=== PATIENT | male | born 1950 | race Asian ===

== ENCOUNTER → 2020-07-28 07:01 | Outpatient (CLI) | payer MEDICARE, OTHER, SELFPAY ==
[2020-07-28 09:00] LABS: Hemoglobin A1C% w Est Avg Glu 6.8 % (4.0-6.0)
[2020-07-28 09:18] LABS: Alanine Aminotransferase 22 IU/L (<50); Albumin 3.9 g/dL (3.5-5.0); Albumin Globulin Ratio 1.6 (1.0-2.8); Alkaline Phosphatase 55 U/L (38-126); Aspartate Aminotransferase 25 IU/L (17-59); BUN Creatinine Ratio 24.7 (6-22); Bilirubin Total 0.7 mg/dL (0.2-1.3); Blood Urea Nitrogen 20 mg/dL (9-20); Calcium 9.6 mg/dL (8.4-10.2); Carbon Dioxide 31 mmol/L (22-32); Chloride 105 mmol/L (98-107); Cholesterol 93 mg/dL (140-199); Estimated Glomerular Filt Rate > 60.0 mL/min (>60); Globulin 2.4 g/dL (1.7-4.1); Glucose 150 mg/dL (80-110); HDL Cholesterol 42 mg/dL (40-60); HEMOLYSIS < 15 (0-50); LDL Cholesterol Calculated 38 mg/dL (<100); Potassium 3.8 mmol/L (3.4-5.1); Sodium 137 mmol/L (137-145); Total Protein 6.3 g/dL (6.3-8.2); Triglycerides 64 mg/dL (35-150)
[2020-07-28 09:45] LABS: Creatinine Urine Random 87.7 mg/dL
[2020-07-28 09:55] LABS: Microalbumin Urine Random < 0.6 mg/dL (0-1.6)
[2020-07-29 07:18] LABS: PSA Free % 31.1 % (.); PSA, Total 0.9 ng/mL (0.0-4.0)
== END ==
PROVIDERS: PCP Family Medicine; Referring Provider Family Medicine; Visit Provider Family Medicine
DX: E11.9 Type 2 diabetes mellitus without complications (principal); N40.0 Benign prostatic hyperplasia without lower urinary tract symptoms
CPT/HCPCS: 36415; 80053; 80061; 82043; 82570; 83036; 84153; 84154

== ENCOUNTER → 2021-01-09 07:23 | Outpatient (CLI) | payer MEDICARE, OTHER, SELFPAY ==
[2021-01-09 07:49] LABS: Hemoglobin A1C% w Est Avg Glu 7.1 % (4.0-6.0)
[2021-01-09 07:56] LABS: Cholesterol 123 mg/dL (140-199); HDL Cholesterol 42 mg/dL (40-60); LDL Cholesterol Calculated 55 mg/dL (<100); Triglycerides 129 mg/dL (35-150)
== END ==
PROVIDERS: PCP Family Medicine; Referring Provider Family Medicine; Visit Provider Family Medicine
DX: E11.9 Type 2 diabetes mellitus without complications (principal); E78.2 Mixed hyperlipidemia
CPT/HCPCS: 36415; 80061; 83036

== ENCOUNTER → 2021-04-10 07:00 | Outpatient (CLI) | payer MEDICARE, OTHER, SELFPAY ==
[2021-04-10 08:59] LABS: Add Manual Diff / Slide Review NO; Basophils Absolute Auto 0 /uL (0-100); Basophils Percent Auto 0.7 % (0-2); Eosinophils Absolute Auto 100 /uL (0-450); Eosinophils Percent Auto 1.9 % (2-4); Hematocrit 40.3 % (41-53); Hemoglobin 13.7 g/dL (13.5-17.5); Lymphocytes Absolute Auto 1800 /uL (1100-4500); Lymphocytes Percent Auto 33.8 % (25-40); Mean Corpuscular HGB Conc 34.1 % (30-36); Mean Corpuscular Hemoglobin 32.3 PG (26-34); Mean Corpuscular Volume 94.9 fL (80-100); Monocytes Absolute Auto 400 /uL (0-900); Monocytes Percent Auto 6.9 % (3-14); Neutrophils Absolute Auto 3000 /uL (1500-7000); Neutrophils Percent Auto 56.7 % (50-75); Platelet Count 153 X10^3/uL (150-400); Red Blood Cell Count 4.25 X10^6/uL (4.5-5.9); Red Cell Distribution Width 12.7 % (11.6-14.8); White Blood Cell Count 5.3 X10^3/uL (4.5-11.0)
[2021-04-10 09:01] LABS: Hemoglobin A1C% w Est Avg Glu 7.1 % (4.0-6.0)
[2021-04-10 09:08] LABS: Alanine Aminotransferase 51 IU/L (<50); Albumin 4.1 g/dL (3.5-5.0); Albumin Globulin Ratio 1.6 (1.0-2.8); Alkaline Phosphatase 62 U/L (38-126); Aspartate Aminotransferase 46 IU/L (17-59); BUN Creatinine Ratio 27.1 (6-22); Bilirubin Total 0.5 mg/dL (0.2-1.3); Blood Urea Nitrogen 16 mg/dL (9-20); C-Reactive Protein Quant < 0.5 mg/dL (<1.0); Calcium 10.1 mg/dL (8.4-10.2); Carbon Dioxide 30 mmol/L (22-32); Chloride 103 mmol/L (98-107); Creatine Kinase 71 U/L (55-170); Estimated Glomerular Filt Rate > 60.0 mL/min (>60); Globulin 2.5 g/dL (1.7-4.1); Glucose 146 mg/dL (80-110); HEMOLYSIS < 15 (0-50); Potassium 4.4 mmol/L (3.4-5.1); Sodium 140 mmol/L (137-145); Total Protein 6.6 g/dL (6.3-8.2)
[2021-04-10 09:28] LABS: Erythrocyte Sedimentation Rate 5 MM/HR (0-15)
== END ==
PROVIDERS: PCP Family Medicine; Referring Provider Family Medicine; Visit Provider Family Medicine
DX: R53.83 Other fatigue (principal); E11.9 Type 2 diabetes mellitus without complications; R29.898 Other symptoms and signs involving the musculoskeletal system
CPT/HCPCS: 36415; 80053; 82550; 83036; 85025; 85651; 86140

== ENCOUNTER → 2021-04-28 15:09 | Outpatient (CLI) | payer MEDICARE, OTHER, SELFPAY ==
--- NOTE | 2021-04-28 15:18 | DIET.PN ---
Initial Diabetes Assessment Name: Koby Coe Date: 04/28/21 Time: 8895-9719 Preferred Name: Koby Dx: Type II Diabetes Provider: Gilson Preferred Learning Style: Listening/Doing/Reading PMH: HLD Presents for initial medical nutrition therapy diabetes assessment. Endorses DM dx in 1999. Denies symptoms of hyperglycemia or complications. States he wishes he had symptoms with high blood sugars, because then he would be motivated to make changes. Does endorse polyuria. Taking Tamsulosin. Does not attribute this to hyperglycemia, though may play a role. Frequent urination impacts how much water he will drink per his report. 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 Checks feet regularly. States he has had one DM education meeting when diagnosed. Never took classes. 2-3 years ago suggested diet without meat, fish, low dairy after reading a diet book. States this results in mostly vegetables at meals. Supplements protein through shakes and plant based proteins. Some sweets in the evenings per diet recall. States he has a sweet tooth which results in candy bars and ice cream sometimes. Has questions about the high protein pastas he and his eat. Wondering about carb content. Reports h/o Trulicity over 2-3 years ago. Endorses an HgA1c of 5.6% at that time. Was subsequently taken off Trulicity and started Metformin. Currently maxed on Metformin XR and experiencing some hyperglycemia in the morning (see SMBG below). States Trulicity was expensive and though he may be open to taking additional meds if needed, without symptoms of hyperglycemia he is less apt to take more meds. Discussed potential for making lifestyle changes since his HgA1c is 7.1%, very close to well managed DM. Diet Recall: 8am: muscle milk and fruit (15-30g CHO) 12p: salad with hemp seeds and 1.5c watermelon (20-30g CHO) 330p: smoothie (estimated: 30g CHO) 6-8p: salad and impossible beef OR imp beef meatloaf with small potatoes OR 2c protein pasta on salad (6-60g CHO) Dessert: 4x per week 1.5c ice cream (40-50g CHO) 9-10p: muscle milk or apple and PB with hemp hearts (0-30g CHO) Beverages: water 64oz Anthropometrics: Ht: 5'11 Wt: 210.25# Physical Activity: Walking 10, 000+ steps five days per week. Barrier: LE fatigue (discussed with provider. will see specialist) Self-Monitoring Blood Glucose: All fastings above ADA targets. 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 HS readings vary, which seems unclear if this is due to sometimes having dessert prior. Most within goal, with exception of 04/26 reading of 185 mg/dL. Date Pre Post Pre Post Pre HS 04/21 153 8/ 146 8/ 155 140 8/14 153 15 148 185 16 137 142 / 145 Pertinent Labs: HgA1c 7.1% Diabetes Medications: Metformin XR 2000 mg HS Nutrition Rx: Carbohydrates: Meal:30-45g Snack: 15-30g Nutrition Diagnosis: - Excessive CHO intake r/t nutrition knowledge deficit of label reading and carb recs aeb diet recall and pt report Intervention: This participant was very receptive. Provided appropriate educational handouts. Discussed the following topics: - Completed intake assessment. Discussed barriers to care. - Pathophysiology of bjorn phenomenon - HgA1c and goal - Importance of self-monitoring, how often, and when to check. -Plate Method, impact of macronutrients on blood sugar, carb counting, pairing macronutrients and spreading out CHO for better BG mgmnt - Rec servings for carbohydrates at meals and snacks - Label reading - Brainstormed appropriate meal plan based on food preferences - Role of physical activity - Created SMART goals for pt self-care and success. Goals: - Aim for 1-1.5c protein pasta or less at meals - Aim for 1c ice cream or less - Write down blood sugars, evening snack, dessert, and time (bring to next appt) Follow-up: YUVAL MEYER follow-up in3 weeks Vivian Cobb RDN, BETSY Certified Diabetes Care and Tailings Worker P: [phone] Thank you for this referral
== END ==
PROVIDERS: PCP Family Medicine; Referring Provider Family Medicine; Visit Provider Family Medicine
DX: E11.9 Type 2 diabetes mellitus without complications (principal); Z79.84 Long term (current) use of oral hypoglycemic drugs; Z71.3 Dietary counseling and surveillance
CPT/HCPCS: 97802

== ENCOUNTER → 2021-05-09 12:02 | Outpatient (CLI) | payer MEDICARE, OTHER, SELFPAY ==
[2021-05-09 13:28] LABS: COVID19 -Nasal RAPID Negative (Negative)
== END ==
PROVIDERS: PCP Family Medicine; Visit Provider Nurse Practitioner
DX: Z01.812 Encounter for preprocedural laboratory examination (principal); Z20.822 Contact with and (suspected) exposure to COVID-19
CPT/HCPCS: 87635; C9803

== ENCOUNTER 2021-05-12 06:30 | Day surgery (SDC) | payer MEDICARE, OTHER, SELFPAY ==
[2021-05-12 06:50] VITALS: BP 110/69; PULSE 86; RESP 14; TEMP 36.4; O2SAT 97; BMI 27.1
[2021-05-12] MEDS: PROPARACAINE 0.5% OPHTH SOL 2 DROPS EYE-OP (07:09)
[2021-05-12] MEDS: CATARACT EYE COMPOUND (10 DROPS/SYRINGE) 3 DROPS EYE-OP (07:09)
--- NOTE | 2021-05-12 07:30 | PM.PREOP ---
Pre-operative Note Interval Note History & Physical reviewed/Exam performed by Physician: Yes Changes to H&P: No
--- NOTE | 2021-05-12 07:30 | PM.OP.1 ---
Operative Date/Time/Diagnoses Pre-op diagnosis: Nuclear Cataract Left eye Post-op diagnosis: same Procedure & Clinicians Same procedure as scheduled: Yes Surgeon: Familia Ocampo Anesthesia Type: MAC +/- and Sedation Operative Notes Procedure in detail: Patient brought to the operating suite. Tetracaine drops placed in the left eye. Patient was prepped and draped in sterile manner. Wire lid speculum was placed in the eye. Betadine drops were placed on the eye. This was irrigated. Lidocaine jelly was placed on the eye. A paracentesis port was created with a side-port blade. 0.1 mL 1% preservative free lidocaine was injected into the anterior chamber. The anterior chamber was deepened with viscoelastic. 2.6 mm keratome was used to create a temporal clear corneal incision. Cystotome and Utrata forceps were used to create continuous tear capsulorrhexis. Balanced salt solution was used to hydro dissect the nucleus. The phacoemulsification handpiece was inserted and the nucleus was removed using the stop and chop technique. The irrigation aspiration handpiece was inserted and the remaining cortex was removed. Anterior chamber was deepened with viscoelastic. An Flores ZXR00 intraocular lens with a power of 21.5 was injected into the capsular bag. Irrigation aspiration handpiece was inserted and the remaining viscoelastic was removed. Incision was hydrated with balanced salt solution and found to be leak free with pressure with Weck-Maricel sponges. 0.1 mL Vigamox injected anterior chamber. 0.3 mL Kenalog 10 mg was injected subconjunctivally. Lid speculum was removed. The patient left the operating room in excellent condition. Complications: none Post-operative Condition: stable Disposition: same day surgery
[2021-05-12] MEDS: HYALURONATE SODIUM 30 MG-10 MG/ML SYRINGES 1 BOX INTRAOCULA (07:46)
[2021-05-12] MEDS: LIDOCAINE 2% (GLYDO) 6 ML GEL TOP (07:46)
[2021-05-12] MEDS: MOXIFLOXACIN INJ 4 MG/0.8 ML VIAL 0.5 MG EYE-OP (07:47)
[2021-05-12] MEDS: PHENYLEPHRINE/LIDOCAINE VIAL (OR) 0.2 ML EYE-OP (07:47)
[2021-05-12] MEDS: BALANCED SALT IRRIG SOLN NO.2 500 ML, EPINEPHrine 1 MG IRR (07:48)
[2021-05-12] MEDS: TETRACAINE 0.5% OPHTH DROPS 4 ML 2 DROPS EYE-OP (07:48)
[2021-05-12] MEDS: TRIAMCINOLONE 50 MG/5 ML VIAL INJ (07:48)
[2021-05-12 08:13] VITALS: BP 106/66; PULSE 75; RESP 13; TEMP 36.7; O2SAT 97
== END 2021-05-12 08:19 | disposition home or self-care (01) ==
PROVIDERS: PCP Family Medicine; Referring Provider Ophthalmology; Visit Provider Ophthalmology
PROC: (CPT 66984; principal; 2021-05-12 07:45)
DX: H25.12 Age-related nuclear cataract, left eye (principal); I10 Essential (primary) hypertension; E11.9 Type 2 diabetes mellitus without complications; Z79.84 Long term (current) use of oral hypoglycemic drugs
CPT/HCPCS: 66984; J0171; J2250; J3301; V2788

== ENCOUNTER → 2021-05-21 15:32 | Outpatient (CLI) | payer MEDICARE, OTHER, SELFPAY ==
--- NOTE | 2021-05-21 16:49 | DIAB.FU ---
Addendum entered by Vivian Cobb 05/21/21 17:23: Date: 05/21/2021 Time: 340-435p Original Note: Follow-up Diabetes Education Assessment Name: Koby Coe Date: 04/28/21 Time: [id number] Preferred Name: Koby Dx: Type II Diabetes Provider: Gilson Grace Learning Style: Listening/Doing/Reading PMH: HLD Koby reports reducing carb portions at dinner. Still having larger ice cream portions (1.5c). Reviewing HgA1c and weight hx, seems his weight is about 8# higher along with the slight increase in HgA1c. Attributes this weight gain to reduced physical activity r/t leg issues. States legs feel like they aren't there. They don't do what I want them to sometimes. Plans to see neurologist for this in [place] as referred by provider. Koby has a reported DM medication hx with Januvia and Trulicity. No reported SE. Currently only taking Metformin and experiencing continued fasting hyperglycemia. Anthropometrics: Ht: 5'11 Wt: 210.25# Physical Activity: Today he reports only walking his 10,000 steps per day a few times per week. No other phys activity on other days. Has h/o weight training and other exercises with access to equipment at home. States he was walking 60,000 steps per week last year. This has drastically reduced to 10,000-40,000 per week this year. Self-Monitoring Blood Glucose: Most fastings continue above target. pc dinner readings mostly in range. See bolded elevations below. Elevations in the morning seem r/t hormones, bjorn phenomenon? Readings elevated the next morning even when he walks the day before. Overall, he does not seem concerned about the elevations given HgA1c was 7.1%, though he is open to increasing other forms of phys activity. Date Pre Post Pre Post Pre Post 04/30 141 180 05/01 181 05/02 151 154 05/03 139 05/04 151 170 05/05 130 118 05/06 115 133 05/07 128 155 05/08 149 05/10 153 9/3 124 9/4 181 9/5 161 9/6 138 9/8 183 9/9 130 Pertinent Labs: HgA1c 7.1% Diabetes Medications: Metformin XR 2000 mg HS Nutrition Rx: Carbohydrates: Meal:30-45g Snack: 15-30g Intervention: This participant was very receptive. Provided appropriate educational handouts. Discussed the following topics: - Recent BG trends and impact of hormones vs lifestyle - Barrier to phys activity - Safe phys activity he enjoys - Weight impact on BG - Weight and physical activity changes -- impact on HgA1c - Medication options if he and provider decide to go that route - SMART goals If provider would like to provide medication to manage fastings, Koby would probably benefit from returning to low dose GLP1RA or perhaps trying SGLT2i (pending contraindications). Another consideration could be, given his age and lack of symptoms, continuing with Metformin and lifestyle. I have discussed both options with Koby. He seems more on-board with current regimen, which also seems appropriate at this time. Goals: - Aim for 1-1.5c protein pasta or less at meals- met - Aim for 1c ice cream or less - in progress - Write down blood sugars, evening snack, dessert, and time (bring to next appt) - met - Try resistance training safely 2 x per week - new Follow-up: YUVAL MEYER follow-up prn. Provided my contact info and encouraged him to call with any questions/concerns. He agreed to this plan. Vivian Cobb RDN, BETSY Certified Diabetes Care and Content Creation Manager P: [phone] Thank you for this referral
== END ==
PROVIDERS: PCP Family Medicine; Referring Provider Family Medicine; Visit Provider Family Medicine
DX: E11.9 Type 2 diabetes mellitus without complications (principal); E78.5 Hyperlipidemia, unspecified; Z79.84 Long term (current) use of oral hypoglycemic drugs; Z71.3 Dietary counseling and surveillance
CPT/HCPCS: G0108

== ENCOUNTER → 2021-05-25 08:04 | Outpatient (CLI) | payer MEDICARE, OTHER, SELFPAY ==
[2021-05-25 13:30] LABS: COVID19 -Nasal RAPID Negative (Negative)
== END ==
PROVIDERS: PCP Family Medicine; Visit Provider Nurse Practitioner Family
DX: Z01.812 Encounter for preprocedural laboratory examination (principal); Z20.822 Contact with and (suspected) exposure to COVID-19
CPT/HCPCS: 87635; C9803

== ENCOUNTER 2021-05-26 06:25 | Day surgery (SDC) | payer MEDICARE, OTHER, SELFPAY ==
[2021-05-26] MEDS: PROPARACAINE 0.5% OPHTH SOL 2 DROPS EYE-OP (06:53)
[2021-05-26] MEDS: CATARACT EYE COMPOUND (10 DROPS/SYRINGE) 3 DROPS EYE-OP (07:00)
[2021-05-26 07:04] VITALS: BP 123/74; PULSE 78; RESP 20; TEMP 36.5; O2SAT 99; BMI 27.8
--- NOTE | 2021-05-26 07:29 | PM.PREOP ---
Pre-operative Note Interval Note History & Physical reviewed/Exam performed by Physician: Yes Changes to H&P: No
--- NOTE | 2021-05-26 07:29 | PM.OP.1 ---
Operative Date/Time/Diagnoses Pre-op diagnosis: Nuclear cataract right eye Procedure & Clinicians Procedure: Cataract Surgery Same procedure as scheduled: Yes Surgeon: Familia Ocampo Anesthesia Type: MAC +/- and Sedation Operative Notes Procedure in detail: Patient brought to the operating suite. Tetracaine drops placed in the right eye. Patient was prepped and draped in sterile manner. Wire lid speculum was placed in the eye. Betadine drops were placed on the eye. This was irrigated. Lidocaine jelly was placed on the eye. A paracentesis port was created with a side-port blade. 0.1 mL 1% preservative free lidocaine was injected into the anterior chamber. The anterior chamber was deepened with viscoelastic. 2.6 mm keratome was used to create a temporal clear corneal incision. Cystotome and Utrata forceps were used to create continuous tear capsulorrhexis. Balanced salt solution was used to hydro dissect the nucleus. The phacoemulsification handpiece was inserted and the nucleus was removed using the stop and chop technique. The irrigation aspiration handpiece was inserted and the remaining cortex was removed. Anterior chamber was deepened with viscoelastic. An Flores ZXR00 intraocular lens with a power of 21.0 was injected into the capsular bag. Irrigation aspiration handpiece was inserted and the remaining viscoelastic was removed. Incision was hydrated with balanced salt solution and found to be leak free with pressure with Weck-Maricel sponges. 0.1 mL Vigamox injected anterior chamber. 0.3 mL Kenalog 10 mg was injected subconjunctivally. Lid speculum was removed. The patient left the operating room in excellent condition. Complications: none Post-operative Condition: stable Disposition: same day surgery
[2021-05-26] MEDS: HYALURONATE SODIUM 30 MG-10 MG/ML SYRINGES 1 BOX INTRAOCULA (07:50)
[2021-05-26] MEDS: LIDOCAINE 2% (GLYDO) 6 ML GEL TOP (07:50)
[2021-05-26] MEDS: MOXIFLOXACIN INJ 4 MG/0.8 ML VIAL 0.5 MG EYE-OP (07:51)
[2021-05-26] MEDS: PHENYLEPHRINE/LIDOCAINE VIAL (OR) 0.2 ML EYE-OP (07:51)
[2021-05-26] MEDS: TETRACAINE 0.5% OPHTH DROPS 4 ML 2 DROPS EYE-OP (07:51)
[2021-05-26] MEDS: TRIAMCINOLONE 50 MG/5 ML VIAL INJ (07:54)
[2021-05-26] MEDS: BALANCED SALT IRRIG SOLN NO.2 500 ML, EPINEPHrine 1 MG IRR (07:55)
[2021-05-26 08:04] VITALS: BP 92/60; PULSE 71; RESP 16; TEMP 36.6; O2SAT 97
[2021-05-26 08:16] VITALS: BP 97/63
== END 2021-05-26 08:25 | disposition home or self-care (01) ==
PROVIDERS: PCP Family Medicine; Referring Provider Ophthalmology; Visit Provider Ophthalmology
PROC: (CPT 66984; principal; 2021-05-26 07:45)
DX: H25.11 Age-related nuclear cataract, right eye (principal); I10 Essential (primary) hypertension; E11.9 Type 2 diabetes mellitus without complications; E78.00 Pure hypercholesterolemia, unspecified; Z79.84 Long term (current) use of oral hypoglycemic drugs; E78.5 Hyperlipidemia, unspecified; N40.0 Benign prostatic hyperplasia without lower urinary tract symptoms
CPT/HCPCS: 66984; J0171; J2250; J3301; V2788

== ENCOUNTER → 2021-05-30 10:03 | Outpatient (CLI) | payer MEDICARE, OTHER, SELFPAY ==
[2021-05-30 12:18] LABS: BUN Creatinine Ratio 26.2 (6-22); Blood Urea Nitrogen 16 mg/dL (9-20); Calcium 9.5 mg/dL (8.4-10.2); Carbon Dioxide 33 mmol/L (22-32); Chloride 104 mmol/L (98-107); Estimated Glomerular Filt Rate > 60.0 mL/min (>60); Glucose 165 mg/dL (80-110); HEMOLYSIS 16 (0-50); Potassium 3.8 mmol/L (3.4-5.1); Sodium 142 mmol/L (137-145)
== END ==
PROVIDERS: PCP Family Medicine; Referring Provider Family Medicine; Visit Provider Family Medicine
DX: E78.2 Mixed hyperlipidemia (principal); E11.9 Type 2 diabetes mellitus without complications
CPT/HCPCS: 36415; 80048

== ENCOUNTER → 2021-07-29 09:30 | Outpatient (CLI) | payer MEDICARE, OTHER, SELFPAY ==
[2021-07-29 10:59] LABS: COVID19 -Nasal RAPID Negative (Negative)
== END ==
PROVIDERS: PCP Family Medicine; Referring Provider Surgery; Visit Provider Surgery
DX: Z01.812 Encounter for preprocedural laboratory examination (principal); Z20.822 Contact with and (suspected) exposure to COVID-19
CPT/HCPCS: 87635; C9803

== ENCOUNTER 2021-07-30 08:02 | Day surgery (SDC) | payer MEDICARE, OTHER, SELFPAY ==
[2021-07-30 08:34] VITALS: BP 145/82; PULSE 77; RESP 16; TEMP 36.5; O2SAT 96; BMI 27.4
[2021-07-30] MEDS: LACTATED RINGERS 1,000 ML 42 ML IV (08:50)
--- NOTE | 2021-07-30 09:45 | PM.HP.1 ---
History of Present Illness History of Present Illness Date Patient Seen: 07/30/21 Time Patient Seen: 09:46 Chief complaint: SDC Narrative: Koby is a 71-year-old man who is here for a screening colonoscopy. His last colonoscopy was 5 years ago and polyps were found. He was given a recommendation for 5 year interval. No other problems to report. 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 Family & Social History Social History: household members spouse Tobacco & Substance use: Smoking Status Former smoker alcohol intake current alcohol intake frequency holiday/special occasion Substance Use Type marijuana Meds Home Medications and Allergies Home Medications Medication Instructions Recorded Confirmed Type naproxen sodium 220 mg tablet 220 mg PO BIDCC PRN #0 08/19/16 07/30/21 History (Aleve) calcium citrate 250 mg 2 tab PO BID 06/06/20 07/30/21 History calcium-vitamin D3 5 mcg (200 unit) tablet (Citracal Regular) prasterone (dhea) 50 mg capsule 50 mg PO DAILY 06/06/20 07/30/21 History (DHEA) proargi-9 1 tab PO DAILY 06/06/20 07/30/21 History tamsulosin 0.4 mg capsule (Flomax) 0.4 mg PO BID #180 cap 11/21/20 07/30/21 Rx blood sugar diagnostic (Blood #100 ea 03/03/21 04/08/21 Rx Glucose Test) ipratropium bromide 21 mcg (0.03 See Rx Instructions .ROUTE 03/19/21 07/30/21 Rx %) nasal spray .COMPLEX #30 ml lisinopril 5 mg tablet 5 mg PO DAILY #90 tab 05/06/21 07/30/21 Rx cholecalciferol (vitamin D3) 125 125 mcg PO DAILY 05/12/21 07/30/21 History mcg (5,000 unit) tablet (Vitamin D3) glucosamine 750 mg-MSM 60 1 tab PO DAILY 05/12/21 07/30/21 History mg-chondroit 150 mg-hyaluron ac 1 mg tablet magnesium chloride 64 mg PO DAILY 05/12/21 07/30/21 History multivitamin with iron 1 tab PO DAILY 05/12/21 07/30/21 History potassium chloride 10 mEq 40 meq PO BID 05/12/21 07/30/21 History capsule,extended release vitamin B complex 1 tab PO DAILY 05/12/21 07/30/21 History metformin 500 mg tablet,extended See Rx Instructions .ROUTE 05/14/21 07/30/21 Rx release 24 hr .COMPLEX #120 tab tolterodine 4 mg capsule,extended See Rx Instructions .ROUTE 05/29/21 07/30/21 Rx release 24 hr .COMPLEX #90 cap atorvastatin 40 mg tablet 40 mg PO HS #90 tab 07/16/21 07/30/21 Rx Allergies Allergy/AdvReac Type Severity Reaction Status Date / Time No Known Drug Allergies Allergy Verified 07/30/21 08:24 Exam Vital Signs (past 8 hours): - 07/30/21 08:34 Temperature 97.7 F Pulse Rate 77 Respiratory Rate 16 Blood Pressure 145/82 H Pulse Oximetry 96 Oxygen Delivery Method Room Air Const General: healthy appearing and comfortable HENMT Head: atraumatic Eyes General: appearance normal, both eyes and all related structures Resp Effort & Inspection: normal respiratory effort Assessment & Plan Assessment and plan (1) Colon cancer screening: Status: Acute Plan Reviewed the risks and benefits colonoscopy and he would like to proceed. Time Spent With Patient Critical Care time: I spent a total of [] minutes of critical care time on this patient's care today; this time is exclusive of procedural time.
[2021-07-30] MEDS: fentaNYL 250 MCG/5 ML INJ IV (10:04)
[2021-07-30] MEDS: MIDAZOLAM 5 MG/5 ML VIAL IV (10:04)
--- NOTE | 2021-07-30 10:44 | PM.OP.COLON ---
Operative Date/Time/Diagnoses Date of procedure: 07/30/21 Time of procedure: 10:45 Pre-op diagnosis: History of colon polyps Post-op diagnosis: same Procedure & Clinicians Study performed: Colonoscopy Same procedure as scheduled: Yes Indications: History of colon polyps 5 years ago Surgeon: Zain Georges Procedure Notes SCOAP/Timeout: Yes Procedure in detail: Procedure: The patient was brought to the endoscopy suite, placed in left lateral decubitus position. The patient was connected to monitoring devices. A time-out was performed. Sedation was administered. Once the patient was adequately sedated, a digital rectal exam was performed and was normal. The scope was then inserted and advanced to the cecum where the appendiceal orifice was identified and photographed. The scope was then slowly withdrawn over greater than 6 minutes. Mucosa was thoroughly inspected. There were diverticula throughout the colon including the cecum and most significantly in the sigmoid colon. The scope was retroflexed in the rectum. No abnormalities were noted. The scope was straightened and removed. The patient was awakened and brought to recovery. EBL: 0 Findings: Pandiverticulosis, greatest in the sigmoid colon Scope withdrawal time: 26 Sedation minutes: 49 Findings: divertiulosis Post-procedure Recommendations: Colonoscopy in 10 years
[2021-07-30 10:45] VITALS: BP 108/62; PULSE 62; RESP 14; TEMP 36.3; O2SAT 96
[2021-07-30 10:50] VITALS: BP 112/66; PULSE 60; RESP 12
[2021-07-30 11:06] VITALS: BP 115/66; PULSE 68; RESP 18; TEMP 36.3; O2SAT 98
[2021-07-30 11:30] VITALS: BP 125/67; PULSE 65; RESP 15; TEMP 36.7; O2SAT 100
== END 2021-07-30 11:45 | disposition home or self-care (01) ==
PROVIDERS: PCP Family Medicine; Referring Provider Surgery; Visit Provider Surgery
PROC: 0DJD8ZZ Inspection of Lower Intestinal Tract, Via Natural or Artificial Opening Endoscopic (ICD-10-PCS; CPT 45378; principal; 2021-07-30 09:45)
DX: Z12.11 Encounter for screening for malignant neoplasm of colon (principal); Z86.010 Personal history of colon polyps; E11.9 Type 2 diabetes mellitus without complications; Z79.84 Long term (current) use of oral hypoglycemic drugs; K57.30 Diverticulosis of large intestine without perforation or abscess without bleeding
CPT/HCPCS: G0105; 99152; 99153; J2250; J3010

== ENCOUNTER → 2021-08-21 08:02 | Outpatient (CLI) | payer MEDICARE, OTHER, SELFPAY ==
[2021-08-21 08:51] LABS: Hemoglobin A1C% w Est Avg Glu 7.1 % (4.0-6.0)
[2021-08-21 09:09] LABS: Alanine Aminotransferase 32 IU/L (<50); Albumin 4.4 g/dL (3.5-5.0); Albumin Globulin Ratio 1.9 (1.0-2.8); Alkaline Phosphatase 70 U/L (38-126); Aspartate Aminotransferase 28 IU/L (17-59); BUN Creatinine Ratio 24.7 (6-22); Bilirubin Total 0.5 mg/dL (0.2-1.3); Blood Urea Nitrogen 18 mg/dL (9-20); Carbon Dioxide 29 mmol/L (22-32); Chloride 101 mmol/L (98-107); Estimated Glomerular Filt Rate > 60.0 mL/min (>60); Globulin 2.3 g/dL (1.7-4.1); Glucose 162 mg/dL (80-110); HEMOLYSIS < 15 (0-50); Potassium 4.3 mmol/L (3.4-5.1); Sodium 140 mmol/L (137-145); Total Protein 6.7 g/dL (6.3-8.2)
== END ==
PROVIDERS: PCP Family Medicine; Referring Provider Family Medicine; Visit Provider Family Medicine
DX: E11.9 Type 2 diabetes mellitus without complications (principal); E78.2 Mixed hyperlipidemia
CPT/HCPCS: 36415; 80053; 83036

== ENCOUNTER → 2021-09-28 08:35 | Outpatient (CLI) | payer MEDICARE, OTHER, SELFPAY ==
[2021-09-28 11:10] LABS: Cholesterol 214 mg/dL (140-199); HDL Cholesterol 35 mg/dL (40-60); LDL Cholesterol Calculated 151 mg/dL (<100); Triglycerides 140 mg/dL (35-150)
== END ==
PROVIDERS: PCP Family Medicine; Referring Provider Psychiatry & Neurology Neurology; Visit Provider Psychiatry & Neurology Neurology
DX: E78.2 Mixed hyperlipidemia (principal)
CPT/HCPCS: 36415; 80061

== ENCOUNTER → 2021-12-31 08:17 | Outpatient (CLI) | payer MEDICARE, OTHER, SELFPAY ==
[2021-12-31 09:38] LABS: Cholesterol 199 mg/dL (140-199); HDL Cholesterol 33 mg/dL (40-60); LDL Cholesterol Calculated 131 mg/dL (<100); Triglycerides 173 mg/dL (35-150)
[2021-12-31 10:02] LABS: Hemoglobin A1C% w Est Avg Glu 7.1 % (4.0-6.0)
== END ==
PROVIDERS: PCP Family Medicine; Referring Provider Family Medicine; Visit Provider Family Medicine
DX: E11.9 Type 2 diabetes mellitus without complications (principal); E78.2 Mixed hyperlipidemia
CPT/HCPCS: 36415; 80061; 83036

== ENCOUNTER 2022-03-01 15:59 | Emergency (ER) | payer MEDICARE, OTHER, SELFPAY ==
[2022-03-01 16:13] VITALS: BP 110/61; PULSE 83; RESP 18; TEMP 35.9; O2SAT 96; BMI 27.8
[2022-03-01] MEDS: LIDOCAINE 1% 20 ML 10 ML INJ (18:38)
[2022-03-01] MEDS: TET,DIPH,PERTUSS(ACELL),VAC/PF 0.5 ML SYRINGE IM (18:38)
--- NOTE | 2022-03-01 19:05 | ED.FALL ---
HPI - Fall <Bob Hays PA-C - Last Filed: 03/01/22 19:53> General Chief Complaint: Fall Stated Complaint: Fall, Head Laceration Time Seen by Provider: 03/01/22 18:24 Source: patient Mode of arrival: Ambulatory History of Present Illness HPI Narrative: Patient is a 72-year-old male who presents to the emergency department today for evaluation of a right eyebrow laceration. Patient states that earlier today he was doing yd work he bent forward to uses drill. He states that while bent forward he lost his balance causing him to fall forward and strike the right side of his head on the curb. Of note, patient denies any loss of consciousness and states he is not anticoagulated daily. He states that he has not received a tetanus shot or at least the past 9 years. He denies any fever, chills, chest pain, cough, shortness of breath nausea, vomiting, diarrhea, constipation, abdominal pain, dysuria, hematuria, or any other concerning symptoms. No further concerns were voiced at this time. Related Data Home Medications Medication Instructions Recorded Confirmed naproxen sodium 220 mg tablet 220 mg PO BIDCC PRN Pain (Scale 08/19/16 10/06/21 (Aleve) Score 1-3) ##0 prasterone (dhea) 50 mg capsule 50 mg PO DAILY 06/06/20 10/06/21 (DHEA) cholecalciferol (vitamin D3) 125 125 mcg PO DAILY 05/12/21 10/06/21 mcg (5,000 unit) tablet (Vitamin D3) glucosamine 750 mg-MSM 60 1 tab PO DAILY 05/12/21 10/06/21 mg-chondroit 150 mg-hyaluron ac 1 mg tablet magnesium chloride 64 mg 64 mg PO DAILY 05/12/21 10/06/21 (magnesium chloride) tablet multivitamin with iron 1 tab PO DAILY 05/12/21 10/06/21 vitamin B complex 1 tab PO DAILY 05/12/21 10/06/21 aspirin 81 mg tablet,delayed 81 mg PO .qod 10/06/21 10/06/21 release (Adult Low Dose Aspirin) Previous Rx's Medication Instructions Recorded blood sugar diagnostic (Blood #100 ea 03/03/21 Glucose Test strips) flash glucose scanning reader #1 ea 08/19/21 (FreeStyle Gloria 14 Day Killen) flash glucose sensor (FreeStyle #1 ea 08/19/21 Gloria 14 Day Sensor kit) lisinopril 5 mg tablet 5 mg PO DAILY #90 tabs 10/01/21 metformin 500 mg tablet,extended 2,000 mg PO DAILY #360 tabs 10/01/21 release 24 hr tamsulosin 0.4 mg capsule (Flomax) 0.4 mg PO BID #180 caps 10/12/21 ipratropium bromide 21 mcg (0.03 See Rx Instructions .Route 01/26/22 %) nasal spray .COMPLEX #30 mL tolterodine 4 mg capsule,extended See Rx Instructions .Route 02/22/22 release 24 hr .COMPLEX #90 caps Allergies Allergy/AdvReac Type Severity Reaction Status Date / Time No Known Drug Allergies Allergy Verified 03/01/22 16:17 Review of Systems <Bob Hays PA-C - Last Filed: 03/01/22 19:53> Constitutional Constitutional: Denies chills, Denies fatigue, Denies fever(s), Denies frequent falls, Denies lethargy and Denies weakness ENT Ears, Nose, Mouth, and Throat: Denies neck pain Cardiovascular Cardiovascular: Denies chest pain, Denies irregular heart rhythm, Denies lightheadedness, Denies palpitations, Denies dyspnea, Denies dyspnea on exertion and Denies orthopnea Respiratory Respiratory: Denies dyspnea and Denies dyspnea on exertion Gastrointestinal Gastrointestinal: Denies abdominal pain, Denies change in bowel habits, Denies diarrhea, Denies nausea and Denies vomiting Genitourinary Genitourinary: Denies hematuria, Denies flank pain, Denies urinary incontinence and Denies urinary urgency Musculoskeletal Musculoskeletal: Denies back pain, Denies muscle weakness, Denies neck pain, Denies numbness and Denies tingling Integumentary/Breasts Skin/Breast: Denies pruritus, Denies erythema, Denies rash and Reports wounds (Right eyebrow laceration) Neurologic Neurologic: Denies frequent falls, Denies numbness, Denies tingling and Denies weakness Endocrine Endocrine: Denies fatigue and Denies palpitations Patient History <Bob Hays PA-C - Last Filed: 03/01/22 19:53> Medical History BPH (benign prostatic hyperplasia) Diabetes mellitus Hyperlipidemia 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 Social History household members: spouse Smoking Status: Former smoker alcohol intake: current substance use type: marijuana (vape ) Smoking Status: Former smoker alcohol intake frequency: holidays/special occasions only Substance Use Type: marijuana Exam <Bob Hays PA-C - Last Filed: 03/01/22 19:53> Narrative Exam Narrative: GENERAL: 72 year old patient appears stated age. Well-developed patient, in no acute distress. HEAD: Normocephalic. Approximately 1 cm linear laceration noted to the superior aspect of the right eyebrow laterally. No active discharge or bleeding appreciated. No foreign bodies appear retained within the laceration. No deep tissue structures appear involved in laceration. EYES: Pupils equal round and reactive. Extraocular motions intact. No scleral icterus. No injection or drainage. ENT: Nose without bleeding, purulent drainage. Throat without erythema, tonsillar hypertrophy or exudate. Airway patent. NECK: Trachea midline. Non tender CARDIOVASCULAR: Regular rate and rhythm without murmurs, gallops, or rubs. RESPIRATORY: Clear to auscultation. Breath sounds equal bilaterally. No wheezes, rales, or rhonchi. GASTROINTESTINAL: Abdomen soft, non-tender, nondistended. EXTREMITIES: No edema or joint tenderness. BACK: Nontender without deformity or crepitance. No flank tenderness. NEURO: AOx3. Gross motor function intact throughout the bilateral upper and lower extremities. Good sensation light touch appreciated throughout the bilateral upper and lower extremities. Patient answering questions appropriately. SKIN: No rash or erythema of visible areas Initial Vital Signs Initial Vital Signs: Vital Signs Temperature 96.7 F L 03/01/22 16:13 Pulse Rate 83 03/01/22 16:13 Respiratory Rate 18 03/01/22 16:13 Blood Pressure 110/61 03/01/22 16:13 Pulse Oximetry 96 03/01/22 16:13 Oxygen Delivery Method 03/01/22 16:13 <Cynthia Guo DO - Last Filed: 03/01/22 22:30> Initial Vital Signs Initial Vital Signs: Vital Signs Temperature 96.7 F L 03/01/22 16:13 Pulse Rate 83 03/01/22 16:13 Respiratory Rate 18 03/01/22 16:13 Blood Pressure 110/61 03/01/22 16:13 Pulse Oximetry 96 03/01/22 16:13 Oxygen Delivery Method 03/01/22 16:13 Procedures <DUNG Bowman Last Filed: 03/01/22 19:53> Laceration Repair Laceration 1: Time of procedure: 19:06 Site: other (Eyebrow) Side (If applicable): right Size (cm): 1 Description: linear Depth: simple, single layer Local Anesthetic: lidocaine 1% Amount of anesthesia used (mL): 3 Pre-repair: wound explored, irrigated extensively, deep structures intact and cleansed with chlorhexadine Skin layer closed with: nylon Skin layer suture size: 5-0 Number of sutures: 5 Technique: simple, interrupted Course <DUNG Bowman Last Filed: 03/01/22 19:53> Course Course Narrative: Wound cleaned with chlorhexidine prior to closure. Wound irrigated with normal saline. Wound edges approximated with nylon sutures. Patient tolerated procedure well. Orders Ordered: Discontinued Medications Diphtheria/Tetanus/Acell Pertussis (Tet,Diph,Pertuss(Acell),Vac/Pf 0.5 Ml Syringe) 0.5 ml IM .ONCE ONE Stop: 03/01/22 18:33 Last Admin: 03/01/22 18:38 Dose: 0.5 ml Documented By: RL Lidocaine HCl (Lidocaine 1% 20 Ml) 10 ml INJ INTRA-OP ONE Stop: 03/01/22 18:33 Last Admin: 03/01/22 18:38 Dose: 10 ml Documented By: RL Vital Signs Vital signs: Vital Signs - 8 hr 03/01/22 16:13 Temperature 96.7 F L Pulse Rate 83 Respiratory Rate 18 Blood Pressure 110/61 Pulse Oximetry 96 Oxygen Delivery Method Room Air <Cynthia Guo DO - Last Filed: 03/01/22 22:30> Orders Ordered: Discontinued Medications Diphtheria/Tetanus/Acell Pertussis (Tet,Diph,Pertuss(Acell),Vac/Pf 0.5 Ml Syringe) 0.5 ml IM .ONCE ONE Stop: 03/01/22 18:33 Last Admin: 03/01/22 18:38 Dose: 0.5 ml Documented By: RL Lidocaine HCl (Lidocaine 1% 20 Ml) 10 ml INJ INTRA-OP ONE Stop: 06/20/22 18:33 Last Admin: 03/01/22 18:38 Dose: 10 ml Documented By: TG Vital Signs Vital signs: Vital Signs - 8 hr 03/01/22 16:13 Temperature 96.7 F L Pulse Rate 83 Respiratory Rate 18 Blood Pressure 110/61 Pulse Oximetry 96 Oxygen Delivery Method Room Air MDM - Fall <Bob HaysDUNG - Last Filed: 03/01/22 19:53> [facility] Narrative Medical decision making narrative: Differential diagnosis to consider but not limited to abrasion versus superficial laceration versus deep tissue laceration. Physical examination overall reassuring. Wound edges were approximated well with five 5-0 nylon sutures and patient tolerated procedure well. I informed the patient that the sutures should remain in place for 5 days and be removed here in the ER, at urgent care, at the walk-in clinic, or with his primary care provider. I provided wound care instructions the patient. Patient expresses understanding and agrees to plan. Strict return precautions were discussed with the patient prior to discharge. Discharge Plan Departure Patient Disposition: Home Clinical Impression: Laceration of eyebrow, right Instructions: DI for Laceration Repair Activity Restrictions/Additional Instructions: *You have been diagnosed with right eyebrow laceration *What to do: *Please continue to take your regular medications as directed. [ ] New medication prescriptions sent to your pharmacy: [ ] [ ] New medication written as a paper prescription [X] No new medications given You were evaluated in the emergency department today for a right eyebrow laceration. The wound was closed well in the emergency department with nylon sutures. The sutures should remain in place for 5-7 days. Please return to the emergency department, visit Urgent Care, was walking clinic, or follow-up with your primary care provider to have the sutures removed. Keep the area clean with warm water and soap and pat the area dry. Follow-up with the primary care for further evaluation and management. Do not hesitate to return to the emergency department if you experience fever, worsening pain, discharge from the wound, increased swelling, or any other concerning symptoms. *Please follow up with your primary care provider in 2-3 days, call for an appointment. Let them know you were seen in the Emergency Department and that we ask that you be seen in follow up. We will electronically transmit a record of today's note if your PCP is in our system *If you do not have a primary care provider please contact the [facility] Resource line at [phone]. They will ask some questions about your medical history and help get you set up with a doctor in the community. *Return to Emergency Department if you should have any new, worsening or concerning symptoms, such as fever greater than 101 F, shaking chills, worsening pain, persistent vomiting or other bothersome symptoms. Prescriptions: No Action naproxen sodium [Aleve] 220 MG tablet 220 mg PO BIDCC PRN (Reason: Pain (Scale Score 1-3)) Qty: 0 (DME) Blood Glucose Test Strip See Rx Instructions .ROUTE .MEDSUPPLY Qty: 100 5RF Rx Instructions: Use to test blood glucose once daily. (DME) FreeStyle Gloria 14 Day [place] Misc See Rx Instructions .ROUTE .MEDSUPPLY Qty: 1 12RF Rx Instructions: As directed (DME) FreeStyle Gloria 14 Day Sensor Kit See Rx Instructions .ROUTE .MEDSUPPLY Qty: 1 12RF Rx Instructions: As directed metformin 500 mg tablet extended release 24 hr 2,000 mg PO DAILY Qty: 360 0RF lisinopril 5 mg tablet 5 mg PO DAILY Qty: 90 0RF tamsulosin [Flomax] 0.4 mg capsule 0.4 mg PO BID Qty: 180 3RF ipratropium bromide 21 mcg (0.03 %) spray,non-aerosol See Rx Instructions .ROUTE .COMPLEX Qty: 30 3RF Dose Instruction: instill 2 sprays into each nostril twice a day Rx Instructions: instill 2 sprays into each nostril twice a day tolterodine 4 mg capsule,extended release 24hr See Rx Instructions .ROUTE .COMPLEX Qty: 90 0RF Dose Instruction: take 1 capsule by mouth once daily Rx Instructions: take 1 capsule by mouth once daily DHEA 50 mg capsule 50 mg PO DAILY aspirin [Adult Low Dose Aspirin] 81 mg tablet,delayed release (DR/EC) 81 mg PO .qod cholecalciferol (vitamin D3) [Vitamin D3] 125 mcg (5,000 unit) Tablet 125 mcg PO DAILY luviwcaz-FBQ-asums-hyaluron ac [id number] mg Tablet 1 tab PO DAILY magnesium chloride 64 mg magnesium Tablet 64 mg PO DAILY multivitamin with iron Tablet 1 tab PO DAILY vitamin B complex Tablet 1 tab PO DAILY Referrals: Pantera Riggins MD [Primary Care Provider] - Visit Report Forms: Patient Portal/API <Cynthia Guo DO - Last Filed: 03/01/22 22:30> Cosign ED Attending Cosignature Attestation: I was immediately available in the department for consultation. Documentation has been reviewed. I agree with assessment and plan.
== END 2022-03-01 19:18 | disposition home or self-care (01) ==
PROVIDERS: Emergency Provider Physician Assistant; PCP Family Medicine
DX: S01.111A Laceration without foreign body of right eyelid and periocular area, initial encounter (principal); W18.00XA Striking against unspecified object with subsequent fall, initial encounter; Z23 Encounter for immunization
CPT/HCPCS: 12011; 90471; 99283; 90715

== ENCOUNTER 2022-03-08 18:44 | Emergency (ER) | payer MEDICARE, OTHER, SELFPAY ==
[2022-03-08 19:08] VITALS: BP 129/62; PULSE 86; RESP 16; TEMP 36.3; O2SAT 99; BMI 27.1
--- NOTE | 2022-03-09 07:11 | ED_ITS ---
HPI - Recheck/Abnormal Lab/Rx General Chief Complaint: Recheck/Abnormal Lab/Rx Stated Complaint: Stitches Removal Time Seen by Provider: 03/08/22 18:51 History of Present Illness HPI narrative: 72-year-old male former smoker with noncontributory medical history presents with a chief complaint of request for suture removal. He was seen and evaluated here a week ago after suffering an injury which resulted in a laceration above his right eyebrow. Sutures were placed. He has been otherwise well and free of complaint. There has been no ongoing bleeding or drainage. He has had no headaches, blurred vision, vomiting or other significant findings. Related Data Home Medications Medication Instructions Recorded Confirmed naproxen sodium 220 mg tablet 220 mg PO BIDCC PRN Pain (Scale 08/19/16 10/06/21 (Aleve) Score 1-3) ##0 prasterone (dhea) 50 mg capsule 50 mg PO DAILY 06/06/20 10/06/21 (DHEA) cholecalciferol (vitamin D3) 125 125 mcg PO DAILY 05/12/21 10/06/21 mcg (5,000 unit) tablet (Vitamin D3) glucosamine 750 mg-MSM 60 1 tab PO DAILY 05/12/21 10/06/21 mg-chondroit 150 mg-hyaluron ac 1 mg tablet magnesium chloride 64 mg 64 mg PO DAILY 05/12/21 10/06/21 (magnesium chloride) tablet multivitamin with iron 1 tab PO DAILY 05/12/21 10/06/21 vitamin B complex 1 tab PO DAILY 05/12/21 10/06/21 aspirin 81 mg tablet,delayed 81 mg PO .qod 10/06/21 10/06/21 release (Adult Low Dose Aspirin) Previous Rx's Medication Instructions Recorded blood sugar diagnostic (Blood #100 ea 03/03/21 Glucose Test strips) flash glucose scanning reader #1 ea 08/19/21 (FreeStyle Gloria 14 Day [place]) flash glucose sensor (FreeStyle #1 ea 08/19/21 Gloria 14 Day Sensor kit) lisinopril 5 mg tablet 5 mg PO DAILY #90 tabs 10/01/21 metformin 500 mg tablet,extended 2,000 mg PO DAILY #360 tabs 10/01/21 release 24 hr tamsulosin 0.4 mg capsule (Flomax) 0.4 mg PO BID #180 caps 10/12/21 ipratropium bromide 21 mcg (0.03 See Rx Instructions .Route 01/26/22 %) nasal spray .COMPLEX #30 mL tolterodine 4 mg capsule,extended See Rx Instructions .Route 02/22/22 release 24 hr .COMPLEX #90 caps Allergies Allergy/AdvReac Type Severity Reaction Status Date / Time No Known Drug Allergies Allergy Verified 03/01/22 16:17 Review of Systems Review of Systems Narrative: GENERAL: See HPI HEENT: See HPI RESPIRATORY: Denies dyspnea, cough, wheezing, hemoptysis, sputum. CARDIOVASCULAR: Denies chest pain, palpitations, orthopnea, edema, GASTROINTESTINAL: Denies nausea, vomiting, abdominal pain, diarrhea, constipation, melena. : Denies dysuria, frequency, incontinence, hematuria, urinary retention. MUSCULOSKELETAL: denies weakness, joint pain, or bony pain SKIN: See HPI NEUROLOGIC: Denies weakness, headache, numbness, change in speech, confusion, seizures, incoordination. PSYCHIATRIC: No concerning psychosocial issues. 12 point review of systems is negative except for those stated above 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 Social History household members: spouse Smoking Status: Former smoker alcohol intake: current substance use type: marijuana (vape ) Smoking Status: Former smoker alcohol intake frequency: holidays/special occasions only Substance Use Type: marijuana Exam Narrative Exam Narrative: GEN: AOx3 and in mild distress HEAD: sutures above R brow, no signs of infection, appropriate for removal, no dehiscence, drainage or surrounding erythema EYES: Pupils are equal, round, and reactive to light and accommodation. Extraoccular muscles are intact bilaterally. There is no subconjunctival hemorrhage or exudate. CHEST: Lungs are clear to auscultation bilaterally and free of wheezes, rales, or rhonchi. Heart rate is regular rhythm, there are no murmurs, clicks, rubs, or gallops. There is no chest wall tenderness. ABD: Abdomen is soft and nontender. There is no guarding or rebound. Bowel sounds are normal in all 4 quadrants. There is no mass or organomegaly. EXT: Full painless ROM of all extremities with no loss of sensation or strength. SKIN: Warm, pink, and dry. No erythema or rash Initial Vital Signs Initial Vital Signs: Vital Signs Temperature 97.3 F L 03/08/22 19:08 Pulse Rate 86 03/08/22 19:08 Respiratory Rate 16 03/08/22 19:08 Blood Pressure 129/62 03/08/22 19:08 Pulse Oximetry 99 03/08/22 19:08 Oxygen Delivery Method 03/08/22 19:08 Course Course Course Narrative: Sutures removed by nursing Discharge Plan Departure Patient Disposition: Home Clinical Impression: Encounter for removal of sutures, Face lacerations Activity Restrictions/Additional Instructions: *You have been diagnosed with [suture removal, appropriate healing ] *What to do: *Please continue to take your regular medications as directed. *Return to Emergency Department if you should have any new, worsening or concerning symptoms Prescriptions: No Action naproxen sodium [Aleve] 220 MG tablet 220 mg PO BIDCC PRN (Reason: Pain (Scale Score 1-3)) Qty: 0 (DME) Blood Glucose Test Strip See Rx Instructions .ROUTE .MEDSUPPLY Qty: 100 5RF Rx Instructions: Use to test blood glucose once daily. (DME) FreeStyle Gloria 14 Day [place] Misc See Rx Instructions .ROUTE .MEDSUPPLY Qty: 1 12RF Rx Instructions: As directed (DME) FreeStyle Gloria 14 Day Sensor Kit See Rx Instructions .ROUTE .MEDSUPPLY Qty: 1 12RF Rx Instructions: As directed metformin 500 mg tablet extended release 24 hr 2,000 mg PO DAILY Qty: 360 0RF lisinopril 5 mg tablet 5 mg PO DAILY Qty: 90 0RF tamsulosin [Flomax] 0.4 mg capsule 0.4 mg PO BID Qty: 180 3RF ipratropium bromide 21 mcg (0.03 %) spray,non-aerosol See Rx Instructions .ROUTE .COMPLEX Qty: 30 3RF Dose Instruction: instill 2 sprays into each nostril twice a day Rx Instructions: instill 2 sprays into each nostril twice a day tolterodine 4 mg capsule,extended release 24hr See Rx Instructions .ROUTE .COMPLEX Qty: 90 0RF Dose Instruction: take 1 capsule by mouth once daily Rx Instructions: take 1 capsule by mouth once daily DHEA 50 mg capsule 50 mg PO DAILY aspirin [Adult Low Dose Aspirin] 81 mg tablet,delayed release (DR/EC) 81 mg PO .qod cholecalciferol (vitamin D3) [Vitamin D3] 125 mcg (5,000 unit) Tablet 125 mcg PO DAILY kfaoxliz-NYE-htpmp-hyaluron ac [id number] mg Tablet 1 tab PO DAILY magnesium chloride 64 mg magnesium Tablet 64 mg PO DAILY multivitamin with iron Tablet 1 tab PO DAILY vitamin B complex Tablet 1 tab PO DAILY Referrals: Pantera Riggins MD [Primary Care Provider] - Visit Report Forms: Patient Portal/API
== END 2022-03-08 19:16 | disposition home or self-care (01) ==
LOC: ED 18:59
PROVIDERS: Emergency Provider Emergency Medicine; PCP Family Medicine
DX: Z48.02 Encounter for removal of sutures (principal)
CPT/HCPCS: 99281

== ENCOUNTER → 2022-04-20 14:53 | Outpatient (CLI) | payer MEDICARE, OTHER, SELFPAY ==
[2022-04-20 15:40] LABS: Hematocrit 41.4 % (41-53); Hemoglobin 14.4 g/dL (13.5-17.5); Mean Corpuscular HGB Conc 34.7 % (30-36); Mean Corpuscular Hemoglobin 32.7 PG (26-34); Mean Corpuscular Volume 94.2 fL (80-100); Platelet Count 183 X10^3/uL (150-400); Red Blood Cell Count 4.39 X10^6/uL (4.5-5.9); Red Cell Distribution Width 12.7 % (11.6-14.8); White Blood Cell Count 5.7 X10^3/uL (4.5-11.0)
[2022-04-20 16:59] LABS: Alanine Aminotransferase 16 IU/L (<50); Albumin 4.4 g/dL (3.5-5.0); Albumin Globulin Ratio 1.7 (1.0-2.8); Alkaline Phosphatase 66 U/L (38-126); Aspartate Aminotransferase 23 IU/L (17-59); BUN Creatinine Ratio 21.2 (6-22); Bilirubin Total 0.5 mg/dL (0.2-1.3); Blood Urea Nitrogen 14 mg/dL (9-20); Calcium 9.1 mg/dL (8.4-10.2); Carbon Dioxide 26 mmol/L (22-32); Chloride 107 mmol/L (98-107); Estimated Glomerular Filt Rate > 60 mL/min (>60); Globulin 2.6 g/dL (1.7-4.1); Glucose 197 mg/dL (80-110); HEMOLYSIS < 15 (0-50); Potassium 4.3 mmol/L (3.4-5.1); Sodium 139 mmol/L (137-145)
[2022-04-20 17:31] LABS: TSH w/ Reflex to FT4 1.37 uIU/mL (0.47-4.68)
== END ==
PROVIDERS: PCP Family Medicine; Referring Provider Family Medicine; Visit Provider Family Medicine
DX: E11.9 Type 2 diabetes mellitus without complications (principal); E78.2 Mixed hyperlipidemia; N40.0 Benign prostatic hyperplasia without lower urinary tract symptoms
CPT/HCPCS: 36415; 80053; 84443; 85027

== ENCOUNTER → 2022-07-05 07:04 | Outpatient (CLI) | payer MEDICARE, OTHER, SELFPAY ==
[2022-07-05 08:32] LABS: Hemoglobin A1C% w Est Avg Glu 6.9 % (4.0-6.0)
[2022-07-05 09:36] LABS: Vitamin B12 606 pg/mL (239-931)
[2022-07-13 20:17] LABS: Percent Free Testosterone 2.53 % (1.50-4.20); Testosterone Free 10.29 ng/dL (5.00-21.00); Testosterone Total 406.8 ng/dL (264.0-916.0)
== END ==
PROVIDERS: PCP Family Medicine; Referring Provider Family Medicine; Visit Provider Family Medicine
DX: E11.9 Type 2 diabetes mellitus without complications (principal); Z12.5 Encounter for screening for malignant neoplasm of prostate; E78.5 Hyperlipidemia, unspecified; N40.0 Benign prostatic hyperplasia without lower urinary tract symptoms; R41.3 Other amnesia; R68.89 Other general symptoms and signs; E29.1 Testicular hypofunction
CPT/HCPCS: 36415; 82607; 83036; 84402; 84403; G0103

== ENCOUNTER → 2022-07-14 08:55 | Outpatient (CLI) | payer MEDICARE, OTHER, SELFPAY ==
[2022-07-14 10:03] LABS: Estimated Glomerular Filt Rate > 60 mL/min (>60)
--- NOTE | 2022-07-14 10:16 | DI.CT.S_ITS ---
PROCEDURE: CT ANGIO ABD AORTA RUNOFF INDICATIONS: claudication TECHNIQUE: After the administration of intravenous contrast, 2.5 mm sections acquired from T12 to the feet, with optional delayed image acquisition from the knees to the feet. 3-dimensional maximum intensity projection (MIP) coronal and sagittal reformats, and/or 3-dimensional volume rendering reformatting was then performed. For radiation dose reduction, the following was used: automated exposure control. COMPARISON: None. FINDINGS: Image quality: Excellent. Extravascular tissues: Lung bases are clear. Minimal bilateral pleural effusions. Heart size is normal. Moderate hiatal hernia. Liver is normal in size and enhancement. Gallbladder is unremarkable without calcified gallstones. . Biliary system is non dilated. Pancreas enhances normally. Spleen is normal in size and enhancement. No adrenal nodules. Kidneys are normal in size and enhancement, without hydronephrosis. There is the suggestion of a possible circumferential lesion the right colon versus peristalsis. Reference image 132/6, the coronal reformats, and axial image 57/4. Large fecal load. No free fluid or air. No retroperitoneal or mesenteric adenopathy. No ventral hernias. Bladder wall thickness is normal. Prostate is significantly enlarged. No inguinal hernias or adenopathy. No suspicious bony lesions. No vertebral body compression fractures. There is lumbar degenerative change. There is some degree of canal stenosis L3-L4. Abdominal aorta: Widely patent without aneurysm or stenosis. The SMA, celiac, VERONICA, 2 right renal arteries, and left renal artery are widely patent. Right lower extremity: Common iliac, external iliac, common femoral, SFA, and popliteal are widely patent. The 3 runoff vessels are suboptimally opacified secondary to timing constraints, but are likely patent. Left lower extremity: Common iliac, external iliac, common femoral, SFA, and popliteal are widely patent. The 3 runoff vessels are suboptimally opacified secondary to timing constraints, but are likely patent. IMPRESSION: 1. 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 2. Wide patency from the aorta to the trifurcations bilaterally. The 3 runoff vessels are suboptimally opacified, but are likely patent bilaterally. 3. There is lumbar degenerative change with at least some degree of canal stenosis at L3-L4. 4. Prostate enlargement. Comment: Findings were discussed with Dr. Riggins on 07/14/2022 at 1248 hours Dictated by: Adonis Schaeffer M.D. on 07/14/2022 at 11:30 Approved by: Adonis Schaeffer M.D. on 07/14/2022 at 12:52
== END ==
PROVIDERS: Radiology Body Imaging; PCP Family Medicine; Referring Provider Family Medicine; Visit Provider Family Medicine
DX: R68.89 Other general symptoms and signs (principal); I73.9 Peripheral vascular disease, unspecified; M47.816 Spondylosis without myelopathy or radiculopathy, lumbar region; N40.0 Benign prostatic hyperplasia without lower urinary tract symptoms; K44.9 Diaphragmatic hernia without obstruction or gangrene
CPT/HCPCS: 36415; 75635; 82565; Q9967

== ENCOUNTER → 2022-07-19 08:54 | Outpatient (CLI) | payer MEDICARE, OTHER, SELFPAY ==
[2022-07-19 10:58] LABS: COVID19 -Nasal RAPID Negative (Negative)
== END ==
PROVIDERS: PCP Family Medicine; Visit Provider Surgery
DX: Z20.822 Contact with and (suspected) exposure to COVID-19 (principal); Z01.812 Encounter for preprocedural laboratory examination
CPT/HCPCS: 87635; C9803

== ENCOUNTER 2022-07-20 12:35 | Day surgery (SDC) | payer MEDICARE, OTHER, SELFPAY ==
[2022-07-20 13:03] VITALS: BP 124/76; PULSE 72; RESP 14; TEMP 36.1; O2SAT 99; BMI 27.6
[2022-07-20] MEDS: LACTATED RINGERS 1,000 ML 200 ML IV (13:21)
--- NOTE | 2022-07-20 13:58 | PM.HP.1 ---
History of Present Illness History of Present Illness Date Patient Seen: 07/20/22 Time Patient Seen: 13:58 Chief complaint: AKC Narrative: 72-year-old man who has a incidental right colon mass on CTA. No abdominal pain nausea vomiting blood per rectum unintentional weight loss. He reports having a normal colonoscopy approximately 3 years ago. No personal or family history of intestinal malignancy. 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 Family & Social History Social History: household members spouse Tobacco & Substance use: Smoking Status Former smoker alcohol intake current alcohol intake frequency holiday/special occasion Substance Use Type marijuana Meds Home Medications and Allergies Home Medications Medication Instructions Recorded Confirmed Type naproxen sodium 220 mg tablet 220 mg PO BIDCC PRN Pain (Scale 08/19/16 07/20/22 History (Aleve) Score 1-3) ##0 prasterone (dhea) 50 mg capsule 50 mg PO DAILY 06/06/20 07/20/22 History (DHEA) cholecalciferol (vitamin D3) 125 125 mcg PO DAILY 05/12/21 07/20/22 History mcg (5,000 unit) tablet (Vitamin D3) magnesium chloride 64 mg 64 mg PO DAILY 05/12/21 07/20/22 History (magnesium chloride) tablet vitamin B complex 1 tab PO DAILY 05/12/21 07/20/22 History lisinopril 5 mg tablet 5 mg PO DAILY #90 tabs 10/01/21 07/20/22 Rx aspirin 81 mg tablet,delayed 81 mg PO .qod 10/06/21 07/20/22 History release (Adult Low Dose Aspirin) tamsulosin 0.4 mg capsule (Flomax) 0.4 mg PO BID #180 caps 10/12/21 07/20/22 Rx metformin 500 mg tablet,extended See Rx Instructions .Route 04/13/22 07/20/22 Rx release 24 hr .COMPLEX #360 tabs ipratropium bromide 21 mcg (0.03 See Rx Instructions .Route 05/12/22 07/20/22 Rx %) nasal spray .COMPLEX #30 mL tolterodine 4 mg capsule,extended See Rx Instructions .Route 06/21/22 07/20/22 Rx release 24 hr .COMPLEX #90 caps rosuvastatin 5 mg tablet 5 mg PO DAILY #90 tabs 07/02/22 07/20/22 Rx Allergies Allergy/AdvReac Type Severity Reaction Status Date / Time No Known Drug Allergies Allergy Verified 07/20/22 13:16 Exam Vital Signs (past 8 hours): - 07/20/22 13:03 Temperature 97 F L Pulse Rate 72 Respiratory Rate 14 Blood Pressure 124/76 Pulse Oximetry 99 Oxygen Delivery Method Room Air Oxygen Delivery Method Room Air Narrative Exam Narrative: General adult male alert oriented no acute distress Abdomen soft nontender nondistended Assessment & Plan Assessment and plan (1) Mass of colon: Status: Acute Assessment & Plan narrative: 72-year-old male with a incidental right colon mass on CT here for diagnostic colonoscopy. Overview of the procedure was discussed with the patient. Procedural risks including bleeding, missed diagnosis, intestinal perforation were discussed. His questions have been answered he is in agreement with this plan. Time Spent With Patient Critical Care time: I spent a total of [] minutes of critical care time on this patient's care today; this time is exclusive of procedural time.
[2022-07-20 14:28] VITALS: BP 100/62; PULSE 64; RESP 10; TEMP 35.9; O2SAT 96
--- NOTE | 2022-07-20 14:28 | PM.OP.COLON ---
Operative Date/Time/Diagnoses Date of procedure: 07/20/22 Time of procedure: 14:28 Pre-op diagnosis: Abnormal colonic wall thickening Post-op diagnosis: same Procedure & Clinicians Study performed: Colonoscopy Same procedure as scheduled: Yes Indications: 72-year-old man incidentally found to have right colonic circumferential thickening concerning for malignancy here for colonoscopy Surgeon: Phil Gill Procedure Notes Procedure in detail: The history and physical was performed/updated and the patient is ASA class is 2. The procedure was discussed in detail with the patient. Potential risks complications including infection, bleeding, missed diagnosis, perforation, need for surgery, and were explained. Their questions were answered and informed consent was obtained. Patient was brought to the procedure room and placed standard monitoring equipment. The patient's vital signs were monitored continuously throughout the entire procedure. Prior to starting time-out was performed. The patient was placed in the left lateral recumbent position. Procedural sedation was administered by anesthesia. Examination began with a thorough inspection of the perianal area there was no evidence of fissures, fistulae, external hemorrhoids or cutaneous malignancy. The colonoscopy scope was then placed into the anal canal and was advanced to the cecum, which was identified by the ileocecal valve, the appendiceal orifice and the confluence of the taenia. The scope was then slowly withdrawn examining colon thoroughly in all directions, irrigating it of any residual stool. FINDINGS 1. No masses or polyps 2. Extensive diverticulosis including the right colon The patient tolerated the procedure well. They will be discharged once criteria are met. The prep was of fair quality. The withdrawl time was 13 minutes. Specimen(s): none sent Complications: none Impression: Diverticulosis Post-procedure Recommendations: High fiber diet Disposition: same day surgery
[2022-07-20 14:33] VITALS: BP 99/59; PULSE 65; RESP 9; TEMP 36.1; O2SAT 94
[2022-07-20 14:38] VITALS: BP 103/63; PULSE 79; RESP 18; TEMP 36.8; O2SAT 97
[2022-07-20 15:03] VITALS: BP 103/62; PULSE 65; RESP 16; TEMP 36.7; O2SAT 98
== END 2022-07-20 15:10 | disposition home or self-care (01) ==
PROVIDERS: PCP Family Medicine; Referring Provider Surgery; Visit Provider Surgery
PROC: 0DJD8ZZ Inspection of Lower Intestinal Tract, Via Natural or Artificial Opening Endoscopic (ICD-10-PCS; CPT 45378; principal; 2022-07-20 13:45)
DX: K57.30 Diverticulosis of large intestine without perforation or abscess without bleeding (principal); E78.5 Hyperlipidemia, unspecified; Z79.84 Long term (current) use of oral hypoglycemic drugs
CPT/HCPCS: 45378; J2704; J3010

== ENCOUNTER → 2022-08-17 09:56 | Outpatient (CLI) | payer MEDICARE, OTHER, SELFPAY ==
--- NOTE | 2022-08-17 09:57 | DI.RAD.S_ITS ---
PROCEDURE: XR SHOULDER RT MIN 2V INDICATIONS: rt shoulder pain TECHNIQUE: 4 views of the shoulder were acquired. COMPARISON: None. FINDINGS: Bones: No fractures or dislocations. No suspicious bony lesions. Visualized ribs appear intact. There is mild periarticular osteophyte formation at the acromioclavicular and glenohumeral joints. Soft tissues: No suspicious soft tissue calcifications. IMPRESSION: Osteoarthritis. No acute fracture. No osseous lesion. If symptoms and/or clinical suspicion for pathology persist, further assessment with repeat, or advanced imaging (e.g., CT, MRI, or bone scan) may be helpful for further assessment. Dictated by: Renee Trevino M.D. on 08/17/2022 at 10:29 Approved by: Renee Trevino M.D. on 08/17/2022 at 10:30
== END ==
PROVIDERS: PCP Family Medicine; Referring Provider Physician Assistant Medical; Visit Provider Physician Assistant Medical
DX: M25.511 Pain in right shoulder (principal); M19.011 Primary osteoarthritis, right shoulder
CPT/HCPCS: 73030

== ENCOUNTER 2022-08-30 14:52 | Inpatient (IN) | payer MEDICARE, OTHER, SELFPAY ==
[2022-08-30] VITALS (45 sets, daily range): BP systolic 86–145; BP diastolic 48–80; PULSE 73–116; RESP 9–34; TEMP 36.1; O2SAT 96–99; BMI 27.8
--- NOTE | 2022-08-30 16:36 | DI.CT.S_ITS ---
PROCEDURE: CT ABDOMEN PELVIS W CON INDICATIONS: abdomen pain TECHNIQUE: After the administration of intravenous contrast, axial sections acquired from the lung bases to the pubic symphysis. Coronal and sagittal reformats were performed. For radiation dose reduction, the following was used: automated exposure control, adjustment of mA and/or kV according to patient size. COMPARISON: [facility], CT, CT ANGIO ABD AORTA RUNOFF, 07/14/2022, 10:13. FINDINGS: Image quality: Good Lower chest: Scarring/atelectasis. Moderate hiatal hernia. Normal heart size. Solid organs: The liver is unremarkable. Subcentimeter lesions are too small to characterize. No pathologic dilation of the biliary tree or pancreatic duct. Some fatty atrophy is present. No splenomegaly. No adrenal nodules. Left renal cysts. No hydronephrosis. Vessels and lymph nodes: No abdominal aortic aneurysm or pathologic adenopathy by size criteria. Bowel and peritoneum: No evidence of bowel obstruction in the small bowel. The appendix is normal. The cecum is in the right upper quadrant. Large stool burden diverticula. Body wall: Unremarkable Pelvis: Right suspected bladder diverticulum. Prostate is heterogeneous and not well evaluated, consider correlation with PSA if needed Bones: No acute or suspicious osseous abnormality. Scattered degenerative changes. IMPRESSION: Large stool burden. Diverticulosis. Consider correlation with age-appropriate colonoscopy results in the setting of possible GI bleed and previous CT abnormality. Moderate hiatal hernia. Other findings as above. Dictated by: Terry Julien M.D. on 08/30/2022 at 16:17 Approved by: Terry Julien M.D. on 08/30/2022 at 16:25
[2022-08-30 16:37] LABS: Alanine Aminotransferase 22 IU/L (<50); Albumin 3.8 g/dL (3.5-5.0); Albumin Globulin Ratio 1.7 (1.0-2.8); Alkaline Phosphatase 69 U/L (38-126); Aspartate Aminotransferase 21 IU/L (17-59); BUN Creatinine Ratio 36.9 (6-22); Bilirubin Total 0.7 mg/dL (0.2-1.3); Blood Urea Nitrogen 24 mg/dL (9-20); Calcium 8.9 mg/dL (8.4-10.2); Carbon Dioxide 21 mmol/L (22-32); Chloride 105 mmol/L (98-107); Estimated Glomerular Filt Rate > 60 mL/min (>60); Globulin 2.3 g/dL (1.7-4.1); Glucose 294 mg/dL (80-110); HEMOLYSIS < 15 (0-50); Lipase 22 U/L (23-300); Potassium 3.9 mmol/L (3.4-5.1); Sodium 134 mmol/L (137-145); Total Protein 6.1 g/dL (6.3-8.2)
[2022-08-30 16:46] LABS: Add Manual Diff / Slide Review NO; Basophils Absolute Auto 0 /uL (0-100); Basophils Percent Auto 0.4 % (0-2); Eosinophils Absolute Auto 0 /uL (0-450); Eosinophils Percent Auto 0.1 % (2-4); Hematocrit 35.4 % (41-53); Hemoglobin 12.4 g/dL (13.5-17.5); Lymphocytes Absolute Auto 1100 /uL (1100-4500); Lymphocytes Percent Auto 14.3 % (25-40); Mean Corpuscular HGB Conc 35.1 % (30-36); Mean Corpuscular Hemoglobin 32.7 PG (26-34); Mean Corpuscular Volume 93.3 fL (80-100); Monocytes Absolute Auto 300 /uL (0-900); Monocytes Percent Auto 4.3 % (3-14); Neutrophils Absolute Auto 6400 /uL (1500-7000); Neutrophils Percent Auto 80.9 % (50-75); Platelet Count 153 X10^3/uL (150-400); Red Blood Cell Count 3.79 X10^6/uL (4.5-5.9); Red Cell Distribution Width 12.7 % (11.6-14.8); White Blood Cell Count 7.9 X10^3/uL (4.5-11.0)
[2022-08-30 16:49] LABS: Lactate (Lactic Acid) 1.4 mmol/L (0.7-2.1)
[2022-08-30 17:11] LABS: INR 1.2 (0.9-1.3); Prothrombin Time 13.5 SECONDS (10.1-12.7)
[2022-08-30] MEDS: SODIUM CHLORIDE 0.9% 1,000 ML 1000 ML IV ×2 (17:11→19:22)
[2022-08-30 17:14] LABS: PTT Partial Thromboplastin Tim 18 SECONDS (26-36)
[2022-08-30] MEDS: PANTOPRAZOLE 40 MG VIAL IV ×2 (17:15→21:27)
--- NOTE | 2022-08-30 17:50 | ED.GIBLEED ---
HPI - GI Bleed <Rob Vanegas PA-C - Last Filed: 08/30/22 20:32> General Chief complaint: GI Bleed Stated complaint: lightheaded,nausea,abd dicomfort, black stool Time Seen by Provider: 08/30/22 16:04 Source: patient Mode of arrival: Ambulatory History of Present Illness HPI Narrative: 72-year-old male with past medical history diabetes, BPH, hyperlipidemia presents to the ED with 1 day of bloody stools. Patient states that he had a colonoscopy in July 2022 as a follow-up to the finding of a possible lesion in the colon on CT. The colonoscopy was without acute findings. Patient states that however since that colonoscopy, his abdomen has felt somewhat sore. Patient states that he has regular bowel movements, takes fiber supplements. Patient states that he awoke at 4:00 a.m. this morning feeling like he had to have a bowel movement, however was unable to. He tried again at 6:00 a.m. and only had bright red blood per rectum but no stool. He was able to have a bowel movement at 2:00 p.m. which was large, dark, along with some bright red blood. Patient states that he has also been feeling lightheaded when he stands up in the ED. patient denies fever, chills, chest pain, shortness of breath, cough, rhinorrhea, sore throat, nausea, vomiting, dysuria, syncope. Patient denies history of hemorrhoids. Patient states that he has been taking ibuprofen for 3-4 days for a musculoskeletal pain in his right shoulder last week. Related Data Home Medications Medication Instructions Recorded Confirmed naproxen sodium 220 mg tablet 220 mg PO BIDCC PRN Pain (Scale 08/19/16 08/16/22 (Aleve) Score 1-3) ##0 prasterone (dhea) 50 mg capsule 50 mg PO DAILY 06/06/20 08/16/22 (DHEA) cholecalciferol (vitamin D3) 125 125 mcg PO DAILY 05/12/21 08/16/22 mcg (5,000 unit) tablet (Vitamin D3) magnesium chloride 64 mg 64 mg PO DAILY 05/12/21 08/16/22 (magnesium chloride) tablet vitamin B complex 1 tab PO DAILY 05/12/21 08/16/22 aspirin 81 mg tablet,delayed 81 mg PO .qod 10/06/21 08/16/22 release (Adult Low Dose Aspirin) Previous Rx's Medication Instructions Recorded lisinopril 5 mg tablet 5 mg PO DAILY #90 tabs 10/01/21 tamsulosin 0.4 mg capsule (Flomax) 0.4 mg PO BID #180 caps 10/12/21 metformin 500 mg tablet,extended See Rx Instructions .Route 04/13/22 release 24 hr .COMPLEX #360 tabs ipratropium bromide 21 mcg (0.03 See Rx Instructions .Route 05/12/22 %) nasal spray .COMPLEX #30 mL tolterodine 4 mg capsule,extended See Rx Instructions .Route 06/21/22 release 24 hr .COMPLEX #90 caps rosuvastatin 5 mg tablet 5 mg PO DAILY #90 tabs 07/02/22 methocarbamol 500 mg tablet 500 mg PO TID #21 tabs 08/16/22 Allergies Allergy/AdvReac Type Severity Reaction Status Date / Time No Known Drug Allergies Allergy Verified 08/30/22 15:04 Review of Systems <Rob Vanegas PA-C - Last Filed: 08/30/22 20:32> Review of Systems ROS Unobtainable: All systems reviewed & are unremarkable except as noted in HPI and below Constitutional Constitutional: Denies chills, Denies fatigue, Denies fever(s), Denies frequent falls, Denies lethargy and Denies weakness Eyes Eyes: Denies change in vision, Denies eye discharge, Denies irritation and Denies loss of vision ENT Ears, Nose, Mouth, and Throat: Denies change in voice, Denies dizziness, Denies neck pain, Denies sore throat and Denies throat swelling Cardiovascular Cardiovascular: Denies chest pain, Denies irregular heart rhythm, Denies lightheadedness, Denies palpitations, Denies dyspnea, Denies dyspnea on exertion and Denies orthopnea Respiratory Respiratory: Denies cough, Denies dyspnea, Denies dyspnea on exertion and Denies wheezing Gastrointestinal Gastrointestinal: Reports abdominal pain, Reports hematochezia, Denies change in bowel habits, Reports change in stool character, Denies diarrhea, Denies nausea and Denies vomiting Genitourinary Genitourinary: Denies hematuria, Denies flank pain, Denies urinary incontinence and Denies urinary urgency Musculoskeletal Musculoskeletal: Denies back pain, Denies muscle weakness, Denies neck pain, Denies numbness and Denies tingling Integumentary/Breasts Skin/Breast: Denies pruritus, Denies erythema, Denies rash and Denies wounds Neurologic Neurologic: Denies behavioral changes, Denies confusion, Denies dizziness, Denies frequent falls, Denies loss of vision, Denies numbness, Denies tingling and Denies weakness Psychiatric Psychiatric: Denies anxiety, Denies behavioral changes, Denies confusion, Denies depression, Denies homicidal ideation and Denies suicidal ideation Endocrine Endocrine: Denies fatigue, Denies flushing and Denies palpitations Hematologic/Lymphatic Hematologic/Lymphatic: Denies easy bruising Allergic/Immunologic Allergic/Immunologic: Denies urticaria, Denies throat swelling and Denies wheezing Patient History <Rob Vanegas PA-C - Last Filed: 08/30/22 20:32> Medical History (Reviewed 08/30/22 @ 21:02 by Roseanne Li [facility]) BPH (benign prostatic hyperplasia) Diabetes mellitus Hyperlipidemia 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 Social History household members: spouse Smoking Status: Former smoker alcohol intake: current substance use type: marijuana (vape ) Smoking Status: Former smoker alcohol intake frequency: holidays/special occasions only Substance Use Type: marijuana Exam <Rob Vanegas PA-C - Last Filed: 08/30/22 20:32> Narrative Exam Narrative: Const General:?cooperative, healthy appearing and comfortable [facility] Head:?normal to inspection Ears:?hearing grossly normal bilaterally Nose:?external nose normal Face and sinus:?normal facial exam and sinuses nontender Mouth:?oral mucosae normal Throat:?posterior oropharynx normal Eyes General:?appearance normal, both eyes and all related structures Neck Neck:?normal visual inspection and no lymphadenopathy noted Resp Effort & Inspection:?normal respiratory effort Auscultation:?clear to auscultation bilaterally Cardio Rate:?regular rate Rhythm:?regular rhythm GI Abdomen is soft, nondistended. Diffusely tender to palpation. No CVA tenderness. Neuro General:?patient alert, patient awake and patient oriented x3 Initial Vital Signs Initial Vital Signs: Vital Signs Temperature 97.0 F L 08/30/22 15:04 Pulse Rate 116 H 08/30/22 15:04 Respiratory Rate 19 08/30/22 15:04 Blood Pressure 117/72 08/30/22 15:04 Pulse Oximetry 98 08/30/22 15:04 Oxygen Delivery Method 08/30/22 15:04 <Casimiro Medeiros DO - Last Filed: 08/30/22 21:11> Initial Vital Signs Initial Vital Signs: Vital Signs Temperature 97.0 F L 08/30/22 15:04 Pulse Rate 116 H 08/30/22 15:04 Respiratory Rate 19 08/30/22 15:04 Blood Pressure 117/72 08/30/22 15:04 Pulse Oximetry 98 08/30/22 15:04 Oxygen Delivery Method 08/30/22 15:04 Course <Rob Vanegas PA-C - Last Filed: 08/30/22 20:32> Orders Ordered: ED Orders 08/30/22 15:11 EKG-12 Lead Stat 08/30/22 16:00 Lactate (Lactic Acid) Stat 08/30/22 16:11 Complete Blood Count AUTO DIFF Stat Comprehensive Metabolic Panel Stat Lipase Stat PT [Prothrombin Time INR] Stat PTT [Partial Thromboplastin Time] Stat 08/30/22 16:36 CT abdomen pelvis w con Stat 08/30/22 17:13 Covid-19 + FLU A/B + RSV - PCR Stat 08/30/22 18:17 VBG [Venous Blood Gas] Stat 08/30/22 19:10 CBC Auto Diff [Complete Blood Count AUTO DIFF] Stat 08/30/22 20:21 CXR [XR chest 2V] Stat Dextrose (Dextrose 50 % In Water 25 Gm/50 Ml Syringe) 25 gm IV PRN PRN PRN Reason: Hypoglycemia Sodium Chloride (Normal Saline 0.9%) 1,000 mls @ 60 mls/hr IV CONT TONI Insulin Human Lispro (Insulin Lispro 100 Unit/Ml 3ml Vial) 0 unit SUBCUT ACHS TONI; Protocol Ondansetron HCl (Ondansetron 4 Mg/2 Ml Inj) 4 mg IV NOW PRN PRN Reason: Nausea And Vomiting Pantoprazole Sodium (Pantoprazole 40 Mg Vial) 40 mg IV BID TONI Discontinued Medications Sodium Chloride (Normal Saline 0.9%) 1,000 mls @ 1,000 mls/hr IV BOLUS ONE Stop: 08/30/22 17:55 Last Infusion: 08/30/22 18:28 Dose: 0 mls/hr Documented By: Infusion: 08/30/22 17:13 Dose: 1,000 mls/hr Documented By: Admin: 08/30/22 17:11 Dose: 1,000 mls/hr Documented By: JERONIMO Sodium Chloride (Normal Saline 0.9%) 1,000 mls @ 1,000 mls/hr IV BOLUS ONE Stop: 08/30/22 19:50 Last Infusion: 08/30/22 20:52 Dose: 0 mls/hr Documented By: Admin: 08/30/22 19:22 Dose: 1,000 mls/hr Documented By: JERONIMO Metformin HCl (Metformin Xr 500 Mg Tablet) 2,000 mg PO NOW ONE Stop: 08/30/22 19:10 Last Admin: 08/30/22 20:21 Dose: 2,000 mg Documented By: GWENDOLYN Pantoprazole Sodium (Pantoprazole 40 Mg Vial) 40 mg IV NOW ONE Stop: 08/30/22 16:45 Last Admin: 08/30/22 17:15 Dose: 40 mg Documented By: JERONIMO Polyethylene Glycol/Electrolytes ([id number]/Sod Sulf,Bicarb,Cl/Kcl 4,000 Ml Solution) 4,000 ml PO NOW ONE Stop: 08/30/22 20:35 Vital Signs Vital signs: Vital Signs - 8 hr 08/30/22 15:04 08/30/22 16:47 08/30/22 16:46 Temperature 97.0 F L Pulse Rate 116 H 100 H Respiratory Rate 19 20 Blood Pressure 117/72 122/78 122/65 Pulse Oximetry 98 99 Oxygen Delivery Method Room Air Room Air 08/30/22 16:46 08/30/22 17:00 08/30/22 17:07 Temperature Pulse Rate 108 H 98 H Respiratory Rate Blood Pressure 91/60 Pulse Oximetry 99 98 Oxygen Delivery Method 08/30/22 17:07 08/30/22 17:10 08/30/22 17:10 Temperature Pulse Rate 92 H 94 H Respiratory Rate 11 L 20 Blood Pressure 112/62 Pulse Oximetry 97 98 Oxygen Delivery Method 08/30/22 17:20 08/30/22 17:20 08/30/22 17:30 Temperature Pulse Rate 88 Respiratory Rate 9 L Blood Pressure 99/57 L 111/59 L Pulse Oximetry 98 Oxygen Delivery Method 08/30/22 17:30 08/30/22 17:40 08/30/22 17:40 Temperature Pulse Rate 87 85 Respiratory Rate 13 12 Blood Pressure 109/57 L Pulse Oximetry 98 98 Oxygen Delivery Method 08/30/22 17:50 08/30/22 17:50 08/30/22 18:06 Temperature Pulse Rate 89 91 H Respiratory Rate 25 H Blood Pressure 122/59 L Pulse Oximetry 99 98 Oxygen Delivery Method 08/30/22 18:07 08/30/22 18:07 08/30/22 18:10 Temperature Pulse Rate 90 89 Respiratory Rate 23 19 Blood Pressure 113/63 Pulse Oximetry 98 98 Oxygen Delivery Method 08/30/22 18:10 08/30/22 18:20 08/30/22 18:20 Temperature Pulse Rate 89 Respiratory Rate 17 Blood Pressure 111/58 L 112/61 Pulse Oximetry 98 Oxygen Delivery Method 08/30/22 18:30 08/30/22 18:30 08/30/22 18:40 Temperature Pulse Rate 90 90 Respiratory Rate 26 H 17 Blood Pressure 108/65 Pulse Oximetry 98 98 Oxygen Delivery Method 08/30/22 18:40 08/30/22 18:47 08/30/22 18:47 Temperature Pulse Rate 102 H Respiratory Rate 29 H Blood Pressure 107/62 86/48 L Pulse Oximetry Oxygen Delivery Method <Casimiro Medeiros, DO - Last Filed: 08/30/22 21:11> Orders Ordered: ED Orders 08/30/22 15:11 EKG-12 Lead Stat 08/30/22 16:00 Lactate (Lactic Acid) Stat 08/30/22 16:11 Complete Blood Count AUTO DIFF Stat Comprehensive Metabolic Panel Stat Lipase Stat PT [Prothrombin Time INR] Stat PTT [Partial Thromboplastin Time] Stat 08/30/22 16:36 CT abdomen pelvis w con Stat 08/30/22 17:13 Covid-19 + FLU A/B + RSV - PCR Stat 08/30/22 18:17 VBG [Venous Blood Gas] Stat 08/30/22 19:10 CBC Auto Diff [Complete Blood Count AUTO DIFF] Stat 08/30/22 20:21 CXR [XR chest 2V] Stat Dextrose (Dextrose 50 % In Water 25 Gm/50 Ml Syringe) 25 gm IV PRN PRN PRN Reason: Hypoglycemia Sodium Chloride (Normal Saline 0.9%) 1,000 mls @ 60 mls/hr IV CONT TONI Insulin Human Lispro (Insulin Lispro 100 Unit/Ml 3ml Vial) 0 unit SUBCUT ACHS TONI; Protocol Ondansetron HCl (Ondansetron 4 Mg/2 Ml Inj) 4 mg IV NOW PRN PRN Reason: Nausea And Vomiting Pantoprazole Sodium (Pantoprazole 40 Mg Vial) 40 mg IV BID TONI Discontinued Medications Sodium Chloride (Normal Saline 0.9%) 1,000 mls @ 1,000 mls/hr IV BOLUS ONE Stop: 08/30/22 17:55 Last Infusion: 08/30/22 18:28 Dose: 0 mls/hr Documented By: Infusion: 08/30/22 17:13 Dose: 1,000 mls/hr Documented By: Admin: 08/30/22 17:11 Dose: 1,000 mls/hr Documented By: JERONIMO Sodium Chloride (Normal Saline 0.9%) 1,000 mls @ 1,000 mls/hr IV BOLUS ONE Stop: 08/30/22 19:50 Last Infusion: 08/30/22 20:52 Dose: 0 mls/hr Documented By: Admin: 08/30/22 19:22 Dose: 1,000 mls/hr Documented By: JERONIMO Metformin HCl (Metformin Xr 500 Mg Tablet) 2,000 mg PO NOW ONE Stop: 08/30/22 19:10 Last Admin: 08/30/22 20:21 Dose: 2,000 mg Documented By: GWENDOLYN Pantoprazole Sodium (Pantoprazole 40 Mg Vial) 40 mg IV NOW ONE Stop: 08/30/22 16:45 Last Admin: 08/30/22 17:15 Dose: 40 mg Documented By: JERONIMO Polyethylene Glycol/Electrolytes ([id number]/Sod Sulf,Bicarb,Cl/Kcl 4,000 Ml Solution) 4,000 ml PO NOW ONE Stop: 08/30/22 20:35 Vital Signs Vital signs: Vital Signs - 8 hr 08/30/22 15:04 08/30/22 16:47 08/30/22 16:46 Temperature 97.0 F L Pulse Rate 116 H 100 H Respiratory Rate 19 20 Blood Pressure 117/72 122/78 122/65 Pulse Oximetry 98 99 Oxygen Delivery Method Room Air Room Air 08/30/22 16:46 08/30/22 17:00 08/30/22 17:07 Temperature Pulse Rate 108 H 98 H Respiratory Rate Blood Pressure 91/60 Pulse Oximetry 99 98 Oxygen Delivery Method 08/30/22 17:07 08/30/22 17:10 08/30/22 17:10 Temperature Pulse Rate 92 H 94 H Respiratory Rate 11 L 20 Blood Pressure 112/62 Pulse Oximetry 97 98 Oxygen Delivery Method 08/30/22 17:20 08/30/22 17:20 08/30/22 17:30 Temperature Pulse Rate 88 Respiratory Rate 9 L Blood Pressure 99/57 L 111/59 L Pulse Oximetry 98 Oxygen Delivery Method 08/30/22 17:30 08/30/22 17:40 08/30/22 17:40 Temperature Pulse Rate 87 85 Respiratory Rate 13 12 Blood Pressure 109/57 L Pulse Oximetry 98 98 Oxygen Delivery Method 08/30/22 17:50 08/30/22 17:50 08/30/22 18:06 Temperature Pulse Rate 89 91 H Respiratory Rate 25 H Blood Pressure 122/59 L Pulse Oximetry 99 98 Oxygen Delivery Method 08/30/22 18:07 08/30/22 18:07 08/30/22 18:10 Temperature Pulse Rate 90 89 Respiratory Rate 23 19 Blood Pressure 113/63 Pulse Oximetry 98 98 Oxygen Delivery Method 08/30/22 18:10 08/30/22 18:20 08/30/22 18:20 Temperature Pulse Rate 89 Respiratory Rate 17 Blood Pressure 111/58 L 112/61 Pulse Oximetry 98 Oxygen Delivery Method 08/30/22 18:30 08/30/22 18:30 08/30/22 18:40 Temperature Pulse Rate 90 90 Respiratory Rate 26 H 17 Blood Pressure 108/65 Pulse Oximetry 98 98 Oxygen Delivery Method 08/30/22 18:40 08/30/22 18:47 08/30/22 18:47 Temperature Pulse Rate 102 H Respiratory Rate 29 H Blood Pressure 107/62 86/48 L Pulse Oximetry Oxygen Delivery Method MDM - GI Bleed <Rob Vanegas PA-C - Last Filed: 08/30/22 20:32> Lab Data Result diagrams: 08/30/22 19:10 08/30/22 16:11 Labs: Lab Results 08/30/22 08/30/22 08/30/22 Range/Units 16:00 16:11 16:11 WBC 7.9 (4.5-11.0) X10^3/uL RBC 3.79 L (4.5-5.9) X10^6/uL Hgb 12.4 L (13.5-17.5) g/dL Hct 35.4 L (41-53) % MCV 93.3 (80-100) fL MCH 32.7 (26-34) PG MCHC 35.1 (30-36) % RDW 12.7 (11.6-14.8) % Plt Count 153 (150-400) X10^3/uL Neut % (Auto) 80.9 H (50-75) % Lymph % (Auto) 14.3 L (25-40) % Sharp % (Auto) 4.3 (3-14) % Eos % (Auto) 0.1 L (2-4) % Baso % (Auto) 0.4 (0-2) % Neut # (Auto) 6400 (8364-3448) /uL Lymph # (Auto) 1100 (4512-8752) /uL Sharp # (Auto) 300 (0-900) /uL Eos # (Auto) 0 (0-450) /uL Baso # (Auto) 0 (0-100) /uL PT (10.1-12.7) SECONDS INR (0.9-1.3) APTT (26-36) SECONDS Sodium 134 L (137-145) mmol/L Potassium 3.9 (3.4-5.1) mmol/L Chloride 105 (98-107) mmol/L Carbon Dioxide 21 L (22-32) mmol/L BUN 24 H (9-20) mg/dL Creatinine 0.65 L (0.66-1.25) mg/dL Estimated GFR > 60 (>60) mL/min BUN/Creatinine Ratio 36.9 H (6-22) Glucose 294 H (80-110) mg/dL Lactate 1.4 (0.7-2.1) mmol/L Calcium 8.9 (8.4-10.2) mg/dL Total Bilirubin 0.7 (0.2-1.3) mg/dL AST 21 (17-59) IU/L ALT 22 (<50) IU/L Alkaline Phosphatase 69 (38-126) U/L Total Protein 6.1 L (6.3-8.2) g/dL Albumin 3.8 (3.5-5.0) g/dL Globulin 2.3 (1.7-4.1) g/dL Albumin/Globulin Ratio 1.7 (1.0-2.8) Lipase 22 L (23-300) U/L SARS-CoV-2 (PCR) (Negative) Influenza A (RT-PCR) (NEGATIVE) Influenza B (RT-PCR) (NEGATIVE) RSV (PCR) (Negative) 08/30/22 08/30/22 08/30/22 Range/Units 16:11 17:13 19:10 WBC 8.2 (4.5-11.0) X10^3/uL RBC 3.60 L (4.5-5.9) X10^6/uL Hgb 11.8 L (13.5-17.5) g/dL Hct 33.6 L (41-53) % MCV 93.3 (80-100) fL MCH 32.6 (26-34) PG MCHC 35.0 (30-36) % RDW 12.7 (11.6-14.8) % Plt Count 152 (150-400) X10^3/uL Neut % (Auto) 81.7 H (50-75) % Lymph % (Auto) 14.8 L (25-40) % Sharp % (Auto) 2.9 L (3-14) % Eos % (Auto) 0.1 L (2-4) % Baso % (Auto) 0.5 (0-2) % Neut # (Auto) 6700 (3612-1861) /uL Lymph # (Auto) 1200 (0164-6233) /uL Sharp # (Auto) 200 (0-900) /uL Eos # (Auto) 0 (0-450) /uL Baso # (Auto) 0 (0-100) /uL PT 13.5 H (10.1-12.7) SECONDS INR 1.2 (0.9-1.3) APTT 18 L (26-36) SECONDS Sodium (137-145) mmol/L Potassium (3.4-5.1) mmol/L Chloride (98-107) mmol/L Carbon Dioxide (22-32) mmol/L BUN (9-20) mg/dL Creatinine (0.66-1.25) mg/dL Estimated GFR (>60) mL/min BUN/Creatinine Ratio (6-22) Glucose (80-110) mg/dL Lactate (0.7-2.1) mmol/L Calcium (8.4-10.2) mg/dL Total Bilirubin (0.2-1.3) mg/dL AST (17-59) IU/L ALT (<50) IU/L Alkaline Phosphatase (38-126) U/L Total Protein (6.3-8.2) g/dL Albumin (3.5-5.0) g/dL Globulin (1.7-4.1) g/dL Albumin/Globulin Ratio (1.0-2.8) Lipase (23-300) U/L SARS-CoV-2 (PCR) Negative (Negative) Influenza A (RT-PCR) Flu a negative (NEGATIVE) Influenza B (RT-PCR) Flu b negative (NEGATIVE) RSV (PCR) Negative (Negative) Point of Care Testing Glucose POC 251 Urine Dip Bedside Urine Glucose 1000 mg/dl Bedside Urine Bilirubin - Negative Bedside Urine Ketone + 15 Urine Specific [place] 1.010 Bedside Urine Occult Blood - Negative Bedside Urine pH 5.5 Bedside Urine Protein - Negative Bedside Urine Urobilinogen - Negative Bedside Urine Nitrite - Negative Bedside Urine Leukocytes - Negative Esterase Imaging Data CT scan - abdomen/pelvis: Radiologist's Impression: PROCEDURE:? CT ABDOMEN PELVIS W CON ? INDICATIONS:? abdomen pain ? TECHNIQUE:? After the administration of intravenous contrast, axial sections acquired from the lung bases to the pubic symphysis.? Coronal and sagittal reformats were performed.? For radiation dose reduction, the following was used:? automated exposure control, adjustment of mA and/or kV according to patient size.? ? COMPARISON:? [facility], CT, CT ANGIO ABD AORTA RUNOFF, 07/14/2022, 10:13. ? FINDINGS:? Image quality:? Good ? Lower chest:? Scarring/atelectasis.? Moderate hiatal hernia.? Normal heart size. ? Solid organs:? The liver is unremarkable.? Subcentimeter lesions are too small to characterize.? No pathologic dilation of the biliary tree or pancreatic duct.? Some fatty atrophy is present.? No splenomegaly.? No adrenal nodules.? Left renal cysts.? No hydronephrosis.? ? Vessels and lymph nodes:? No abdominal aortic aneurysm or pathologic adenopathy by size criteria. ? Bowel and peritoneum:? No evidence of bowel obstruction in the small bowel.? The appendix is normal.? The cecum is in the right upper quadrant.? Large stool burden diverticula. ? Body wall:? Unremarkable ? Pelvis:? Right suspected bladder diverticulum.? Prostate is heterogeneous and not well? evaluated, consider correlation with PSA if needed ? Bones:? No acute or suspicious osseous abnormality.? Scattered degenerative changes. ? ? IMPRESSION:? Large stool burden.? Diverticulosis.? Consider correlation with age-appropriate colonoscopy results in the setting of possible GI bleed and previous CT abnormality.? Moderate hiatal hernia. ? Other findings as above.? ? Dictated by: Terry Julien M.D. on 08/30/2022 at 16:17 ? ? Approved by: Terry Julien M.D. on 08/30/2022 at 16:25 ? MDM Narrative Medical decision making narrative: 72-year-old male with past medical history diabetes, BPH, hyperlipidemia presents to the ED with 1 day of bloody stools. Concern for GI bleed versus anemia versus dehydration versus malignancy versus other intra-abdominal pathology versus other. Will obtain labs, lactate, lipase, type and screen, UA, CT abdomen pelvis. CT abdomen pelvis shows large stool burden, no other acute findings. Glucose elevated to 294. Labs within normal limits otherwise. UA positive for glucose and ketones. VBG with pH within normal limits was obtained to rule out DKA. Ketones in urine likely due to starvation. Patient is also given home dosage of metformin. Patient tended towards hypotensive, once at 91/60, given 1 L of IV fluids, and again was hypotensive to 86/48. Patient started on 2 L of saline. Patient had a bowel movement while in the ED with melanotic, thick stool. Will repeat CBC. Will reassess. H&H is stable. Patient continues to have soft blood pressures. Consulted Dr. Hoover from surgery, she agrees with the plan to admit for observation, re-evaluate h/H tomorrow. She recommends bowel prep overnight. Hospitalist Ronit Li consulted, she accepts patient for observation. Dr. Hoover will consult. <Casimiro Medeiros, DO - Last Filed: 08/30/22 21:11> Lab Data Labs: Lab Results 08/30/22 08/30/22 08/30/22 Range/Units 16:00 16:11 16:11 WBC 7.9 (4.5-11.0) X10^3/uL RBC 3.79 L (4.5-5.9) X10^6/uL Hgb 12.4 L (13.5-17.5) g/dL Hct 35.4 L (41-53) % MCV 93.3 (80-100) fL MCH 32.7 (26-34) PG MCHC 35.1 (30-36) % RDW 12.7 (11.6-14.8) % Plt Count 153 (150-400) X10^3/uL Neut % (Auto) 80.9 H (50-75) % Lymph % (Auto) 14.3 L (25-40) % Sharp % (Auto) 4.3 (3-14) % Eos % (Auto) 0.1 L (2-4) % Baso % (Auto) 0.4 (0-2) % Neut # (Auto) 6400 (2422-2678) /uL Lymph # (Auto) 1100 (9381-2182) /uL Sharp # (Auto) 300 (0-900) /uL Eos # (Auto) 0 (0-450) /uL Baso # (Auto) 0 (0-100) /uL PT (10.1-12.7) SECONDS INR (0.9-1.3) APTT (26-36) SECONDS Sodium 134 L (137-145) mmol/L Potassium 3.9 (3.4-5.1) mmol/L Chloride 105 (98-107) mmol/L Carbon Dioxide 21 L (22-32) mmol/L BUN 24 H (9-20) mg/dL Creatinine 0.65 L (0.66-1.25) mg/dL Estimated GFR > 60 (>60) mL/min BUN/Creatinine Ratio 36.9 H (6-22) Glucose 294 H (80-110) mg/dL Lactate 1.4 (0.7-2.1) mmol/L Calcium 8.9 (8.4-10.2) mg/dL Total Bilirubin 0.7 (0.2-1.3) mg/dL AST 21 (17-59) IU/L ALT 22 (<50) IU/L Alkaline Phosphatase 69 (38-126) U/L Total Protein 6.1 L (6.3-8.2) g/dL Albumin 3.8 (3.5-5.0) g/dL Globulin 2.3 (1.7-4.1) g/dL Albumin/Globulin Ratio 1.7 (1.0-2.8) Lipase 22 L (23-300) U/L SARS-CoV-2 (PCR) (Negative) Influenza A (RT-PCR) (NEGATIVE) Influenza B (RT-PCR) (NEGATIVE) RSV (PCR) (Negative) 08/30/22 08/30/22 08/30/22 Range/Units 16:11 17:13 19:10 WBC 8.2 (4.5-11.0) X10^3/uL RBC 3.60 L (4.5-5.9) X10^6/uL Hgb 11.8 L (13.5-17.5) g/dL Hct 33.6 L (41-53) % MCV 93.3 (80-100) fL MCH 32.6 (26-34) PG MCHC 35.0 (30-36) % RDW 12.7 (11.6-14.8) % Plt Count 152 (150-400) X10^3/uL Neut % (Auto) 81.7 H (50-75) % Lymph % (Auto) 14.8 L (25-40) % Sharp % (Auto) 2.9 L (3-14) % Eos % (Auto) 0.1 L (2-4) % Baso % (Auto) 0.5 (0-2) % Neut # (Auto) 6700 (4381-3359) /uL Lymph # (Auto) 1200 (6033-5091) /uL Sharp # (Auto) 200 (0-900) /uL Eos # (Auto) 0 (0-450) /uL Baso # (Auto) 0 (0-100) /uL PT 13.5 H (10.1-12.7) SECONDS INR 1.2 (0.9-1.3) APTT 18 L (26-36) SECONDS Sodium (137-145) mmol/L Potassium (3.4-5.1) mmol/L Chloride (98-107) mmol/L Carbon Dioxide (22-32) mmol/L BUN (9-20) mg/dL Creatinine (0.66-1.25) mg/dL Estimated GFR (>60) mL/min BUN/Creatinine Ratio (6-22) Glucose (80-110) mg/dL Lactate (0.7-2.1) mmol/L Calcium (8.4-10.2) mg/dL Total Bilirubin (0.2-1.3) mg/dL AST (17-59) IU/L ALT (<50) IU/L Alkaline Phosphatase (38-126) U/L Total Protein (6.3-8.2) g/dL Albumin (3.5-5.0) g/dL Globulin (1.7-4.1) g/dL Albumin/Globulin Ratio (1.0-2.8) Lipase (23-300) U/L SARS-CoV-2 (PCR) Negative (Negative) Influenza A (RT-PCR) Flu a negative (NEGATIVE) Influenza B (RT-PCR) Flu b negative (NEGATIVE) RSV (PCR) Negative (Negative) Point of Care Testing Glucose POC 251 Urine Dip Bedside Urine Glucose 1000 mg/dl Bedside Urine Bilirubin - Negative Bedside Urine Ketone + 15 Urine Specific [place] 1.010 Bedside Urine Occult Blood - Negative Bedside Urine pH 5.5 Bedside Urine Protein - Negative Bedside Urine Urobilinogen - Negative Bedside Urine Nitrite - Negative Bedside Urine Leukocytes - Negative Esterase Discharge Plan Departure Patient Disposition: Admitted as Observation Clinical Impression: GI bleed Admit Date/Time: 08/30/22 20:24 Admit Provider: Roseanne Li <Casimiro Medeiros, DO - Last Filed: 08/30/22 21:11> Cosign ED Attending Cosignature Attestation: Dr Medeiros Co-Sign Statement: I was available for consultation during this patient's emergency department visit. This chart is signed by myself for administrative purposes only. I did not have direct contact with this patient during this visit. They were seen independently by the APC.
[2022-08-30 17:59] LABS: Influenza A - CEPHEID Flu A NEGATIVE (NEGATIVE); Influenza B - CEPHEID Flu B NEGATIVE (NEGATIVE); Respiratory Syncytial Virus Negative (Negative)
--- NOTE | 2022-08-30 18:01 | PC.NURSE ---
Patient had bowel movement, thick liquid black and red, Guilherme SOSA brought to bathroom to also assess.
[2022-08-30 18:06] LABS: COVID-19 CEPHEID 4-PLEX PCR Negative (Negative)
[2022-08-30 19:25] LABS: Add Manual Diff / Slide Review NO; Basophils Absolute Auto 0 /uL (0-100); Basophils Percent Auto 0.5 % (0-2); Eosinophils Absolute Auto 0 /uL (0-450); Eosinophils Percent Auto 0.1 % (2-4); Hematocrit 33.6 % (41-53); Hemoglobin 11.8 g/dL (13.5-17.5); Lymphocytes Absolute Auto 1200 /uL (1100-4500); Lymphocytes Percent Auto 14.8 % (25-40); Mean Corpuscular Hemoglobin 32.6 PG (26-34); Mean Corpuscular Volume 93.3 fL (80-100); Monocytes Absolute Auto 200 /uL (0-900); Monocytes Percent Auto 2.9 % (3-14); Neutrophils Absolute Auto 6700 /uL (1500-7000); Neutrophils Percent Auto 81.7 % (50-75); Platelet Count 152 X10^3/uL (150-400); Red Cell Distribution Width 12.7 % (11.6-14.8); White Blood Cell Count 8.2 X10^3/uL (4.5-11.0)
[2022-08-30] MEDS: METFORMIN XR 500 MG TABLET 2000 MG PO (20:21)
--- NOTE | 2022-08-30 20:21 | DI.RAD.S_ITS ---
PROCEDURE: XR CHEST 2V INDICATIONS: hypotensive TECHNIQUE: 2 views of the chest were acquired. COMPARISON: None. FINDINGS: Surgical changes and devices: None. Lungs and pleura: There is hyperinflation of the lungs with flattening of the hemidiaphragms compatible with COPD. Linear opacities are demonstrated in the lung bases consistent with scarring or atelectasis. No pleural effusions or pneumothorax. Mediastinum: Mediastinal contours are normal. Heart size is normal. Bones and chest wall: No suspicious bony abnormalities. Soft tissues appear unremarkable. IMPRESSION: 1. No definite acute cardiopulmonary disease. 2. Findings compatible with COPD. 3. Linear scarring or atelectasis in the lung bases. Dictated by: Venkatesh Mariscal M.D. on 08/30/2022 at 22:08 Approved by: Venkatesh Mariscal M.D. on 08/30/2022 at 22:09
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
[2022-08-30] MEDS: SODIUM CHLORIDE 0.9% 1,000 ML 60 ML IV (21:15)
[2022-08-30] MEDS: INSULIN LISPRO 100 UNIT/ML 3ML VIAL SUBCUT (21:15)
[2022-08-30] MEDS: PEG3350/SOD SULF,BICARB,CL/KCL 4,000 ML SOLUTION 4000 ML PO (21:26)
[2022-08-30 21:53] LABS: Hemoglobin A1C% w Est Avg Glu 7.4 % (4.0-6.0)
[2022-08-30 22:06] LABS: Procalcitonin 0.05 ng/mL (<0.5)
[2022-08-31] VITALS (40 sets, daily range): BP systolic 94–134; BP diastolic 49–80; PULSE 60–96; RESP 15–26; TEMP 35.8–36.6; O2SAT 95–100; BMI 30.7
[2022-08-31 00:38] LABS: Hematocrit 31.6 % (41-53); Hemoglobin 10.9 g/dL (13.5-17.5)
[2022-08-31 04:43] LABS: INR 1.3 (0.9-1.3); Prothrombin Time 14.6 SECONDS (10.1-12.7)
[2022-08-31 04:46] LABS: Lactate (Lactic Acid) 0.7 mmol/L (0.7-2.1)
[2022-08-31] MEDS: INSULIN LISPRO 100 UNIT/ML 3ML VIAL SUBCUT ×4 (08:53→21:25)
[2022-08-31] MEDS: PANTOPRAZOLE 40 MG VIAL IV ×2 (08:59→21:25)
[2022-08-31 10:39] LABS: Hematocrit 27.4 % (41-53); Hemoglobin 9.4 g/dL (13.5-17.5)
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
[2022-08-31 11:24] LABS: Add Manual Diff / Slide Review NO; Basophils Absolute Auto 0 /uL (0-100); Basophils Percent Auto 0.8 % (0-2); Eosinophils Absolute Auto 0 /uL (0-450); Eosinophils Percent Auto 0.4 % (2-4); Hematocrit 27.8 % (41-53); Hemoglobin 9.6 g/dL (13.5-17.5); Lymphocytes Absolute Auto 1700 /uL (1100-4500); Lymphocytes Percent Auto 30.1 % (25-40); Mean Corpuscular HGB Conc 34.5 % (30-36); Mean Corpuscular Hemoglobin 32.4 PG (26-34); Monocytes Absolute Auto 300 /uL (0-900); Monocytes Percent Auto 5.7 % (3-14); Neutrophils Absolute Auto 3600 /uL (1500-7000); Platelet Count 129 X10^3/uL (150-400); Red Blood Cell Count 2.96 X10^6/uL (4.5-5.9); White Blood Cell Count 5.7 X10^3/uL (4.5-11.0)
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
[2022-08-31] MEDS: LACTATED RINGERS 1,000 ML 42 ML IV (14:10)
--- NOTE | 2022-08-31 14:59 | P.OP.EGD&C_ITS ---
Procedure & Clinicians Study performed: Esophagoduodenoscopy and colonoscopy Same procedure as scheduled: Yes Indications: GI bleed Surgeon: Phil Gill Procedure Notes Procedure in detail: l The history and physical was performed/updated and the patient is ASA class is 2 . The procedure was discussed in detail with the patient. Potential risks complications including infection, bleeding, missed diagnosis, perforation, need for surgery, and were explained. Their questions were answered and informed consent was obtained. Patient placed in left lateral decubitus position. Time out was performed. Sedation was administered by anesthesia. A bite block was placed. the scope was inserted into the mouth and advanced through the esophagus and into the stomach. The pylorus was intubated and the duodenum was normal to the 2nd portion. The scope was retroflexed within the stomach and there was no hiatal hernia. No ulcers, or gastritis. The scope was withdrawn into the esophagus the Z line was seen at 35 cm from the incisions. There was no Goodwin's esophagitis or masses or strictures. Stomach was desufflated and scope removed. Patient tolerated procedure well. Examination began with a thorough inspection of the perianal area there was no evidence of fissures, fistulae, external hemorrhoids or cutaneous malignancy. The colonoscopy scope was then placed into the anal canal and was advanced to the cecum, which was identified by the ileocecal valve, and the confluence of the taenia. The scope was then slowly withdrawn examining colon FINDINGS 1. No evidence of upper GI bleed within the esophagus stomach or duodenum. 2. Large volume of old blood volume within the colon extending up to the ascending colon. No masses. No active hemorrhage. Extensive diverticulosis The patient tolerated the procedure well. They will be discharged once criteria are met. The prep was of good/excellent quality. The withdrawl time was 12 mi nutes. Impression: Colonic hemorrhage Post-procedure Plan for aftercare: [place] for monitoring Disposition: same day surgery
[2022-08-31 17:00] LABS: PCO2 VBG 35.5 mmHg (45-50); PO2 VBG 44 mmHg (35-45); pH VBG 7.39 (7.33-7.43)
[2022-08-31 17:01] LABS: HCO3 VBG 21 mmol/L (23-28); Oxygen Saturation VBG 80 % (70-75); Total CO2 VBG 22 mmol/L (24-29)
[2022-08-31 17:56] LABS: Hematocrit 26.2 % (41-53); Hemoglobin 9.1 g/dL (13.5-17.5)
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
[2022-08-31] MEDS: SODIUM CHLORIDE 0.9% 1,000 ML 60 ML IV (21:36)
[2022-09-01] VITALS (13 sets, daily range): BP systolic 88–131; BP diastolic 48–87; PULSE 76–88; RESP 16–26; TEMP 36.6–37.5; O2SAT 98–100
[2022-09-01 00:29] LABS: Hematocrit 22.5 % (41-53)
[2022-09-01] MEDS: SODIUM CHLORIDE 0.9% 500 ML 1000 ML IV (01:32)
--- NOTE | 2022-09-01 04:19 | CM.MNRNOTE ---
Patient Condition Change @0025: Notified by ARNAUD Porras the pt's PIV line was found on the floor with IVF's running. Pt demonstrated new onset AMS with c/o feeling cold. Pt denied px, SOB, chest px, numbness or tingling. @0020 Labs: Hgb/Hct: 8.0/22.6 @0045 Vitals: BP: 113/59 (71), HR: 82, RR: 26, O2: 100%, T: 98.2 (oral), CHICHI without accommodation, A/O x1 @0050: Hospitalist, Roseanne Li notified of pt condition change. @0113: New STAT orders placed for NS 0.9% 500mL IVB, PRBC one unit, confirm signed consent for blood products in chart, and repeat H/H drawn 30 minutes post transfusion. @0120: Attempted to contact pt's spouse/surrogate decision maker for permission for blood transfusion, no answer. @0125: Informed Hospitalist Guillermo and Coordinator PEPE Fermin pt not oriented to sign consent form and no answer from surrogate. Instructed to proceed with having pt sign consent form. @0146: PRBC one unit started infusing @75mL/hr @0205: Pt tolerating infusion well, VS taken, and blood transfusion rate increased to 125mL/hr. @0300: Pt reports feeling warmer, no c/o px, assessed as A/O x3 and no s/s of adverse reaction to transfusion. @0415: Pt is sleeping, no s/s of distress, and blood continues infusing @125 mL/hr
[2022-09-01] MEDS: PANTOPRAZOLE DR 20 MG TABLET PO (06:03)
[2022-09-01 06:08] LABS: Add Manual Diff / Slide Review NO; Basophils Absolute Auto 0 /uL (0-100); Basophils Percent Auto 0.6 % (0-2); Eosinophils Absolute Auto 100 /uL (0-450); Eosinophils Percent Auto 0.8 % (2-4); Lymphocytes Absolute Auto 1700 /uL (1100-4500); Lymphocytes Percent Auto 25.6 % (25-40); Mean Corpuscular HGB Conc 34.8 % (30-36); Mean Corpuscular Hemoglobin 32.2 PG (26-34); Mean Corpuscular Volume 92.7 fL (80-100); Monocytes Absolute Auto 400 /uL (0-900); Monocytes Percent Auto 6.2 % (3-14); Neutrophils Absolute Auto 4500 /uL (1500-7000); Neutrophils Percent Auto 66.8 % (50-75); Platelet Count 111 X10^3/uL (150-400); Red Blood Cell Count 2.47 X10^6/uL (4.5-5.9); Red Cell Distribution Width 12.9 % (11.6-14.8); White Blood Cell Count 6.7 X10^3/uL (4.5-11.0)
[2022-09-01 06:14] LABS: BUN Creatinine Ratio 18.2 (6-22); Blood Urea Nitrogen 10 mg/dL (9-20); Calcium 7.4 mg/dL (8.4-10.2); Carbon Dioxide 21 mmol/L (22-32); Chloride 110 mmol/L (98-107); Estimated Glomerular Filt Rate > 60 mL/min (>60); Glucose 149 mg/dL (80-110); HEMOLYSIS < 15 (0-50); Potassium 3.3 mmol/L (3.4-5.1); Sodium 137 mmol/L (137-145)
[2022-09-01 06:28] LABS: Hematocrit 23.1 % (41-53); Hemoglobin 8.1 g/dL (13.5-17.5)
[2022-09-01 06:45] LABS: Hemoglobin A1C% w Est Avg Glu 6.8 % (4.0-6.0)
[2022-09-01] MEDS: INSULIN LISPRO 100 UNIT/ML 3ML VIAL SUBCUT ×4 (08:45→20:53)
[2022-09-01] MEDS: POTASSIUM CHLORIDE 20 MEQ TAB 40 MEQ PO ×2 (12:45→20:53)
--- NOTE | 2022-09-01 13:39 | CM.DANOTE ---
Patient is a 72 yo male who was admitted on 08/30/22 for Black Stool. Pt has [place] and [place] for [place] and his PCP is Dr. Pantera Riggins. EMR was reviewed. Per MD, pt admitted with GI Bleed. Per Surgeon, pt had EGD and colonoscopy and no active bleed found and likely bleed is due to diverticulitis. Pt continues to have some bleeding in his stool and had 2 units of blood overnight and may need further scope if bleed continues. SW met bedside with pt and spouse and explained role and they confirm they live in [place] in a house and are both quite active and independent at baseline and do not use DME for ambulation and both drive. Pt denies any hx of HH or SNF and has been somewhat dizzy when standing up but states he is starting to feel better and hopeful for d/c home by tomorrow if stable. Spouse confirms that she can transport him home at d/c. Both are retired. Pt's DPOA is his spouse. Pt has ambulated in room to bathroom with steady gait and no DME and currently no stooling so far today and no signs of bleed yet. Pt does not anticipate any d/c needs at this time. Plan: SW to follow for further signs of bleeding towards possible need for further scope vs stabilize and d/c home via spouse POV and any further identified needs. YARELI Vazquez Discharge Planning/Care Management CM Discharge Assessment Start: 09/01/22 13:35 Freq: Status: Active Protocol: Document 09/01/22 13:37 BF (Rec: 09/01/22 13:39 BF [id number]) Discharge Planning Assessment Assigned Special Education Inclusion Teacher YARELI Grigsby DPOA/Assigned Designee Name spouse Fito Contact Information [phone] Advance Directives? Yes Advance Directives on File No History Provided By Patient,Significant Other, Medical Record Has Patient been admitted in last 30 No days? Prior Living Arrangements House Household Members spouse Type of transporation used prior to Drives own vehicle admit Independent with ADL's Yes Is patient alert and oriented? Yes Caregiver for Another No Barriers to Discharge No Discharge Plan Home Transportation Arrangement spouse bedside and can provide transport Referrals Initiated None needed Additional Comment Follow for possible further scope needs Whiteboard Updated in Patient Room with Yes name and ext. # of Special Education Inclusion Teacher Review Status In Process Please Provide Date Initial DC 09/01/22 Assessment Was Performed Next Review Type Continued Stay Review
--- NOTE | 2022-09-01 13:42 | P.PN_ITS ---
Subjective Subjective Date Patient Seen: 09/01/22 Time Patient Seen: 13:42 Interval history: Transfuse 2 units over night. Bleeding slowing down Exam Vital Signs (past 8 hours): - 09/01/22 06:13 09/01/22 06:31 09/01/22 06:41 Temperature 98.2 F 98.0 F 98 F Pulse Rate 82 82 84 Pulse Rate [Orthostatic Lying] Pulse Rate [Orthostatic Sitting] Pulse Rate [Orthostatic Standing] Respiratory Rate 20 20 Blood Pressure 108/56 L 118/61 118/61 Blood Pressure [Orthostatic Lying] Blood Pressure [Orthostatic Sitting] Blood Pressure [Orthostatic Standing] Pulse Oximetry 98 Oxygen Flow Rate 0 09/01/22 09:30 09/01/22 10:30 09/01/22 12:00 Temperature 98.3 F 99.5 F Pulse Rate 83 77 Pulse Rate [Orthostatic Lying] 78 Pulse Rate [Orthostatic Sitting] 82 Pulse Rate [Orthostatic Standing] 88 Respiratory Rate 18 16 Blood Pressure 115/87 123/67 Blood Pressure [Orthostatic Lying] 119/63 Blood Pressure [Orthostatic Sitting] 131/53 L Blood Pressure [Orthostatic Standing] 93/57 L Pulse Oximetry 98 Oxygen Flow Rate 0 Oxygen Delivery Method Room Air Oxygen Flow Rate 0 Narrative Exam Narrative: Most likely diverticular bleed for ascending or transverse colon. Volume not enough for successful tagged red cell scan. Const General: cooperative and comfortable Objective Labs Result Diagrams: 09/01/22 05:14 09/01/22 05:14 Labs: Laboratory Results - last 24 hr 08/30/22 08/30/22 08/31/22 18:17 21:00 17:40 WBC RBC Hgb 9.1 L Hct 26.2 L MCV MCH MCHC RDW Plt Count Neut % (Auto) Lymph % (Auto) [place] % (Auto) Eos % (Auto) Baso % (Auto) Neut # (Auto) Lymph # (Auto) [place] # (Auto) Eos # (Auto) Baso # (Auto) VBG pH 7.39 VBG pCO2 35.5 L VBG pO2 44 VBG HCO3 21 L VBG Total CO2 22 L VBG O2 Saturation 80 H VBG Base Excess -4.0 L Sodium Potassium Chloride Carbon Dioxide BUN Creatinine Estimated GFR BUN/Creatinine Ratio Glucose Hemoglobin A1c Calcium Blood Type O Positive Antibody Screen Negative Crossmatch See Detail 1209/01/22 09/01/22 00:20 05:14 05:14 WBC 6.7 RBC 2.47 L Hgb 8.0 L 8.1 L Hct 22.5 L 23.1 L MCV 92.7 MCH 32.2 MCHC 34.8 RDW 12.9 Plt Count 111 L Neut % (Auto) 66.8 Lymph % (Auto) 25.6 [place] % (Auto) 6.2 Eos % (Auto) 0.8 L Baso % (Auto) 0.6 Neut # (Auto) 4500 Lymph # (Auto) 1700 [place] # (Auto) 400 Eos # (Auto) 100 Baso # (Auto) 0 VBG pH VBG pCO2 VBG pO2 VBG HCO3 VBG Total CO2 VBG O2 Saturation VBG Base Excess Sodium 137 Potassium 3.3 L Chloride 110 H Carbon Dioxide 21 L BUN 10 Creatinine 0.55 L Estimated GFR > 60 BUN/Creatinine Ratio 18.2 Glucose 149 H D Hemoglobin A1c Calcium 7.4 L Blood Type Antibody Screen Crossmatch 09/01/22 09/01/22 05:14 05:14 WBC RBC Hgb Cancelled Hct Cancelled MCV MCH MCHC RDW Plt Count Neut % (Auto) Lymph % (Auto) [place] % (Auto) Eos % (Auto) Baso % (Auto) Neut # (Auto) Lymph # (Auto) [place] # (Auto) Eos # (Auto) Baso # (Auto) VBG pH VBG pCO2 VBG pO2 VBG HCO3 VBG Total CO2 VBG O2 Saturation VBG Base Excess Sodium Potassium Chloride Carbon Dioxide BUN Creatinine Estimated GFR BUN/Creatinine Ratio Glucose Hemoglobin A1c 6.8 H Calcium Blood Type Antibody Screen Crossmatch COUNTS INCLUDE 234 BEDS AT THE [facility] Medical History BPH (benign prostatic hyperplasia) Diabetes mellitus Hyperlipidemia 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 Surgical History History of colonoscopy Family History Sister Cancer Brother Motorcycle accident Social History household members: spouse Smoking Status: Former smoker alcohol intake: current substance use type: marijuana (vape ) Assessment & Plan Assessment & Plan narrative: Continue observation. Trial of TXA to stop bleeding. full liquid diet with Ensure COVID-19 COVID-19 status: Negative Time Spent With Patient Time with patient: less than 30 minutes Critical Care time: I spent a total of [] minutes of critical care time on this patient's care today; this time is exclusive of procedural time.
[2022-09-01] MEDS: TRANEXAMIC ACID 1,000 MG in SODIUM CHLORIDE 0.9% 100 ML 200 MG IV (14:03)
[2022-09-01 14:27] LABS: Hematocrit 26.5 % (41-53)
--- NOTE | 2022-09-01 14:34 | P.PN_ITS ---
Subjective Subjective Date Patient Seen: 09/01/22 Interval history: 72 M admitted with diverticular GI bleed. Continued to have dropping h/h overnight, became confused and disoriented and h/h declined to 8. He was given 2U PRBC transfusion, and repeat h/h stayed nearly the same at 8. He had another bloody BM this morning. Discussed with surgery, who recommend transexamic acid. h/h then improved to 9 on repeat study. Will need to continue to monitor for continued stabillity. Exam Vital Signs (past 8 hours): - 09/01/22 06:41 09/01/22 09:30 09/01/22 10:30 Temperature 98 F 98.3 F 99.5 F Pulse Rate 84 83 77 Pulse Rate [Orthostatic Lying] Pulse Rate [Orthostatic Sitting] Pulse Rate [Orthostatic Standing] Respiratory Rate 18 16 Blood Pressure 118/61 115/87 123/67 Blood Pressure [Orthostatic Lying] Blood Pressure [Orthostatic Sitting] Blood Pressure [Orthostatic Standing] Pulse Oximetry 98 98 Oxygen Flow Rate 0 0 09/01/22 12:00 Temperature Pulse Rate Pulse Rate [Orthostatic Lying] 78 Pulse Rate [Orthostatic Sitting] 82 Pulse Rate [Orthostatic Standing] 88 Respiratory Rate Blood Pressure Blood Pressure [Orthostatic Lying] 119/63 Blood Pressure [Orthostatic Sitting] 131/53 L Blood Pressure [Orthostatic Standing] 93/57 L Pulse Oximetry Oxygen Flow Rate Oxygen Delivery Method Room Air Oxygen Flow Rate 0 Narrative Exam Narrative: General:? Patient is well developed and well nourished, in no distress at this time. HEENT:? Normocephalic, atraumatic, extraocular muscles intact, oral pharynx is clear and mucous membranes are moist. Neck: supple and symmetric, trachea is midline, no cervical adenopathy. Negative for JVD Chest:? Normal AP diameter and contour without kyphoscoliosis, no tachypnea, equal chest rise bilaterally. Lungs:? CTA b/l no wheezing rhonchi or rales. Cardio:?RRR no m/r/g. Abdomen: S NT ND. No CVA tenderness. Musculoskeletal:? Muscle strength and tone are equal within normal limits, no deformity. Extremities: No edema or joint effusions. No cyanosis or clubbing. Skin:? Pale,? Warm to touch,dry and intact without rashes, ulcerations or petechiae.? Neuro:? Alert and orientated x3,? sensation to touch intact in all extremities, no gross deficits noted of cranial nerves. Psych:? Patient has a well-kept appearance, appropriate affect, mental status attitude thought context and judgment are appropriate for age. Objective Labs Result Diagrams: 09/01/22 14:00 09/01/22 05:14 Labs: Laboratory Results - last 24 hr 08/30/22 08/30/22 08/31/22 18:17 21:00 17:40 WBC RBC Hgb 9.1 L Hct 26.2 L MCV MCH MCHC RDW Plt Count Neut % (Auto) Lymph % (Auto) [place] % (Auto) Eos % (Auto) Baso % (Auto) Neut # (Auto) Lymph # (Auto) [place] # (Auto) Eos # (Auto) Baso # (Auto) VBG pH 7.39 VBG pCO2 35.5 L VBG pO2 44 VBG HCO3 21 L VBG Total CO2 22 L VBG O2 Saturation 80 H VBG Base Excess -4.0 L Sodium Potassium Chloride Carbon Dioxide BUN Creatinine Estimated GFR BUN/Creatinine Ratio Glucose Hemoglobin A1c Calcium Blood Type O Positive Antibody Screen Negative Crossmatch See Detail 09/01/22 09/01/22 09/01/22 00:20 05:14 05:14 WBC 6.7 RBC 2.47 L Hgb 8.0 L 8.1 L Hct 22.5 L 23.1 L MCV 92.7 MCH 32.2 MCHC 34.8 RDW 12.9 Plt Count 111 L Neut % (Auto) 66.8 Lymph % (Auto) 25.6 [place] % (Auto) 6.2 Eos % (Auto) 0.8 L Baso % (Auto) 0.6 Neut # (Auto) 4500 Lymph # (Auto) 1700 [place] # (Auto) 400 Eos # (Auto) 100 Baso # (Auto) 0 VBG pH VBG pCO2 VBG pO2 VBG HCO3 VBG Total CO2 VBG O2 Saturation VBG Base Excess Sodium 137 Potassium 3.3 L Chloride 110 H Carbon Dioxide 21 L BUN 10 Creatinine 0.55 L Estimated GFR > 60 BUN/Creatinine Ratio 18.2 Glucose 149 H D Hemoglobin A1c Calcium 7.4 L Blood Type Antibody Screen Crossmatch 09/01/22 09/01/22 09/01/22 05:14 05:14 14:00 WBC RBC Hgb Cancelled 9.0 L Hct Cancelled 26.5 L MCV MCH MCHC RDW Plt Count Neut % (Auto) Lymph % (Auto) [place] % (Auto) Eos % (Auto) Baso % (Auto) Neut # (Auto) Lymph # (Auto) [place] # (Auto) Eos # (Auto) Baso # (Auto) VBG pH VBG pCO2 VBG pO2 VBG HCO3 VBG Total CO2 VBG O2 Saturation VBG Base Excess Sodium Potassium Chloride Carbon Dioxide BUN Creatinine Estimated GFR BUN/Creatinine Ratio Glucose Hemoglobin A1c 6.8 H Calcium Blood Type Antibody Screen Crossmatch [facility] Medical History BPH (benign prostatic hyperplasia) Diabetes mellitus Hyperlipidemia 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 Surgical History History of colonoscopy Family History Sister Cancer Brother Motorcycle accident Social History household members: spouse Smoking Status: Former smoker alcohol intake: current substance use type: marijuana (vape ) Assessment & Plan Assessment & Plan narrative: Koby Coe is a 72-year-old male with a history qzu-hdwfhwy-cfijpzaid diabetes, hyperlipidemia, BPH, colonoscopy by Dr. Gill on 07/20/2022 who found no masses but extensive diverticulosis in the right colon. Presented to the ED with 1 day of bloody stools, admitted for acute GI bleeding. 1. Gastrointestinal bleeding, acute, present on admission with acute blood loss anemia. - h/h continuef to decline overnight, source is diverticular based on EGD/colonoscopy results. Given 2U PRBC overnight for symptomatic anemia with acute encepahlopathy. Transexamic acid given today to try to control bleeding today. - continue to trend h/h, goal Hg >7 unless symptomatic. - appreciate surgical consultation. 2. Smf-wwtyyhu-xomirtjci type 2 diabetes, chronic, with hyperlipidemia, chronic present on admission -patient admitted under diabetic protocols -will hold metformin, low-dose sliding scale as bridge -ACHS fingersticks. -monitor for hypo and hyperglycemia -A1c ordered -continue Lipitor after procedure 3. BPH, chronic, present on admission -continue Flomax and Detrol -bladder scan as needed to monitor for urinary retention 4. Overweight, mild, acute on chronic, present on admission -dietary consult after critical illness is resolved ordered regarding nutritional education and information for dietary, lifestyle, exercise, and weight changes. -the patient is at much higher risk for medical and surgical complications due to being overweight as it relates to his chronic illnesses:, and acute GI blleed. The patient's weight increases the difficulty and complexity of medical and/or surgical interventions, management and increases the chances of poor outcome such as morbidity and mortality as well as impaired wound healing. 5. Acute metabolic encephalopathy - suspect in setting of acute blood loss anemia, improved with transfusion this AM. Code status:Full Surrogate decision maker: Fito spouse COVID PCR: Negative DVT/VTE prophylaxis: Medication held SCDs only Disposition: Inpatient given continued bleeding. Anticipate discharge home once bleeding stops. Time Spent With Patient Critical Care time: I spent a total of [] minutes of critical care time on this patient's care today; this time is exclusive of procedural time.
[2022-09-01 21:27] LABS: Hematocrit 26.5 % (41-53); Hemoglobin 9.2 g/dL (13.5-17.5)
--- NOTE | 2022-09-02 03:13 | PC.NURSE ---
Pt is AxOx4, independent and cooperative. VSS, HH stayin stable-9.2/26.5. Pt has bloody stool x1; it was bright red but small amount. Pt's BP is staying stable. BG-198 and pt recieved 2 units of Lispro. Pt was found in the hallway at night around 0300; I think pt has some confusion at night that is hospital related. Pt stated that he was looking for his bedroom. Pt was directable and cooperative. No other changes.
[2022-09-02 04:00] VITALS: BP 110/51; BP 134/66; BP 93/53; PULSE 74; PULSE 75; PULSE 77; RESP 18; TEMP 36.6; O2SAT 100
[2022-09-02 05:17] LABS: Add Manual Diff / Slide Review NO; Basophils Absolute Auto 100 /uL (0-100); Basophils Percent Auto 0.7 % (0-2); Eosinophils Absolute Auto 200 /uL (0-450); Eosinophils Percent Auto 2.3 % (2-4); Hemoglobin 9.1 g/dL (13.5-17.5); Lymphocytes Absolute Auto 2100 /uL (1100-4500); Lymphocytes Percent Auto 29.9 % (25-40); Mean Corpuscular HGB Conc 34.8 % (30-36); Mean Corpuscular Hemoglobin 31.9 PG (26-34); Mean Corpuscular Volume 91.7 fL (80-100); Monocytes Absolute Auto 500 /uL (0-900); Monocytes Percent Auto 7.3 % (3-14); Neutrophils Absolute Auto 4200 /uL (1500-7000); Neutrophils Percent Auto 59.8 % (50-75); Platelet Count 119 X10^3/uL (150-400); Red Blood Cell Count 2.84 X10^6/uL (4.5-5.9); Red Cell Distribution Width 13.6 % (11.6-14.8); White Blood Cell Count 7.1 X10^3/uL (4.5-11.0)
[2022-09-02 05:23] LABS: BUN Creatinine Ratio 11.7 (6-22); Blood Urea Nitrogen 7 mg/dL (9-20); Calcium 8.2 mg/dL (8.4-10.2); Carbon Dioxide 23 mmol/L (22-32); Chloride 110 mmol/L (98-107); Estimated Glomerular Filt Rate > 60 mL/min (>60); Glucose 143 mg/dL (80-110); HEMOLYSIS < 15 (0-50); Potassium 3.9 mmol/L (3.4-5.1); Sodium 141 mmol/L (137-145)
[2022-09-02] MEDS: PANTOPRAZOLE DR 20 MG TABLET PO (05:29)
--- NOTE | 2022-09-02 07:52 | PM.DS.1 ---
History of Present Illness History of Present Illness Date Patient Seen: 09/02/22 Chief complaint: lightheaded,nausea,abd dicomfort, black stool Narrative: Per admitting provider, Koby Coe is a 72-year-old male with a history bkh-cthwmwe-vgvuzaivq diabetes, hyperlipidemia, BPH, colonoscopy by Dr. Gill on 07/20/2022 who found no masses but extensive diverticulosis in the right colon. Presented to the ED with 1 day of bloody stools, starting this am, patient also notes that he has had tenderness vertically along the lower abdomen upper suprapubic area since having the colonoscopy which he can induce with palpation and is relieved when he resolved any pressure from waist band on the area. The patient notes that he does not have any pain or discomfort either worsened or relieved in relation to bowel movements.? Patient has had multiple large, dark, and bright red blood stools. Patient denies any previous history of GI bleed ulcerations or bleeding disorders. Patient became orthostatic and dizzy during attempt at orthostatic vital signs. Patient denies fever, chills, chest pain, shortness of breath, cough, rhinorrhea, sore throat, nausea, vomiting, dysuria, syncope, history of hemorrhoids, any other bleeding.? Patient states that he has been taking ibuprofen for 3-4 days for a musculoskeletal pain in his right shoulder over the last week. In the ED patient originally presented afebrile blood pressure 122/65 heart rate 94-116, respiratory rates less than 20, and maintained O2 saturation above 90% on room air. At the time of admit patients vital signs are looking concerning for possible hypotensive shock temp 97?, BP 86/48, HR 102, RR 29, O2 saturation 98% on room air. At approximately 4:00 p.m. patient's H&H 12.4/35.4 at 7:00 p.m. 11.8/33.6, MCV, MCH, and platelets are WNL. Patient was reported to have multiple dark melenic stools in the ED, no suzette bleeding noted. Sodium 134, BUN 24, bicarb 21, creatinine 0.65, glucose 294, PT 13.5 INR stable at 1.2, PTT 18, lactate WNL, patient was negative for RSV, COVID, influenza a/B. Patient demonstrated no gap/DKA, no signs of sepsis- sofa score: 1. Dr. Hoover general surgery was consulted and requested that the patient be admitted to the hospitalist service and she would consult requesting that the patient complete bowel prep overnight. Patient admitted for GI bleed. Discharge Providers Provider Date of admission: 08/30/22 20:24 Discharge Date: 09/02/22 Primary care physician: Pantera Riggins MD Consults: 08/30/22 20:34 Consult to General Surgery Routine Comment: Consulting Provider: Malika Hoover Reason for consultation: GI bleed Has provider been notified: Yes Discharge provider: Jewel Prabhakar DO Summary Hospital Course Discharge Diagnosis: 1. Diverticular lower GI bleeding, acute, present on admission with acute blood loss anemia. 2. Tld-jfltzps-rrllfliuw type 2 diabetes, chronic, with hyperlipidemia, chronic present on admission 3. BPH, chronic, present on admission 4. Overweight, mild, acute on chronic, present on admission 5. Acute metabolic encephalopathy Hospital Course: Koby Coe is a 72-year-old male with a history elv-auyuxhp-juwizrqst diabetes, hyperlipidemia, BPH, colonoscopy by Dr. Gill on 07/20/2022 who found no masses but extensive diverticulosis in the right colon. Presented to the ED with 1 day of bloody stools, admitted for acute GI bleeding. He had a repeat Colonoscopy and EGD shortly after admission. EGD was unremarkable while colonoscopy revealed blood without an obvious bleeding source. His h/h continued to decline after admission, dropping as low as 8.0 when he developed an acute encephalopathy overnight. He was transfused with 2 U PRBC, and stabilized with h/h after at 8.1. h/h continued to trend upward after that point with resolution of hematochezia. His home aspirin was stopped, as it was primarily for primary prevention given his diabetes at this time. His Hg stabilized around 9.0 for about 24 hours, and with resolution of hematochezia he was discharged home. Time Spent with Patient Time spent: Greater than 30 minutes Exam Vital Signs (past 8 hours): - 09/02/22 04:00 09/02/22 04:00 Temperature 97.9 F Pulse Rate 77 Pulse Rate [Orthostatic Lying] 77 Pulse Rate [Orthostatic Sitting] 74 Pulse Rate [Orthostatic Standing] 75 Respiratory Rate 18 Blood Pressure 134/66 Blood Pressure [Orthostatic Lying] 134/66 Blood Pressure [Orthostatic Sitting] 110/51 L Blood Pressure [Orthostatic Standing] 93/53 L Pulse Oximetry 100 Oxygen Flow Rate 0 Oxygen Delivery Method Room Air Oxygen Flow Rate 0 Narrative Exam Narrative: General:? Patient is well developed and well nourished, in no distress at this time. HEENT:? Normocephalic, atraumatic, extraocular muscles intact, oral pharynx is clear and mucous membranes are moist. Neck: supple and symmetric, trachea is midline, no cervical adenopathy. Negative for JVD Chest:? Normal AP diameter and contour without kyphoscoliosis, no tachypnea, equal chest rise bilaterally. Lungs:? CTA b/l no wheezing rhonchi or rales. Cardio:?RRR no m/r/g. Abdomen: S NT ND. No CVA tenderness. Musculoskeletal:? Muscle strength and tone are equal within normal limits, no deformity. Extremities: No edema or joint effusions. No cyanosis or clubbing. Skin:? Pale,? Warm to touch,dry and intact without rashes, ulcerations or petechiae.? Neuro:? Alert and orientated x3,? sensation to touch intact in all extremities, no gross deficits noted of cranial nerves. Psych:? Patient has a well-kept appearance, appropriate affect, mental status attitude thought context and judgment are appropriate for age. Objective Labs Result Diagrams: 09/02/22 04:45 09/02/22 04:45 Labs: Laboratory Results - last 24 hr 08/30/22 09/01/22 09/01/22 21:00 14:00 21:09 WBC RBC Hgb 9.0 L 9.2 L Hct 26.5 L 26.5 L MCV MCH MCHC RDW Plt Count Neut % (Auto) Lymph % (Auto) [place] % (Auto) Eos % (Auto) Baso % (Auto) Neut # (Auto) Lymph # (Auto) [place] # (Auto) Eos # (Auto) Baso # (Auto) Sodium Potassium Chloride Carbon Dioxide BUN Creatinine Estimated GFR BUN/Creatinine Ratio Glucose Calcium Crossmatch See Detail 09/02/22 09/02/22 04:45 04:45 WBC 7.1 RBC 2.84 L Hgb 9.1 L Hct 26.0 L MCV 91.7 MCH 31.9 MCHC 34.8 RDW 13.6 Plt Count 119 L Neut % (Auto) 59.8 Lymph % (Auto) 29.9 [place] % (Auto) 7.3 Eos % (Auto) 2.3 Baso % (Auto) 0.7 Neut # (Auto) 4200 Lymph # (Auto) 2100 [place] # (Auto) 500 Eos # (Auto) 200 Baso # (Auto) 100 Sodium 141 Potassium 3.9 Chloride 110 H Carbon Dioxide 23 BUN 7 L Creatinine 0.60 L Estimated GFR > 60 BUN/Creatinine Ratio 11.7 Glucose 143 H Calcium 8.2 L Crossmatch [facility] Medical History BPH (benign prostatic hyperplasia) Diabetes mellitus Hyperlipidemia 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 Surgical History History of colonoscopy Family History Sister Cancer Brother Motorcycle accident Social History household members: spouse Smoking Status: Former smoker alcohol intake: current substance use type: marijuana (vape ) Discharge Plan Discharge Plan Patient Disposition: Home Provider Discharge Comment: You were admitted to the hospital with bleeding from your colon due to diverticulae, or diverticulosis. Stop baby aspirin at this time, no other medication changes are needed. Please follow up with your primary care provider to review hospitalization in a few weeks. Discharge orders & Medications Prescriptions: Continued naproxen sodium [Aleve] 220 MG tablet 220 mg PO BIDCC PRN (Reason: Pain (Scale Score 1-3)) Qty: 0 lisinopril 5 mg tablet 5 mg PO DAILY Qty: 90 0RF tamsulosin [Flomax] 0.4 mg capsule 0.4 mg PO BID Qty: 180 3RF metformin 500 mg tablet extended release 24 hr See Rx Instructions .ROUTE .COMPLEX Qty: 360 3RF Dose Instruction: TAKE 4 TABLETS ( 2000 MG ) DAILY Rx Instructions: TAKE 4 TABLETS ( 2000 MG ) DAILY ipratropium bromide 21 mcg (0.03 %) spray,non-aerosol See Rx Instructions .ROUTE .COMPLEX Qty: 30 3RF Dose Instruction: instill 2 sprays into each nostril twice a day Rx Instructions: instill 2 sprays into each nostril twice a day tolterodine 4 mg capsule,extended release 24hr See Rx Instructions .ROUTE .COMPLEX Qty: 90 3RF Dose Instruction: take 1 capsule by mouth once daily Rx Instructions: take 1 capsule by mouth once daily rosuvastatin 5 mg tablet 5 mg PO DAILY Qty: 90 3RF DHEA 50 mg capsule 50 mg PO DAILY cholecalciferol (vitamin D3) [Vitamin D3] 125 mcg (5,000 unit) Tablet 125 mcg PO DAILY magnesium chloride 64 mg magnesium Tablet 64 mg PO DAILY vitamin B complex Tablet 1 tab PO DAILY Discontinued aspirin [Adult Low Dose Aspirin] 81 mg tablet,delayed release (DR/EC) 81 mg PO .qod Follow up/Referrals: Pantera Riggins MD [Primary Care Provider] - Diet/Activity/Treatments Diet: Diet as Tolerated Activity: As tolerated Discharge Data Primary Care Provider: Pantera Riggins
--- NOTE | 2022-09-02 08:44 | PC.NURSE ---
Patient is A&Ox3, VSS, afebrile. He still remains positive with orthostatic BP but is able to ambulate around the room w/o complaints of dizziness. The hospitalist is at bedside this a.m. reviewing results and explaining treatment to the patient and his at bedside. He clears patient for discharge home today, stopping the aspirin and following up with PCP in 2-3 weeks. Mr. Coe verbalizes understanding of medications, plan if symptoms worsen as well as the need for follow up appointment with PCP. He is escorted via w/ch this a.m. at approximately 0840 for discharge home in private vehicle with . He has all of his belongings with him.
== END 2022-09-02 08:40 | disposition home or self-care (01) | DRG 377 ==
LOC: ED 20:23 → AC 08-31 08:06
PROVIDERS: Emergency Medicine; Internal Medicine; Surgery; Admitting Provider Nurse Practitioner Family; Emergency Provider Student in an Organized Health Care Education/Training Program; PCP Family Medicine; Visit Provider Nurse Practitioner Family
PROC: 0DJ08ZZ Inspection of Upper Intestinal Tract, Via Natural or Artificial Opening Endoscopic (ICD-10-PCS; CPT 43235; principal; 2022-08-31 12:15)
PROC: 0DJD8ZZ Inspection of Lower Intestinal Tract, Via Natural or Artificial Opening Endoscopic (ICD-10-PCS; CPT 45378; 2022-08-31 12:15)
DX: K57.91 Diverticulosis of intestine, part unspecified, without perforation or abscess with bleeding (principal); G93.41 Metabolic encephalopathy; D62 Acute posthemorrhagic anemia; E11.9 Type 2 diabetes mellitus without complications; E78.5 Hyperlipidemia, unspecified; N40.0 Benign prostatic hyperplasia without lower urinary tract symptoms; E66.3 Overweight; Z68.30 Body mass index [BMI] 30.0-30.9, adult; Z79.84 Long term (current) use of oral hypoglycemic drugs; Z20.822 Contact with and (suspected) exposure to COVID-19; Z87.891 Personal history of nicotine dependence
CPT/HCPCS: 0241U; 36415; 36430; 43235; 45378; 71046; 74177; 80048; 80053; 81003; 82805; 82962; 83036; 83605; 83690; 84145; 85014; 85018; 85025; 85610; 85730; 86850; 86900; 86901; 93005; 96374; 99232; 99284; 99285; P9016; C9113; J1815; J2704; Q9967

== ENCOUNTER → 2022-09-21 11:31 | Outpatient (CLI) | payer MEDICARE, OTHER, SELFPAY ==
[2022-09-21 12:49] LABS: Add Manual Diff / Slide Review NO; Basophils Absolute Auto 100 /uL (0-100); Basophils Percent Auto 0.9 % (0-2); Eosinophils Absolute Auto 0 /uL (0-450); Eosinophils Percent Auto 0.3 % (2-4); Hemoglobin 11.3 g/dL (13.5-17.5); Lymphocytes Absolute Auto 1100 /uL (1100-4500); Lymphocytes Percent Auto 19.8 % (25-40); Mean Corpuscular HGB Conc 33.4 % (30-36); Mean Corpuscular Hemoglobin 31.7 PG (26-34); Monocytes Absolute Auto 300 /uL (0-900); Monocytes Percent Auto 5.2 % (3-14); Neutrophils Absolute Auto 4200 /uL (1500-7000); Neutrophils Percent Auto 73.8 % (50-75); Platelet Count 214 X10^3/uL (150-400); Red Blood Cell Count 3.58 X10^6/uL (4.5-5.9); White Blood Cell Count 5.7 X10^3/uL (4.5-11.0)
[2022-09-21 13:38] LABS: TSH w/ Reflex to FT4 1.16 uIU/mL (0.47-4.68)
== END ==
PROVIDERS: PCP Family Medicine; Referring Provider Family Medicine; Visit Provider Family Medicine
DX: E11.9 Type 2 diabetes mellitus without complications (principal); K57.90 Diverticulosis of intestine, part unspecified, without perforation or abscess without bleeding; R68.89 Other general symptoms and signs
CPT/HCPCS: 36415; 84443; 85025

== ENCOUNTER → 2022-10-26 07:00 | Outpatient (CLI) | payer MEDICARE, OTHER, SELFPAY ==
[2022-10-26 07:22] LABS: Add Manual Diff / Slide Review NO; Basophils Absolute Auto 100 /uL (0-100); Eosinophils Absolute Auto 100 /uL (0-450); Eosinophils Percent Auto 1.8 % (2-4); Hematocrit 37.9 % (41-53); Hemoglobin 12.7 g/dL (13.5-17.5); Lymphocytes Absolute Auto 2300 /uL (1100-4500); Lymphocytes Percent Auto 43.6 % (25-40); Mean Corpuscular HGB Conc 33.5 % (30-36); Mean Corpuscular Hemoglobin 30.2 PG (26-34); Mean Corpuscular Volume 90.3 fL (80-100); Monocytes Absolute Auto 400 /uL (0-900); Monocytes Percent Auto 7.7 % (3-14); Neutrophils Absolute Auto 2500 /uL (1500-7000); Neutrophils Percent Auto 45.9 % (50-75); Platelet Count 189 X10^3/uL (150-400); Red Blood Cell Count 4.19 X10^6/uL (4.5-5.9); Red Cell Distribution Width 12.9 % (11.6-14.8); White Blood Cell Count 5.3 X10^3/uL (4.5-11.0)
[2022-10-26 07:42] LABS: Alanine Aminotransferase 25 IU/L (<50); Albumin 4.5 g/dL (3.5-5.0); Albumin Globulin Ratio 1.6 (1.0-2.8); Alkaline Phosphatase 73 U/L (38-126); Aspartate Aminotransferase 29 IU/L (17-59); BUN Creatinine Ratio 15.9 (6-22); Bilirubin Total 0.4 mg/dL (0.2-1.3); Blood Urea Nitrogen 10 mg/dL (9-20); Calcium 9.6 mg/dL (8.4-10.2); Carbon Dioxide 28 mmol/L (22-32); Chloride 103 mmol/L (98-107); Estimated Glomerular Filt Rate > 60 mL/min (>60); Globulin 2.8 g/dL (1.7-4.1); Glucose 142 mg/dL (80-110); HEMOLYSIS < 15 (0-50); Potassium 3.7 mmol/L (3.4-5.1); Sodium 142 mmol/L (137-145); Total Protein 7.3 g/dL (6.3-8.2)
== END ==
PROVIDERS: PCP Family Medicine; Referring Provider Family Medicine; Visit Provider Family Medicine
DX: E11.9 Type 2 diabetes mellitus without complications (principal); E78.2 Mixed hyperlipidemia; K57.91 Diverticulosis of intestine, part unspecified, without perforation or abscess with bleeding
CPT/HCPCS: 36415; 80053; 85025

== ENCOUNTER → 2022-11-07 09:41 | Outpatient (CLI) | payer MEDICARE, OTHER, SELFPAY ==
--- NOTE | 2022-11-07 09:49 | DI.MRI.S_ITS ---
PROCEDURE: MR CERVICAL SPINE WO CON INDICATIONS: Neck pain TECHNIQUE: Noncontrast sagittal T1 spin echo and T2 fast spin echo, sagittal STIR, foraminal oblique sagittal T2 fast spin echo, and axial gradient echo or T2 fast spin echo through the cervical spine. COMPARISON: None. FINDINGS: Image quality: Excellent. Alignment and Curvature: There is normal bony alignment. Bone Marrow: Marrow demonstrates normal overall signal. Spinal Cord: Visualized spinal cord has normal size and signal. No cerebellar tonsillar herniation. Paraspinous Soft Tissues: No paravertebral masses. Prevertebral soft tissues are normal in thickness. C2-C3: Disc bulge. No canal stenosis or foraminal stenosis. C3-C4: Disc bulge plus mild superimposed central posterior disc protrusion. Posterior facet hypertrophy. The cord is abutted anteriorly and posteriorly. There is moderate to severe canal stenosis. AP diameter of the canal is 7.4 mm. Bilateral uncovertebral joint hypertrophy. Bilateral facet hypertrophy. Moderate to severe right foraminal narrowing with right foraminal C4 nerve root impingement. Moderate left foraminal narrowing with flattening deformity on the exiting left C4 nerve root. C4-C5: Mild broad-based central posterior disc protrusion, indenting on the cord. Posterior ligamentous hypertrophy. Moderate to severe canal stenosis. AP diameter of the canal is 7 mm. Uncovertebral joint hypertrophy. Facet hypertrophy. Facet hypertrophy is exuberant on the right. Moderate to severe right foraminal narrowing with a degree of impingement on the exiting right C5 nerve root. Mild to moderate left foraminal narrowing. C5-C6: Disc bulge abutting the cord. AP diameter of the canal is 9.5 mm. Bilateral uncovertebral joint hypertrophy. Bilateral facet hypertrophy. Moderate right foraminal narrowing with flattening deformity on the exiting right C6 nerve root. C6-C7: Diffuse posterior disc post osteophyte flattening the cord. AP diameter of the canal is 9.1 mm. Bilateral uncovertebral joint hypertrophy. Bilateral facet hypertrophy. Moderate to severe bilateral foraminal narrowing with a degree of bilateral C7 foraminal nerve root impingement. No canal stenosis. [id number] left foraminal stenosis. C7-T1: Normal appearance. IMPRESSION: 1. Diffuse spondylitic change with multilevel uncovertebral joint hypertrophy and multilevel facet hypertrophy. 2. Multilevel canal stenosis, moderate to severe at C3-C4 and C4-C5. There is mild canal stenosis at C5-C6 and C6-C7. 3. Significant multilevel foraminal narrowing as described above. Findings include moderate to severe right foraminal narrowing at C3-C4 and C4-C5, as well as moderate to severe bilateral foraminal narrowing at C6-C7. Dictated by: Adonis Schaeffer M.D. on 11/08/2022 at 8:46 Approved by: Adonis Schaeffer M.D. on 11/08/2022 at 8:53
== END ==
PROVIDERS: PCP Family Medicine; Referring Provider Family Medicine; Visit Provider Family Medicine
DX: M47.812 Spondylosis without myelopathy or radiculopathy, cervical region (principal); M48.02 Spinal stenosis, cervical region; M54.2 Cervicalgia; M25.511 Pain in right shoulder
CPT/HCPCS: 72141

== ENCOUNTER → 2022-12-23 07:05 | Outpatient (CLI) | payer MEDICARE, OTHER, SELFPAY ==
[2022-12-23 08:28] LABS: Add Manual Diff / Slide Review NO; Basophils Absolute Auto 0 /uL (0-100); Basophils Percent Auto 0.6 % (0-2); Eosinophils Absolute Auto 100 /uL (0-450); Eosinophils Percent Auto 2.5 % (2-4); Hematocrit 36.4 % (41-53); Hemoglobin 12.2 g/dL (13.5-17.5); Lymphocytes Absolute Auto 1700 /uL (1100-4500); Lymphocytes Percent Auto 38.2 % (25-40); Mean Corpuscular HGB Conc 33.4 % (30-36); Mean Corpuscular Hemoglobin 29.4 PG (26-34); Mean Corpuscular Volume 87.9 fL (80-100); Monocytes Absolute Auto 300 /uL (0-900); Monocytes Percent Auto 6.6 % (3-14); Neutrophils Absolute Auto 2400 /uL (1500-7000); Neutrophils Percent Auto 52.1 % (50-75); Platelet Count 174 X10^3/uL (150-400); Red Blood Cell Count 4.14 X10^6/uL (4.5-5.9); Red Cell Distribution Width 15.1 % (11.6-14.8); White Blood Cell Count 4.5 X10^3/uL (4.5-11.0)
[2022-12-23 08:52] LABS: HEMOLYSIS < 15 (0-50); Iron 73 ug/dL (49-181)
[2022-12-23 08:59] LABS: Alanine Aminotransferase 23 IU/L (<50); Albumin 4.2 g/dL (3.5-5.0); Albumin Globulin Ratio 1.6 (1.0-2.8); Alkaline Phosphatase 65 U/L (38-126); Aspartate Aminotransferase 24 IU/L (17-59); BUN Creatinine Ratio 33.3 (6-22); Bilirubin Total 0.3 mg/dL (0.2-1.3); Blood Urea Nitrogen 19 mg/dL (9-20); Calcium 9.1 mg/dL (8.4-10.2); Carbon Dioxide 27 mmol/L (22-32); Chloride 104 mmol/L (98-107); Cholesterol 130 mg/dL (140-199); Estimated Glomerular Filt Rate > 60 mL/min (>60); Globulin 2.7 g/dL (1.7-4.1); Glucose 158 mg/dL (80-110); HDL Cholesterol 35 mg/dL (40-60); HEMOLYSIS < 15 (0-50); LDL Cholesterol Calculated 72 mg/dL (<100); Potassium 4.1 mmol/L (3.4-5.1); Sodium 140 mmol/L (137-145); Total Protein 6.9 g/dL (6.3-8.2); Triglycerides 113 mg/dL (35-150)
[2022-12-23 09:05] LABS: Percent Iron Saturation 17 % (20-50); Total Iron Binding Capacity 442 ug/dL (261-462); Transferrin 316 mg/dL (206-381)
[2022-12-23 09:27] LABS: Ferritin 22 ng/mL (18-464)
[2022-12-23 21:12] LABS: Labcorp Hemoglobin (Hb) A1c 7.9 % (4.8-5.6)
== END ==
PROVIDERS: Family Provider Family Medicine; PCP Family Medicine; Referring Provider Family Medicine; Visit Provider Family Medicine
DX: E11.9 Type 2 diabetes mellitus without complications (principal); E78.2 Mixed hyperlipidemia; K57.91 Diverticulosis of intestine, part unspecified, without perforation or abscess with bleeding
CPT/HCPCS: 36415; 80053; 80061; 82728; 83036; 83540; 83550; 85025

== ENCOUNTER → 2023-01-19 09:05 | Outpatient (CLI) | payer MEDICARE, OTHER, SELFPAY ==
--- NOTE | 2023-02-03 14:22 | DIAB.MNT ---
Initial Diabetes Medical Nutrition Therapy Assessment Name: Koby Coe Date: 01/19/23 Time: [id number] Dx: Type II Diabetes Provider: Gilson Whalen presents for initial DM visit with spouse, Fito. Last RD/CDCES visit in 05/2021. States they are hear today to confirm that they are making the right nutrition choices for [place] [facility] and overall health. Last hgA1c 7.9%, highest in EMR. Seems r/t limited physical activity prior to this lab value. States he was hospitalized for a GI bleed last August. Has not been able to incorporate his usual walk regimen until recently. Also states he is being tested fro Parkinson's, which requires a lot of medical appts per report. States this also interferes with physical activity plans. Also reports steroid injection for stenosis in November, which could also impact BG. Reports GERD symptoms with strenuous walk. Often walks after espresso and meal in the morning. Worries about weight gain recently, which may also be exacerbated by decrease in activity over the last few months. Diet Recall: 8-9a: 1/2c cooked oats with 1/2c almond milk, 1/2c berries, 1/2 banana, hemp hearts and pradeep seeds OR Smoothie noon: 1/2c farro, veggies, walnuts, tofu sn: apple or handful wheat thins 6-7p: tofu, veggies, 1/2c brown rice, nuts other snacks: apple and PB, nuts, popcorn Today Fito has questions about portions, coconut milk, carbs pre day/meal, water flavoring, pasta, grains, veggies, etc. Anthropometrics: Ht: 5'11 Wt: 200# reported Physical Activity: restarted walking 5 days per week min for 60 min. 10,000 steps per day 4-6x per week. Self-Monitoring Blood Glucose: Started checking some SMBG. One BG of concern was 260mg/dl after a meal. No log book or meter for review today. Diabetes Medications: Metformin 2000mg XR HS Pertinent Labs: HgA1c: 7.1% 12/2021 6.9% 06/2022 7.4% 08/2022 6.8% 08/2022 7.9% 12/2022 Past Medical History: (Last Reviewed 08/31/22 @ 11:00 by Malika Hoover MD) BPH (benign prostatic hyperplasia) Diabetes mellitus Hyperlipidemia 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 Nutrition Rx: Carbohydrates: Meal:30-45g Snack:15-30g Nutrition Diagnosis: - Food and nutrition related knowledge deficit r/t no previous ed on GERD MNT and needing refresher on DM MNT aeb pt report Intervention: This participant was very receptive. Provided appropriate educational handouts. Discussed the following topics: Plate Method Recommended servings for carbohydrates at meals and snacks Carb counting review Heart health: fats and fiber GERD MNT: limiting caffeine and fats Role of physical activity, recent barriers to activity, and impact on BG and weight Phys activity plan Created SMART goals for patient self-care and success. Goals: Try waiting one hour after eating before walk Limit espresso before walk Increase short walks on busy days Follow-up: YUVAL MEYER follow-up prn. Koby would like to follow-up prn. Seems likely that his hospitalization in Aug reduced physical activity ability until recently and his steroid tx in November may have impacted blood sugars prior to HgA1c. Encouraged safe physical activity, continued healthful nutrition choices, and some BG checks. If needing follow-up, encouraged him to call DM ed for another visit. He agreed. Vivian Cobb RDN, [facility] Certified Diabetes Care and Sales Enablement Lead P: [phone] Thank you for this referral
== END ==
PROVIDERS: Absent Provider Family Medicine; Family Provider Family Medicine; PCP Family Medicine; Referring Provider Family Medicine; Visit Provider Family Medicine
DX: E11.9 Type 2 diabetes mellitus without complications (principal); Z79.84 Long term (current) use of oral hypoglycemic drugs; Z71.3 Dietary counseling and surveillance
CPT/HCPCS: 97802

== ENCOUNTER → 2023-06-20 08:34 | Outpatient (CLI) | payer MEDICARE, OTHER, SELFPAY | PROVIDERS: Family Provider Family Medicine; PCP Family Medicine; Referring Provider Specialist; Visit Provider Specialist | DX: N40.0 Benign prostatic hyperplasia without lower urinary tract symptoms (principal) | CPT/HCPCS: 36415; 84153 ==

== ENCOUNTER → 2023-09-27 12:47 | Outpatient (CLI) | payer MEDICARE, OTHER, SELFPAY | PROVIDERS: Family Provider Family Medicine; PCP Family Medicine; Referring Provider Urology; Visit Provider Urology | DX: R39.12 Poor urinary stream (principal) | CPT/HCPCS: 87086 ==

== ENCOUNTER → 2023-10-11 07:59 | Outpatient (CLI) | payer MEDICARE, OTHER, SELFPAY ==
[2023-10-11 09:07] LABS: Albumin 4.1 g/dL (3.5-5.0); BUN Creatinine Ratio 27.9 (6-22); Blood Urea Nitrogen 17 mg/dL (9-20); Calcium 9.6 mg/dL (8.4-10.2); Carbon Dioxide 24 mmol/L (22-32); Chloride 100 mmol/L (98-107); Cholesterol 116 mg/dL (140-199); Estimated Glomerular Filt Rate > 60 mL/min (>60); Glucose 152 mg/dL (80-110); HDL Cholesterol 42 mg/dL (40-60); HEMOLYSIS < 15 (0-50); LDL Cholesterol Calculated 51 mg/dL (<100); Phosphorous 3.2 mg/dL (2.3-3.7); Potassium 3.9 mmol/L (3.4-5.1); Sodium 134 mmol/L (137-145); Triglycerides 114 mg/dL (35-150)
[2023-10-11 09:13] LABS: Hemoglobin A1C% w Est Avg Glu 5.9 % (4.0-6.0)
== END ==
PROVIDERS: Family Provider Family Medicine; PCP Family Medicine; Referring Provider Student in an Organized Health Care Education/Training Program; Visit Provider Student in an Organized Health Care Education/Training Program
DX: E11.69 Type 2 diabetes mellitus with other specified complication (principal)
CPT/HCPCS: 36415; 80061; 80069; 83036

== ENCOUNTER → 2023-11-17 09:51 | Outpatient (CLI) | payer MEDICARE, OTHER, SELFPAY | LOC: LAB 09:54 | PROVIDERS: Family Provider Family Medicine; PCP Family Medicine; Referring Provider Registered Nurse; Visit Provider Registered Nurse | DX: R39.9 Unspecified symptoms and signs involving the genitourinary system (principal) | CPT/HCPCS: 87077; 87086; 87185; 87186 ==

== ENCOUNTER → 2023-11-23 12:05 | Outpatient (CLI) | payer MEDICARE, OTHER, SELFPAY ==
--- NOTE | 2023-11-23 12:07 | DI.US.S_ITS ---
PROCEDURE: US RENAL COMPLETE INDICATIONS: LOWER URINARY TRACT SYMPTONS TECHNIQUE: Real-time scanning was performed of the kidneys and bladder, with image documentation. COMPARISON: None. FINDINGS: Kidneys: Kidneys are normal in size. Right kidney measures 13.9 cm long; left kidney measures 12.5 cm long. Right renal cortical thickness is 1.5 cm; left renal cortical thickness is 1.4 cm. Renal cortical echotexture is normal. No hydronephrosis or nephrolithiasis. No suspicious solid mass lesions. There is a simple 3.2 cm midpole right renal cyst. Bladder: Pre-void bladder volume is 44 mL. Post-void residual was not obtained as the patient was unable to void. Pre-void images demonstrate no intraluminal masses or stones. On pre-void images, bilateral ureteral jets are noted with color Doppler interrogation. (Of note, ureteral jets may not be detectable in up to 25% of cases due to insufficient differences in specific gravity between ureteral and bladder urine). Miscellaneous: No free pelvic fluid. IMPRESSION: 1. No hydronephrosis. 2. Normal bilateral ureteral jets. 3. Patient unable to void to evaluate for post void residual. Dictated by: Katie Lemus M.D. on 11/23/2023 at 13:10 Approved by: Katie Lemus M.D. on 11/23/2023 at 13:13
== END ==
LOC: US 12:06
PROVIDERS: Family Provider Family Medicine; PCP Family Medicine; Referring Provider Urology; Visit Provider Urology
DX: N28.1 Cyst of kidney, acquired (principal); R39.9 Unspecified symptoms and signs involving the genitourinary system
CPT/HCPCS: 76770

== ENCOUNTER → 2023-12-01 08:07 | Outpatient (CLI) | payer MEDICARE, OTHER, SELFPAY | PROVIDERS: Family Provider Family Medicine; PCP Family Medicine; Referring Provider Urology; Visit Provider Urology | DX: R39.12 Poor urinary stream (principal) | CPT/HCPCS: 87086 ==

== ENCOUNTER → 2024-01-07 09:52 | Outpatient (CLI) | payer MEDICARE, OTHER, SELFPAY ==
[2024-01-07 10:34] LABS: Hemoglobin A1C% w Est Avg Glu 6.3 % (4.0-6.0)
[2024-01-07 10:38] LABS: Cholesterol 115 mg/dL (140-199); HDL Cholesterol 53 mg/dL (40-60); LDL Cholesterol Calculated 47 mg/dL (<100); Triglycerides 74 mg/dL (35-150)
== END ==
PROVIDERS: Family Provider Family Medicine; PCP Family Medicine; Referring Provider Family Medicine; Visit Provider Family Medicine
DX: E11.9 Type 2 diabetes mellitus without complications (principal); E78.2 Mixed hyperlipidemia
CPT/HCPCS: 36415; 80061; 83036

== ENCOUNTER → 2024-02-07 13:36 | Outpatient (CLI) | payer MEDICARE, OTHER, SELFPAY ==
--- NOTE | 2024-02-07 13:38 | DI.RAD.S_ITS ---
PROCEDURE: XR KNEE LT 3V INDICATIONS: Right hip pain TECHNIQUE: 3 views of the knee were acquired. COMPARISON: None. FINDINGS: Bones: No acute fractures or dislocations. No suspicious bony lesions. Mild joint space narrowing seen at the medial femorotibial compartment. Small marginal osteophytes are seen at the medial and anterior compartments. Soft tissues: No joint effusion. No suspicious soft tissue calcifications. IMPRESSION: Minimal osteoarthrosis. Approved by: Gilmar Mota M.D. on 02/07/2024 at 16:44
--- NOTE | 2024-02-07 13:38 | DI.RAD.S_ITS ---
PROCEDURE: XR HIP W PEL IF DONE RT 2V INDICATIONS: Right hip pain TECHNIQUE: AP pelvis with lateral view of the right hip. COMPARISON: [facility], CR, HIPBILAT 3TO4V W PEL IF PERFD, 08/19/2016, 18:20. FINDINGS: Bones: No acute fractures or dislocations. Pelvic ring appears intact. No suspicious bony lesions. Mild to moderate degenerative changes are seen in the hips bilaterally with lateral acetabular spurring. Degenerative changes are seen in the included spine. Soft tissues: The visualized bowel gas pattern is normal. No suspicious soft tissue calcifications. IMPRESSION: 1. [id number] bilateral hip osteoarthrosis, similar when compared to the exam from 08/19/2016. 2. Degenerative changes in the included lumbar spine. Approved by: Gilmar Mota M.D. on 02/07/2024 at 16:43
== END ==
PROVIDERS: Family Provider Family Medicine; PCP Family Medicine; Referring Provider Family Medicine; Visit Provider Family Medicine
DX: M16.0 Bilateral primary osteoarthritis of hip (principal); M47.816 Spondylosis without myelopathy or radiculopathy, lumbar region; M25.562 Pain in left knee; M25.551 Pain in right hip
CPT/HCPCS: 73502; 73562

== ENCOUNTER 2024-03-21 11:15 | Outpatient (RCR) | payer MEDICARE, OTHER, SELFPAY ==
--- NOTE | 2024-02-08 15:47 | PT.OIE ---
Current Diagnoses Parkinsonism, unspecified (02/08/24) Personal history of other diseases of the nervous system and sense organs (02/08/24) Past Medical History (Last Updated 02/07/24 @ 13:08 by Pantera Riggins MD) BPH (benign prostatic hyperplasia) BPH w urinary obs/LUTS Dermatitis Diabetes mellitus History of broken collarbone History of Parkinson's disease Hyperlipidemia Parkinson disease 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 Past Surgical History (Last Reviewed 06/30/23 @ 17:17 by Melissa Foreman MD) H/O vasectomy History of colonoscopy Visit Care Team Role Provider Type Pantera Riggins MD Attending Provider Physician Family Provider Primary Care Provider Referring Provider Specialty: Family Practice Address: [address] [place] [address], [facility] Email: [email or web address] Physical Therapy Initial Evaluation PT-OP-A Visit Information Start: 02/06/24 15:27 Freq: Status: Active Protocol: Document 02/08/24 11:17 MB (Rec: 02/08/24 11:51 MB [id number]) Out-Patient Physical Therapy Visit Information Visit Information Visit Type Initial Evaluation Visit Note Medicare 09/30 before KX is Fito Visit Start Time 11:17 Visit Stop Time 12:15 Visit Number 1 Number of MARINE ENGINE MACHINIST Visits 0 Evaluation Information Evaluation Date 02/08/24 PT-OP-B Current Condition Start: 02/06/24 15:27 Freq: Status: Active Protocol: Document 02/08/24 11:17 MB (Rec: 02/08/24 11:51 [id number]) Current Condition History of Current Condition Onset Date 2021 cognitive changes Current Complaints Awkwardness of what is going on with legs, slow walking, stiffness History of Current Condition In 2021, noticed some cognitive changes. He saw a sleep specialist and he had mild sleep apnea. He lost a lot a weight and the CPAP caused issues with his sinuses . Sleep specialist noticed tremor in right hand. He has been seeing a neurologist since 10/2022. He has been treated as PD even though diagnostics were non- conclusive. Carbidopa Levodopa has helped him cognitively and they think that the tremor is a little better. Pt is also on a memory pill and he takes that once a day. [facility] and he has improved in a couple of areas and might have declined in other areas though he didn't wear his reading glasses. Pt has a new cane that he is using in his left hand d/t right hip pain. He takes two Aleve a day. He is closing in some and shuffling a little. provides most history and pt states that in his own defense, they have a 30 lb dog with a lot of energy and there are a lot of toys on the floor. They report no issues with walking over rugs and hardwood floors. He is wearing shoes at home. He had previously been walking in stocking feet. He is sleeping well. Before this started, he was vaping THC. The neuropsychologist asked him to wean off of it. Pt gets up 2-3 times a night to toilet. He wears depends. He had a procedure in September. Pt denies light-headedness when getting up. Pt has had a couple of sleep walking episodes in 2 years. One was a month ago. Last fall was in 2018. He talks a lot in his sleep and he dreams a lot per . reports pt' s swings occ in dreams. Pt is managing a smart phone. Pt manages his medication. He takes ozempic and they watch the video every Tuesday before he gives himself the short. New tasks require refresher course. states that pt is slow. manages finances. Pt used to walk his dog a few times a week until his right hip got bad and he started using cane in left hand. There are written lists for tasks he needs to complete like laundry. Pt was shaving his own head up until a couple of months ago but he stopped d/t nicking himself d/t stiffness in shoulders and motor control of hands. Pt and hope to transition to half-way in [place] in the future. Treatment Goals Patient/Caregiver Goals Better and bigger movement PT-OP-C Subjective Start: 02/06/24 15:27 Freq: Status: Active Protocol: Document 02/08/24 11:17 MB (Rec: 02/08/24 11:51 MB [id number]) OP-PT Subjective Patient Comments Patient Comments See history of current condition Patient Questionnaires Other Questionnaire Name and Score FES score is 20/64 PT-OP-D Balance Start: 02/06/24 15:27 Freq: Status: Active Protocol: Document 02/08/24 11:17 MB (Rec: 02/08/24 15:46 MB [id number]) OP-PT Balance Assessment Sitting Balance Static Sitting Balance Ability Good Standing Balance Static Standing Balance Ability Good Dynamic Standing Balance Ability Fair Balance Tests Other Other Balance Tests Performed SLS requires MARQUETRY WORKER to get into position and pt cannot lift opposite leg far off the ground. Longer standing time on left foot compared to right : CGA. Romberg EC and EO normal, superv. B tandem with UE support to get into position and longer hold time with CGA with right foot behind. Rondon Fall Scale Copyright Permission PT-OP-G Mobility & Gait Start: 02/06/24 15:27 Freq: Status: Active Protocol: Document 02/08/24 11:17 MB (Rec: 02/08/24 15:46 MB [id number]) OP Gait Assessment Comments Gait Comments Decreased arm swing B, though pt carries cane in left hand for 6MWT. For gait into clinic , step-to and more antalgic pattern gait with cane in left hand and advancing with right foot PT-OP-H Neuro Start: 02/06/24 15:27 Freq: Status: Active Protocol: Document 02/08/24 11:17 MB (Rec: 02/08/24 15:46 MB [id number]) Coordination Evaluation Upper Extremity Tests Left Finger to Nose Test Minimal Impairment Pronation/Supination Test Minimal Impairment Right Finger to Nose Test Normal Performance Pronation/Supination Test Minimal Impairment Lower Extremity Tests Left Heel on Irving Test Minimal Impairment Foot Tapping Test Minimal Impairment Right Heel on [place] Test Minimal Impairment Foot Tapping Test Minimal Impairment PT-OP-M Strength Start: 02/06/24 15:27 Freq: Status: Active Protocol: Document 02/08/24 11:17 MB (Rec: 02/08/24 15:46 MB [id number]) Shoulder Strength Shoulder Manual Muscle Testing Bilateral Flexion 5 Normal Abduction (C5) 5 Normal Hip Strength Hip Manual Muscle Testing Bilateral Flexion (L2) 5 Normal PT-OP-Q Treatments Start: 02/06/24 15:27 Freq: Status: Active Protocol: Document 02/08/24 11:17 MB (Rec: 02/08/24 15:34 MB [id number]) Therapeutic Exercises Sitting Exercises 30 sec STS Comments 13 reps from [facility] at lowest height Gait Training Gait Activity 6MWT Comments Pt gait trains 1184 feet in 6 minutes, holding cane in left hand and not using it during gait Self-Care/Home Management Treatment Education Other Education Education and handouts about LSVT, goal for bigger movement , importance of finding 3-4 functional tasks that pt would like to work on during BIG treatment and gave examples of these, ed pt and that pt will perform exercises once a day on therapy days and twice a day on non-therapy days during PT duration and then once a day afterwards, ed on follow-up opportunities such as BIG for Life PT-OP-T Assessment and Plan Start: 02/06/24 15:27 Freq: Status: Active Protocol: Document 02/08/24 11:17 MB (Rec: 02/08/24 15:46 MB [id number]) Physical Therapy Assessment Rehab Potential Rehabilitation Potential Good Evaluation Complexity Number of Personal Factors/Comorbidities 1-2 Number of Body Systems Impaired 3 Clinical Presentation at Evaluation Evolving Impairments Impairments Activity Tolerance,Balance, Coordination,Functional Activities,Functional Mobility ,Gait,Pain,Posture,Transfers Goals 4 Impairment Lack of amplitude specific HEP Box Truck Washer Goal (LTG) Pt will perform daily BIG exercises and therapeutic activities with no more than demo and cues from to improve amplitude and speed of movement. LTG Duration 16 treatments 3 Impairment Evidence of imbalance Detention Goal (LTG) Pt will perform WNLs on FGA to decrease fall risk. LTG Duration 16 treatments 2 Impairment 1184 feet in 6 minutes Detention Goal (LTG) Pt will gait train at least 1400 feet in 6 minutes without AD and with I to improve community ambulation. LTG Duration 16 treatments 1 Impairment 13 STS in 30 sec Box Truck Washer Goal (LTG) Pt will perform 15 STS in 30 sec to improve functional strength with transfers. LTG Duration 16 treatments Assessment Summary Assessment Pt is a 74 y/o male presenting with some gait and coordination challenges in setting of treatment for PD but no formal diagnosis of it per pt and . Pt reports recent right hip pain and arrives with cane but he feels better after 6MWT and his hip flexion MMT is normal. Pt and report that pt's biggest challenge is cognition and he is on both Carbidopa Levodopa and a memory medication. reports some shuffling and both pt and have goals of improving pt's amplitude and quality of movement with gait and functional activities. LSVT BIG is a great option for pt. Pt and 's schedule and clinic schedule will allow for the 16 treatments and they may occur less frequently than 4x/wk at times d/t various conflicts. Pt and are motivated to perform exercises at home and so will initiate BIG. Physical Therapy Plan Frequency and Duration Frequency of Treatment 4x/Week Duration of treatment (weeks) 6 Plan of Care Start Date 02/08/24 Plan of Care End Date 03/27/24 Therapeutic Interventions Therapeutic Interventions Balance Training,Canalithic Repositioning,Coordination Training,Gait Training,Home Exercise Program,Manual Therapy,Neuromuscular Re- education,Patient/Caregiver Education,Self-Care/Home Management,Sensory Integration ,Soft Tissue Mobilization, Taping,Therapeutic Activities, Therapeutic Exercises, Vestibular Rehabilitation Modalities Cold Pack/Ice Massage,Hot Packs Next Visit Focus/Plan Next Note Type Treatment Note Next Visit Plan Initiate LSVT BIG exercises Therapeutic activities to include mimicking shaving head and car transfers
--- NOTE | 2024-02-08 15:47 | PT.OPPOC ---
Physical, Occupational & Speech Therapy At [facility] Current Diagnoses Parkinsonism, unspecified (02/08/24) Personal history of other diseases of the nervous system and sense organs (02/08/24) Visit Care Team Role Provider Type Pantera Riggins MD Attending Provider Physician Family Provider Primary Care Provider Referring Provider Specialty: Family Practice Address: [address] [place] [address], [facility] Email: [email or web address] Plan Of Care PT-OP-T Assessment and Plan Start: 02/06/24 15:27 Freq: Status: Active Protocol: Document 02/08/24 11:17 MB (Rec: 02/08/24 15:46 MB [id number]) Physical Therapy Assessment Rehab Potential Rehabilitation Potential Good Evaluation Complexity Number of Personal Factors/Comorbidities 1-2 Number of Body Systems Impaired 3 Clinical Presentation at Evaluation Evolving Impairments Impairments Activity Tolerance,Balance, Coordination,Functional Activities,Functional Mobility ,Gait,Pain,Posture,Transfers Goals 4 Impairment Lack of amplitude specific HEP Mcfp Goal (LTG) Pt will perform daily BIG exercises and therapeutic activities with no more than demo and cues from to improve amplitude and speed of movement. LTG Duration 16 treatments 3 Impairment Evidence of imbalance Letter Stamping Machine Operator Goal (LTG) Pt will perform WNLs on FGA to decrease fall risk. LTG Duration 16 treatments 2 Impairment 1184 feet in 6 minutes Mcfp Goal (LTG) Pt will gait train at least 1400 feet in 6 minutes without AD and with I to improve community ambulation. LTG Duration 16 treatments 1 Impairment 13 STS in 30 sec Letter Stamping Machine Operator Goal (LTG) Pt will perform 15 STS in 30 sec to improve functional strength with transfers. LTG Duration 16 treatments Assessment Summary Assessment Pt is a 74 y/o male presenting with some gait and coordination challenges in setting of treatment for PD but no formal diagnosis of it per pt and . Pt reports recent right hip pain and arrives with cane but he feels better after 6MWT and his hip flexion MMT is normal. Pt and report that pt's biggest challenge is cognition and he is on both Carbidopa Levodopa and a memory medication. reports some shuffling and both pt and have goals of improving pt's amplitude and quality of movement with gait and functional activities. LSVT BIG is a great option for pt. Pt and 's schedule and clinic schedule will allow for the 16 treatments and they may occur less frequently than 4x/wk at times d/t various conflicts. Pt and are motivated to perform exercises at home and so will initiate BIG. Physical Therapy Plan Frequency and Duration Frequency of Treatment 4x/Week Duration of treatment (weeks) 6 Plan of Care Start Date 02/08/24 Plan of Care End Date 03/27/24 Therapeutic Interventions Therapeutic Interventions Balance Training,Canalithic Repositioning,Coordination Training,Gait Training,Home Exercise Program,Manual Therapy,Neuromuscular Re- education,Patient/Caregiver Education,Self-Care/Home Management,Sensory Integration ,Soft Tissue Mobilization, Taping,Therapeutic Activities, Therapeutic Exercises, Vestibular Rehabilitation Modalities Cold Pack/Ice Massage,Hot Packs Next Visit Focus/Plan Next Note Type Treatment Note Next Visit Plan Initiate LSVT BIG exercises Therapeutic activities to include mimicking shaving head and car transfers Plan of Care Dates Plan of Care Start Date 02/08/24 Plan of Care End Date 03/27/24 Electronically Signed by: Liset Doty PT 02/08/24 0548 If you are in agreement with this Plan of Care, please return a signed and dated copy. I have reviewed this Plan of Care and certify that the skilled therapy services above are required to meet the patient?s needs. Physician Signature Date Printed Name and Credentials Clinical Instructor Signature Printed Name and Credentials
--- NOTE | 2024-02-14 13:30 | PT.OTN ---
Current Diagnoses Parkinsonism, unspecified (02/14/24) Personal history of other diseases of the nervous system and sense organs (02/14/24) Physical Therapy Treatment Note PT-OP-A Visit Information Start: 02/06/24 15:27 Freq: Status: Active Protocol: Document 02/14/24 11:20 MB (Rec: 02/14/24 12:02 MB [id number]) Out-Patient Physical Therapy Visit Information Visit Information Visit Type Initial Evaluation Visit Note Medicare 10/31 before KX is Fito Visit Start Time 11:20 Visit Stop Time 12:15 Visit Number 2 Number of DATA ENTRY Visits 0 Evaluation Information Evaluation Date 02/08/24 PT-OP-B Current Condition Start: 02/06/24 15:27 Freq: Status: Active Protocol: Document 02/08/24 11:17 MB (Rec: 02/08/24 11:51 MB [id number]) Current Condition History of Current Condition Onset Date 2021 cognitive changes Current Complaints Awkwardness of what is going on with legs, slow walking, stiffness History of Current Condition In 2021, noticed some cognitive changes. He saw a sleep specialist and he had mild sleep apnea. He lost a lot a weight and the CPAP caused issues with his sinuses . Sleep specialist noticed tremor in right hand. He has been seeing a neurologist since 10/2022. He has been treated as PD even though diagnostics were non- conclusive. Carbidopa Levodopa has helped him cognitively and they think that the tremor is a little better. Pt is also on a memory pill and he takes that once a day. He sees neuropsychologist in [facility] and he has improved in a couple of areas and might have declined in other areas though he didn't wear his reading glasses. Pt has a new cane that he is using in his left hand d/t right hip pain. He takes two Aleve a day. He is closing in some and shuffling a little. provides most history and pt states that in his own defense, they have a 30 lb dog with a lot of energy and there are a lot of toys on the floor. They report no issues with walking over rugs and hardwood floors. He is wearing shoes at home. He had previously been walking in stocking feet. He is sleeping well. Before this started, he was vaping THC. The neuropsychologist asked him to wean off of it. Pt gets up 2-3 times a night to toilet. He wears depends. He had a procedure in September. Pt denies light-headedness when getting up. Pt has had a couple of sleep walking episodes in 2 years. One was a month ago. Last fall was in 2019. He talks a lot in his sleep and he dreams a lot per . reports pt' s swings occ in dreams. Pt is managing a smart phone. Pt manages his medication. He takes ozempic and they watch the video every Tuesday before he gives himself the short. New tasks require refresher course. states that pt is slow. manages finances. Pt used to walk his dog a few times a week until his right hip got bad and he started using cane in left hand. There are written lists for tasks he needs to complete like laundry. Pt was shaving his own head up until a couple of months ago but he stopped d/t nicking himself d/t stiffness in shoulders and motor control of hands. Pt and hope to transition to retirement in [place] in the future. Treatment Goals Patient/Caregiver Goals Better and bigger movement PT-OP-C Subjective Start: 02/06/24 15:27 Freq: Status: Active Protocol: Document 02/14/24 11:20 MB (Rec: 02/14/24 12:02 MB [id number]) OP-PT Subjective Patient Comments Patient Comments Pt and bring in list of functional tasks and they have no other questions from the evaluation. PT-OP-D Balance Start: 02/06/24 15:27 Freq: Status: Active Protocol: Document 02/08/24 11:17 MB (Rec: 02/08/24 15:46 MB [id number]) OP-PT Balance Assessment Sitting Balance Static Sitting Balance Ability Good Standing Balance Static Standing Balance Ability Good Dynamic Standing Balance Ability Fair Balance Tests Other Other Balance Tests Performed SLS requires ELECTRON BEAM WELDING MACHINE OPERATOR to get into position and pt cannot lift opposite leg far off the ground. Longer standing time on left foot compared to right : CGA. Romberg EC and EO normal, superv. B tandem with UE support to get into position and longer hold time with CGA with right foot behind. Rondon Fall Scale Copyright Permission PT-OP-G Mobility & Gait Start: 02/06/24 15:27 Freq: Status: Active Protocol: Document 02/08/24 11:17 MB (Rec: 02/08/24 15:46 [id number]) OP Gait Assessment Comments Gait Comments Decreased arm swing B, though pt carries cane in left hand for 6MWT. For gait into clinic , step-to and more antalgic pattern gait with cane in left hand and advancing with right foot PT-OP-H Neuro Start: 02/06/24 15:27 Freq: Status: Active Protocol: Document 02/08/24 11:17 MB (Rec: 02/08/24 15:46 MB [id number]) Coordination Evaluation Upper Extremity Tests Left Finger to Nose Test Minimal Impairment Pronation/Supination Test Minimal Impairment Right Finger to Nose Test Normal Performance Pronation/Supination Test Minimal Impairment Lower Extremity Tests Left Heel on Irving Test Minimal Impairment Foot Tapping Test Minimal Impairment Right Heel on [place] Test Minimal Impairment Foot Tapping Test Minimal Impairment PT-OP-M Strength Start: 02/06/24 15:27 Freq: Status: Active Protocol: Document 02/08/24 11:17 MB (Rec: 02/08/24 15:46 [id number]) Shoulder Strength Shoulder Manual Muscle Testing Bilateral Flexion 5 Normal Abduction (C5) 5 Normal Hip Strength Hip Manual Muscle Testing Bilateral Flexion (L2) 5 Normal PT-OP-Q Treatments Start: 02/06/24 15:27 Freq: Status: Active Protocol: Document 02/14/24 11:20 MB (Rec: 02/14/24 12:02 MB [id number]) Therapeutic Exercises Sitting Exercises Side to side Equipment Used BIG chair with blue cushion Comments 5 reps each side with cues for leg and hand position Floor to ceiling Equipment Used BIG chair Comments 5 reps, demo and cues Standing Exercises Side rock and reach Reps/Minutes 5 reps Comments Increased right hip pain and cues for pivot on toes, cues both sides Forward rock and reach Reps/Minutes 10 reps Back stepping Standing Exercise Name Slowed down, up to CGA and min A Reps/Minutes 10 reps each side Comments Break up hands and legs and stop in the name of love hands , weight shift Side stepping Reps/Minutes 10 each side Comments Cue to turn head and for arms big and palms up Forward step Reps/Minutes 10 each side Comments Cues for arm position, wide [place] and bring foot back Therapeutic Activity Therapeutic Activity BIG STS Comments 10 reps, BIG chair with blue cushion, cues for arm movement PT-OP-T Assessment and Plan Start: 02/06/24 15:27 Freq: Status: Active Protocol: Document 02/14/24 11:20 MB (Rec: 02/14/24 12:02 MB [id number]) Physical Therapy Assessment Rehab Potential Rehabilitation Potential Good Evaluation Complexity Number of Personal Factors/Comorbidities 1-2 Number of Body Systems Impaired 3 Clinical Presentation at Evaluation Evolving Impairments Impairments Activity Tolerance,Balance, Coordination,Functional Activities,Functional Mobility ,Gait,Pain,Posture,Transfers Goals 4 Impairment Lack of amplitude specific HEP Senior Care Goal (LTG) Pt will perform daily BIG exercises and therapeutic activities with no more than demo and cues from to improve amplitude and speed of movement. LTG Duration 16 treatments 3 Impairment Evidence of imbalance Food Cart Attendant Goal (LTG) Pt will perform WNLs on FGA to decrease fall risk. LTG Duration 16 treatments 2 Impairment 1184 feet in 6 minutes Senior Care Goal (LTG) Pt will gait train at least 1400 feet in 6 minutes without AD and with I to improve community ambulation. LTG Duration 16 treatments 1 Impairment 13 STS in 30 sec Senior Care Goal (LTG) Pt will perform 15 STS in 30 sec to improve functional strength with transfers. LTG Duration 16 treatments Assessment Summary Assessment Initiated BIG exercises today. Pt has increased right anterior hip pain with exercises today, greatest with side rock in reach when trying to pivot on right foot. He does have some LOB with backward step and tried chair and pt and and PT agree to go ahead and let him try without the chair at home and see how he does today. Otherwise, good performance of exercises. Will need to monitor his right hip pain. He sees sap specialist next week and he will start taking two Aleve before PT. Physical Therapy Plan Frequency and Duration Frequency of Treatment 4x/Week Duration of treatment (weeks) 6 Plan of Care Start Date 02/08/24 Plan of Care End Date 03/27/24 Therapeutic Interventions Therapeutic Interventions Balance Training,Canalithic Repositioning,Coordination Training,Gait Training,Home Exercise Program,Manual Therapy,Neuromuscular Re- education,Patient/Caregiver Education,Self-Care/Home Management,Sensory Integration ,Soft Tissue Mobilization, Taping,Therapeutic Activities, Therapeutic Exercises, Vestibular Rehabilitation Modalities Cold Pack/Ice Massage,Hot Packs Next Visit Focus/Plan Next Note Type Treatment Note Next Visit Plan Review LSVT BIG exercises Therapeutic activities to include mimicking shaving head and car transfers, getting in and out of deep chairs, jacket on and off and pants on and off. He would like to work on steps.
--- NOTE | 2024-02-15 12:19 | PT.OTN ---
Current Diagnoses Parkinsonism, unspecified (02/15/24) Personal history of other diseases of the nervous system and sense organs (02/15/24) Physical Therapy Treatment Note PT-OP-A Visit Information Start: 02/06/24 15:27 Freq: Status: Active Protocol: Document 02/15/24 11:17 MB (Rec: 02/15/24 12:19 MB [id number]) Out-Patient Physical Therapy Visit Information Visit Information Visit Type Treatment Note Visit Note Medicare 11/28 before KX is Fito and goes by Pawel Visit Start Time 11:17 Visit Stop Time 12:15 Visit Number 3 Number of SERVICE CREW LEADER Visits 0 Evaluation Information Evaluation Date 02/08/24 PT-OP-B Current Condition Start: 02/06/24 15:27 Freq: Status: Active Protocol: Document 02/08/24 11:17 MB (Rec: 02/08/24 11:51 MB [id number]) Current Condition History of Current Condition Onset Date 2021 cognitive changes Current Complaints Awkwardness of what is going on with legs, slow walking, stiffness History of Current Condition In 2021, noticed some cognitive changes. He saw a sleep specialist and he had mild sleep apnea. He lost a lot a weight and the CPAP caused issues with his sinuses . Sleep specialist noticed tremor in right hand. He has been seeing a neurologist since 10/2022. He has been treated as PD even though diagnostics were non- conclusive. Carbidopa Levodopa has helped him cognitively and they think that the tremor is a little better. Pt is also on a memory pill and he takes that once a day. He sees neuropsychologist in [facility] and he has improved in a couple of areas and might have declined in other areas though he didn't wear his reading glasses. Pt has a new cane that he is using in his left hand d/t right hip pain. He takes two Aleve a day. He is closing in some and shuffling a little. provides most history and pt states that in his own defense, they have a 30 lb dog with a lot of energy and there are a lot of toys on the floor. They report no issues with walking over rugs and hardwood floors. He is wearing shoes at home. He had previously been walking in stocking feet. He is sleeping well. Before this started, he was vaping THC. The neuropsychologist asked him to wean off of it. Pt gets up 2-3 times a night to toilet. He wears depends. He had a procedure in September. Pt denies light-headedness when getting up. Pt has had a couple of sleep walking episodes in 2 years. One was a month ago. Last fall was in 2019. He talks a lot in his sleep and he dreams a lot per . reports pt' s swings occ in dreams. Pt is managing a smart phone. Pt manages his medication. He takes ozempic and they watch the video every Tuesday before he gives himself the short. New tasks require refresher course. states that pt is slow. manages finances. Pt used to walk his dog a few times a week until his right hip got bad and he started using cane in left hand. There are written lists for tasks he needs to complete like laundry. Pt was shaving his own head up until a couple of months ago but he stopped d/t nicking himself d/t stiffness in shoulders and motor control of hands. Pt and hope to transition to custodial in [place] in the future. Treatment Goals Patient/Caregiver Goals Better and bigger movement PT-OP-C Subjective Start: 02/06/24 15:27 Freq: Status: Active Protocol: Document 02/15/24 11:17 MB (Rec: 02/15/24 12:19 MB [id number]) OP-PT Subjective Patient Comments Patient Comments Pt states that his right hip pain was relieved with taking Aleve after PT. He did exercises with at home and right hip was bothersome after doing 4-5 reps of every exercise at home and 10 of last two. Backward stepping went better. PT-OP-D Balance Start: 02/06/24 15:27 Freq: Status: Active Protocol: Document 02/08/24 11:17 MB (Rec: 02/08/24 15:46 MB [id number]) OP-PT Balance Assessment Sitting Balance Static Sitting Balance Ability Good Standing Balance Static Standing Balance Ability Good Dynamic Standing Balance Ability Fair Balance Tests Other Other Balance Tests Performed SLS requires COINING PRESS OPERATOR to get into position and pt cannot lift opposite leg far off the ground. Longer standing time on left foot compared to right : CGA. Romberg EC and EO normal, superv. B tandem with UE support to get into position and longer hold time with CGA with right foot behind. Rondon Fall Scale Copyright Permission PT-OP-G Mobility & Gait Start: 02/06/24 15:27 Freq: Status: Active Protocol: Document 02/08/24 11:17 MB (Rec: 02/08/24 15:46 MB [id number]) OP Gait Assessment Comments Gait Comments Decreased arm swing B, though pt carries cane in left hand for 6MWT. For gait into clinic , step-to and more antalgic pattern gait with cane in left hand and advancing with right foot PT-OP-H Neuro Start: 02/06/24 15:27 Freq: Status: Active Protocol: Document 02/08/24 11:17 MB (Rec: 02/08/24 15:46 MB [id number]) Coordination Evaluation Upper Extremity Tests Left Finger to Nose Test Minimal Impairment Pronation/Supination Test Minimal Impairment Right Finger to Nose Test Normal Performance Pronation/Supination Test Minimal Impairment Lower Extremity Tests Left Heel on [place] Test Minimal Impairment Foot Tapping Test Minimal Impairment Right Heel on [place] Test Minimal Impairment Foot Tapping Test Minimal Impairment PT-OP-M Strength Start: 02/06/24 15:27 Freq: Status: Active Protocol: Document 02/08/24 11:17 MB (Rec: 02/08/24 15:46 MB [id number]) Shoulder Strength Shoulder Manual Muscle Testing Bilateral Flexion 5 Normal Abduction (C5) 5 Normal Hip Strength Hip Manual Muscle Testing Bilateral Flexion (L2) 5 Normal PT-OP-Q Treatments Start: 02/06/24 15:27 Freq: Status: Active Protocol: Document 02/15/24 11:17 MB (Rec: 02/15/24 12:19 MB [id number]) Therapeutic Exercises Sitting Exercises Side to side Sitting Exercise Name Used mirror in front to look at leg position Equipment Used Jun chair with blue cushion Comments 5 reps each side with cues for leg position Floor to ceiling Equipment Used Jun chair Comments 5 reps, reaches floor today, cues not to rest back on chair Standing Exercises Side rock and reach Side bilateral Reps/Minutes 10 reps Comments Cues for pivot on toe and body moves with it Forward rock and reach Side bilateral Reps/Minutes 10 reps Back stepping Standing Exercise Name Slowed down, CGA. Step right back harder Reps/Minutes 10 reps each side Comments Break up hands, then add feet, cues big feet Side stepping Standing Exercise Name Slowed down a little Reps/Minutes 10 each side Comments Cue to turn head and for arms big and palms up Forward step Reps/Minutes 10 each side Comments Better work, cues for foot all the way back Therapeutic Activity Therapeutic Activity Donning and doffing jacket shirt Comments Pt likes to don shirt jacket first with right hand but old left shoulder AC injury and so cued to try left first. Slower and more awkward with left going in first. Ed pt to perform with jacket away, left arm in first and then inside turn around to get on like Berto Rajwnider in [facility] Work on doff and buttons in future treatments Donning and doffing pants Comments Pt has navy sweat pants, performed sitting in gold mesh chair (pulleys). Don right foot first. Taught pt to draw up bottoms. to bring in jeans next date. Pt will likely need to sit BIG STS Comments 10 reps in jun chair, good work today Gait Training Gait Activity BIG walking Comments Initiated ed in BIG walking today, increasing arm swing and not keeping hand in pocket PT-OP-T Assessment and Plan Start: 02/06/24 15:27 Freq: Status: Active Protocol: Document 02/15/24 11:17 MB (Rec: 02/15/24 12:19 MB [id number]) Physical Therapy Assessment Rehab Potential Rehabilitation Potential Good Evaluation Complexity Number of Personal Factors/Comorbidities 1-2 Number of Body Systems Impaired 3 Clinical Presentation at Evaluation Evolving Impairments Impairments Activity Tolerance,Balance, Coordination,Functional Activities,Functional Mobility ,Gait,Pain,Posture,Transfers Goals 4 Impairment Lack of amplitude specific HEP Mcc Goal (LTG) Pt will perform daily BIG exercises and therapeutic activities with no more than demo and cues from to improve amplitude and speed of movement. LTG Duration 16 treatments 3 Impairment Evidence of imbalance Agricultural And Forestry Supervisor Goal (LTG) Pt will perform WNLs on FGA to decrease fall risk. LTG Duration 16 treatments 2 Impairment 1184 feet in 6 minutes Mcc Goal (LTG) Pt will gait train at least 1400 feet in 6 minutes without AD and with I to improve community ambulation. LTG Duration 16 treatments 1 Impairment 13 STS in 30 sec Mcc Goal (LTG) Pt will perform 15 STS in 30 sec to improve functional strength with transfers. LTG Duration 16 treatments Assessment Summary Assessment Pt is not a typical PD appearing pt. He has more trouble with right leg as far as backward step and he prefers to don pants with right leg first. Pt is performing exercises betters and needs more work with backwards step and side to side. Functional activities started today and added to HEP . Physical Therapy Plan Frequency and Duration Frequency of Treatment 4x/Week Duration of treatment (weeks) 6 Plan of Care Start Date 02/08/24 Plan of Care End Date 03/27/24 Therapeutic Interventions Therapeutic Interventions Balance Training,Canalithic Repositioning,Coordination Training,Gait Training,Home Exercise Program,Manual Therapy,Neuromuscular Re- education,Patient/Caregiver Education,Self-Care/Home Management,Sensory Integration ,Soft Tissue Mobilization, Taping,Therapeutic Activities, Therapeutic Exercises, Vestibular Rehabilitation Modalities Cold Pack/Ice Massage,Hot Packs Next Visit Focus/Plan Next Note Type Treatment Note Next Visit Plan Consider alternate forward step next treatment date, extra time on backward step and side rock and reach Therapeutic activities to include mimicking shaving head and car transfers, getting in and out of deep chairs, jacket on and off and pants on and off. He would like to work on steps.
--- NOTE | 2024-02-16 12:20 | PT.OTN ---
Current Diagnoses Parkinsonism, unspecified (02/16/24) Personal history of other diseases of the nervous system and sense organs (02/16/24) Physical Therapy Treatment Note PT-OP-A Visit Information Start: 02/06/24 15:27 Freq: Status: Active Protocol: Document 02/16/24 11:26 SP (Rec: 02/16/24 12:37 SP [id number]) Out-Patient Physical Therapy Visit Information Visit Information Visit Type Treatment Note Visit Note Medicare 11/28 before KX is Fito and goes by Pawel Visit Start Time 11:17 Visit Stop Time 12:20 Visit Number 4 Number of CASH APPLICATION REPRESENTATIVE Visits 1 Evaluation Information Evaluation Date 02/08/24 PT-OP-B Current Condition Start: 02/06/24 15:27 Freq: Status: Active Protocol: Document 02/08/24 11:17 MB (Rec: 02/08/24 11:51 MB [id number]) Current Condition History of Current Condition Onset Date 2021 cognitive changes Current Complaints Awkwardness of what is going on with legs, slow walking, stiffness History of Current Condition In 2021, noticed some cognitive changes. He saw a sleep specialist and he had mild sleep apnea. He lost a lot a weight and the CPAP caused issues with his sinuses . Sleep specialist noticed tremor in right hand. He has been seeing a neurologist since 10/2022. He has been treated as PD even though diagnostics were non- conclusive. Carbidopa Levodopa has helped him cognitively and they think that the tremor is a little better. Pt is also on a memory pill and he takes that once a day. [facility] and he has improved in a couple of areas and might have declined in other areas though he didn't wear his reading glasses. Pt has a new cane that he is using in his left hand d/t right hip pain. He takes two Aleve a day. He is closing in some and shuffling a little. provides most history and pt states that in his own defense, they have a 30 lb dog with a lot of energy and there are a lot of toys on the floor. They report no issues with walking over rugs and hardwood floors. He is wearing shoes at home. He had previously been walking in stocking feet. He is sleeping well. Before this started, he was vaping THC. The neuropsychologist asked him to wean off of it. Pt gets up 2-3 times a night to toilet. He wears depends. He had a procedure in September. Pt denies light-headedness when getting up. Pt has had a couple of sleep walking episodes in 2 years. One was a month ago. Last fall was in 2019. He talks a lot in his sleep and he dreams a lot per . reports pt' s swings occ in dreams. Pt is managing a smart phone. Pt manages his medication. He takes ozempic and they watch the video every Tuesday before he gives himself the short. New tasks require refresher course. states that pt is slow. manages finances. Pt used to walk his dog a few times a week until his right hip got bad and he started using cane in left hand. There are written lists for tasks he needs to complete like laundry. Pt was shaving his own head up until a couple of months ago but he stopped d/t nicking himself d/t stiffness in shoulders and motor control of hands. Pt and hope [facility] [place] [facility] the future. Treatment Goals Patient/Caregiver Goals Better and bigger movement PT-OP-C Subjective Start: 02/06/24 15:27 Freq: Status: Active Protocol: Document 02/16/24 11:26 SP (Rec: 02/16/24 12:37 SP [id number]) OP-PT Subjective Patient Comments Patient Comments Pt reports pretty tired after last tx. Did do ex later afternoon as well, works with us today . PT-OP-D Balance Start: 02/06/24 15:27 Freq: Status: Active Protocol: Document 02/08/24 11:17 MB (Rec: 02/08/24 15:46 MB [id number]) OP-PT Balance Assessment Sitting Balance Static Sitting Balance Ability Good Standing Balance Static Standing Balance Ability Good Dynamic Standing Balance Ability Fair Balance Tests Other Other Balance Tests Performed SLS requires POLYETHYLENE COMBINER to get into position and pt cannot lift opposite leg far off the ground. Longer standing time on left foot compared to right : CGA. Romberg EC and EO normal, superv. B tandem with UE support to get into position and longer hold time with CGA with right foot behind. Rondon Fall Scale Copyright Permission PT-OP-G Mobility & Gait Start: 02/06/24 15:27 Freq: Status: Active Protocol: Document 02/08/24 11:17 MB (Rec: 02/08/24 15:46 MB [id number]) OP Gait Assessment Comments Gait Comments Decreased arm swing B, though pt carries cane in left hand for 6MWT. For gait into clinic , step-to and more antalgic pattern gait with cane in left hand and advancing with right foot PT-OP-H Neuro Start: 02/06/24 15:27 Freq: Status: Active Protocol: Document 02/08/24 11:17 MB (Rec: 02/08/24 15:46 MB [id number]) Coordination Evaluation Upper Extremity Tests Left Finger to Nose Test Minimal Impairment Pronation/Supination Test Minimal Impairment Right Finger to Nose Test Normal Performance Pronation/Supination Test Minimal Impairment Lower Extremity Tests Left Heel on Irving Test Minimal Impairment Foot Tapping Test Minimal Impairment Right Heel on [place] Test Minimal Impairment Foot Tapping Test Minimal Impairment PT-OP-M Strength Start: 02/06/24 15:27 Freq: Status: Active Protocol: Document 02/08/24 11:17 MB (Rec: 02/08/24 15:46 MB [id number]) Shoulder Strength Shoulder Manual Muscle Testing Bilateral Flexion 5 Normal Abduction (C5) 5 Normal Hip Strength Hip Manual Muscle Testing Bilateral Flexion (L2) 5 Normal PT-OP-Q Treatments Start: 02/06/24 15:27 Freq: Status: Active Protocol: Document 02/16/24 11:26 SP (Rec: 02/16/24 12:37 SP [id number]) Therapeutic Exercises Sitting Exercises Side to side Sitting Exercise Name Used mirror in front to look at leg position Equipment Used Teagan chair with blue cushion - frictioning & angled (BIG chair better) Comments 5 reps each side with cues for leg position Floor to ceiling Equipment Used Teagan chair Comments 5 reps, reaches floor today, improved tall unsupported, palm up ceiling Standing Exercises Side rock and reach Side bilateral Reps/Minutes 10 reps Comments Cues for pivot on back toe and body moves with it- range can Forward rock and reach Side bilateral Reps/Minutes 10 reps Comments cued tall chest lift Back stepping Standing Exercise Name Slowed down, close SBA. Step right back harder Reps/Minutes 10 reps each side Comments Hands back,step back, opp toe up- little unsteady Side stepping Standing Exercise Name Slowed down a little Reps/Minutes 10 each side Comments Cue to turn head and trunk, R arms big Forward step Reps/Minutes 10 each side Comments Better work, cues for foot all the way back Therapeutic Activity Therapeutic Activity Donning and doffing jacket shirt Name in standing Reps/Minutes 2 reps sequencing, 3 reps timed Comments Berto Purdy in [facility] Work on doff, L arm in, R hand pulls jacket over L shld and behind back then R arm in arm hold, straighten behind back and collar: 14 don>9 sec, total 24 sec>13 sec. Pt unbuttoned cuff to give ease of R hand into sleeve. Add buttons in future treatments. BIG STS Comments 10 reps in BIG Chair, good work today Gait Training Gait Activity BIG walking Description BIG walking including turns Distance/Duration inside lap, outside walk Comments Cued increasing arm swing, toe up clearance, BIG arms and steps turns outside side walk. PT-OP-T Assessment and Plan Start: 02/06/24 15:27 Freq: Status: Active Protocol: Document 02/16/24 11:26 SP (Rec: 02/16/24 12:37 SP [id number]) Physical Therapy Assessment Goals 4 Impairment Lack of amplitude specific HEP Impairment . Systems Analyst Developer Goal (LTG) Pt will perform daily BIG exercises and therapeutic activities with no more than demo and cues from to improve amplitude and speed of movement. LTG Duration 16 treatments 3 Impairment Evidence of imbalance Impairment . Systems Analyst Developer Goal (LTG) Pt will perform WNLs on FGA to decrease fall risk. LTG Duration 16 treatments 2 Impairment 1184 feet in 6 minutes Impairment . Systems Analyst Developer Goal (LTG) Pt will gait train at least 1400 feet in 6 minutes without AD and with I to improve community ambulation. LTG Duration 16 treatments 1 Impairment 13 STS in 30 sec Impairment . [facility]pc Goal (LTG) Pt will perform 15 STS in 30 sec to improve functional strength with transfers. LTG Duration 16 treatments Assessment Summary Assessment Pt wore shorts under jeans this tx and uncomfortable sitting ex. Discussed bring jeans and can wear sweatpants or short, will change after ther ex. Improved seated form on BIG chair less friction and more balanced, able improve leg back little more on [employer] turns BIG arms and leg stepping during gait outside sidewalk. Improved sequencing mechanics berto sheen donning jacket this tx with better understanding, less time and BIGGER motion in standing. Physical Therapy Plan Frequency and Duration Frequency of Treatment 4x/Week Duration of treatment (weeks) 6 Plan of Care Start Date 02/08/24 Plan of Care End Date 03/27/24 Therapeutic Interventions Therapeutic Interventions Balance Training,Canalithic Repositioning,Coordination Training,Gait Training,Home Exercise Program,Manual Therapy,Neuromuscular Re- education,Patient/Caregiver Education,Self-Care/Home Management,Sensory Integration ,Soft Tissue Mobilization, Taping,Therapeutic Activities, Therapeutic Exercises, Vestibular Rehabilitation Modalities Cold Pack/Ice Massage,Hot Packs Next Visit Focus/Plan Next Note Type Treatment Note Next Visit Plan Consider alternate forward step next treatment date, extra time on backward step and side rock and reach Therapeutic activities to include mimicking shaving head and car transfers, getting in and out of deep chairs, jacket on and off and pants on and off. He would like to work on steps.
--- NOTE | 2024-02-20 10:54 | PT-OP ANOTE ---
Pt did not show for today's appt. [employer]NIT [employer] MENDER called, left message check in, hope doing ok. Reminded wish to progress, please call cancel appt if unable to attend >24 hrs if possible. Reminded of tomorrow's appt at 11:15.
--- NOTE | 2024-02-21 12:22 | PT.OTN ---
Current Diagnoses Parkinsonism, unspecified (02/21/24) Personal history of other diseases of the nervous system and sense organs (02/21/24) Physical Therapy Treatment Note PT-OP-A Visit Information Start: 02/06/24 15:27 Freq: Status: Active Protocol: Document 02/21/24 11:21 MB (Rec: 02/21/24 12:21 MB [id number]) Out-Patient Physical Therapy Visit Information Visit Information Visit Type Treatment Note Visit Note Medicare 12/29 before KX is Fito and goes by Pawel Visit Start Time 11:21 Visit Stop Time 12:15 Visit Number 5 Number of RETURN AGENT Visits 0 Evaluation Information Evaluation Date 02/08/24 PT-OP-B Current Condition Start: 02/06/24 15:27 Freq: Status: Active Protocol: Document 02/08/24 11:17 MB (Rec: 02/08/24 11:51 MB [id number]) Current Condition History of Current Condition Onset Date 2021 cognitive changes Current Complaints Awkwardness of what is going on with legs, slow walking, stiffness History of Current Condition In 2021, noticed some cognitive changes. He saw a sleep specialist and he had mild sleep apnea. He lost a lot a weight and the CPAP caused issues with his sinuses . Sleep specialist noticed tremor in right hand. He has been seeing a neurologist since 10/2022. He has been treated as PD even though diagnostics were non- conclusive. Carbidopa Levodopa has helped him cognitively and they think that the tremor is a little better. Pt is also on a memory pill and he takes that once a day. He sees neuropsychologist in [facility] and he has improved in a couple of areas and might have declined in other areas though he didn't wear his reading glasses. Pt has a new cane that he is using in his left hand d/t right hip pain. He takes two Aleve a day. He is closing in some and shuffling a little. provides most history and pt states that in his own defense, they have a 30 lb dog with a lot of energy and there are a lot of toys on the floor. They report no issues with walking over rugs and hardwood floors. He is wearing shoes at home. He had previously been walking in stocking feet. He is sleeping well. Before this started, he was vaping THC. The neuropsychologist asked him to wean off of it. Pt gets up 2-3 times a night to toilet. He wears depends. He had a procedure in September. Pt denies light-headedness when getting up. Pt has had a couple of sleep walking episodes in 2 years. One was a month ago. Last fall was in 2019. He talks a lot in his sleep and he dreams a lot per . reports pt' s swings occ in dreams. Pt is managing a smart phone. Pt manages his medication. He takes ozempic and they watch the video every Tuesday before he gives himself the short. New tasks require refresher course. states that pt is slow. manages finances. Pt used to walk his dog a few times a week until his right hip got bad and he started using cane in left hand. There are written lists for tasks he needs to complete like laundry. Pt was shaving his own head up until a couple of months ago but he stopped d/t nicking himself d/t stiffness in shoulders and motor control of hands. Pt and hope to transition to [facility] in [place] in the future. Treatment Goals Patient/Caregiver Goals Better and bigger movement PT-OP-C Subjective Start: 02/06/24 15:27 Freq: Status: Active Protocol: Document 02/21/24 11:21 MB (Rec: 02/21/24 12:21 MB [id number]) OP-PT Subjective Patient Comments Patient Comments Missed last appointment and d/ t scheduling, will curing pickling packer a 45 minute opening this Tuesday with teammate, Sara. Pt is performing BIG exercises at home as well as BIG walking and he does arm swings. He will no longer work towards shaving head. Pt no longer has to lie on the floor in the morning as his back stiffness is better. His right hip is better, too, and his left knee is better. PT-OP-D Balance Start: 02/06/24 15:27 Freq: Status: Active Protocol: Document 02/08/24 11:17 MB (Rec: 02/08/24 15:46 MB [id number]) OP-PT Balance Assessment Sitting Balance Static Sitting Balance Ability Good Standing Balance Static Standing Balance Ability Good Dynamic Standing Balance Ability Fair Balance Tests Other Other Balance Tests Performed SLS requires DIRECTOR OF CONTENT MARKETING to get into position and pt cannot lift opposite leg far off the ground. Longer standing time on left foot compared to right : CGA. Romberg EC and EO normal, superv. B tandem with UE support to get into position and longer hold time with CGA with right foot behind. Rondon Fall Scale Copyright Permission PT-OP-G Mobility & Gait Start: 02/06/24 15:27 Freq: Status: Active Protocol: Document 02/08/24 11:17 MB (Rec: 02/08/24 15:46 MB [id number]) OP Gait Assessment Comments Gait Comments Decreased arm swing B, though pt carries cane in left hand for 6MWT. For gait into clinic , step-to and more antalgic pattern gait with cane in left hand and advancing with right foot PT-OP-H Neuro Start: 02/06/24 15:27 Freq: Status: Active Protocol: Document 02/08/24 11:17 MB (Rec: 02/08/24 15:46 MB [id number]) Coordination Evaluation Upper Extremity Tests Left Finger to Nose Test Minimal Impairment Pronation/Supination Test Minimal Impairment Right Finger to Nose Test Normal Performance Pronation/Supination Test Minimal Impairment Lower Extremity Tests Left Heel on [place] Test Minimal Impairment Foot Tapping Test Minimal Impairment Right Heel on [place] Test Minimal Impairment Foot Tapping Test Minimal Impairment PT-OP-M Strength Start: 02/06/24 15:27 Freq: Status: Active Protocol: Document 02/08/24 11:17 MB (Rec: 02/08/24 15:46 MB [id number]) Shoulder Strength Shoulder Manual Muscle Testing Bilateral Flexion 5 Normal Abduction (C5) 5 Normal Hip Strength Hip Manual Muscle Testing Bilateral Flexion (L2) 5 Normal PT-OP-Q Treatments Start: 02/06/24 15:27 Freq: Status: Active Protocol: Document 02/21/24 11:21 MB (Rec: 02/21/24 12:21 MB [id number]) Therapeutic Exercises Sitting Exercises Side to side Equipment Used Jun chair with blue cushion - frictioning & angled (BIG chair better) Reps/Minutes 5 Comments Alternating reps and flicks added Floor to ceiling Equipment Used Jun chair Reps/Minutes 5 Comments Added flicks today and cues to flick back Standing Exercises Side rock and reach Side bilateral Reps/Minutes 10 reps Comments Alternating today Forward rock and reach Side bilateral Reps/Minutes 10 reps Comments Mild LOB and less rock and reach Back stepping Standing Exercise Name Slowed down, SBA Reps/Minutes 10 reps each side Comments Cues for where to look, alternating Side stepping Standing Exercise Name Slowed down a little Reps/Minutes 10 each side Comments Alternating reps today Forward step Reps/Minutes 10 each side Comments Alternating, count to 20 Therapeutic Activity Therapeutic Activity BIG in and out of car Comments Drivers side and passenger side, work on big sit, big legs in and out BIG STS Comments 10 reps in jun chair with blue cushion Gait Training Gait Activity BIG walking Comments BIG walking in clinic and outside to car, cues to con't BIG stepping PT-OP-T Assessment and Plan Start: 02/06/24 15:27 Freq: Status: Active Protocol: Document 02/21/24 11:21 MB (Rec: 02/21/24 12:21 MB [id number]) Physical Therapy Assessment Rehab Potential Rehabilitation Potential Good Evaluation Complexity Number of Personal Factors/Comorbidities 1-2 Number of Body Systems Impaired 3 Clinical Presentation at Evaluation Evolving Impairments Impairments Activity Tolerance,Balance, Coordination,Functional Activities,Functional Mobility ,Gait,Pain,Posture,Transfers Goals 4 Impairment Lack of amplitude specific HEP Retirement Goal (LTG) Pt will perform daily BIG exercises and therapeutic activities with no more than demo and cues from to improve amplitude and speed of movement. LTG Duration 16 treatments 3 Impairment Evidence of imbalance Employee Training Specialist Goal (LTG) Pt will perform WNLs on FGA to decrease fall risk. LTG Duration 16 treatments 2 Impairment 1184 feet in 6 minutes Retirement Goal (LTG) Pt will gait train at least 1400 feet in 6 minutes without AD and with I to improve community ambulation. LTG Duration 16 treatments 1 Impairment 13 STS in 30 sec Employee Training Specialist Goal (LTG) Pt will perform 15 STS in 30 sec to improve functional strength with transfers. LTG Duration 16 treatments Assessment Summary Assessment Progressed flicks and alternating for exercises today. Pt is doing well, most challenges and slow down with backwards stepping and side to side Physical Therapy Plan Frequency and Duration Frequency of Treatment 4x/Week Duration of treatment (weeks) 6 Plan of Care Start Date 02/08/24 Plan of Care End Date 03/27/24 Therapeutic Interventions Therapeutic Interventions Balance Training,Canalithic Repositioning,Coordination Training,Gait Training,Home Exercise Program,Manual Therapy,Neuromuscular Re- education,Patient/Caregiver Education,Self-Care/Home Management,Sensory Integration ,Soft Tissue Mobilization, Taping,Therapeutic Activities, Therapeutic Exercises, Vestibular Rehabilitation Modalities Cold Pack/Ice Massage,Hot Packs Next Visit Focus/Plan Next Note Type Treatment Note Next Visit Plan Review flicks and alternating, con't BIG activities, consider gait outside
--- NOTE | 2024-02-22 12:21 | PT.OTN ---
Current Diagnoses Parkinsonism, unspecified (02/22/24) Personal history of other diseases of the nervous system and sense organs (02/22/24) Physical Therapy Treatment Note PT-OP-A Visit Information Start: 02/06/24 15:27 Freq: Status: Active Protocol: Document 02/22/24 11:20 MB (Rec: 02/22/24 12:00 MB [id number]) Out-Patient Physical Therapy Visit Information Visit Information Visit Type Treatment Note Visit Note Medicare 01/28 before KX is Fito and goes by Pawel Progress note next 02/28 Visit Start Time 11:20 Visit Stop Time 12:15 Visit Number 6 Number of ELECTRICAL TRYOUT PERSON Visits 0 Evaluation Information Evaluation Date 02/08/24 PT-OP-B Current Condition Start: 02/06/24 15:27 Freq: Status: Active Protocol: Document 02/08/24 11:17 MB (Rec: 02/08/24 11:51 MB [id number]) Current Condition History of Current Condition Onset Date 2021 cognitive changes Current Complaints Awkwardness of what is going on with legs, slow walking, stiffness History of Current Condition In 2021, noticed some cognitive changes. He saw a sleep specialist and he had mild sleep apnea. He lost a lot a weight and the CPAP caused issues with his sinuses . Sleep specialist noticed tremor in right hand. He has been seeing a neurologist since 10/2022. He has been treated as PD even though diagnostics were non- conclusive. Carbidopa Levodopa has helped him cognitively and they think that the tremor is a little better. Pt is also on a memory pill and he takes that once a day. He sees neuropsychologist in [facility] and he has improved in a couple of areas and might have declined in other areas though he didn't wear his reading glasses. Pt has a new cane that he is using in his left hand d/t right hip pain. He takes two Aleve a day. He is closing in some and shuffling a little. provides most history and pt states that in his own defense, they have a 30 lb dog with a lot of energy and there are a lot of toys on the floor. They report no issues with walking over rugs and hardwood floors. He is wearing shoes at home. He had previously been walking in stocking feet. He is sleeping well. Before this started, he was vaping THC. The neuropsychologist asked him to wean off of it. Pt gets up 2-3 times a night to toilet. He wears depends. He had a procedure in September. Pt denies light-headedness when getting up. Pt has had a couple of sleep walking episodes in 2 years. One was a month ago. Last fall was in 2019. He talks a lot in his sleep and he dreams a lot per . reports pt' s swings occ in dreams. Pt is managing a smart phone. Pt manages his medication. He takes ozempic and they watch the video every Tuesday before he gives himself the short. New tasks require refresher course. states that pt is slow. manages finances. Pt used to walk his dog a few times a week until his right hip got bad and he started using cane in left hand. There are written lists for tasks he needs to complete like laundry. Pt was shaving his own head up until a couple of months ago but he stopped d/t nicking himself d/t stiffness in shoulders and motor control of hands. Pt and hope to transition to [facility] in [place] in the future. Treatment Goals Patient/Caregiver Goals Better and bigger movement PT-OP-C Subjective Start: 02/06/24 15:27 Freq: Status: Active Protocol: Document 02/22/24 11:20 MB (Rec: 02/22/24 12:00 MB [id number]) OP-PT Subjective Patient Comments Patient Comments Pt states that he is a little shaky getting up today. They tried exercises with flicks and alternating. Pt states that he had three cups of expresso this morning. He was off of coffee for a while. PT-OP-D Balance Start: 02/06/24 15:27 Freq: Status: Active Protocol: Document 02/08/24 11:17 MB (Rec: 02/08/24 15:46 MB [id number]) OP-PT Balance Assessment Sitting Balance Static Sitting Balance Ability Good Standing Balance Static Standing Balance Ability Good Dynamic Standing Balance Ability Fair Balance Tests Other Other Balance Tests Performed SLS requires MEDICAL ACCOUNTING CLERK to get into position and pt cannot lift opposite leg far off the ground. Longer standing time on left foot compared to right : CGA. Romberg EC and EO normal, superv. B tandem with UE support to get into position and longer hold time with CGA with right foot behind. Rondon Fall Scale Copyright Permission PT-OP-G Mobility & Gait Start: 02/06/24 15:27 Freq: Status: Active Protocol: Document 02/08/24 11:17 MB (Rec: 02/08/24 15:46 MB [id number]) OP Gait Assessment Comments Gait Comments Decreased arm swing B, though pt carries cane in left hand for 6MWT. For gait into clinic , step-to and more antalgic pattern gait with cane in left hand and advancing with right foot PT-OP-H Neuro Start: 02/06/24 15:27 Freq: Status: Active Protocol: Document 02/08/24 11:17 MB (Rec: 02/08/24 15:46 MB [id number]) Coordination Evaluation Upper Extremity Tests Left Finger to Nose Test Minimal Impairment Pronation/Supination Test Minimal Impairment Right Finger to Nose Test Normal Performance Pronation/Supination Test Minimal Impairment Lower Extremity Tests Left Heel on Irving Test Minimal Impairment Foot Tapping Test Minimal Impairment Right Heel on [place] Test Minimal Impairment Foot Tapping Test Minimal Impairment PT-OP-M Strength Start: 02/06/24 15:27 Freq: Status: Active Protocol: Document 02/08/24 11:17 MB (Rec: 02/08/24 15:46 MB [id number]) Shoulder Strength Shoulder Manual Muscle Testing Bilateral Flexion 5 Normal Abduction (C5) 5 Normal Hip Strength Hip Manual Muscle Testing Bilateral Flexion (L2) 5 Normal PT-OP-Q Treatments Start: 02/06/24 15:27 Freq: Status: Active Protocol: Document 02/22/24 11:20 MB (Rec: 02/22/24 12:00 MB [id number]) Therapeutic Exercises Sitting Exercises Side to side Equipment Used Pully chair Reps/Minutes 5 on each side Comments Alternating reps and flicks Floor to ceiling Equipment Used Jun chair Reps/Minutes 5 Comments Flicks today Standing Exercises Side rock and reach Side bilateral Reps/Minutes 10 reps total Comments Alternating today Forward rock and reach Side bilateral Reps/Minutes 10 reps Back stepping Standing Exercise Name Slowed down, SBA Reps/Minutes 5 reps each side Comments Alternating, occ does not move both hands back Side stepping Reps/Minutes 10 each side Comments Alternating Forward step Reps/Minutes 10 each side Comments Alternating Therapeutic Activity Therapeutic Activity Orthostatic assessment Comments BP and HR in LUE: supine 124/ 75, 64; standing 103/65, 76; standing 1' 103/69, 78. Positive orthostatic hypotension and provided handout Donning and doffing jacket shirt Name in standing Comments 12 sec don, 20 sec button Unbutton and doff: 10 sec 10 sec don, 25 sec button Unbutton and doff: 14 sec 9 sec don, 19 sec button Unbutton and doff: 10 sec BIG STS Comments 10 reps in jun chair Gait Training Gait Activity BIG walking Comments Inside and outside today and gait speed forward and arm swing with forward gait are pretty good and pt has increased imbalance with walking along curb and with backwards walking and changing between forward and backward walking PT-OP-T Assessment and Plan Start: 02/06/24 15:27 Freq: Status: Active Protocol: Document 02/22/24 11:20 MB (Rec: 02/22/24 12:00 MB [id number]) Physical Therapy Assessment Rehab Potential Rehabilitation Potential Good Evaluation Complexity Number of Personal Factors/Comorbidities 1-2 Number of Body Systems Impaired 3 Clinical Presentation at Evaluation Evolving Impairments Impairments Activity Tolerance,Balance, Coordination,Functional Activities,Functional Mobility ,Gait,Pain,Posture,Transfers Goals 4 Impairment Lack of amplitude specific HEP Custodial Goal (LTG) Pt will perform daily BIG exercises and therapeutic activities with no more than demo and cues from to improve amplitude and speed of movement. LTG Duration 16 treatments 3 Impairment Evidence of imbalance Service Learning Coordinator Goal (LTG) Pt will perform WNLs on FGA to decrease fall risk. LTG Duration 16 treatments 2 Impairment 1184 feet in 6 minutes Custodial Goal (LTG) Pt will gait train at least 1400 feet in 6 minutes without AD and with I to improve community ambulation. LTG Duration 16 treatments 1 Impairment 13 STS in 30 sec Service Learning Coordinator Goal (LTG) Pt will perform 15 STS in 30 sec to improve functional strength with transfers. LTG Duration 16 treatments Assessment Summary Assessment Much better side rock and reach today and doing well with alternating and flicking. Backward stepping con't to be challenging. Pt was orthostatic today. Gait training outside is challenging with curb walking and backward walking. Physical Therapy Plan Frequency and Duration Frequency of Treatment 4x/Week Duration of treatment (weeks) 6 Plan of Care Start Date 02/08/24 Plan of Care End Date 03/27/24 Therapeutic Interventions Therapeutic Interventions Balance Training,Canalithic Repositioning,Coordination Training,Gait Training,Home Exercise Program,Manual Therapy,Neuromuscular Re- education,Patient/Caregiver Education,Self-Care/Home Management,Sensory Integration ,Soft Tissue Mobilization, Taping,Therapeutic Activities, Therapeutic Exercises, Vestibular Rehabilitation Modalities Cold Pack/Ice Massage,Hot Packs Next Visit Focus/Plan Next Note Type Treatment Note Next Visit Plan Con't flicks and alternating, con't BIG activities, consider gait outside with changing direction and obstacle course type activities
--- NOTE | 2024-02-23 12:29 | PT.OTN ---
Current Diagnoses Parkinsonism, unspecified (02/23/24) Personal history of other diseases of the nervous system and sense organs (02/23/24) Physical Therapy Treatment Note PT-OP-A Visit Information Start: 02/06/24 15:27 Freq: Status: Active Protocol: Document 02/23/24 11:20 SP (Rec: 02/24/24 09:04 SP [id number]) Out-Patient Physical Therapy Visit Information Visit Information Visit Type Treatment Note Visit Note Medicare 01/28 before KX is Fito and goes by Pawel Progress note next 02/28 Visit Start Time 11:20 Visit Stop Time 12:29 Visit Number 7 Number of PLAN CHECKER Visits 1 Evaluation Information Evaluation Date 02/08/24 PT-OP-B Current Condition Start: 02/06/24 15:27 Freq: Status: Active Protocol: Document 02/08/24 11:17 MB (Rec: 02/08/24 11:51 MB [id number]) Current Condition History of Current Condition Onset Date 2021 cognitive changes Current Complaints Awkwardness of what is going on with legs, slow walking, stiffness History of Current Condition In 2021, noticed some cognitive changes. He saw a sleep specialist and he had mild sleep apnea. He lost a lot a weight and the CPAP caused issues with his sinuses . Sleep specialist noticed tremor in right hand. He has been seeing a neurologist since 10/2022. He has been treated as PD even though diagnostics were non- conclusive. Carbidopa Levodopa has helped him cognitively and they think that the tremor is a little better. Pt is also on a memory pill and he takes that once a day. He sees neuropsychologist in [facility] and he has improved in a couple of areas and might have declined in other areas though he didn't wear his reading glasses. Pt has a new cane that he is using in his left hand d/t right hip pain. He takes two Aleve a day. He is closing in some and shuffling a little. provides most history and pt states that in his own defense, they have a 30 lb dog with a lot of energy and there are a lot of toys on the floor. They report no issues with walking over rugs and hardwood floors. He is wearing shoes at home. He had previously been walking in stocking feet. He is sleeping well. Before this started, he was vaping THC. The neuropsychologist asked him to wean off of it. Pt gets up 2-3 times a night to toilet. He wears depends. He had a procedure in September. Pt denies light-headedness when getting up. Pt has had a couple of sleep walking episodes in 2 years. One was a month ago. Last fall was in 2019. He talks a lot in his sleep and he dreams a lot per . reports pt' s swings occ in dreams. Pt is managing a smart phone. Pt manages his medication. He takes ozempic and they watch the video every Tuesday before he gives himself the short. New tasks require refresher course. states that pt is slow. manages finances. Pt used to walk his dog a few times a week until his right hip got bad and he started using cane in left hand. There are written lists for tasks he needs to complete like laundry. Pt was shaving his own head up until a couple of months ago but he stopped d/t nicking himself d/t stiffness in shoulders and motor control of hands. Pt and hope to transition to [facility] in [place] in the future. Treatment Goals Patient/Caregiver Goals Better and bigger movement PT-OP-C Subjective Start: 02/06/24 15:27 Freq: Status: Active Protocol: Document 02/23/24 11:20 SP (Rec: 02/24/24 09:04 SP [id number]) OP-PT Subjective Patient Comments Patient Comments Pt reports had some unusual/ self concerned leg tiring earlier 830ish taking dog outside near house after taking his medication at 730. When came back in took BP and was high 98/50s. Took again seated and elevated to low 100s/60s waiting and elevated 128/70s and felt better. Took again standing and again was on low end. He stated he takes a med not for BP but realized can lower BP, but never affected him before. PT-OP-D Balance Start: 02/06/24 15:27 Freq: Status: Active Protocol: Document 02/08/24 11:17 MB (Rec: 02/08/24 15:46 MB [id number]) OP-PT Balance Assessment Sitting Balance Static Sitting Balance Ability Good Standing Balance Static Standing Balance Ability Good Dynamic Standing Balance Ability Fair Balance Tests Other Other Balance Tests Performed SLS requires SOFTWARE QA MANAGER to get into position and pt cannot lift opposite leg far off the ground. Longer standing time on left foot compared to right : CGA. Romberg EC and EO normal, superv. B tandem with UE support to get into position and longer hold time with CGA with right foot behind. Rondon Fall Scale Copyright Permission PT-OP-G Mobility & Gait Start: 02/06/24 15:27 Freq: Status: Active Protocol: Document 02/08/24 11:17 MB (Rec: 02/08/24 15:46 MB [id number]) OP Gait Assessment Comments Gait Comments Decreased arm swing B, though pt carries cane in left hand for 6MWT. For gait into clinic , step-to and more antalgic pattern gait with cane in left hand and advancing with right foot PT-OP-H Neuro Start: 02/06/24 15:27 Freq: Status: Active Protocol: Document 02/08/24 11:17 MB (Rec: 02/08/24 15:46 MB [id number]) Coordination Evaluation Upper Extremity Tests Left Finger to Nose Test Minimal Impairment Pronation/Supination Test Minimal Impairment Right Finger to Nose Test Normal Performance Pronation/Supination Test Minimal Impairment Lower Extremity Tests Left Heel on [place] Test Minimal Impairment Foot Tapping Test Minimal Impairment Right Heel on [place] Test Minimal Impairment Foot Tapping Test Minimal Impairment PT-OP-M Strength Start: 02/06/24 15:27 Freq: Status: Active Protocol: Document 02/08/24 11:17 MB (Rec: 02/08/24 15:46 MB [id number]) Shoulder Strength Shoulder Manual Muscle Testing Bilateral Flexion 5 Normal Abduction (C5) 5 Normal Hip Strength Hip Manual Muscle Testing Bilateral Flexion (L2) 5 Normal PT-OP-Q Treatments Start: 02/06/24 15:27 Freq: Status: Active Protocol: Document 02/23/24 11:20 SP (Rec: 02/24/24 09:04 SP [id number]) Therapeutic Exercises Sitting Exercises Side to side Equipment Used BIG chair Reps/Minutes 10 on each side Comments Alternating reps and flicks Floor to ceiling Equipment Used BIG chair Reps/Minutes 10 Comments Flicks today Standing Exercises Side rock and reach Side bilateral Reps/Minutes 10 reps total Comments Alternating, little Forward rock and reach Side bilateral Reps/Minutes 10 reps Comments Challenge R ft fwd maintain stance at first Back stepping Standing Exercise Name Cued Slowed down, SBA Reps/Minutes 10 reps each side Comments Alternating, cued both hands back Side stepping Reps/Minutes 10 each side Comments Alternating-good form & BIG Forward step Reps/Minutes 10 each side Comments Alternating-good form & BIG Therapeutic Activity Therapeutic Activity BIG in and out of car Reps/Minutes 5 Comments Drivers side work on big sit, big legs in and out, also smaller space 1 leg time due to time limited space between cars Donning and doffing jacket shirt Name in standing Comments 8 sec don, 38 sec button Unbutton and doff: 9 sec 10 sec don, 34 sec button Unbutton and doff: 12 sec 30 sec button Unbutton and doff: 8 sec Gait Training Gait Activity BIG walking Description level, ramps up/down, stairs Distance/Duration around [facility] Comments Outside today, gait speed forward and arm swing with forward gait are pretty good. Little slower stepping down stairs, states knee unsurity stability. PT-OP-T Assessment and Plan Start: 02/06/24 15:27 Freq: Status: Active Protocol: Document 02/23/24 11:20 SP (Rec: 02/24/24 09:04 SP [id number]) Physical Therapy Assessment Goals 4 Impairment Lack of amplitude specific HEP Impairment . Group Home Goal (LTG) Pt will perform daily BIG exercises and therapeutic activities with no more than demo and cues from to improve amplitude and speed of movement. LTG Duration 16 treatments 3 Impairment Evidence of imbalance Impairment . Group Home Goal (LTG) Pt will perform WNLs on FGA to decrease fall risk. LTG Duration 16 treatments 2 Impairment 1184 feet in 6 minutes Impairment . Centerless Grinder Tender Goal (LTG) Pt will gait train at least 1400 feet in 6 minutes without AD and with I to improve community ambulation. LTG Duration 16 treatments 1 Impairment 13 STS in 30 sec Impairment . Group Home Goal (LTG) Pt will perform 15 STS in 30 sec to improve functional strength with transfers. LTG Duration 16 treatments Assessment Summary Assessment PLAN CHECKER discussed with pt and to call physician to update LE weakness and meds taking for safety and advice if any needs for adjusting. ALso community together am walks after for safety, both verbalized do already, discussed keeping a BP journal for few days for awareness. Pt increased endurance gait, slower speed descend stairs stating knee assurity. Little challenge fwd rock reach R ft fwd, back stepping challenge initial sequence. Physical Therapy Plan Frequency and Duration Frequency of Treatment 4x/Week Duration of treatment (weeks) 6 Plan of Care Start Date 02/08/24 Plan of Care End Date 03/27/24 Therapeutic Interventions Therapeutic Interventions Balance Training,Canalithic Repositioning,Coordination Training,Gait Training,Home Exercise Program,Manual Therapy,Neuromuscular Re- education,Patient/Caregiver Education,Self-Care/Home Management,Sensory Integration ,Soft Tissue Mobilization, Taping,Therapeutic Activities, Therapeutic Exercises, Vestibular Rehabilitation Modalities Cold Pack/Ice Massage,Hot Packs Next Visit Focus/Plan Next Note Type Treatment Note Next Visit Plan Con't flicks and alternating, con't BIG activities, consider gait outside with changing direction and obstacle course type activities
--- NOTE | 2024-02-24 10:33 | PT.OTN ---
Current Diagnoses Parkinsonism, unspecified (02/24/24) Personal history of other diseases of the nervous system and sense organs (02/24/24) Physical Therapy Treatment Note PT-OP-A Visit Information Start: 02/06/24 15:27 Freq: Status: Active Protocol: Document 02/24/24 09:52 SP (Rec: 02/24/24 10:35 SP [id number]) Out-Patient Physical Therapy Visit Information Visit Information Visit Type Treatment Note Visit Note Medicare 01/28 before KX is Fito and goes by Pawel Progress note next 02/28 Visit Start Time 09:48 Visit Stop Time 10:33 Visit Number 8 Number of INSIDE STEWARD/STEWARDESS Visits 2 Evaluation Information Evaluation Date 02/08/24 PT-OP-B Current Condition Start: 02/06/24 15:27 Freq: Status: Active Protocol: Document 02/08/24 11:17 MB (Rec: 02/08/24 11:51 MB [id number]) Current Condition History of Current Condition Onset Date 2021 cognitive changes Current Complaints Awkwardness of what is going on with legs, slow walking, stiffness History of Current Condition In 2021, noticed some cognitive changes. He saw a sleep specialist and he had mild sleep apnea. He lost a lot a weight and the CPAP caused issues with his sinuses . Sleep specialist noticed tremor in right hand. He has been seeing a neurologist since 10/2022. He has been treated as PD even though diagnostics were non- conclusive. Carbidopa Levodopa has helped him cognitively and they think that the tremor is a little better. Pt is also on a memory pill and he takes that once a day. He sees neuropsychologist in [facility] and he has improved in a couple of areas and might have declined in other areas though he didn't wear his reading glasses. Pt has a new cane that he is using in his left hand d/t right hip pain. He takes two Aleve a day. He is closing in some and shuffling a little. provides most history and pt states that in his own defense, they have a 30 lb dog with a lot of energy and there are a lot of toys on the floor. They report no issues with walking over rugs and hardwood floors. He is wearing shoes at home. He had previously been walking in stocking feet. He is sleeping well. Before this started, he was vaping THC. The neuropsychologist asked him to wean off of it. Pt gets up 2-3 times a night to toilet. He wears depends. He had a procedure in September. Pt denies light-headedness when getting up. Pt has had a couple of sleep walking episodes in 2 years. One was a month ago. Last fall was in 2019. He talks a lot in his sleep and he dreams a lot per . reports pt' s swings occ in dreams. Pt is managing a smart phone. Pt manages his medication. He takes ozempic and they watch the video every Tuesday before he gives himself the short. New tasks require refresher course. states that pt is slow. manages finances. Pt used to walk his dog a few times a week until his right hip got bad and he started using cane in left hand. There are written lists for tasks he needs to complete like laundry. Pt was shaving his own head up until a couple of months ago but he stopped d/t nicking himself d/t stiffness in shoulders and motor control of hands. Pt and hope to transition to snf in [place] in the future. Treatment Goals Patient/Caregiver Goals Better and bigger movement PT-OP-C Subjective Start: 02/06/24 15:27 Freq: Status: Active Protocol: Document 02/24/24 09:52 SP (Rec: 02/24/24 10:35 SP [id number]) OP-PT Subjective Patient Comments Patient Comments Pt report felt fine when took dog out this am, BP sit 119/70 7 am, stnd 97/60 immediate after. Was riding in car [employer] for grandson's graduation. TOday busy PT-OP-D Balance Start: 02/06/24 15:27 Freq: Status: Active Protocol: Document 02/08/24 11:17 MB (Rec: 02/08/24 15:46 MB [id number]) OP-PT Balance Assessment Sitting Balance Static Sitting Balance Ability Good Standing Balance Static Standing Balance Ability Good Dynamic Standing Balance Ability Fair Balance Tests Other Other Balance Tests Performed SLS requires REROLLING MACHINE OPERATOR to get into position and pt cannot lift opposite leg far off the ground. Longer standing time on left foot compared to right : CGA. Romberg EC and EO normal, superv. B tandem with UE support to get into position and longer hold time with CGA with right foot behind. Rondon Fall Scale Copyright Permission PT-OP-G Mobility & Gait Start: 02/06/24 15:27 Freq: Status: Active Protocol: Document 02/08/24 11:17 MB (Rec: 02/08/24 15:46 MB [id number]) OP Gait Assessment Comments Gait Comments Decreased arm swing B, though pt carries cane in left hand for 6MWT. For gait into clinic , step-to and more antalgic pattern gait with cane in left hand and advancing with right foot PT-OP-H Neuro Start: 02/06/24 15:27 Freq: Status: Active Protocol: Document 02/08/24 11:17 MB (Rec: 02/08/24 15:46 MB [id number]) Coordination Evaluation Upper Extremity Tests Left Finger to Nose Test Minimal Impairment Pronation/Supination Test Minimal Impairment Right Finger to Nose Test Normal Performance Pronation/Supination Test Minimal Impairment Lower Extremity Tests Left Heel on Irving Test Minimal Impairment Foot Tapping Test Minimal Impairment Right Heel on [place] Test Minimal Impairment Foot Tapping Test Minimal Impairment PT-OP-M Strength Start: 02/06/24 15:27 Freq: Status: Active Protocol: Document 02/08/24 11:17 MB (Rec: 02/08/24 15:46 MB [id number]) Shoulder Strength Shoulder Manual Muscle Testing Bilateral Flexion 5 Normal Abduction (C5) 5 Normal Hip Strength Hip Manual Muscle Testing Bilateral Flexion (L2) 5 Normal PT-OP-Q Treatments Start: 02/06/24 15:27 Freq: Status: Active Protocol: Document 02/24/24 09:52 SP (Rec: 02/24/24 10:35 SP [id number]) Therapeutic Exercises Sitting Exercises Side to side Equipment Used jun chair Reps/Minutes 5 on each side (counts rep when hands on lap) Comments Alternating reps and flicks Floor to ceiling Equipment Used Pully chair Reps/Minutes 10- counts flick 10, # reps audible hands on lap Comments Flicks today Standing Exercises Side rock and reach Side bilateral Reps/Minutes 10 each side (counts 20 reps total) Comments Alternating, cued slow down quality rotation Forward rock and reach Side bilateral Reps/Minutes 10 reps each side Comments improved form today Back stepping Standing Exercise Name Cued Slowed down, SBA Reps/Minutes 10 each side (counts 20 reps total) Comments Alternating, cued both hands back higher Side stepping Reps/Minutes 10 each side (counts 20 reps total) Comments Alternating-good form & BIG Forward step Reps/Minutes 10 each side (counts 20 reps total) Comments Alternating-good form & BIG Therapeutic Activity Therapeutic Activity Donning and doffing jacket shirt Name in standing Comments 7 sec don, 22 sec button Unbutton and doff: 11 sec 6 sec don, 24 sec button Unbutton and doff: 12 sec 9 sec don, 30sec button Unbutton and doff: 9 sec BIG STS Reps/Minutes 10 reps Comments jun chair Gait Training Gait Activity BIG walking Description ER hallway & tomid bldg elevator, MAP bldg 28 stairs, pivot turns Comments Inside, Cued foot fully on step, had to do step lead LLE to descend stairs due to L knee pain when trialed recipricate. Rail on when trialed reciprocal stepping for LLE support stabiltiy. Improve BIG turns smaller space. PT-OP-T Assessment and Plan Start: 02/06/24 15:27 Freq: Status: Active Protocol: Document 02/24/24 09:52 SP (Rec: 02/24/24 10:35 SP [id number]) Physical Therapy Assessment Goals 4 Impairment Lack of amplitude specific HEP Impairment . Secret Service Agent Goal (LTG) Pt will perform daily BIG exercises and therapeutic activities with no more than demo and cues from to improve amplitude and speed of movement. LTG Duration 16 treatments 3 Impairment Evidence of imbalance Impairment . Skilled Nursing Goal (LTG) Pt will perform WNLs on FGA to decrease fall risk. LTG Duration 16 treatments 2 Impairment 1184 feet in 6 minutes Impairment . Skilled Nursing Goal (LTG) Pt will gait train at least 1400 feet in 6 minutes without AD and with I to improve community ambulation. LTG Duration 16 treatments 1 Impairment 13 STS in 30 sec Impairment . Skilled Nursing Goal (LTG) Pt will perform 15 STS in 30 sec to improve functional strength with transfers. LTG Duration 16 treatments Assessment Summary Assessment Pt reported legs little wobbly walking back to gym. DIdn't tell INSIDE STEWARD/STEWARDESS until after exercises due to went away. He is logging his BPs to give feedback to physician. Was fine this am and throughout session. Pt stated wants to count out all reps, to confusing how therapists have been doing, feels more confident and can focus on bigger movement. Cued to slow pacing on back stepping ex, better form arms up 1 cue. Had to perform step to patterning stairs descend due to L knee pain. Pt R foot toe scuff x1 but improved BIG arm swing, stepping and increased pacing. Added change direction BIG turns. DIScussed perform as HW . Physical Therapy Plan Frequency and Duration Frequency of Treatment 4x/Week Duration of treatment (weeks) 6 Plan of Care Start Date 02/08/24 Plan of Care End Date 03/27/24 Therapeutic Interventions Therapeutic Interventions Balance Training,Canalithic Repositioning,Coordination Training,Gait Training,Home Exercise Program,Manual Therapy,Neuromuscular Re- education,Patient/Caregiver Education,Self-Care/Home Management,Sensory Integration ,Soft Tissue Mobilization, Taping,Therapeutic Activities, Therapeutic Exercises, Vestibular Rehabilitation Modalities Cold Pack/Ice Massage,Hot Packs Next Visit Focus/Plan Next Note Type Treatment Note Next Visit Plan HW turns BIG stepping. Con't flicks and alternating, con't BIG activities, consider gait outside with changing direction and obstacle course type activities.
--- NOTE | 2024-02-27 11:33 | PT.OTN ---
Current Diagnoses Parkinsonism, unspecified (02/27/24) Personal history of other diseases of the nervous system and sense organs (02/27/24) Physical Therapy Treatment Note PT-OP-A Visit Information Start: 02/06/24 15:27 Freq: Status: Active Protocol: Document 02/27/24 10:33 SP (Rec: 02/27/24 11:46 SP [id number]) Out-Patient Physical Therapy Visit Information Visit Information Visit Type Treatment Note Visit Note Medicare 03/30 before KX is Fito and goes by Pawel Progress note next 02/28 Visit Start Time 10:33 Visit Stop Time 11:33 Visit Number 9 Number of IT COMPLIANCE ANALYST Visits 3 Evaluation Information Evaluation Date 02/08/24 PT-OP-B Current Condition Start: 02/06/24 15:27 Freq: Status: Active Protocol: Document 02/08/24 11:17 MB (Rec: 02/08/24 11:51 MB [id number]) Current Condition History of Current Condition Onset Date 2021 cognitive changes Current Complaints Awkwardness of what is going on with legs, slow walking, stiffness History of Current Condition In 2021, noticed some cognitive changes. He saw a sleep specialist and he had mild sleep apnea. He lost a lot a weight and the CPAP caused issues with his sinuses . Sleep specialist noticed tremor in right hand. He has been seeing a neurologist since 10/2022. He has been treated as PD even though diagnostics were non- conclusive. Carbidopa Levodopa has helped him cognitively and they think that the tremor is a little better. Pt is also on a memory pill and he takes that once a day. He sees neuropsychologist in [facility] and he has improved in a couple of areas and might have declined in other areas though he didn't wear his reading glasses. Pt has a new cane that he is using in his left hand d/t right hip pain. He takes two Aleve a day. He is closing in some and shuffling a little. provides most history and pt states that in his own defense, they have a 30 lb dog with a lot of energy and there are a lot of toys on the floor. They report no issues with walking over rugs and hardwood floors. He is wearing shoes at home. He had previously been walking in stocking feet. He is sleeping well. Before this started, he was vaping THC. The neuropsychologist asked him to wean off of it. Pt gets up 2-3 times a night to toilet. He wears depends. He had a procedure in September. Pt denies light-headedness when getting up. Pt has had a couple of sleep walking episodes in 2 years. One was a month ago. Last fall was in 2019. He talks a lot in his sleep and he dreams a lot per . reports pt' s swings occ in dreams. Pt is managing a smart phone. Pt manages his medication. He takes ozempic and they watch the video every Tuesday before he gives himself the short. New tasks require refresher course. states that pt is slow. manages finances. Pt used to walk his dog a few times a week until his right hip got bad and he started using cane in left hand. There are written lists for tasks he needs to complete like laundry. Pt was shaving his own head up until a couple of months ago but he stopped d/t nicking himself d/t stiffness in shoulders and motor control of hands. Pt and hope to transition to shelter in [place] in the future. Treatment Goals Patient/Caregiver Goals Better and bigger movement PT-OP-C Subjective Start: 02/06/24 15:27 Freq: Status: Active Protocol: Document 02/27/24 10:33 SP (Rec: 02/27/24 11:46 SP [id number]) OP-PT Subjective Patient Comments Patient Comments Pt reports not lightheaded this am felt fine taking out dog, didnt' take BP. BP arrival standin/62 HR 76 . B hands had some cramping in lumbrical positioning. PT-OP-D Balance Start: 02/06/24 15:27 Freq: Status: Active Protocol: Document 02/08/24 11:17 MB (Rec: 02/08/24 15:46 MB [id number]) OP-PT Balance Assessment Sitting Balance Static Sitting Balance Ability Good Standing Balance Static Standing Balance Ability Good Dynamic Standing Balance Ability Fair Balance Tests Other Other Balance Tests Performed SLS requires ARC TRIMMER to get into position and pt cannot lift opposite leg far off the ground. Longer standing time on left foot compared to right : CGA. Romberg EC and EO normal, superv. B tandem with UE support to get into position and longer hold time with CGA with right foot behind. Rondon Fall Scale Copyright Permission PT-OP-G Mobility & Gait Start: 02/06/24 15:27 Freq: Status: Active Protocol: Document 02/08/24 11:17 MB (Rec: 02/08/24 15:46 MB [id number]) OP Gait Assessment Comments Gait Comments Decreased arm swing B, though pt carries cane in left hand for 6MWT. For gait into clinic , step-to and more antalgic pattern gait with cane in left hand and advancing with right foot PT-OP-H Neuro Start: 02/06/24 15:27 Freq: Status: Active Protocol: Document 02/08/24 11:17 MB (Rec: 02/08/24 15:46 MB [id number]) Coordination Evaluation Upper Extremity Tests Left Finger to Nose Test Minimal Impairment Pronation/Supination Test Minimal Impairment Right Finger to Nose Test Normal Performance Pronation/Supination Test Minimal Impairment Lower Extremity Tests Left Heel on [place] Test Minimal Impairment Foot Tapping Test Minimal Impairment Right Heel on [place] Test Minimal Impairment Foot Tapping Test Minimal Impairment PT-OP-M Strength Start: 02/06/24 15:27 Freq: Status: Active Protocol: Document 02/08/24 11:17 MB (Rec: 02/08/24 15:46 MB [id number]) Shoulder Strength Shoulder Manual Muscle Testing Bilateral Flexion 5 Normal Abduction (C5) 5 Normal Hip Strength Hip Manual Muscle Testing Bilateral Flexion (L2) 5 Normal PT-OP-Q Treatments Start: 02/06/24 15:27 Freq: Status: Active Protocol: Document 02/27/24 10:33 SP (Rec: 02/27/24 11:46 SP [id number]) Therapeutic Exercises Sitting Exercises Side to side Equipment Used jun chair Reps/Minutes 5 on each side (counts rep on when hands on lap) Comments Alternating reps and flicks Floor to ceiling Equipment Used Pully chair Reps/Minutes 10- counts flick 10, # reps audible hands on lap Comments Flicks today Standing Exercises Side rock and reach Side bilateral Reps/Minutes 10 each side (counts 20 reps total) Comments Alternating, cued slow down quality rotation Forward rock and reach Side bilateral Reps/Minutes 10 reps each side Comments improved form today Back stepping Standing Exercise Name Cued Slowed down, SBA Reps/Minutes 10 each side (counts 20 reps total) Comments Alternating, cued both hands back higher- L knee little pain initial step Side stepping Reps/Minutes 10 each side (counts 20 reps total) Comments Alternating-good form & BIG Forward step Reps/Minutes 10 each side (counts 20 reps total) Comments Alternating LEs, flicks & BIG step Therapeutic Activity Therapeutic Activity BIG in and out of car Reps/Minutes 5 Comments Drivers side approach walk up to car, open door, big sit, big legs in and out, also smaller space 1 leg time due to time limited space between cars. Donning and doffing jacket shirt Name in standing Comments 8 sec don, 36 sec button(6) Unbutton and doff: 10 sec 7 sec don, 31 sec button Unbutton and doff: 8 sec 7 sec don, 31sec button Unbutton and doff: sec Donning and doffing pants Comments pt states can get jeans on/off bear feet now feet, not need do in PT, feels confident BIG STS Reps/Minutes 10 reps Comments jun chair Gait Training Gait Activity BIG walking Description clinic laps x3, outside grass, around parkinglot, pivot turns direction Surface 1. floor, stairs, 5 hurdles, 6 step Distance/Duration 3 laps Comments step to descend stairs due to L knee pain, slows pacing, cued high knee evonne clearance no circumduction. Pivot turns on R improved with reps cue wt shift fwd. PT-OP-T Assessment and Plan Start: 02/06/24 15:27 Freq: Status: Active Protocol: Document 02/27/24 10:33 SP (Rec: 02/27/24 11:46 SP [id number]) Physical Therapy Assessment Goals 4 Impairment Lack of amplitude specific HEP Impairment . Lumber Bearer Goal (LTG) Pt will perform daily BIG exercises and therapeutic activities with no more than demo and cues from to improve amplitude and speed of movement. LTG Duration 16 treatments 3 Impairment Evidence of imbalance Impairment . Jail Goal (LTG) Pt will perform WNLs on FGA to decrease fall risk. LTG Duration 16 treatments 2 Impairment 1184 feet in 6 minutes Impairment . Jail Goal (LTG) Pt will gait train at least 1400 feet in 6 minutes without AD and with I to improve community ambulation. LTG Duration 16 treatments 1 Impairment 13 STS in 30 sec Impairment . Lumber Bearer Goal (LTG) Pt will perform 15 STS in 30 sec to improve functional strength with transfers. LTG Duration 16 treatments Assessment Summary Assessment Pt improved counting today, rep audible when slaps lap, hold/flick 1-10, less confusing. IT COMPLIANCE ANALYST discussed with as well. Slows down to manage evonne/ step, improved clearance after cued BIG step not circumduction. Improved pivot turns change direction outside vs BIG step turns for smaller spaces like home. Noted BIGGER legs in/out car today when cued excessive movement and continue these for homework. Physical Therapy Plan Frequency and Duration Frequency of Treatment 4x/Week Duration of treatment (weeks) 6 Plan of Care Start Date 02/08/24 Plan of Care End Date 03/27/24 Therapeutic Interventions Therapeutic Interventions Balance Training,Canalithic Repositioning,Coordination Training,Gait Training,Home Exercise Program,Manual Therapy,Neuromuscular Re- education,Patient/Caregiver Education,Self-Care/Home Management,Sensory Integration ,Soft Tissue Mobilization, Taping,Therapeutic Activities, Therapeutic Exercises, Vestibular Rehabilitation Modalities Cold Pack/Ice Massage,Hot Packs Next Visit Focus/Plan Next Note Type Treatment Note Next Visit Plan HW turns BIG stepping. Con't flicks and alternating, con't BIG activities, Continue gait outside with changing direction and obstacle course type activities.
--- NOTE | 2024-02-28 12:28 | PT.OTN ---
Current Diagnoses Parkinsonism, unspecified (02/28/24) Personal history of other diseases of the nervous system and sense organs (02/28/24) Physical Therapy Treatment Note PT-OP-A Visit Information Start: 02/06/24 15:27 Freq: Status: Active Protocol: Document 02/28/24 11:15 MB (Rec: 02/28/24 11:48 MB [id number]) Out-Patient Physical Therapy Visit Information Visit Information Visit Type Progress Note Visit Note Medicare 06/30 before KX is Fito and goes by Pawel Visit Start Time 11:15 Visit Stop Time 12:15 Visit Number 10 Number of STUDIO MODEL Visits 0 Evaluation Information Evaluation Date 02/08/24 PT-OP-B Current Condition Start: 02/06/24 15:27 Freq: Status: Active Protocol: Document 02/08/24 11:17 MB (Rec: 02/08/24 11:51 MB [id number]) Current Condition History of Current Condition Onset Date 2021 cognitive changes Current Complaints Awkwardness of what is going on with legs, slow walking, stiffness History of Current Condition In 2021, noticed some cognitive changes. He saw a sleep specialist and he had mild sleep apnea. He lost a lot a weight and the CPAP caused issues with his sinuses . Sleep specialist noticed tremor in right hand. He has been seeing a neurologist since 10/2022. He has been treated as PD even though diagnostics were non- conclusive. Carbidopa Levodopa has helped him cognitively and they think that the tremor is a little better. Pt is also on a memory pill and he takes that once a day. [facility] and he has improved in a couple of areas and might have declined in other areas though he didn't wear his reading glasses. Pt has a new cane that he is using in his left hand d/t right hip pain. He takes two Aleve a day. He is closing in some and shuffling a little. provides most history and pt states that in his own defense, they have a 30 lb dog with a lot of energy and there are a lot of toys on the floor. They report no issues with walking over rugs and hardwood floors. He is wearing shoes at home. He had previously been walking in stocking feet. He is sleeping well. Before this started, he was vaping THC. The neuropsychologist asked him to wean off of it. Pt gets up 2-3 times a night to toilet. He wears depends. He had a procedure in September. Pt denies light-headedness when getting up. Pt has had a couple of sleep walking episodes in 2 years. One was a month ago. Last fall was in 2019. He talks a lot in his sleep and he dreams a lot per . reports pt' s swings occ in dreams. Pt is managing a smart phone. Pt manages his medication. He takes ozempic and they watch the video every Tuesday before he gives himself the short. New tasks require refresher course. states that pt is slow. manages finances. Pt used to walk his dog a few times a week until his right hip got bad and he started using cane in left hand. There are written lists for tasks he needs to complete like laundry. Pt was shaving his own head up until a couple of months ago but he stopped d/t nicking himself d/t stiffness in shoulders and motor control of hands. Pt and hope to transition to [facility] in [place] in the future. Treatment Goals Patient/Caregiver Goals Better and bigger movement PT-OP-C Subjective Start: 02/06/24 15:27 Freq: Status: Active Protocol: Document 02/28/24 11:15 MB (Rec: 02/28/24 11:48 MB [id number]) OP-PT Subjective Patient Comments Patient Comments Left knee bothers him some and especially with big step with sharp [place]. Pt feels that putting on jacket shirt is easier since starting BIG. Walking is better. He likes the exercises where his shoulder is stretched. PT-OP-D Balance Start: 02/06/24 15:27 Freq: Status: Active Protocol: Document 02/08/24 11:17 MB (Rec: 02/08/24 15:46 MB [id number]) OP-PT Balance Assessment Sitting Balance Static Sitting Balance Ability Good Standing Balance Static Standing Balance Ability Good Dynamic Standing Balance Ability Fair Balance Tests Other Other Balance Tests Performed SLS requires HUMAN RELATIONS MANAGER to get into position and pt cannot lift opposite leg far off the ground. Longer standing time on left foot compared to right : CGA. Romberg EC and EO normal, superv. B tandem with UE support to get into position and longer hold time with CGA with right foot behind. Rondon Fall Scale Copyright Permission PT-OP-G Mobility & Gait Start: 02/06/24 15:27 Freq: Status: Active Protocol: Document 02/08/24 11:17 MB (Rec: 02/08/24 15:46 MB [id number]) OP Gait Assessment Comments Gait Comments Decreased arm swing B, though pt carries cane in left hand for 6MWT. For gait into clinic , step-to and more antalgic pattern gait with cane in left hand and advancing with right foot PT-OP-H Neuro Start: 02/06/24 15:27 Freq: Status: Active Protocol: Document 02/08/24 11:17 MB (Rec: 02/08/24 15:46 MB [id number]) Coordination Evaluation Upper Extremity Tests Left Finger to Nose Test Minimal Impairment Pronation/Supination Test Minimal Impairment Right Finger to Nose Test Normal Performance Pronation/Supination Test Minimal Impairment Lower Extremity Tests Left Heel on [place] Test Minimal Impairment Foot Tapping Test Minimal Impairment Right Heel on [place] Test Minimal Impairment Foot Tapping Test Minimal Impairment PT-OP-M Strength Start: 02/06/24 15:27 Freq: Status: Active Protocol: Document 02/08/24 11:17 MB (Rec: 02/08/24 15:46 MB [id number]) Shoulder Strength Shoulder Manual Muscle Testing Bilateral Flexion 5 Normal Abduction (C5) 5 Normal Hip Strength Hip Manual Muscle Testing Bilateral Flexion (L2) 5 Normal PT-OP-Q Treatments Start: 02/06/24 15:27 Freq: Status: Active Protocol: Document 02/28/24 11:15 MB (Rec: 02/28/24 11:48 MB [id number]) Therapeutic Exercises Sitting Exercises 30 sec STS Comments 14 reps in mesh chair today Gait Training Gait Activity BIG walking Comments Much better BIG walking in clinic today as well as outside. Pt is able to negociate varying terrain, loose gravel, incline and steps without rail and with step-to pattern descend. Curb walking is challenging with narrow [place], forward and backward and side stepping better with changing stepping direction. CGA to min A on curb and superv to I otherwise 6MWT Comments See goals below. Pt gait trains about 550 feet further in 6 minutes than he did on eval and his BIG pattern is better with larger arm swing, step length and gait speed and confidence. Pt reports mild left knee pain with gait and he has right thoracic convexity and little thoracic mobility Neuro Re-Education Treatment Balance Activities Balance activities with outside gait Comments Pt performs many dynamic balance activities tasks during outdoor gait and see gait comments for this, carried over FGA tasks of changing gait direction forward and backwards and steps and narrow [place] FGA Comments FGA performed today: , which is WNLs and pt has most challenge with tandem gait, steps (left knee pain and he performs step-to gait descend) and gait with EC PT-OP-T Assessment and Plan Start: 02/06/24 15:27 Freq: Status: Active Protocol: Document 02/28/24 11:15 MB (Rec: 02/28/24 11:48 MB [id number]) Physical Therapy Assessment Goals 4 Impairment Lack of amplitude specific HEP Impairment . Apparel Embroidery Digitizer Goal (LTG) Pt will perform daily BIG exercises and therapeutic activities with no more than demo and cues from to improve amplitude and speed of movement. 02/28/24 PT reports that BIG exercises are going well and he is getting them done twice a day on non-therapy days and once a day on therapy days. LTG Duration 16 treatments 3 Impairment Evidence of imbalance Impairment . Nursing Home Goal (LTG) Pt will perform WNLs on FGA to decrease fall risk. 02/28/24: FGA score is normal and is 25/30. See comments under FGA today LTG Duration 16 treatments 2 Impairment 1184 feet in 6 minutes Impairment . Nursing Home Goal (LTG) Pt will gait train at least 1400 feet in 6 minutes without AD and with I to improve community ambulation. 02/28/24: Excellent BIG walking with arm swing and pt gait trains almost 550 feet further than assessment at 1723 feet. Pt reports mild left knee pain with gait LTG Duration 16 treatments 1 Impairment 13 STS in 30 sec Impairment . Nursing Home Goal (LTG) Pt will perform 15 STS in 30 sec to improve functional strength with transfers. 02/28/24: 14 reps in 30 sec today from mesh chair, much improved LTG Duration 16 treatments Assessment Summary Assessment Pt has met FGA balance goal, 6MWT gait goal and has progressed towards STS and HEP goals. His gait pattern is faster and has bigger stepping and arm swing. He has increased thoracic stiffness and right convexity. He reports left knee pain intermittently and may benefit for PT for this in the future . Con't per BIG plan this treatment course. Physical Therapy Plan Frequency and Duration Frequency of Treatment 4x/Week Duration of treatment (weeks) 6 Plan of Care Start Date 02/08/24 Plan of Care End Date 03/27/24 Therapeutic Interventions Therapeutic Interventions Balance Training,Canalithic Repositioning,Coordination Training,Gait Training,Home Exercise Program,Manual Therapy,Neuromuscular Re- education,Patient/Caregiver Education,Self-Care/Home Management,Sensory Integration ,Soft Tissue Mobilization, Taping,Therapeutic Activities, Therapeutic Exercises, Vestibular Rehabilitation Modalities Cold Pack/Ice Massage,Hot Packs Next Visit Focus/Plan Next Note Type Treatment Note Next Visit Plan BIG exercises, Continue gait outside with changing direction and obstacle course type activities.
--- NOTE | 2024-02-29 12:22 | PT.OTN ---
Current Diagnoses Parkinsonism, unspecified (02/29/24) Personal history of other diseases of the nervous system and sense organs (02/29/24) Physical Therapy Treatment Note PT-OP-A Visit Information Start: 02/06/24 15:27 Freq: Status: Active Protocol: Document 02/29/24 11:15 MB (Rec: 02/29/24 12:02 MB [id number]) Out-Patient Physical Therapy Visit Information Visit Information Visit Type Treatment Note Visit Note Medicare 07/31 before KX is Fito and goes by Pawel Visit Start Time 11:15 Visit Stop Time 12:15 Visit Number [address] SCIENTIST Visits 0 Evaluation Information Evaluation Date 02/08/24 PT-OP-B Current Condition Start: 02/06/24 15:27 Freq: Status: Active Protocol: Document 02/08/24 11:17 MB (Rec: 02/08/24 11:51 MB [id number]) Current Condition History of Current Condition Onset Date 2021 cognitive changes Current Complaints Awkwardness of what is going on with legs, slow walking, stiffness History of Current Condition In 2021, noticed some cognitive changes. He saw a sleep specialist and he had mild sleep apnea. He lost a lot a weight and the CPAP caused issues with his sinuses . Sleep specialist noticed tremor in right hand. He has been seeing a neurologist since 10/2022. He has been treated as PD even though diagnostics were non- conclusive. Carbidopa Levodopa has helped him cognitively and they think that the tremor is a little better. Pt is also on a memory pill and he takes that once a day. He sees neuropsychologist in [facility] and he has improved in a couple of areas and might have declined in other areas though he didn't wear his reading glasses. Pt has a new cane that he is using in his left hand d/t right hip pain. He takes two Aleve a day. He is closing in some and shuffling a little. provides most history and pt states that in his own defense, they have a 30 lb dog with a lot of energy and there are a lot of toys on the floor. They report no issues with walking over rugs and hardwood floors. He is wearing shoes at home. He had previously been walking in stocking feet. He is sleeping well. Before this started, he was vaping THC. The neuropsychologist asked him to wean off of it. Pt gets up 2-3 times a night to toilet. He wears depends. He had a procedure in September. Pt denies light-headedness when getting up. Pt has had a couple of sleep walking episodes in 2 years. One was a month ago. Last fall was in 2019. He talks a lot in his sleep and he dreams a lot per . reports pt' s swings occ in dreams. Pt is managing a smart phone. Pt manages his medication. He takes ozempic and they watch the video every Tuesday before he gives himself the short. New tasks require refresher course. states that pt is slow. manages finances. Pt used to walk his dog a few times a week until his right hip got bad and he started using cane in left hand. There are written lists for tasks he needs to complete like laundry. Pt was shaving his own head up until a couple of months ago but he stopped d/t nicking himself d/t stiffness in shoulders and motor control of hands. Pt and hope to transition to [facility] in [place] in the future. Treatment Goals Patient/Caregiver Goals Better and bigger movement PT-OP-C Subjective Start: 02/06/24 15:27 Freq: Status: Active Protocol: Document 02/29/24 11:15 MB (Rec: 02/29/24 12:02 MB [id number]) OP-PT Subjective Patient Comments Patient Comments Pt states that his left knee pain is manageable with pain medication. He is taking his BP in sitting once a day and it is okay. PT-OP-D Balance Start: 02/06/24 15:27 Freq: Status: Active Protocol: Document 02/08/24 11:17 MB (Rec: 02/08/24 15:46 MB [id number]) OP-PT Balance Assessment Sitting Balance Static Sitting Balance Ability Good Standing Balance Static Standing Balance Ability Good Dynamic Standing Balance Ability Fair Balance Tests Other Other Balance Tests Performed SLS requires ERP BUSINESS ANALYST to get into position and pt cannot lift opposite leg far off the ground. Longer standing time on left foot compared to right : CGA. Romberg EC and EO normal, superv. B tandem with UE support to get into position and longer hold time with CGA with right foot behind. Rondon Fall Scale Copyright Permission PT-OP-G Mobility & Gait Start: 02/06/24 15:27 Freq: Status: Active Protocol: Document 02/08/24 11:17 MB (Rec: 02/08/24 15:46 MB [id number]) OP Gait Assessment Comments Gait Comments Decreased arm swing B, though pt carries cane in left hand for 6MWT. For gait into clinic , step-to and more antalgic pattern gait with cane in left hand and advancing with right foot PT-OP-H Neuro Start: 02/06/24 15:27 Freq: Status: Active Protocol: Document 02/08/24 11:17 MB (Rec: 02/08/24 15:46 MB [id number]) Coordination Evaluation Upper Extremity Tests Left Finger to Nose Test Minimal Impairment Pronation/Supination Test Minimal Impairment Right Finger to Nose Test Normal Performance Pronation/Supination Test Minimal Impairment Lower Extremity Tests Left Heel on [place] Test Minimal Impairment Foot Tapping Test Minimal Impairment Right Heel on [place] Test Minimal Impairment Foot Tapping Test Minimal Impairment PT-OP-M Strength Start: 02/06/24 15:27 Freq: Status: Active Protocol: Document 02/08/24 11:17 MB (Rec: 02/08/24 15:46 MB [id number]) Shoulder Strength Shoulder Manual Muscle Testing Bilateral Flexion 5 Normal Abduction (C5) 5 Normal Hip Strength Hip Manual Muscle Testing Bilateral Flexion (L2) 5 Normal PT-OP-Q Treatments Start: 02/06/24 15:27 Freq: Status: Active Protocol: Document 02/29/24 11:15 MB (Rec: 02/29/24 12:02 MB [id number]) Therapeutic Exercises Sitting Exercises Side to side Equipment Used Jun chair then BIG chair Reps/Minutes 10 reps alternating Comments Flicks, cues not to move leg until reach: challenging for pt Floor to ceiling Equipment Used Jun chair Reps/Minutes 10 reps Comments Flicks Standing Exercises Side rock and reach Side bilateral Reps/Minutes 10 reps to each side Comments Alternating Forward rock and reach Side bilateral Comments Improved Back stepping Side bilateral Reps/Minutes 10 each side alternating (20 total) Comments Much improved, slower than other exercises Side stepping Side bilateral Reps/Minutes 10 each side alternating (20 total) Comments Much improved, mildly slower Forward step Side bilateral Reps/Minutes 10 each side alternating (20 total) Comments Improved Therapeutic Activity Therapeutic Activity Orthostatic assessment Comments BP and HR in LUE: supine: 156/ 86, 70; standin/63, 84; standing 1': 108/63, 81; standing 2': 122/78, 82 BIG in and out of car Comments Car not available for practice today Donning and doffing jacket shirt Comments Pt does not bring in jacket today BIG STS Reps/Minutes 10 reps Comments jun chair Pt requires demo before first rep Gait Training Gait Activity BIG walking Comments BIG walking inside and outside including side stepping up and down incline on the grass and backwards walking and curb walking, stepping up and over curve with side stepping and forward and backward stepping and challenge with curb walking and stepping PT-OP-T Assessment and Plan Start: 02/06/24 15:27 Freq: Status: Active Protocol: Document 02/29/24 11:15 MB (Rec: 02/29/24 12:02 MB [id number]) Physical Therapy Assessment Goals 4 Impairment Lack of amplitude specific HEP Impairment . Administrative Assistant Data Entry Goal (LTG) Pt will perform daily BIG exercises and therapeutic activities with no more than demo and cues from to improve amplitude and speed of movement. 02/28/24 PT reports that BIG exercises are going well and he is getting them done twice a day on non-therapy days and once a day on therapy days. LTG Duration 16 treatments 3 Impairment Evidence of imbalance Impairment . Nursing Home Goal (LTG) Pt will perform WNLs on FGA to decrease fall risk. 02/28/24: FGA score is normal and is 25/30. See comments under FGA today LTG Duration 16 treatments 2 Impairment 1184 feet in 6 minutes Impairment . Nursing Home Goal (LTG) Pt will gait train at least 1400 feet in 6 minutes without AD and with I to improve community ambulation. 02/28/24: Excellent BIG walking with arm swing and pt gait trains almost 550 feet further than assessment at 1723 feet. Pt reports mild left knee pain with gait LTG Duration 16 treatments 1 Impairment 13 STS in 30 sec Impairment . Administrative Assistant Data Entry Goal (LTG) Pt will perform 15 STS in 30 sec to improve functional strength with transfers. 02/28/24: 14 reps in 30 sec today from mesh chair, much improved LTG Duration 16 treatments Assessment Summary Assessment Sitting side to side alternating is challenging for pt as far as waiting to move the back leg and not moving front leg. Alternating and flicks are making exercises more challenging. Con't per plan. Physical Therapy Plan Frequency and Duration Frequency of Treatment 4x/Week Duration of treatment (weeks) 6 Plan of Care Start Date 02/08/24 Plan of Care End Date 03/27/24 Therapeutic Interventions Therapeutic Interventions Balance Training,Canalithic Repositioning,Coordination Training,Gait Training,Home Exercise Program,Manual Therapy,Neuromuscular Re- education,Patient/Caregiver Education,Self-Care/Home Management,Sensory Integration ,Soft Tissue Mobilization, Taping,Therapeutic Activities, Therapeutic Exercises, Vestibular Rehabilitation Modalities Cold Pack/Ice Massage,Hot Packs Other Referrals/Consults Referrals/Consults Recommended PT for left knee pain in the future Next Visit Focus/Plan Next Note Type Treatment Note Next Visit Plan BIG exercises, Continue gait outside with changing direction and obstacle course type activities. Stick with BIG chair for exercises after observing side to side
--- NOTE | 2024-03-06 12:32 | PT.OTN ---
Current Diagnoses Parkinsonism, unspecified (03/06/24) Personal history of other diseases of the nervous system and sense organs (03/06/24) Physical Therapy Treatment Note PT-OP-A Visit Information Start: 02/06/24 15:27 Freq: Status: Active Protocol: Document 03/06/24 11:20 MB (Rec: 03/06/24 11:51 MB [id number]) Out-Patient Physical Therapy Visit Information Visit Information Visit Type Treatment Note Visit Note Medicare 08/30 before KX is Fito and goes by Pawel Visit Start Time 11:20 Visit Stop Time 12:15 Visit Number 12 Number of CONCRETE PILE DRIVER OPERATOR Visits 0 Evaluation Information Evaluation Date 02/08/24 PT-OP-B Current Condition Start: 02/06/24 15:27 Freq: Status: Active Protocol: Document 02/08/24 11:17 MB (Rec: 02/08/24 11:51 MB [id number]) Current Condition History of Current Condition Onset Date 2021 cognitive changes Current Complaints Awkwardness of what is going on with legs, slow walking, stiffness History of Current Condition In 2021, noticed some cognitive changes. He saw a sleep specialist and he had mild sleep apnea. He lost a lot a weight and the CPAP caused issues with his sinuses . Sleep specialist noticed tremor in right hand. He has been seeing a neurologist since 10/2022. He has been treated as PD even though diagnostics were non- conclusive. Carbidopa Levodopa has helped him cognitively and they think that the tremor is a little better. Pt is also on a memory pill and he takes that once a day. He sees neuropsychologist in [facility] and he has improved in a couple of areas and might have declined in other areas though he didn't wear his reading glasses. Pt has a new cane that he is using in his left hand d/t right hip pain. He takes two Aleve a day. He is closing in some and shuffling a little. provides most history and pt states that in his own defense, they have a 30 lb dog with a lot of energy and there are a lot of toys on the floor. They report no issues with walking over rugs and hardwood floors. He is wearing shoes at home. He had previously been walking in stocking feet. He is sleeping well. Before this started, he was vaping THC. The neuropsychologist asked him to wean off of it. Pt gets up 2-3 times a night to toilet. He wears depends. He had a procedure in September. Pt denies light-headedness when getting up. Pt has had a couple of sleep walking episodes in 2 years. One was a month ago. Last fall was in 2019. He talks a lot in his sleep and he dreams a lot per . reports pt' s swings occ in dreams. Pt is managing a smart phone. Pt manages his medication. He takes ozempic and they watch the video every Tuesday before he gives himself the short. New tasks require refresher course. states that pt is slow. manages finances. Pt used to walk his dog a few times a week until his right hip got bad and he started using cane in left hand. There are written lists for tasks he needs to complete like laundry. Pt was shaving his own head up until a couple of months ago but he stopped d/t nicking himself d/t stiffness in shoulders and motor control of hands. Pt and hope to transition to fpc in [place] in the future. Treatment Goals Patient/Caregiver Goals Better and bigger movement PT-OP-C Subjective Start: 02/06/24 15:27 Freq: Status: Active Protocol: Document 03/06/24 11:20 MB (Rec: 03/06/24 11:51 MB [id number]) OP-PT Subjective Patient Comments Patient Comments Left knee pain is about the same and is an annoyance. states received script for left knee and will set-up appointments. He is performing BIG exercises twice a day. His right hip is much better. PT-OP-D Balance Start: 02/06/24 15:27 Freq: Status: Active Protocol: Document 02/08/24 11:17 MB (Rec: 02/08/24 15:46 MB [id number]) OP-PT Balance Assessment Sitting Balance Static Sitting Balance Ability Good Standing Balance Static Standing Balance Ability Good Dynamic Standing Balance Ability Fair Balance Tests Other Other Balance Tests Performed SLS requires DIGITAL DESIGN ENGINEER to get into position and pt cannot lift opposite leg far off the ground. Longer standing time on left foot compared to right : CGA. Romberg EC and EO normal, superv. B tandem with UE support to get into position and longer hold time with CGA with right foot behind. Rondon Fall Scale Copyright Permission PT-OP-G Mobility & Gait Start: 02/06/24 15:27 Freq: Status: Active Protocol: Document 02/08/24 11:17 MB (Rec: 02/08/24 15:46 MB [id number]) OP Gait Assessment Comments Gait Comments Decreased arm swing B, though pt carries cane in left hand for 6MWT. For gait into clinic , step-to and more antalgic pattern gait with cane in left hand and advancing with right foot PT-OP-H Neuro Start: 02/06/24 15:27 Freq: Status: Active Protocol: Document 02/08/24 11:17 MB (Rec: 02/08/24 15:46 MB [id number]) Coordination Evaluation Upper Extremity Tests Left Finger to Nose Test Minimal Impairment Pronation/Supination Test Minimal Impairment Right Finger to Nose Test Normal Performance Pronation/Supination Test Minimal Impairment Lower Extremity Tests Left Heel on [place] Test Minimal Impairment Foot Tapping Test Minimal Impairment Right Heel on [place] Test Minimal Impairment Foot Tapping Test Minimal Impairment PT-OP-M Strength Start: 02/06/24 15:27 Freq: Status: Active Protocol: Document 02/08/24 11:17 MB (Rec: 02/08/24 15:46 MB [id number]) Shoulder Strength Shoulder Manual Muscle Testing Bilateral Flexion 5 Normal Abduction (C5) 5 Normal Hip Strength Hip Manual Muscle Testing Bilateral Flexion (L2) 5 Normal PT-OP-Q Treatments Start: 02/06/24 15:27 Freq: Status: Active Protocol: Document 03/06/24 11:20 MB (Rec: 03/06/24 11:51 MB [id number]) Therapeutic Exercises Sitting Exercises Side to side Sitting Exercise Name Took break after 10, then performed second 10 Equipment Used Jun chair then BIG chair Reps/Minutes 10 reps alternating Comments Flicks, cues not to move leg until reach: challenging for pt Floor to ceiling Equipment Used Jun chair Reps/Minutes 10 reps Comments Flicks Standing Exercises Side rock and reach Side bilateral Reps/Minutes 10 reps to each side Comments Alternating Forward rock and reach Side bilateral Comments Improved Back stepping Side bilateral Reps/Minutes 10 each side alternating (20 total) Comments Improved, limits stepping distance Side stepping Side bilateral Reps/Minutes 10 each side alternating (20 total) Comments Cues to turn head with direction stepping Forward step Side bilateral Reps/Minutes 10 each side alternating (20 total) Comments Improved Therapeutic Activity Therapeutic Activity BIG STS Reps/Minutes 10 reps Comments jun chair Pt requires demo before first rep Gait Training Gait Activity BIG walking Comments Performed indoors today in the hospital, up steps, around corridors and not outside d/t eye dilated today. Most challenges with backwards walking on varying surfaces and areas of the hospital. Forward walking and side stepping normal. Walking on balance beam in gym requies CGA and pt does well with weaving activity Neuro Re-Education Treatment Balance Activities Balance activities inside today Comments See gait comments: obstacles set up in gym area after hospital gait: balance beam, stepping on unstable pads and weaving and most challenges with balance beam PT-OP-T Assessment and Plan Start: 02/06/24 15:27 Freq: Status: Active Protocol: Document 03/06/24 11:20 MB (Rec: 03/06/24 11:51 MB [id number]) Physical Therapy Assessment Goals 4 Impairment Lack of amplitude specific HEP Impairment . Residential Goal (LTG) Pt will perform daily BIG exercises and therapeutic activities with no more than demo and cues from to improve amplitude and speed of movement. 02/28/24 PT reports that BIG exercises are going well and he is getting them done twice a day on non-therapy days and once a day on therapy days. LTG Duration 16 treatments 1 Impairment 13 STS in 30 sec Impairment . Almond Paste Molder Goal (LTG) Pt will perform 15 STS in 30 sec to improve functional strength with transfers. 02/28/24: 14 reps in 30 sec today from mesh chair, much improved LTG Duration 16 treatments Assessment Summary Assessment Pt doing well with PT, especially since eyes were dilated this morning. PT notes that pt does limit step- length for forward stepping and backward stepping and pt states he is concerned about left kne with forward stepping and imbalance with backward stepping. Physical Therapy Plan Frequency and Duration Frequency of Treatment 4x/Week Duration of treatment (weeks) 6 Plan of Care Start Date 02/08/24 Plan of Care End Date 03/27/24 Therapeutic Interventions Therapeutic Interventions Balance Training,Canalithic Repositioning,Coordination Training,Gait Training,Home Exercise Program,Manual Therapy,Neuromuscular Re- education,Patient/Caregiver Education,Self-Care/Home Management,Sensory Integration ,Soft Tissue Mobilization, Taping,Therapeutic Activities, Therapeutic Exercises, Vestibular Rehabilitation Modalities Cold Pack/Ice Massage,Hot Packs Other Referrals/Consults Referrals/Consults Recommended PT for left knee pain in the future Next Visit Focus/Plan Next Note Type Treatment Note Next Visit Plan BIG exercises, Continue gait outside with changing direction and obstacle course type activities. Stick with BIG chair for exercises after observing side to side
--- NOTE | 2024-03-07 13:01 | PT.OTN ---
Current Diagnoses Parkinsonism, unspecified (03/07/24) Personal history of other diseases of the nervous system and sense organs (03/07/24) Physical Therapy Treatment Note PT-OP-A Visit Information Start: 02/06/24 15:27 Freq: Status: Active Protocol: Document 03/07/24 11:18 MB (Rec: 03/07/24 12:03 MB [id number]) Out-Patient Physical Therapy Visit Information Visit Information Visit Type Treatment Note Visit Note Medicare before KX is Fito and goes by Pawel Visit Start Time 11:18 Visit Stop Time 12:15 Visit Number 13 Number of MEDICAL RECORD CLERK Visits 0 Evaluation Information Evaluation Date 02/08/24 PT-OP-B Current Condition Start: 02/06/24 15:27 Freq: Status: Active Protocol: Document 02/08/24 11:17 MB (Rec: 02/08/24 11:51 MB [id number]) Current Condition History of Current Condition Onset Date 2021 cognitive changes Current Complaints Awkwardness of what is going on with legs, slow walking, stiffness History of Current Condition In 2021, noticed some cognitive changes. He saw a sleep specialist and he had mild sleep apnea. He lost a lot a weight and the CPAP caused issues with his sinuses . Sleep specialist noticed tremor in right hand. He has been seeing a neurologist since 10/2022. He has been treated as PD even though diagnostics were non- conclusive. Carbidopa Levodopa has helped him cognitively and they think that the tremor is a little better. Pt is also on a memory pill and he takes that once a day. He sees neuropsychologist in [facility] and he has improved in a couple of areas and might have declined in other areas though he didn't wear his reading glasses. Pt has a new cane that he is using in his left hand d/t right hip pain. He takes two Aleve a day. He is closing in some and shuffling a little. provides most history and pt states that in his own defense, they have a 30 lb dog with a lot of energy and there are a lot of toys on the floor. They report no issues with walking over rugs and hardwood floors. He is wearing shoes at home. He had previously been walking in stocking feet. He is sleeping well. Before this started, he was vaping THC. The neuropsychologist asked him to wean off of it. Pt gets up 2-3 times a night to toilet. He wears depends. He had a procedure in September. Pt denies light-headedness when getting up. Pt has had a couple of sleep walking episodes in 2 years. One was a month ago. Last fall was in 2019. He talks a lot in his sleep and he dreams a lot per . reports pt' s swings occ in dreams. Pt is managing a smart phone. Pt manages his medication. He takes ozempic and they watch the video every Tuesday before he gives himself the short. New tasks require refresher course. states that pt is slow. manages finances. Pt used to walk his dog a few times a week until his right hip got bad and he started using cane in left hand. There are written lists for tasks he needs to complete like laundry. Pt was shaving his own head up until a couple of months ago but he stopped d/t nicking himself d/t stiffness in shoulders and motor control of hands. Pt and hope to transition to assisted in [place] in the future. Treatment Goals Patient/Caregiver Goals Better and bigger movement PT-OP-C Subjective Start: 02/06/24 15:27 Freq: Status: Active Protocol: Document 03/07/24 11:18 MB (Rec: 03/07/24 12:03 MB [id number]) OP-PT Subjective Patient Comments Patient Comments Pt has no new complaints. He got set-up for PT for his left knee after BIG is complete. PT-OP-D Balance Start: 02/06/24 15:27 Freq: Status: Active Protocol: Document 02/08/24 11:17 MB (Rec: 02/08/24 15:46 MB [id number]) OP-PT Balance Assessment Sitting Balance Static Sitting Balance Ability Good Standing Balance Static Standing Balance Ability Good Dynamic Standing Balance Ability Fair Balance Tests Other Other Balance Tests Performed SLS requires SENIOR EDUCATION SPECIALIST to get into position and pt cannot lift opposite leg far off the ground. Longer standing time on left foot compared to right : CGA. Romberg EC and EO normal, superv. B tandem with UE support to get into position and longer hold time with CGA with right foot behind. Rondon Fall Scale Copyright Permission PT-OP-G Mobility & Gait Start: 02/06/24 15:27 Freq: Status: Active Protocol: Document 02/08/24 11:17 MB (Rec: 02/08/24 15:46 MB [id number]) OP Gait Assessment Comments Gait Comments Decreased arm swing B, though pt carries cane in left hand for 6MWT. For gait into clinic , step-to and more antalgic pattern gait with cane in left hand and advancing with right foot PT-OP-H Neuro Start: 02/06/24 15:27 Freq: Status: Active Protocol: Document 02/08/24 11:17 MB (Rec: 02/08/24 15:46 MB [id number]) Coordination Evaluation Upper Extremity Tests Left Finger to Nose Test Minimal Impairment Pronation/Supination Test Minimal Impairment Right Finger to Nose Test Normal Performance Pronation/Supination Test Minimal Impairment Lower Extremity Tests Left Heel on [place] Test Minimal Impairment Foot Tapping Test Minimal Impairment Right Heel on [place] Test Minimal Impairment Foot Tapping Test Minimal Impairment PT-OP-M Strength Start: 02/06/24 15:27 Freq: Status: Active Protocol: Document 02/08/24 11:17 MB (Rec: 02/08/24 15:46 MB [id number]) Shoulder Strength Shoulder Manual Muscle Testing Bilateral Flexion 5 Normal Abduction (C5) 5 Normal Hip Strength Hip Manual Muscle Testing Bilateral Flexion (L2) 5 Normal PT-OP-Q Treatments Start: 02/06/24 15:27 Freq: Status: Active Protocol: Document 03/07/24 11:18 MB (Rec: 03/07/24 12:03 MB [id number]) Therapeutic Exercises Sitting Exercises Side to side Equipment Used Jun chair then BIG chair Reps/Minutes 10 reps alternating Comments Flicks, cues not to move leg before moving body Floor to ceiling Equipment Used Jun chair Reps/Minutes 10 reps Comments Flicks Standing Exercises Side rock and reach Side bilateral Reps/Minutes 10 reps to each side Comments Alternating Forward rock and reach Side bilateral Comments Improved Back stepping Side bilateral Reps/Minutes 10 each side alternating (20 total) Comments Improved, limits stepping distance Side stepping Side bilateral Reps/Minutes 10 each side alternating (20 total) Comments Improved head turns today Forward step Side bilateral Reps/Minutes 10 each side alternating (20 total) Comments Improved Therapeutic Activity Therapeutic Activity BIG STS Reps/Minutes 10 reps Comments jun chair Pt requires demo before first rep Gait Training Gait Activity BIG walking Comments BIG walking outside on pavement, grassy hill and curb and pt does well with forward and backwards walking up and down hill, working on scanning and then big stepping. CGA with backwards walking and curb walking. No suzette LOB, occ steps off curb. Manual Therapy Treatment Other Other Manual Treatments Black KT to support left patellarfemoral area d/t pain with flex and twist: c strip under knee cap and B I strips medial and lateral knee Neuro Re-Education Treatment Balance Activities Balance activities inside today Comments Weaving around 4 cones, stepping over hurdles with cushions in between and walking on balance beam, performed as circuit and superv with cones and CGA for beam and superv to CGA for hurdles PT-OP-T Assessment and Plan Start: 02/06/24 15:27 Freq: Status: Active Protocol: Document 03/07/24 11:18 MB (Rec: 03/07/24 12:03 MB [id number]) Physical Therapy Assessment Goals 4 Impairment Lack of amplitude specific HEP Impairment . Prison Goal (LTG) Pt will perform daily BIG exercises and therapeutic activities with no more than demo and cues from to improve amplitude and speed of movement. 02/28/24 PT reports that BIG exercises are going well and he is getting them done twice a day on non-therapy days and once a day on therapy days. LTG Duration 16 treatments 1 Impairment 13 STS in 30 sec Impairment . Prison Goal (LTG) Pt will perform 15 STS in 30 sec to improve functional strength with transfers. 02/28/24: 14 reps in 30 sec today from mesh chair, much improved LTG Duration 16 treatments Assessment Summary Assessment Performed ten reps all exercises without rest break today and pt did well and was challenged. Most trouble with backwards stepping and side to side in sitting. Progressed balance exercises today. Physical Therapy Plan Frequency and Duration Frequency of Treatment 4x/Week Duration of treatment (weeks) 6 Plan of Care Start Date 02/08/24 Plan of Care End Date 03/27/24 Therapeutic Interventions Therapeutic Interventions Balance Training,Canalithic Repositioning,Coordination Training,Gait Training,Home Exercise Program,Manual Therapy,Neuromuscular Re- education,Patient/Caregiver Education,Self-Care/Home Management,Sensory Integration ,Soft Tissue Mobilization, Taping,Therapeutic Activities, Therapeutic Exercises, Vestibular Rehabilitation Modalities Cold Pack/Ice Massage,Hot Packs Other Referrals/Consults Referrals/Consults Recommended PT for left knee pain in the future Next Visit Focus/Plan Next Note Type Treatment Note Next Visit Plan BIG exercises, Continue gait outside with changing direction and obstacle course type activities. Stick with BIG chair for exercises after observing side to side
--- NOTE | 2024-03-12 11:33 | PT.OTN ---
Current Diagnoses Parkinsonism, unspecified (03/12/24) Personal history of other diseases of the nervous system and sense organs (03/12/24) Physical Therapy Treatment Note PT-OP-A Visit Information Start: 02/06/24 15:27 Freq: Status: Active Protocol: Document 03/12/24 10:34 SP (Rec: 03/12/24 11:46 SP [id number]) Out-Patient Physical Therapy Visit Information Visit Information Visit Type Treatment Note Visit Note Medicare before KX is Fito and goes by Pawel Visit Start Time 10:33 Visit Stop Time 11:33 Visit Number 14 Number of VINYL DIPPER Visits 1 Evaluation Information Evaluation Date 02/08/24 PT-OP-B Current Condition Start: 02/06/24 15:27 Freq: Status: Active Protocol: Document 02/08/24 11:17 MB (Rec: 02/08/24 11:51 MB [id number]) Current Condition History of Current Condition Onset Date 2021 cognitive changes Current Complaints Awkwardness of what is going on with legs, slow walking, stiffness History of Current Condition In 2021, noticed some cognitive changes. He saw a sleep specialist and he had mild sleep apnea. He lost a lot a weight and the CPAP caused issues with his sinuses . Sleep specialist noticed tremor in right hand. He has been seeing a neurologist since 10/2022. He has been treated as PD even though diagnostics were non- conclusive. Carbidopa Levodopa has helped him cognitively and they think that the tremor is a little better. Pt is also on a memory pill and he takes that once a day. He sees neuropsychologist in [facility] and he has improved in a couple of areas and might have declined in other areas though he didn't wear his reading glasses. Pt has a new cane that he is using in his left hand d/t right hip pain. He takes two Aleve a day. He is closing in some and shuffling a little. provides most history and pt states that in his own defense, they have a 30 lb dog with a lot of energy and there are a lot of toys on the floor. They report no issues with walking over rugs and hardwood floors. He is wearing shoes at home. He had previously been walking in stocking feet. He is sleeping well. Before this started, he was vaping THC. The neuropsychologist asked him to wean off of it. Pt gets up 2-3 times a night to toilet. He wears depends. He had a procedure in September. Pt denies light-headedness when getting up. Pt has had a couple of sleep walking episodes in 2 years. One was a month ago. Last fall was in 2019. He talks a lot in his sleep and he dreams a lot per . reports pt' s swings occ in dreams. Pt is managing a smart phone. Pt manages his medication. He takes ozempic and they watch the video every Tuesday before he gives himself the short. New tasks require refresher course. states that pt is slow. manages finances. Pt used to walk his dog a few times a week until his right hip got bad and he started using cane in left hand. There are written lists for tasks he needs to complete like laundry. Pt was shaving his own head up until a couple of months ago but he stopped d/t nicking himself d/t stiffness in shoulders and motor control of hands. Pt and hope to transition to detention in [place] in the future. Treatment Goals Patient/Caregiver Goals Better and bigger movement PT-OP-C Subjective Start: 02/06/24 15:27 Freq: Status: Active Protocol: Document 03/12/24 10:34 SP (Rec: 03/12/24 11:46 SP [id number]) OP-PT Subjective Patient Comments Patient Comments Pt reports doing almost 40 reps of each of the exercises each side except the rotating on back foot one. He stated working well because fit bit shows elevated HR, pleased with progress making. He said the Ktaping helped his L knee and bought some for home, wants take picture for reapplication home carryover. He took tape off Tuesday. He stated able to shave head ( back) with impoved arm ROM now . PT-OP-D Balance Start: 02/06/24 15:27 Freq: Status: Active Protocol: Document 02/08/24 11:17 MB (Rec: 02/08/24 15:46 MB [id number]) OP-PT Balance Assessment Sitting Balance Static Sitting Balance Ability Good Standing Balance Static Standing Balance Ability Good Dynamic Standing Balance Ability Fair Balance Tests Other Other Balance Tests Performed SLS requires BEEKEEPER to get into position and pt cannot lift opposite leg far off the ground. Longer standing time on left foot compared to right : CGA. Romberg EC and EO normal, superv. B tandem with UE support to get into position and longer hold time with CGA with right foot behind. Rondon Fall Scale Copyright Permission PT-OP-G Mobility & Gait Start: 02/06/24 15:27 Freq: Status: Active Protocol: Document 02/08/24 11:17 MB (Rec: 02/08/24 15:46 MB [id number]) OP Gait Assessment Comments Gait Comments Decreased arm swing B, though pt carries cane in left hand for 6MWT. For gait into clinic , step-to and more antalgic pattern gait with cane in left hand and advancing with right foot PT-OP-H Neuro Start: 02/06/24 15:27 Freq: Status: Active Protocol: Document 02/08/24 11:17 MB (Rec: 02/08/24 15:46 MB [id number]) Coordination Evaluation Upper Extremity Tests Left Finger to Nose Test Minimal Impairment Pronation/Supination Test Minimal Impairment Right Finger to Nose Test Normal Performance Pronation/Supination Test Minimal Impairment Lower Extremity Tests Left Heel on [place] Test Minimal Impairment Foot Tapping Test Minimal Impairment Right Heel on [place] Test Minimal Impairment Foot Tapping Test Minimal Impairment PT-OP-M Strength Start: 02/06/24 15:27 Freq: Status: Active Protocol: Document 02/08/24 11:17 MB (Rec: 02/08/24 15:46 MB [id number]) Shoulder Strength Shoulder Manual Muscle Testing Bilateral Flexion 5 Normal Abduction (C5) 5 Normal Hip Strength Hip Manual Muscle Testing Bilateral Flexion (L2) 5 Normal PT-OP-Q Treatments Start: 02/06/24 15:27 Freq: Status: Active Protocol: Document 03/12/24 10:34 SP (Rec: 03/12/24 11:46 SP [id number]) Therapeutic Exercises Sitting Exercises Side to side Equipment Used Jun chair then BIG chair Reps/Minutes 10 reps alternating (self count out when midline) Comments Flicks, improved moving body with hand Floor to ceiling Equipment Used Jun chair Reps/Minutes 10 reps Comments Flicks- good counting 30 sec STS Comments 14 reps in mesh chair today Standing Exercises Side rock and reach Reps/Minutes 5 each side (10 total) Comments Alternating- very slow pace improved increase end range. Forward rock and reach Side bilateral Reps/Minutes 20 each side (40 total) Comments Good pace, form Back stepping Side bilateral Reps/Minutes 20 each side alternating (40 total) Comments cued slower pacing, R toe up, arms higher Side stepping Side bilateral Reps/Minutes 20 each side alternating (40 total) Comments Improved continue head turn Forward step Side bilateral Reps/Minutes 20 each side alternating (40 total) Comments Improved (travels little, self correction) Therapeutic Activity Therapeutic Activity BIG STS Reps/Minutes 10 reps (20 reps home) Comments jun chair Pt requires demo before first rep Gait Training Gait Activity BIG walking Comments BIG walking outside on pavement, grassy hill and curb , uneven landscape outback ( does at [place] [facility]), stairs and pt does well with forward and backwards walking up and down hill, working on scanning and then big stepping . SBA backwards walking and curb walking. Change direction . Occasional sway No LOB. Manual Therapy Treatment Other Other Manual Treatments Reapplied (took picture/video) : Black KT to support left patellarfemoral area d/t pain with flex and twist: c strip under knee cap and B I strips medial and lateral knee Education and video & pics how to apply. Neuro Re-Education Treatment Balance Activities Balance activities inside today Reps/Duration 4 sets Comments Obstacle course: stepping over hurdles with cushions in between, walking on balance beam, CGA for beam and SBA to CGA for hurdles. Able complete bal beam across x3 (3 touch ft down 2-3rd set), across no stop and 1 pause sets. Cued tall/rhomboid & TA improved midline stability on foam & bal beam. PT-OP-T Assessment and Plan Start: 02/06/24 15:27 Freq: Status: Active Protocol: Document 03/12/24 10:34 SP (Rec: 03/12/24 11:46 SP [id number]) Physical Therapy Assessment Goals 4 Impairment Lack of amplitude specific HEP Impairment . Fdc Goal (LTG) Pt will perform daily BIG exercises and therapeutic activities with no more than demo and cues from to improve amplitude and speed of movement. 02/28/24 PT reports that BIG exercises are going well and he is getting them done twice a day on non-therapy days and once a day on therapy days. LTG Duration 16 treatments 1 Impairment 13 STS in 30 sec Impairment . Clip And Hanger Attacher Goal (LTG) Pt will perform 15 STS in 30 sec to improve functional strength with transfers. 02/28/24: 14 reps in 30 sec today from mesh chair, much improved LTG Duration 16 treatments Assessment Summary Assessment Pt requested perform ex's 20- 40 reps does at home today, performs without rest break. Occasional cue for slow pacing back step and front rock reach improved BIG quality. Improved side rock reach stability and AROM with very slow pacing with stability. Improved stability balance activities, postural corrections with ed cues more midline and discuss end tx helps carryover with exercises and verbalized so that's what I do that is making it better, didn't realize til used on balance beam. Ktaping helped L knee support, more confident use video/pics taken today for carryover home support if needed. No adverse affect to taping. Physical Therapy Plan Frequency and Duration Frequency of Treatment 4x/Week Duration of treatment (weeks) 6 Plan of Care Start Date 02/08/24 Plan of Care End Date 03/27/24 Therapeutic Interventions Therapeutic Interventions Balance Training,Canalithic Repositioning,Coordination Training,Gait Training,Home Exercise Program,Manual Therapy,Neuromuscular Re- education,Patient/Caregiver Education,Self-Care/Home Management,Sensory Integration ,Soft Tissue Mobilization, Taping,Therapeutic Activities, Therapeutic Exercises, Vestibular Rehabilitation Modalities Cold Pack/Ice Massage,Hot Packs Other Referrals/Consults Referrals/Consults Recommended PT for left knee pain in the future Next Visit Focus/Plan Next Note Type Treatment Note Next Visit Plan BIG exercises, Continue gait outside with changing direction and obstacle course type activities. Stick with BIG chair for exercises after observing side to side
--- NOTE | 2024-03-19 11:33 | PT.OTN ---
Current Diagnoses Parkinsonism, unspecified (03/19/24) Personal history of other diseases of the nervous system and sense organs (03/19/24) Physical Therapy Treatment Note PT-OP-A Visit Information Start: 02/06/24 15:27 Freq: Status: Active Protocol: Document 03/19/24 11:27 SP (Rec: 03/19/24 11:43 SP [id number]) Out-Patient Physical Therapy Visit Information Visit Information Visit Type Treatment Note Visit Note Medicare before KX is Fito and goes by Pawel Visit Start Time 10:33 Visit Stop Time 11:33 Visit Number 15 Number of MANAGER STYLE Visits 2 Evaluation Information Evaluation Date 02/08/24 PT-OP-B Current Condition Start: 02/06/24 15:27 Freq: Status: Active Protocol: Document 02/08/24 11:17 MB (Rec: 02/08/24 11:51 MB [id number]) Current Condition History of Current Condition Onset Date 2021 cognitive changes Current Complaints Awkwardness of what is going on with legs, slow walking, stiffness History of Current Condition In 2021, noticed some cognitive changes. He saw a sleep specialist and he had mild sleep apnea. He lost a lot a weight and the CPAP caused issues with his sinuses . Sleep specialist noticed tremor in right hand. He has been seeing a neurologist since 10/2022. He has been treated as PD even though diagnostics were non- conclusive. Carbidopa Levodopa has helped him cognitively and they think that the tremor is a little better. Pt is also on a memory pill and he takes that once a day. He [facility] neuropsychologist [facility] and he has improved in a couple of areas and might have declined in other areas though he didn't wear his reading glasses. Pt has a new cane that he is using in his left hand d/t right hip pain. He takes two Aleve a day. He is closing in some and shuffling a little. provides most history and pt states that in his own defense, they have a 30 lb dog with a lot of energy and there are a lot of toys on the floor. They report no issues with walking over rugs and hardwood floors. He is wearing shoes at home. He had previously been walking in stocking feet. He is sleeping well. Before this started, he was vaping THC. The neuropsychologist asked him to wean off of it. Pt gets up 2-3 times a night to toilet. He wears depends. He had a procedure in September. Pt denies light-headedness when getting up. Pt has had a couple of sleep walking episodes in 2 years. One was a month ago. Last fall was in 2019. He talks a lot in his sleep and he dreams a lot per . reports pt' s swings occ in dreams. Pt is managing a smart phone. Pt manages his medication. He takes ozempic and they watch the video every Tuesday before he gives himself the short. New tasks require refresher course. states that pt is slow. manages finances. Pt used to walk his dog a few times a week until his right hip got bad and he started using cane in left hand. There are written lists for tasks he needs to complete like laundry. Pt was shaving his own head up until a couple of months ago but he stopped d/t nicking himself d/t stiffness in shoulders and motor control of hands. Pt and hope to transition to residential in [place] in the future. Treatment Goals Patient/Caregiver Goals Better and bigger movement PT-OP-C Subjective Start: 02/06/24 15:27 Freq: Status: Active Protocol: Document 03/19/24 11:27 SP (Rec: 03/19/24 11:43 SP [id number]) OP-PT Subjective Patient Comments Patient Comments Pt reports his shoulders are gaining more ROM, shaving his head now, not need to do in PT . Still doing some exercises more reps to progress his ROM and feels like better strength . PT-OP-D Balance Start: 02/06/24 15:27 Freq: Status: Active Protocol: Document 02/08/24 11:17 MB (Rec: 02/08/24 15:46 MB [id number]) OP-PT Balance Assessment Sitting Balance Static Sitting Balance Ability Good Standing Balance Static Standing Balance Ability Good Dynamic Standing Balance Ability Fair Balance Tests Other Other Balance Tests Performed SLS requires CENTRIFUGAL CASTING MACHINE TENDER to get into position and pt cannot lift opposite leg far off the ground. Longer standing time on left foot compared to right : CGA. Romberg EC and EO normal, superv. B tandem with UE support to get into position and longer hold time with CGA with right foot behind. Rondon Fall Scale Copyright Permission PT-OP-G Mobility & Gait Start: 02/06/24 15:27 Freq: Status: Active Protocol: Document 02/08/24 11:17 MB (Rec: 02/08/24 15:46 MB [id number]) OP Gait Assessment Comments Gait Comments Decreased arm swing B, though pt carries cane in left hand for 6MWT. For gait into clinic , step-to and more antalgic pattern gait with cane in left hand and advancing with right foot PT-OP-H Neuro Start: 02/06/24 15:27 Freq: Status: Active Protocol: Document 02/08/24 11:17 MB (Rec: 02/08/24 15:46 MB [id number]) Coordination Evaluation Upper Extremity Tests Left Finger to Nose Test Minimal Impairment Pronation/Supination Test Minimal Impairment Right Finger to Nose Test Normal Performance Pronation/Supination Test Minimal Impairment Lower Extremity Tests Left Heel on [place] Test Minimal Impairment Foot Tapping Test Minimal Impairment Right Heel on [place] Test Minimal Impairment Foot Tapping Test Minimal Impairment PT-OP-M Strength Start: 02/06/24 15:27 Freq: Status: Active Protocol: Document 02/08/24 11:17 MB (Rec: 02/08/24 15:46 MB [id number]) Shoulder Strength Shoulder Manual Muscle Testing Bilateral Flexion 5 Normal Abduction (C5) 5 Normal Hip Strength Hip Manual Muscle Testing Bilateral Flexion (L2) 5 Normal PT-OP-Q Treatments Start: 02/06/24 15:27 Freq: Status: Active Protocol: Document 03/19/24 11:27 SP (Rec: 03/19/24 11:43 SP [id number]) Therapeutic Exercises Sitting Exercises Side to side Equipment Used Jun chair then BIG chair Reps/Minutes 10 reps alternating (self count out when midline) Comments Flicks, improved moving body with hand Floor to ceiling Equipment Used Jun chair Reps/Minutes 10 reps Comments Flicks- good counting Standing Exercises Side rock and reach Reps/Minutes 5 each side (10 total) Comments Alternating- very slow pace improved increase end range. Forward rock and reach Side bilateral Reps/Minutes 20 each side (40 total) Comments Good pace, form and stability Back stepping Side bilateral Reps/Minutes 10 each side alternating (20 total) Comments little slower pacing, good stability, cued arms higher Side stepping Side bilateral Reps/Minutes 20 each side alternating (40 total) Comments good form Forward step Side bilateral Reps/Minutes 20 each side alternating (40 total) Comments good form Therapeutic Activity Therapeutic Activity shaving head Comments states better ROM now I, not need do in PT BIG in and out of car Reps/Minutes 10 min Comments Cued BIG legs in single vs double, pnfree both. BIG STS Reps/Minutes 10 reps (does 20 reps home) Comments jun chair Pt requires demo before first rep Gait Training Gait Activity BIG walking Comments BIG walking outside on pavement, grassy hill fwd up/ back down, curb, stairs. SBA backwards walking and curb walking. Change direction. Neuro Re-Education Treatment Balance Activities dynamic walking Details head turns, back walking, tandem, EC Reps/Duration head turns full hallway 50 ft 2 laps, back/tandem/EC 20 ft 2 laps each Comments finger wall: tandem & occasional back walking, fwd EC. Balance activities inside today Reps/Duration 4 sets Comments Obstacle course: stepping over hurdles with cushions in between, walking on balance beam, CGA-Min for beam and SBA to CGA for hurdles. Able complete bal beam across x2 (4 touch ft down 2-3rd set). Cued tall/rhomboid & TA improved midline stability on foam & bal beam. PT-OP-T Assessment and Plan Start: 02/06/24 15:27 Freq: Status: Active Protocol: Document 03/19/24 11:27 SP (Rec: 03/19/24 11:43 SP [id number]) Physical Therapy Assessment Goals 4 Impairment Lack of amplitude specific HEP Impairment . Nursing Home Goal (LTG) Pt will perform daily BIG exercises and therapeutic activities with no more than demo and cues from to improve amplitude and speed of movement. 02/28/24 PT reports that BIG exercises are going well and he is getting them done twice a day on non-therapy days and once a day on therapy days. LTG Duration 16 treatments 1 Impairment 13 STS in 30 sec Impairment . Nursing Home Goal (LTG) Pt will perform 15 STS in 30 sec to improve functional strength with transfers. 02/28/24: 14 reps in 30 sec today from mesh chair, much improved LTG Duration 16 treatments Assessment Summary Assessment Pt did well with exercises, occ cues, discussed in PT and BIG for LIfe will be regular reps, ok if want do more home. Improved BIG in/out car ok double leg or sit single leg in/out better form than stand on 1 leg trying to sit performed and in agreement. Challenged with balance beam today and trail LE catching foot, improved cued slower pacing and lift trail LE higher. Good form BIG walking and change direction, tends pivot L due to hurts L knee if pivot R, good stability fwd and backstepping on grassy incline. Physical Therapy Plan Frequency and Duration Frequency of Treatment 4x/Week Duration of treatment (weeks) 6 Plan of Care Start Date 02/08/24 Plan of Care End Date 03/27/24 Therapeutic Interventions Therapeutic Interventions Balance Training,Canalithic Repositioning,Coordination Training,Gait Training,Home Exercise Program,Manual Therapy,Neuromuscular Re- education,Patient/Caregiver Education,Self-Care/Home Management,Sensory Integration ,Soft Tissue Mobilization, Taping,Therapeutic Activities, Therapeutic Exercises, Vestibular Rehabilitation Modalities Cold Pack/Ice Massage,Hot Packs Other Referrals/Consults Referrals/Consults Recommended PT for left knee pain in the future Next Visit Focus/Plan Next Note Type Treatment Note Next Visit Plan Next tx: recheck compare don/ doff jacket timing, continue obstacle course type activities. POC: BIG exercises, Continue gait outside with changing direction. Stick with BIG chair for exercises after observing side to side
--- NOTE | 2024-03-20 12:24 | PT.OTN ---
Current Diagnoses Parkinsonism, unspecified (03/20/24) Personal history of other diseases of the nervous system and sense organs (03/20/24) Physical Therapy Treatment Note PT-OP-A Visit Information Start: 02/06/24 15:27 Freq: Status: Active Protocol: Document 03/20/24 11:16 MB (Rec: 03/20/24 12:24 MB [id number]) Out-Patient Physical Therapy Visit Information Visit Information Visit Type Treatment Note Visit Note Medicare before KX is Fito and goes by Pawel Visit Start Time 11:16 Visit Stop Time 12:15 Visit Number 16 Number of CARDIOVASCULAR RADIOLOGIC TECHNOLOGIST Visits 3 Evaluation Information Evaluation Date 02/08/24 PT-OP-B Current Condition Start: 02/06/24 15:27 Freq: Status: Active Protocol: Document 02/08/24 11:17 MB (Rec: 02/08/24 11:51 MB [id number]) Current Condition History of Current Condition Onset Date 2021 cognitive changes Current Complaints Awkwardness of what is going on with legs, slow walking, stiffness History of Current Condition In 2021, noticed some cognitive changes. He saw a sleep specialist and he had mild sleep apnea. He lost a lot a weight and the CPAP caused issues with his sinuses . Sleep specialist noticed tremor in right hand. He has been seeing a neurologist since 10/2022. He has been treated as PD even though diagnostics were non- conclusive. Carbidopa Levodopa has helped him cognitively and they think that the tremor is a little better. Pt is also on a memory pill and he takes that once a day. He sees neuropsychologist in [facility] and he has improved in a couple of areas and might have declined in other areas though he didn't wear his reading glasses. Pt has a new cane that he is using in his left hand d/t right hip pain. He takes two Aleve a day. He is closing in some and shuffling a little. provides most history and pt states that in his own defense, they have a 30 lb dog with a lot of energy and there are a lot of toys on the floor. They report no issues with walking over rugs and hardwood floors. He is wearing shoes at home. He had previously been walking in stocking feet. He is sleeping well. Before this started, he was vaping THC. The neuropsychologist asked him to wean off of it. Pt gets up 2-3 times a night to toilet. He wears depends. He had a procedure in September. Pt denies light-headedness when getting up. Pt has had a couple of sleep walking episodes in 2 years. One was a month ago. Last fall was in 2019. He talks a lot in his sleep and he dreams a lot per . reports pt' s swings occ in dreams. Pt is managing a smart phone. Pt manages his medication. He takes ozempic and they watch the video every Tuesday before he gives himself the short. New tasks require refresher course. states that pt is slow. manages finances. Pt used to walk his dog a few times a week until his right hip got bad and he started using cane in left hand. There are written lists for tasks he needs to complete like laundry. Pt was shaving his own head up until a couple of months ago but he stopped d/t nicking himself d/t stiffness in shoulders and motor control of hands. Pt and hope to transition to assisted in [place] in the future. Treatment Goals Patient/Caregiver Goals Better and bigger movement PT-OP-C Subjective Start: 02/06/24 15:27 Freq: Status: Active Protocol: Document 03/20/24 11:16 MB (Rec: 03/20/24 12:24 MB [id number]) OP-PT Subjective Patient Comments Patient Comments Pt is doing well. He is ready to complete LSVT BIG tomorrow. He is looking forward to starting the community [facility] class. He particularly likes forward rock and reach where he can work on his shoulder ROM. He is back to shaving his head because his shoulder motion is better. PT-OP-D Balance Start: 02/06/24 15:27 Freq: Status: Active Protocol: Document 02/08/24 11:17 MB (Rec: 02/08/24 15:46 MB [id number]) OP-PT Balance Assessment Sitting Balance Static Sitting Balance Ability Good Standing Balance Static Standing Balance Ability Good Dynamic Standing Balance Ability Fair Balance Tests Other Other Balance Tests Performed SLS requires WHEEL BORER to get into position and pt cannot lift opposite leg far off the ground. Longer standing time on left foot compared to right : CGA. Romberg EC and EO normal, superv. B tandem with UE support to get into position and longer hold time with CGA with right foot behind. Rondon Fall Scale Copyright Permission PT-OP-G Mobility & Gait Start: 02/06/24 15:27 Freq: Status: Active Protocol: Document 02/08/24 11:17 MB (Rec: 02/08/24 15:46 MB [id number]) OP Gait Assessment Comments Gait Comments Decreased arm swing B, though pt carries cane in left hand for 6MWT. For gait into clinic , step-to and more antalgic pattern gait with cane in left hand and advancing with right foot PT-OP-H Neuro Start: 02/06/24 15:27 Freq: Status: Active Protocol: Document 02/08/24 11:17 MB (Rec: 02/08/24 15:46 MB [id number]) Coordination Evaluation Upper Extremity Tests Left Finger to Nose Test Minimal Impairment Pronation/Supination Test Minimal Impairment Right Finger to Nose Test Normal Performance Pronation/Supination Test Minimal Impairment Lower Extremity Tests Left Heel on Irving Test Minimal Impairment Foot Tapping Test Minimal Impairment Right Heel on [place] Test Minimal Impairment Foot Tapping Test Minimal Impairment PT-OP-M Strength Start: 02/06/24 15:27 Freq: Status: Active Protocol: Document 02/08/24 11:17 MB (Rec: 02/08/24 15:46 MB [id number]) Shoulder Strength Shoulder Manual Muscle Testing Bilateral Flexion 5 Normal Abduction (C5) 5 Normal Hip Strength Hip Manual Muscle Testing Bilateral Flexion (L2) 5 Normal PT-OP-Q Treatments Start: 02/06/24 15:27 Freq: Status: Active Protocol: Document 03/20/24 11:16 MB (Rec: 03/20/24 12:24 MB [id number]) Therapeutic Exercises Sitting Exercises Side to side Equipment Used BIG chair Reps/Minutes 10 reps alternating Comments Flicks and occ cues to wait with leg Floor to ceiling Equipment Used BIG chair Reps/Minutes 10 reps Comments Flicks- good counting Standing Exercises Side rock and reach Reps/Minutes 10 to each side, alternating Comments Slower pace than other exercises and less rotation to the right Forward rock and reach Side bilateral Reps/Minutes 10 reps each side Comments Good pace Back stepping Side bilateral Reps/Minutes 10 each side alternating (20 total) Comments Slower pace and one mis-step Side stepping Side bilateral Reps/Minutes 10 each side alternating (20 total) Comments Good work Forward step Side bilateral Reps/Minutes 10 each side alternating (20 total) Comments Good form Therapeutic Activity Therapeutic Activity BIG STS Reps/Minutes 10 reps Comments Teagan chair, good form Gait Training Gait Activity BIG walking Comments BIG walking outside on pavement, grass, grassy hill, curb, working on BIG stepping and foot clearance and less foot clearance with backwards walking with pt with tracks in grass Neuro Re-Education Treatment Balance Activities Balance activities with outside gait Comments Curb walking and backwards walking balance training outside on curb and on grass and pt with incline on grass and CGA with curb walking and backwards walking downhill PT-OP-T Assessment and Plan Start: 02/06/24 15:27 Freq: Status: Active Protocol: Document 03/20/24 11:16 MB (Rec: 03/20/24 12:24 MB [id number]) Physical Therapy Assessment Goals 4 Impairment Lack of amplitude specific HEP Impairment . Senior Living Goal (LTG) Pt will perform daily BIG exercises and therapeutic activities with no more than demo and cues from to improve amplitude and speed of movement. 02/28/24 PT reports that BIG exercises are going well and he is getting them done twice a day on non-therapy days and once a day on therapy days. LTG Duration 16 treatments 1 Impairment 13 STS in 30 sec Impairment . Senior Living Goal (LTG) Pt will perform 15 STS in 30 sec to improve functional strength with transfers. 02/28/24: 14 reps in 30 sec today from mesh chair, much improved LTG Duration 16 treatments Assessment Summary Assessment Pt con't to do well with PT as far as exercises, BIG walking and neuromuscular re-ed. Anticipate PT tomorrow. Physical Therapy Plan Frequency and Duration Frequency of Treatment 4x/Week Duration of treatment (weeks) 6 Plan of Care Start Date 02/08/24 Plan of Care End Date 03/27/24 Therapeutic Interventions Therapeutic Interventions Balance Training,Canalithic Repositioning,Coordination Training,Gait Training,Home Exercise Program,Manual Therapy,Neuromuscular Re- education,Patient/Caregiver Education,Self-Care/Home Management,Sensory Integration ,Soft Tissue Mobilization, Taping,Therapeutic Activities, Therapeutic Exercises, Vestibular Rehabilitation Modalities Cold Pack/Ice Massage,Hot Packs Other Referrals/Consults Referrals/Consults Recommended PT for left knee pain in the future Next Visit Focus/Plan Next Note Type Discharge Summary
--- NOTE | 2024-03-21 11:41 | PT.OTN ---
Current Diagnoses Parkinsonism, unspecified (03/21/24) Personal history of other diseases of the nervous system and sense organs (03/21/24) Physical Therapy Treatment Note PT-OP-A Visit Information Start: 02/06/24 15:27 Freq: Status: Active Protocol: Document 03/21/24 11:15 MB (Rec: 03/21/24 11:39 MB [id number]) Out-Patient Physical Therapy Visit Information Visit Information Visit Type Discharge Summary Visit Note Medicare before KX is Fito and goes by Shai Visit Start Time 11:15 Visit Stop Time 11:45 Visit Number 17 Number of TECHNICIAN HELPER INSTRUMENT Visits 0 Evaluation Information Evaluation Date 02/08/24 PT-OP-B Current Condition Start: 02/06/24 15:27 Freq: Status: Active Protocol: Document 02/08/24 11:17 MB (Rec: 02/08/24 11:51 MB [id number]) Current Condition History of Current Condition Onset Date 2021 cognitive changes Current Complaints Awkwardness of what is going on with legs, slow walking, stiffness History of Current Condition In 2021, noticed some cognitive changes. He saw a sleep specialist and he had mild sleep apnea. He lost a lot a weight and the CPAP caused issues with his sinuses . Sleep specialist noticed tremor in right hand. He has been seeing a neurologist since 10/2022. He has been treated as PD even though diagnostics were non- conclusive. Carbidopa Levodopa has helped him cognitively and they think that the tremor is a little better. Pt is also on a memory pill and he takes that once a day. He sees neuropsychologist in [facility] and he has improved in a couple of areas and might have declined in other areas though he didn't wear his reading glasses. Pt has a new cane that he is using in his left hand d/t right hip pain. He takes two Aleve a day. He is closing in some and shuffling a little. provides most history and pt states that in his own defense, they have a 30 lb dog with a lot of energy and there are a lot of toys on the floor. They report no issues with walking over rugs and hardwood floors. He is wearing shoes at home. He had previously been walking in stocking feet. He is sleeping well. Before this started, he was vaping THC. The neuropsychologist asked him to wean off of it. Pt gets up 2-3 times a night to toilet. He wears depends. He had a procedure in September. Pt denies light-headedness when getting up. Pt has had a couple of sleep walking episodes in 2 years. One was a month ago. Last fall was in 2019. He talks a lot in his sleep and he dreams a lot per . reports pt' s swings occ in dreams. Pt is managing a smart phone. Pt manages his medication. He takes ozempic and they watch the video every Tuesday before he gives himself the short. New tasks require refresher course. states that pt is slow. manages finances. Pt used to walk his dog a few times a week until his right hip got bad and he started using cane in left hand. There are written lists for tasks he needs to complete like laundry. Pt was shaving his own head up until a couple of months ago but he stopped d/t nicking himself d/t stiffness in shoulders and motor control of hands. Pt and hope to transition to residential in [place] in the future. Treatment Goals Patient/Caregiver Goals Better and bigger movement PT-OP-C Subjective Start: 02/06/24 15:27 Freq: Status: Active Protocol: Document 03/21/24 11:15 MB (Rec: 03/21/24 11:39 MB [id number]) OP-PT Subjective Patient Comments Patient Comments Pt just underwent laser surgery for left eye and he is imbalanced today and not feeling like himself. PT-OP-D Balance Start: 02/06/24 15:27 Freq: Status: Active Protocol: Document 02/08/24 11:17 MB (Rec: 02/08/24 15:46 MB [id number]) OP-PT Balance Assessment Sitting Balance Static Sitting Balance Ability Good Standing Balance Static Standing Balance Ability Good Dynamic Standing Balance Ability Fair Balance Tests Other Other Balance Tests Performed SLS requires GRISTMILL OPERATOR to get into position and pt cannot lift opposite leg far off the ground. Longer standing time on left foot compared to right : CGA. Romberg EC and EO normal, superv. B tandem with UE support to get into position and longer hold time with CGA with right foot behind. Rondon Fall Scale Copyright Permission PT-OP-G Mobility & Gait Start: 02/06/24 15:27 Freq: Status: Active Protocol: Document 02/08/24 11:17 MB (Rec: 02/08/24 15:46 MB [id number]) OP Gait Assessment Comments Gait Comments Decreased arm swing B, though pt carries cane in left hand for 6MWT. For gait into clinic , step-to and more antalgic pattern gait with cane in left hand and advancing with right foot PT-OP-H Neuro Start: 02/06/24 15:27 Freq: Status: Active Protocol: Document 02/08/24 11:17 MB (Rec: 02/08/24 15:46 MB [id number]) Coordination Evaluation Upper Extremity Tests Left Finger to Nose Test Minimal Impairment Pronation/Supination Test Minimal Impairment Right Finger to Nose Test Normal Performance Pronation/Supination Test Minimal Impairment Lower Extremity Tests Left Heel on Irving Test Minimal Impairment Foot Tapping Test Minimal Impairment Right Heel on Irving Test Minimal Impairment Foot Tapping Test Minimal Impairment PT-OP-M Strength Start: 02/06/24 15:27 Freq: Status: Active Protocol: Document 02/08/24 11:17 MB (Rec: 02/08/24 15:46 MB [id number]) Shoulder Strength Shoulder Manual Muscle Testing Bilateral Flexion 5 Normal Abduction (C5) 5 Normal Hip Strength Hip Manual Muscle Testing Bilateral Flexion (L2) 5 Normal PT-OP-Q Treatments Start: 02/06/24 15:27 Freq: Status: Active Protocol: Document 03/21/24 11:15 MB (Rec: 03/21/24 11:39 MB [id number]) Therapeutic Activity Therapeutic Activity Transfers and ambulation today Comments GRISTMILL OPERATOR for transfers and ambulation today d/t poor vision, imbalance after eye surgery and orthostasis, pt gait trains 100'x2 and drives today Orthostatic assessment Comments Performed today sit to stand and pt is orthostatic and see assessment for findings Self-Care/Home Management Treatment Education Other Education Ed pt on hydration, modifying activities when light-headed, ongoing concern about orthostatic hypotension, con't BIG exercises once a day and can decrease reps if needed, benefits of return to PT for refresher course if needed and benefits of community class PT-OP-T Assessment and Plan Start: 02/06/24 15:27 Freq: Status: Active Protocol: Document 03/21/24 11:15 MB (Rec: 03/21/24 11:39 MB [id number]) Physical Therapy Assessment Goals 4 Impairment Lack of amplitude specific HEP Impairment . Retirement Goal (LTG) Pt will perform daily BIG exercises and therapeutic activities with no more than demo and cues from to improve amplitude and speed of movement. 02/28/24 PT reports that BIG exercises are going well and he is getting them done twice a day on non-therapy days and once a day on therapy days. 03/21/24: Pt has been performing 20-40 reps of every BIG exercise every day, twice a day and will con't at d/c. He is going to join community [employer] class. LTG Duration Surpassed goal 1 Impairment 13 STS in 30 sec Impairment . Binder Stripper Machine Goal (LTG) Pt will perform 15 STS in 30 sec to improve functional strength with transfers. 02/28/24: 14 reps in 30 sec today from mesh chair, much improved : Deferred testing today d/t severe orthostasis LTG Duration Progressed Assessment Summary Assessment BP and HR in RUE: sittin /68, 68; standin/50, 74; standing 1': 98/51, 72; standing 2' 98/51, 73. Pt has surpassed or met all PT goals since starting PT including 6MWT, balance, and HEP goals. He arrives to d/c appointment after laser eye surgery and he is imbalanced and orthostatic today and so STS and further gait and exercises deferred today. Pt has done very well with LSVT treatment course and will start community class in a few weeks. He has PT for left knee set-up. Will d/c PT.
== END 2024-03-28 08:36 ==
LOC: PHYS 11:15
PROVIDERS: Family Provider Family Medicine; PCP Family Medicine; Referring Provider Family Medicine; Visit Provider Family Medicine
DX: G20.C Parkinsonism, unspecified (principal); Z86.69 Personal history of other diseases of the nervous system and sense organs
CPT/HCPCS: 97110; 97112; 97116; 97162; 97530; 97535

== ENCOUNTER → 2024-04-07 08:17 | Outpatient (CLI) | payer MEDICARE, OTHER, SELFPAY ==
[2024-04-07 09:27] LABS: Hemoglobin A1C% w Est Avg Glu 5.9 % (4.0-6.0)
== END ==
PROVIDERS: Family Provider Family Medicine; PCP Family Medicine; Referring Provider Family Medicine; Visit Provider Family Medicine
DX: E11.9 Type 2 diabetes mellitus without complications (principal)
CPT/HCPCS: 36415; 83036

== ENCOUNTER 2024-05-02 13:45 | Outpatient (RCR) | payer MEDICARE, OTHER, SELFPAY ==
--- NOTE | 2024-03-28 15:41 | PT.OIE ---
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 Past Surgical History (Last Reviewed 06/30/23 @ 17:17 by Melissa Foreman MD) H/O vasectomy History of colonoscopy Visit Care Team Role Provider Type Pantera Riggins MD Family Provider Physician Primary Care Provider Specialty: Family Practice Address: [address] [place] [address], [place] Email: [email or web address] Annita Matamoros PA-C Attending Provider Advanced Contact Person Referring Provider Specialty: Medical Wound Care Address: [address] [place] [address], [id number] Email: [email or web address] Physical Therapy Initial Evaluation PT-OP-A Visit Information Start: 03/28/24 07:18 Freq: Status: Active Protocol: Document 03/28/24 13:50 MB (Rec: 03/28/24 14:11 MB [id number]) Out-Patient Physical Therapy Visit Information Visit Information Visit Type Initial Evaluation Visit Note KX Modifier Progress note by 04/28 Visit Start Time 13:50 Visit Stop Time 14:30 Visit Number 1 Number of HARDENING MACHINE OPERATOR HELPER Visits 0 Evaluation Information Evaluation Date 03/28/24 PT-OP-B Current Condition Start: 03/28/24 07:18 Freq: Status: Active Protocol: Document 03/28/24 13:50 MB (Rec: 03/28/24 14:11 MB [id number]) Current Condition History of Current Condition Onset Date Years Current Complaints Left knee pain intermittently History of Current Condition Pt just finished LSVT BIG. His right hip pain is better. His left knee has a flash point when going down the stairs and with stepping too far forward with left foot with BIG exercises. His left knee gave way several months ago and he almost tumbled down the steps. Prior Treatments and Tests Left knee x-rays revealed minimal osteoarthritis Treatment Goals Patient/Caregiver Goals To take care of pain PT-OP-C Subjective Start: 03/28/24 07:18 Freq: Status: Active Protocol: Document 03/28/24 13:50 MB (Rec: 03/28/24 14:11 MB [id number]) OP-PT Subjective Patient Comments Patient Comments See history of current condition Patient Questionnaires Lower Extremity Functional Scale LEFS Score 61 LEFS Impairment 20 to 39% Impaired (Score 48- 62) PT-OP-D Balance Start: 03/28/24 07:18 Freq: Status: Active Protocol: Document 03/28/24 13:50 MB (Rec: 03/28/24 15:41 MB [id number]) Balance Tests Other Other Balance Tests Performed Tandem: left foot behind 3 sec and right foot behind 30 sec; SLS left 6 sec and right 0 sec. Pt's left knee jaden with PF MMT with heel raises next to the wall. PT-OP-G Mobility & Gait Start: 03/28/24 07:18 Freq: Status: Active Protocol: Document 03/28/24 13:50 MB (Rec: 03/28/24 14:11 MB [id number]) OP Gait Assessment Comments Gait Comments Decreased left arm swing, decreased left toe off with gait PT-OP-J Posture/Palpation/Skin Start: 03/28/24 07:18 Freq: Status: Active Protocol: Document 03/28/24 13:50 MB (Rec: 03/28/24 14:11 MB [id number]) Posture Evaluation Comments Posture Comments Standing with hoka shoes donned: right shoulder and shoulder blade higher and more forward than the left, thoracic convexity to the right, left iliac crest higher than the right. Metal sticking out near left AC joint after surgery. PT-OP-K Range of Motion Start: 03/28/24 07:18 Freq: Status: Active Protocol: Document 03/28/24 13:50 MB (Rec: 03/28/24 15:41 MB [id number]) Knee Goniometric Range of Motion Knee ROM Limitations Comments No ROM deficits noted PT-OP-M Strength Start: 03/28/24 07:18 Freq: Status: Active Protocol: Document 03/28/24 13:50 MB (Rec: 03/28/24 15:41 MB [id number]) Hip Strength Hip Manual Muscle Testing Left Flexion (L2) 4+ Good+ Extension (S1) 4+ Good+ Abduction 4+ Good+ Adduction 4+ Good+ Right Flexion (L2) 4+ Good+ Extension (S1) 4+ Good+ Abduction 4+ Good+ Adduction 4+ Good+ Knee Strength Knee Manual Muscle Testing Left Flexion (S2) 4+ Good+ Extension (L3) 4+ Good+ Right Flexion (S2) 5 Normal Extension (L3) 5 Normal Ankle/Foot Strength Ankle and Foot Manual Muscle Testing Left Dorsiflexion (L4) 5 Normal Plantarflexion (S1) 4+ Good+ Comments Evidence of left kne instability/potential to buckle with heel raises with knee straight in standing Right Dorsiflexion (L4) 5 Normal Plantarflexion (S1) 5 Normal Toe Strength Toe Manual Muscle Testing Left Great Toe Extension 5 Normal Right Great Toe Extension 5 Normal PT-OP-Q Treatments Start: 03/28/24 07:18 Freq: Status: Active Protocol: Document 03/28/24 13:50 MB (Rec: 03/28/24 15:41 MB [id number]) Therapeutic Exercises Sitting Exercises Big STS Comments Reviewed STS and cued pt to use chair and not to perform squat Other Exercises Verbal review of current HEP Comments Verbally reviewed BIG exercises and ed pt to decrease reps as needed PT-OP-T Assessment and Plan Start: 03/28/24 07:18 Freq: Status: Active Protocol: Document 03/28/24 13:50 MB (Rec: 03/28/24 15:41 [id number]) Physical Therapy Assessment Rehab Potential Rehabilitation Potential Good Evaluation Complexity Number of Personal Factors/Comorbidities 1-2 Number of Body Systems Impaired 3 Clinical Presentation at Evaluation Evolving Impairments Impairments Activity Tolerance,Balance, Coordination,Gait,Pain,Posture ,Soft Tissue Mobility,Strength Assessment Summary Assessment Pt is a 74 y/o male presenting with reports of occ sharp left knee pain that feels like it is in the joint. Pt presents with left knee instability with plantar flexor MMT with heel raises LLE with fingers touching the wall. He presents with c/o sharp pain when transitioning from flexion and extension left knee. PT cannot replicate with special testing for PCL and meniscus. PT suspects meniscus issue vs ligamentous. He reports one episode of knee giving way when descending steps and steps with loading the joint with descending. Pt will benefit from PT to work on knee stability, LE strengthening and balance. Taping knee was helpful during BIG PT to improve pain and pt modified how far forward he is stepping . Pt with spinal changes and convexity and will benefit from thoracic mobility and pelvic alignment exercises as well. Physical Therapy Plan Frequency and Duration Frequency of Treatment 2x/Week Duration of treatment (weeks) 6 Plan of Care Start Date 03/28/24 Plan of Care End Date 05/12/24 Therapeutic Interventions Therapeutic Interventions Balance Training,Canalithic Repositioning,Coordination Training,Gait Training,Home Exercise Program,Joint Mobilizations,Manual Therapy, Neuromuscular Re-education, Patient/Caregiver Education, Self-Care/Home Management,Soft Tissue Mobilization,Taping, Therapeutic Activities, Therapeutic Exercises, Vestibular Rehabilitation Modalities Cold Pack/Ice Massage,Electric Stimulation,Hot Packs, Ultrasound Next Visit Focus/Plan Next Note Type Treatment Note Next Visit Plan Consider flexibility for quads , hip flexor, hamstrings and lateral hip and TFL as well as calves, consider pelvic realignment exercises, consider a thoracic mobility exercise Black KT for support of left knee/patellar tracking support Consider [place] including SLS, tandem, strengthening, add hip extension and ankle DF with eversion strengthening
--- NOTE | 2024-03-28 15:42 | PT.OPPOC ---
Physical, Occupational & Speech Therapy At [facility] Current Diagnoses Strain of unspecified muscle(s) and tendon(s) at lower leg level, left leg, subsequent encounter (03/28/24) Visit Care Team Role Provider Type Pantera Riggins MD Family Provider Physician Primary Care Provider Specialty: Family Practice Address: [address] [place] [address], [address] Email: [email or web address] Annita Matamoros PA-C Attending Provider Advanced Automotive Quality Engineer Referring Provider Specialty: Medical Wound Care Address: [address] [place] [address], [address] Email: [email or web address] Plan Of Care PT-OP-T Assessment and Plan Start: 03/28/24 07:18 Freq: Status: Active Protocol: Document 03/28/24 13:50 MB (Rec: 03/28/24 15:41 MB [id number]) Physical Therapy Assessment Rehab Potential Rehabilitation Potential Good Evaluation Complexity Number of Personal Factors/Comorbidities 1-2 Number of Body Systems Impaired 3 Clinical Presentation at Evaluation Evolving Impairments Impairments Activity Tolerance,Balance, Coordination,Gait,Pain,Posture ,Soft Tissue Mobility,Strength Assessment Summary Assessment Pt is a 74 y/o male presenting with reports of occ sharp left knee pain that feels like it is in the joint. Pt presents with left knee instability with plantar flexor MMT with heel raises LLE with fingers touching the wall. He presents with c/o sharp pain when transitioning from flexion and extension left knee. PT cannot replicate with special testing for PCL and meniscus. PT suspects meniscus issue vs ligamentous. He reports one episode of knee giving way when descending steps and steps with loading the joint with descending. Pt will benefit from PT to work on knee stability, LE strengthening and balance. Taping knee was helpful during BIG PT to improve pain and pt modified how far forward he is stepping . Pt with spinal changes and convexity and will benefit from thoracic mobility and pelvic alignment exercises as well. Physical Therapy Plan Frequency and Duration Frequency of Treatment 2x/Week Duration of treatment (weeks) 6 Plan of Care Start Date 03/28/24 Plan of Care End Date 05/12/24 Therapeutic Interventions Therapeutic Interventions Balance Training,Canalithic Repositioning,Coordination Training,Gait Training,Home Exercise Program,Joint Mobilizations,Manual Therapy, Neuromuscular Re-education, Patient/Caregiver Education, Self-Care/Home Management,Soft Tissue Mobilization,Taping, Therapeutic Activities, Therapeutic Exercises, Vestibular Rehabilitation Modalities Cold Pack/Ice Massage,Electric Stimulation,Hot Packs, Ultrasound Next Visit Focus/Plan Next Note Type Treatment Note Next Visit Plan Consider flexibility for quads , hip flexor, hamstrings and lateral hip and TFL as well as calves, consider pelvic realignment exercises, consider a thoracic mobility exercise Black KT for support of left knee/patellar tracking support Consider [place] including SLS, tandem, strengthening, add hip extension and ankle DF with eversion strengthening Plan of Care Dates Plan of Care Start Date 03/28/24 Plan of Care End Date 05/12/24 Electronically Signed by: Liset Doty, SUZANNE 03/28/24 0113 If you are in agreement with this Plan of Care, please return a signed and dated copy. I have reviewed this Plan of Care and certify that the skilled therapy services above are required to meet the patient?s needs. Physician Signature Date Printed Name and Credentials Clinical Instructor Signature Printed Name and Credentials
--- NOTE | 2024-03-28 15:50 | PT.OPPOC ---
Physical, Occupational & Speech Therapy At [facility] Current Diagnoses Strain of unspecified muscle(s) and tendon(s) at lower leg level, left leg, subsequent encounter (03/28/24) Visit Care Team Role Provider Type Pantera Riggins MD Family Provider Physician Primary Care Provider Specialty: Family Practice Address: [address] [place] [address], [id number] Email: [email or web address] Annita Matamoros PA-C Attending Provider Advanced Manufacturing Baker Referring Provider Specialty: Medical Wound Care Address: [address] [place] [address], [address] Email: [email or web address] Plan Of Care PT-OP-T Assessment and Plan Start: 03/28/24 07:18 Freq: Status: Active Protocol: Document 03/28/24 13:50 MB (Rec: 03/28/24 15:41 MB [id number]) Physical Therapy Assessment Rehab Potential Rehabilitation Potential Good Evaluation Complexity Number of Personal Factors/Comorbidities 1-2 Number of Body Systems Impaired 3 Clinical Presentation at Evaluation Evolving Impairments Impairments Activity Tolerance,Balance, Coordination,Gait,Pain,Posture ,Soft Tissue Mobility,Strength Goals 3 Impairment Lack of program for LE strengthening and balance Bilingual School Psychologist Goal (LTG) Pt will perform HEP with I including pelvic alignment, thoracic mobility, LE strengthening and balance exercises to improve balance and strength. LTG Duration 6 weeks 2 Impairment Weak left PFs and knee instability with testing Snf Goal (LTG) Pt will perform 20 reps heel raises LLE with finger support on wall without knee instability to improve functional strength, balance and MMT to 5/5. LTG Duration 6 weeks 1 Impairment LEF score reflects about 24% impairment Snf Goal (LTG) Pt will present with LEF score to reflect no more than 20% impairment to improve pain and quality of life. LTG Duration 6 weeks Assessment Summary Assessment Pt is a 74 y/o male presenting with reports of occ sharp left knee pain that feels like it is in the joint. Pt presents with left knee instability with plantar flexor MMT with heel raises LLE with fingers touching the wall. He presents with c/o sharp pain when transitioning from flexion and extension left knee. PT cannot replicate with special testing for PCL and meniscus. PT suspects meniscus issue vs ligamentous. He reports one episode of knee giving way when descending steps and steps with loading the joint with descending. Pt will benefit from PT to work on knee stability, LE strengthening and balance. Taping knee was helpful during BIG PT to improve pain and pt modified how far forward he is stepping . Pt with spinal changes and convexity and will benefit from thoracic mobility and pelvic alignment exercises as well. Physical Therapy Plan Frequency and Duration Frequency of Treatment 2x/Week Duration of treatment (weeks) 6 Plan of Care Start Date 03/28/24 Plan of Care End Date 05/12/24 Therapeutic Interventions Therapeutic Interventions Balance Training,Canalithic Repositioning,Coordination Training,Gait Training,Home Exercise Program,Joint Mobilizations,Manual Therapy, Neuromuscular Re-education, Patient/Caregiver Education, Self-Care/Home Management,Soft Tissue Mobilization,Taping, Therapeutic Activities, Therapeutic Exercises, Vestibular Rehabilitation Modalities Cold Pack/Ice Massage,Electric Stimulation,Hot Packs, Ultrasound Next Visit Focus/Plan Next Note Type Treatment Note Next Visit Plan Consider flexibility for quads , hip flexor, hamstrings and lateral hip and TFL as well as calves, consider pelvic realignment exercises, consider a thoracic mobility exercise Black KT for support of left knee/patellar tracking support Consider [place] including SLS, tandem, strengthening, add hip extension and ankle DF with eversion strengthening Plan of Care Dates Plan of Care Start Date 03/28/24 Plan of Care End Date 05/12/24 Electronically Signed by: Liset Doty, PT 03/28/24 7003 If you are in agreement with this Plan of Care, please return a signed and dated copy. I have reviewed this Plan of Care and certify that the skilled therapy services above are required to meet the patient?s needs. Physician Signature Date Printed Name and Credentials Clinical Instructor Signature Printed Name and Credentials
--- NOTE | 2024-03-28 15:51 | PT.OIE ---
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 Past Surgical History (Last Reviewed 06/30/23 @ 17:17 by Melissa Foreman MD) H/O vasectomy History of colonoscopy Visit Care Team Role Provider Type Pantera Riggins MD Family Provider Physician Primary Care Provider Specialty: Family Practice Address: [address] [place] [address], [facility] Email: [email or web address] Annita Matamoros PA-C Attending Provider Advanced Film Washer Referring Provider Specialty: Medical Wound Care Address: [address] [place] [address], [id number] Email: [email or web address] Physical Therapy Initial Evaluation PT-OP-A Visit Information Start: 03/28/24 07:18 Freq: Status: Active Protocol: Document 03/28/24 13:50 MB (Rec: 03/28/24 14:11 MB [id number]) Out-Patient Physical Therapy Visit Information Visit Information Visit Type Initial Evaluation Visit Note KX Modifier Progress note by 04/28 Visit Start Time 13:50 Visit Stop Time 14:30 Visit Number 1 Number of PILOT PLANT OPERATOR Visits 0 Evaluation Information Evaluation Date 03/28/24 PT-OP-B Current Condition Start: 03/28/24 07:18 Freq: Status: Active Protocol: Document 03/28/24 13:50 MB (Rec: 03/28/24 14:11 MB [id number]) Current Condition History of Current Condition Onset Date Years Current Complaints Left knee pain intermittently History of Current Condition Pt just finished LSVT BIG. His right hip pain is better. His left knee has a flash point when going down the stairs and with stepping too far forward with left foot with BIG exercises. His left knee gave way several months ago and he almost tumbled down the steps. Prior Treatments and Tests Left knee x-rays revealed minimal osteoarthritis Treatment Goals Patient/Caregiver Goals To take care of pain PT-OP-C Subjective Start: 03/28/24 07:18 Freq: Status: Active Protocol: Document 03/28/24 13:50 MB (Rec: 03/28/24 14:11 MB [id number]) OP-PT Subjective Patient Comments Patient Comments See history of current condition Patient Questionnaires Lower Extremity Functional Scale LEFS Score 61 LEFS Impairment 20 to 39% Impaired (Score 48- 62) PT-OP-D Balance Start: 03/28/24 07:18 Freq: Status: Active Protocol: Document 03/28/24 13:50 MB (Rec: 03/28/24 15:41 MB [id number]) Balance Tests Other Other Balance Tests Performed Tandem: left foot behind 3 sec and right foot behind 30 sec; SLS left 6 sec and right 0 sec. Pt's left knee jaden with PF MMT with heel raises next to the wall. PT-OP-G Mobility & Gait Start: 03/28/24 07:18 Freq: Status: Active Protocol: Document 03/28/24 13:50 MB (Rec: 03/28/24 14:11 MB [id number]) OP Gait Assessment Comments Gait Comments Decreased left arm swing, decreased left toe off with gait PT-OP-J Posture/Palpation/Skin Start: 03/28/24 07:18 Freq: Status: Active Protocol: Document 03/28/24 13:50 MB (Rec: 03/28/24 14:11 MB [id number]) Posture Evaluation Comments Posture Comments Standing with hoka shoes donned: right shoulder and shoulder blade higher and more forward than the left, thoracic convexity to the right, left iliac crest higher than the right. Metal sticking out near left AC joint after surgery. PT-OP-K Range of Motion Start: 03/28/24 07:18 Freq: Status: Active Protocol: Document 03/28/24 13:50 MB (Rec: 03/28/24 15:41 MB [id number]) Knee Goniometric Range of Motion Knee ROM Limitations Comments No ROM deficits noted PT-OP-M Strength Start: 03/28/24 07:18 Freq: Status: Active Protocol: Document 03/28/24 13:50 MB (Rec: 03/28/24 15:41 MB [id number]) Hip Strength Hip Manual Muscle Testing Left Flexion (L2) 4+ Good+ Extension (S1) 4+ Good+ Abduction 4+ Good+ Adduction 4+ Good+ Right Flexion (L2) 4+ Good+ Extension (S1) 4+ Good+ Abduction 4+ Good+ Adduction 4+ Good+ Knee Strength Knee Manual Muscle Testing Left Flexion (S2) 4+ Good+ Extension (L3) 4+ Good+ Right Flexion (S2) 5 Normal Extension (L3) 5 Normal Ankle/Foot Strength Ankle and Foot Manual Muscle Testing Left Dorsiflexion (L4) 5 Normal Plantarflexion (S1) 4+ Good+ Comments Evidence of left kne instability/potential to buckle with heel raises with knee straight in standing Right Dorsiflexion (L4) 5 Normal Plantarflexion (S1) 5 Normal Toe Strength Toe Manual Muscle Testing Left Great Toe Extension 5 Normal Right Great Toe Extension 5 Normal PT-OP-Q Treatments Start: 03/28/24 07:18 Freq: Status: Active Protocol: Document 03/28/24 13:50 MB (Rec: 03/28/24 15:41 MB [id number]) Therapeutic Exercises Sitting Exercises Big STS Comments Reviewed STS and cued pt to use chair and not to perform squat Other Exercises Verbal review of current HEP Comments Verbally reviewed BIG exercises and ed pt to decrease reps as needed PT-OP-T Assessment and Plan Start: 03/28/24 07:18 Freq: Status: Active Protocol: Document 03/28/24 13:50 MB (Rec: 03/28/24 15:41 MB [id number]) Physical Therapy Assessment Rehab Potential Rehabilitation Potential Good Evaluation Complexity Number of Personal Factors/Comorbidities 1-2 Number of Body Systems Impaired 3 Clinical Presentation at Evaluation Evolving Impairments Impairments Activity Tolerance,Balance, Coordination,Gait,Pain,Posture ,Soft Tissue Mobility,Strength Goals 3 Impairment Lack of program for LE strengthening and balance [facility] Goal (LTG) Pt will perform HEP with I including pelvic alignment, thoracic mobility, LE strengthening and balance exercises to improve balance and strength. LTG Duration 6 weeks 2 Impairment Weak left PFs and knee instability with testing Sail Cutter Goal (LTG) Pt will perform 20 reps heel raises LLE with finger support on wall without knee instability to improve functional strength, balance and MMT to 5/5. LTG Duration 6 weeks 1 Impairment LEF score reflects about 24% impairment [facility] Goal (LTG) Pt will present with LEF score to reflect no more than 20% impairment to improve pain and quality of life. LTG Duration 6 weeks Assessment Summary Assessment Pt is a 74 y/o male presenting with reports of occ sharp left knee pain that feels like it is in the joint. Pt presents with left knee instability with plantar flexor MMT with heel raises LLE with fingers touching the wall. He presents with c/o sharp pain when transitioning from flexion and extension left knee. PT cannot replicate with special testing for PCL and meniscus. PT suspects meniscus issue vs ligamentous. He reports one episode of knee giving way when descending steps and steps with loading the joint with descending. Pt will benefit from PT to work on knee stability, LE strengthening and balance. Taping knee was helpful during BIG PT to improve pain and pt modified how far forward he is stepping . Pt with spinal changes and convexity and will benefit from thoracic mobility and pelvic alignment exercises as well. Physical Therapy Plan Frequency and Duration Frequency of Treatment 2x/Week Duration of treatment (weeks) 6 Plan of Care Start Date 03/28/24 Plan of Care End Date 05/12/24 Therapeutic Interventions Therapeutic Interventions Balance Training,Canalithic Repositioning,Coordination Training,Gait Training,Home Exercise Program,Joint Mobilizations,Manual Therapy, Neuromuscular Re-education, Patient/Caregiver Education, Self-Care/Home Management,Soft Tissue Mobilization,Taping, Therapeutic Activities, Therapeutic Exercises, Vestibular Rehabilitation Modalities Cold Pack/Ice Massage,Electric Stimulation,Hot Packs, Ultrasound Next Visit Focus/Plan Next Note Type Treatment Note Next Visit Plan Consider flexibility for quads , hip flexor, hamstrings and lateral hip and TFL as well as calves, consider pelvic realignment exercises, consider a thoracic mobility exercise Black KT for support of left knee/patellar tracking support Consider [place] including SLS, tandem, strengthening, add hip extension and ankle DF with eversion strengthening
--- NOTE | 2024-04-04 14:33 | PT.OTN ---
Current Diagnoses Strain of unspecified muscle(s) and tendon(s) at lower leg level, left leg, subsequent encounter (04/04/24) Physical Therapy Treatment Note PT-OP-A Visit Information Start: 03/28/24 07:18 Freq: Status: Active Protocol: Document 04/04/24 13:50 MB (Rec: 04/04/24 14:28 MB [id number]) Out-Patient Physical Therapy Visit Information Visit Information Visit Type Treatment Note Visit Note KX Modifier Progress note by 04/28 Visit Start Time 13:50 Visit Stop Time 14:30 Visit Number 2 Number of INSERTING OPERATOR Visits 0 Evaluation Information Evaluation Date 03/28/24 PT-OP-B Current Condition Start: 03/28/24 07:18 Freq: Status: Active Protocol: Document 03/28/24 13:50 MB (Rec: 03/28/24 14:11 MB [id number]) Current Condition History of Current Condition Onset Date Years Current Complaints Left knee pain intermittently History of Current Condition Pt just finished LSVT BIG. His right hip pain is better. His left knee has a flash point when going down the stairs and with stepping too far forward with left foot with BIG exercises. His left knee gave way several months ago and he almost tumbled down the steps. Prior Treatments and Tests Left knee x-rays revealed minimal osteoarthritis Treatment Goals Patient/Caregiver Goals To take care of pain PT-OP-C Subjective Start: 03/28/24 07:18 Freq: Status: Active Protocol: Document 04/04/24 13:50 MB (Rec: 04/04/24 14:28 MB [id number]) OP-PT Subjective Patient Comments Patient Comments Pt states that he overdid it a couple of days ago when he did BIG exercises and then walked over [id number] steps. His legs were tired the next date. He brings in tape to try today. He is more aware of his left knee than his right knee . PT-OP-D Balance Start: 03/28/24 07:18 Freq: Status: Active Protocol: Document 03/28/24 13:50 MB (Rec: 03/28/24 15:41 MB [id number]) Balance Tests Other Other Balance Tests Performed Tandem: left foot behind 3 sec and right foot behind 30 sec; SLS left 6 sec and right 0 sec. Pt's left knee jaden with PF MMT with heel raises next to the wall. PT-OP-G Mobility & Gait Start: 03/28/24 07:18 Freq: Status: Active Protocol: Document 03/28/24 13:50 MB (Rec: 03/28/24 14:11 MB [id number]) OP Gait Assessment Comments Gait Comments Decreased left arm swing, decreased left toe off with gait PT-OP-J Posture/Palpation/Skin Start: 03/28/24 07:18 Freq: Status: Active Protocol: Document 03/28/24 13:50 MB (Rec: 03/28/24 14:11 MB [id number]) Posture Evaluation Comments Posture Comments Standing with hoka shoes donned: right shoulder and shoulder blade higher and more forward than the left, thoracic convexity to the right, left iliac crest higher than the right. Metal sticking out near left AC joint after surgery. PT-OP-K Range of Motion Start: 03/28/24 07:18 Freq: Status: Active Protocol: Document 03/28/24 13:50 MB (Rec: 03/28/24 15:41 MB [id number]) Knee Goniometric Range of Motion Knee ROM Limitations Comments No ROM deficits noted PT-OP-M Strength Start: 03/28/24 07:18 Freq: Status: Active Protocol: Document 03/28/24 13:50 MB (Rec: 03/28/24 15:41 MB [id number]) Hip Strength Hip Manual Muscle Testing Left Flexion (L2) 4+ Good+ Extension (S1) 4+ Good+ Abduction 4+ Good+ Adduction 4+ Good+ Right Flexion (L2) 4+ Good+ Extension (S1) 4+ Good+ Abduction 4+ Good+ Adduction 4+ Good+ Knee Strength Knee Manual Muscle Testing Left Flexion (S2) 4+ Good+ Extension (L3) 4+ Good+ Right Flexion (S2) 5 Normal Extension (L3) 5 Normal Ankle/Foot Strength Ankle and Foot Manual Muscle Testing Left Dorsiflexion (L4) 5 Normal Plantarflexion (S1) 4+ Good+ Comments Evidence of left kne instability/potential to buckle with heel raises with knee straight in standing Right Dorsiflexion (L4) 5 Normal Plantarflexion (S1) 5 Normal Toe Strength Toe Manual Muscle Testing Left Great Toe Extension 5 Normal Right Great Toe Extension 5 Normal PT-OP-Q Treatments Start: 03/28/24 07:18 Freq: Status: Active Protocol: Document 04/04/24 13:50 MB (Rec: 04/04/24 14:28 MB [id number]) Cardio Equipment Bicycle (Upright) Duration (Minutes) 10 Resistance 6 Seat Position 9 Therapeutic Exercises Supine Exercises Leroy stretch Comments Opposite knee to chest, leg dropped off bed and gentle knee bend and straig Hamstring stretch with AP Comments B, APs 20-30 reps for mobilization with movement Standing Exercises Soleus and gastroc stretches Comments Several minutes and switching between the muscles, both legs Manual Therapy Treatment Other Other Manual Treatments KT training and taping for pt' s left knee and PT tapes pt's left leg and PT demonstrates taping on PT's knee and pt takes video with phone. Pt's tape is black and c strip under patella and B I strips medial and lateral knee for pt 's left knee PT-OP-T Assessment and Plan Start: 03/28/24 07:18 Freq: Status: Active Protocol: Document 04/04/24 13:50 MB (Rec: 04/04/24 14:28 MB [id number]) Physical Therapy Assessment Rehab Potential Rehabilitation Potential Good Evaluation Complexity Number of Personal Factors/Comorbidities 1-2 Number of Body Systems Impaired 3 Clinical Presentation at Evaluation Evolving Impairments Impairments Activity Tolerance,Balance, Coordination,Gait,Pain,Posture ,Soft Tissue Mobility,Strength Goals 3 Impairment Lack of program for LE strengthening and balance Snf Goal (LTG) Pt will perform HEP with I including pelvic alignment, thoracic mobility, LE strengthening and balance exercises to improve balance and strength. LTG Duration 6 weeks 2 Impairment Weak left PFs and knee instability with testing Vessel Scrapper Helper Goal (LTG) Pt will perform 20 reps heel raises LLE with finger support on wall without knee instability to improve functional strength, balance and MMT to 5/5. LTG Duration 6 weeks 1 Impairment LEF score reflects about 24% impairment Snf Goal (LTG) Pt will present with LEF score to reflect no more than 20% impairment to improve pain and quality of life. LTG Duration 6 weeks Assessment Summary Assessment Initiated stretching and taping education as well as bike today. Physical Therapy Plan Frequency and Duration Frequency of Treatment 2x/Week Duration of treatment (weeks) 6 Plan of Care Start Date 03/28/24 Plan of Care End Date 05/12/24 Therapeutic Interventions Therapeutic Interventions Balance Training,Canalithic Repositioning,Coordination Training,Gait Training,Home Exercise Program,Joint Mobilizations,Manual Therapy, Neuromuscular Re-education, Patient/Caregiver Education, Self-Care/Home Management,Soft Tissue Mobilization,Taping, Therapeutic Activities, Therapeutic Exercises, Vestibular Rehabilitation Modalities Cold Pack/Ice Massage,Electric Stimulation,Hot Packs, Ultrasound Next Visit Focus/Plan Next Note Type Treatment Note Next Visit Plan Review flexibility exercises and consider add lateral hip and TFL, consider pelvic realignment exercises, consider a thoracic mobility exercise. Consider [place] including SLS, tandem, strengthening, add hip extension and ankle DF with eversion strengthening
--- NOTE | 2024-04-11 13:44 | PT.OTN ---
Current Diagnoses Strain of unspecified muscle(s) and tendon(s) at lower leg level, left leg, subsequent encounter (04/11/24) Physical Therapy Treatment Note PT-OP-A Visit Information Start: 03/28/24 07:18 Freq: Status: Active Protocol: Document 04/11/24 13:02 MB (Rec: 04/11/24 13:44 MB [id number]) Out-Patient Physical Therapy Visit Information Visit Information Visit Type Treatment Note Visit Note KX Modifier Progress note by 04/28 Visit Start Time 13:02 Visit Stop Time 13:42 Visit Number 3 Number of AUTOMOBILE PAINTER Visits 0 Evaluation Information Evaluation Date 03/28/24 PT-OP-B Current Condition Start: 03/28/24 07:18 Freq: Status: Active Protocol: Document 03/28/24 13:50 MB (Rec: 03/28/24 14:11 MB [id number]) Current Condition History of Current Condition Onset Date Years Current Complaints Left knee pain intermittently History of Current Condition Pt just finished LSVT BIG. His right hip pain is better. His left knee has a flash point when going down the stairs and with stepping too far forward with left foot with BIG exercises. His left knee gave way several months ago and he almost tumbled down the steps. Prior Treatments and Tests Left knee x-rays revealed minimal osteoarthritis Treatment Goals Patient/Caregiver Goals To take care of pain PT-OP-C Subjective Start: 03/28/24 07:18 Freq: Status: Active Protocol: Document 04/11/24 13:02 MB (Rec: 04/11/24 13:44 MB [id number]) OP-PT Subjective Patient Comments Patient Comments Pt has a question about his calf stretch and he wonders if his arms have to be straight or not. He is not noticing his left knee and his taped it. PT-OP-D Balance Start: 03/28/24 07:18 Freq: Status: Active Protocol: Document 03/28/24 13:50 MB (Rec: 03/28/24 15:41 MB [id number]) Balance Tests Other Other Balance Tests Performed Tandem: left foot behind 3 sec and right foot behind 30 sec; SLS left 6 sec and right 0 sec. Pt's left knee jaden with PF MMT with heel raises next to the wall. PT-OP-G Mobility & Gait Start: 03/28/24 07:18 Freq: Status: Active Protocol: Document 03/28/24 13:50 MB (Rec: 03/28/24 14:11 MB [id number]) OP Gait Assessment Comments Gait Comments Decreased left arm swing, decreased left toe off with gait PT-OP-J Posture/Palpation/Skin Start: 03/28/24 07:18 Freq: Status: Active Protocol: Document 03/28/24 13:50 MB (Rec: 03/28/24 14:11 MB [id number]) Posture Evaluation Comments Posture Comments Standing with hoka shoes donned: right shoulder and shoulder blade higher and more forward than the left, thoracic convexity to the right, left iliac crest higher than the right. Metal sticking out near left AC joint after surgery. PT-OP-K Range of Motion Start: 03/28/24 07:18 Freq: Status: Active Protocol: Document 03/28/24 13:50 MB (Rec: 03/28/24 15:41 MB [id number]) Knee Goniometric Range of Motion Knee ROM Limitations Comments No ROM deficits noted PT-OP-M Strength Start: 03/28/24 07:18 Freq: Status: Active Protocol: Document 03/28/24 13:50 MB (Rec: 03/28/24 15:41 MB [id number]) Hip Strength Hip Manual Muscle Testing Left Flexion (L2) 4+ Good+ Extension (S1) 4+ Good+ Abduction 4+ Good+ Adduction 4+ Good+ Right Flexion (L2) 4+ Good+ Extension (S1) 4+ Good+ Abduction 4+ Good+ Adduction 4+ Good+ Knee Strength Knee Manual Muscle Testing Left Flexion (S2) 4+ Good+ Extension (L3) 4+ Good+ Right Flexion (S2) 5 Normal Extension (L3) 5 Normal Ankle/Foot Strength Ankle and Foot Manual Muscle Testing Left Dorsiflexion (L4) 5 Normal Plantarflexion (S1) 4+ Good+ Comments Evidence of left kne instability/potential to buckle with heel raises with knee straight in standing Right Dorsiflexion (L4) 5 Normal Plantarflexion (S1) 5 Normal Toe Strength Toe Manual Muscle Testing Left Great Toe Extension 5 Normal Right Great Toe Extension 5 Normal PT-OP-Q Treatments Start: 03/28/24 07:18 Freq: Status: Active Protocol: Document 04/11/24 13:02 MB (Rec: 04/11/24 13:44 MB [id number]) Cardio Equipment Bicycle (Upright) Duration (Minutes) 16 Resistance 6-8 Seat Position 8 Therapeutic Exercises Supine Exercises Hip rotator stretch Side bilateral Reps/Minutes 30 sec Comments Knee bent and opp ankle cross over and then knee to chest Leroy stretch Side bilateral Reps/Minutes 1 min Comments Opposite knee to chest, leg dropped off bed and gentle knee bend and straig Hamstring stretch with AP Side bilateral Comments B, APs 20-30 reps for mobilization with movement Standing Exercises TFL and QL stretches in doorway or at wall Side bilateral Reps/Minutes 45 sec Comments Streching foot behind and push hip out, arm overhead reach opp doorjam/wall Soleus and gastroc stretches Side bilateral Comments Several minutes and switching between the muscles, both legs PT-OP-T Assessment and Plan Start: 03/28/24 07:18 Freq: Status: Active Protocol: Document 04/11/24 13:02 MB (Rec: 04/11/24 13:44 MB [id number]) Physical Therapy Assessment Rehab Potential Rehabilitation Potential Good Evaluation Complexity Number of Personal Factors/Comorbidities 1-2 Number of Body Systems Impaired 3 Clinical Presentation at Evaluation Evolving Impairments Impairments Activity Tolerance,Balance, Coordination,Gait,Pain,Posture ,Soft Tissue Mobility,Strength Goals 3 Impairment Lack of program for LE strengthening and balance Care Home Goal (LTG) Pt will perform HEP with I including pelvic alignment, thoracic mobility, LE strengthening and balance exercises to improve balance and strength. LTG Duration 6 weeks 2 Impairment Weak left PFs and knee instability with testing Care Home Goal (LTG) Pt will perform 20 reps heel raises LLE with finger support on wall without knee instability to improve functional strength, balance and MMT to 5/5. LTG Duration 6 weeks 1 Impairment LEF score reflects about 24% impairment Care Home Goal (LTG) Pt will present with LEF score to reflect no more than 20% impairment to improve pain and quality of life. LTG Duration 6 weeks Assessment Summary Assessment Reviewed previous stretches and added two more today. Start strengthening and balance with [place] type exercises soon. Pt performs BIG exercises everyday so unsure if full program is needed. Physical Therapy Plan Frequency and Duration Frequency of Treatment 2x/Week Duration of treatment (weeks) 6 Plan of Care Start Date 03/28/24 Plan of Care End Date 05/12/24 Therapeutic Interventions Therapeutic Interventions Balance Training,Canalithic Repositioning,Coordination Training,Gait Training,Home Exercise Program,Joint Mobilizations,Manual Therapy, Neuromuscular Re-education, Patient/Caregiver Education, Self-Care/Home Management,Soft Tissue Mobilization,Taping, Therapeutic Activities, Therapeutic Exercises, Vestibular Rehabilitation Modalities Cold Pack/Ice Massage,Electric Stimulation,Hot Packs, Ultrasound Next Visit Focus/Plan Next Note Type Treatment Note Next Visit Plan Start on upright bike, review stretches as needed ar standing TFL and hook lying hip rotator stretches, consider pelvic realignment exercises, consider a thoracic mobility exercise. Consider [place] including SLS, tandem, strengthening, add hip extension and ankle DF with eversion strengthening, manual work if needed.
--- NOTE | 2024-04-17 09:42 | PT.OTN ---
Current Diagnoses Strain of unspecified muscle(s) and tendon(s) at lower leg level, left leg, subsequent encounter (04/17/24) Physical Therapy Treatment Note PT-OP-A Visit Information Start: 03/28/24 07:18 Freq: Status: Active Protocol: Document 04/17/24 09:00 MB (Rec: 04/17/24 09:40 MB [id number]) Out-Patient Physical Therapy Visit Information Visit Information Visit Type Treatment Note Visit Note KX Modifier Progress note by 04/28 Visit Start Time 09:00 Visit Stop Time 09:40 Visit Number 4 Number of TRIMMING OPERATOR Visits 0 Evaluation Information Evaluation Date 03/28/24 PT-OP-B Current Condition Start: 03/28/24 07:18 Freq: Status: Active Protocol: Document 03/28/24 13:50 MB (Rec: 03/28/24 14:11 MB [id number]) Current Condition History of Current Condition Onset Date Years Current Complaints Left knee pain intermittently History of Current Condition Pt just finished LSVT BIG. His right hip pain is better. His left knee has a flash point when going down the stairs and with stepping too far forward with left foot with BIG exercises. His left knee gave way several months ago and he almost tumbled down the steps. Prior Treatments and Tests Left knee x-rays revealed minimal osteoarthritis Treatment Goals Patient/Caregiver Goals To take care of pain PT-OP-C Subjective Start: 03/28/24 07:18 Freq: Status: Active Protocol: Document 04/17/24 09:00 MB (Rec: 04/17/24 09:40 MB [id number]) OP-PT Subjective Patient Comments Patient Comments Pt has no new changes, is biking and performing BIG exercises. PT-OP-D Balance Start: 03/28/24 07:18 Freq: Status: Active Protocol: Document 03/28/24 13:50 MB (Rec: 03/28/24 15:41 MB [id number]) Balance Tests Other Other Balance Tests Performed Tandem: left foot behind 3 sec and right foot behind 30 sec; SLS left 6 sec and right 0 sec. Pt's left knee jdaen with PF MMT with heel raises next to the wall. PT-OP-G Mobility & Gait Start: 03/28/24 07:18 Freq: Status: Active Protocol: Document 03/28/24 13:50 MB (Rec: 03/28/24 14:11 MB [id number]) OP Gait Assessment Comments Gait Comments Decreased left arm swing, decreased left toe off with gait PT-OP-J Posture/Palpation/Skin Start: 03/28/24 07:18 Freq: Status: Active Protocol: Document 03/28/24 13:50 MB (Rec: 03/28/24 14:11 MB [id number]) Posture Evaluation Comments Posture Comments Standing with hoka shoes donned: right shoulder and shoulder blade higher and more forward than the left, thoracic convexity to the right, left iliac crest higher than the right. Metal sticking out near left AC joint after surgery. PT-OP-K Range of Motion Start: 03/28/24 07:18 Freq: Status: Active Protocol: Document 03/28/24 13:50 MB (Rec: 03/28/24 15:41 MB [id number]) Knee Goniometric Range of Motion Knee ROM Limitations Comments No ROM deficits noted PT-OP-M Strength Start: 03/28/24 07:18 Freq: Status: Active Protocol: Document 03/28/24 13:50 MB (Rec: 03/28/24 15:41 MB [id number]) Hip Strength Hip Manual Muscle Testing Left Flexion (L2) 4+ Good+ Extension (S1) 4+ Good+ Abduction 4+ Good+ Adduction 4+ Good+ Right Flexion (L2) 4+ Good+ Extension (S1) 4+ Good+ Abduction 4+ Good+ Adduction 4+ Good+ Knee Strength Knee Manual Muscle Testing Left Flexion (S2) 4+ Good+ Extension (L3) 4+ Good+ Right Flexion (S2) 5 Normal Extension (L3) 5 Normal Ankle/Foot Strength Ankle and Foot Manual Muscle Testing Left Dorsiflexion (L4) 5 Normal Plantarflexion (S1) 4+ Good+ Comments Evidence of left kne instability/potential to buckle with heel raises with knee straight in standing Right Dorsiflexion (L4) 5 Normal Plantarflexion (S1) 5 Normal Toe Strength Toe Manual Muscle Testing Left Great Toe Extension 5 Normal Right Great Toe Extension 5 Normal PT-OP-Q Treatments Start: 03/28/24 07:18 Freq: Status: Active Protocol: Document 04/17/24 09:00 MB (Rec: 04/17/24 09:40 MB [id number]) Therapeutic Exercises Supine Exercises Hip rotator stretch Side bilateral Reps/Minutes 30 sec Comments Knee bent and opp ankle cross over and then knee to chest Standing Exercises TFL and QL stretches in doorway or at wall Side bilateral Reps/Minutes 45 sec Comments Streching foot behind and push hip out, arm overhead reach opp doorjam/wall Manual Therapy Treatment Consent Patient gave verbal consent for manual Yes treatment Other Other Manual Treatments Pt supine with head on three pillows and one pillow under knees: STM and MWM left PFs, B vastus lateralis, TFL and hamstrings and more work on the left, area of bulge lateral distal left PFs, Trp and MWM work and then TrP work left vastus, MWM right rectus femoris PT-OP-T Assessment and Plan Start: 03/28/24 07:18 Freq: Status: Active Protocol: Document 04/17/24 09:00 MB (Rec: 04/17/24 09:40 MB [id number]) Physical Therapy Assessment Rehab Potential Rehabilitation Potential Good Evaluation Complexity Number of Personal Factors/Comorbidities 1-2 Number of Body Systems Impaired 3 Clinical Presentation at Evaluation Evolving Impairments Impairments Activity Tolerance,Balance, Coordination,Gait,Pain,Posture ,Soft Tissue Mobility,Strength Goals 3 Impairment Lack of program for LE strengthening and balance Concrete Float Maker Goal (LTG) Pt will perform HEP with I including pelvic alignment, thoracic mobility, LE strengthening and balance exercises to improve balance and strength. LTG Duration 6 weeks 2 Impairment Weak left PFs and knee instability with testing Assisted Goal (LTG) Pt will perform 20 reps heel raises LLE with finger support on wall without knee instability to improve functional strength, balance and MMT to 5/5. LTG Duration 6 weeks 1 Impairment LEF score reflects about 24% impairment Assisted Goal (LTG) Pt will present with LEF score to reflect no more than 20% impairment to improve pain and quality of life. LTG Duration 6 weeks Assessment Summary Assessment Reviewed hip rotator, TFL and QL stretches and initiated manual work today. Tight fascial area distal lateral gastrocsoleus and TrP work and MWM today and will monitor. Physical Therapy Plan Frequency and Duration Frequency of Treatment 2x/Week Duration of treatment (weeks) 6 Plan of Care Start Date 03/28/24 Plan of Care End Date 05/12/24 Therapeutic Interventions Therapeutic Interventions Balance Training,Canalithic Repositioning,Coordination Training,Gait Training,Home Exercise Program,Joint Mobilizations,Manual Therapy, Neuromuscular Re-education, Patient/Caregiver Education, Self-Care/Home Management,Soft Tissue Mobilization,Taping, Therapeutic Activities, Therapeutic Exercises, Vestibular Rehabilitation Modalities Cold Pack/Ice Massage,Electric Stimulation,Hot Packs, Ultrasound Next Visit Focus/Plan Next Note Type Treatment Note Next Visit Plan Start on upright bike, clam and ankle DF and eversion strengthening. consider pelvic realignment exercises, consider a thoracic mobility exercise. Consider [place] including SLS, tandem, strengthening, add hip extension and ankle DF with eversion strengthening, manual work if needed.
--- NOTE | 2024-04-19 10:29 | PT.OTN ---
Current Diagnoses Strain of unspecified muscle(s) and tendon(s) at lower leg level, left leg, subsequent encounter (04/19/24) Physical Therapy Treatment Note PT-OP-A Visit Information Start: 03/28/24 07:18 Freq: Status: Active Protocol: Document 04/19/24 09:49 SP (Rec: 04/19/24 10:35 SP [id number]) Out-Patient Physical Therapy Visit Information Visit Information Visit Type Treatment Note Visit Note KX Modifier Progress note by 04/28 Visit Start Time 09:49 Visit Stop Time 10:29 Visit Number 4 Number of HEAD RESIDENT Visits 0 Evaluation Information Evaluation Date 03/28/24 PT-OP-B Current Condition Start: 03/28/24 07:18 Freq: Status: Active Protocol: Document 03/28/24 13:50 MB (Rec: 03/28/24 14:11 MB [id number]) Current Condition History of Current Condition Onset Date Years Current Complaints Left knee pain intermittently History of Current Condition Pt just finished LSVT BIG. His right hip pain is better. His left knee has a flash point when going down the stairs and with stepping too far forward with left foot with BIG exercises. His left knee gave way several months ago and he almost tumbled down the steps. Prior Treatments and Tests Left knee x-rays revealed minimal osteoarthritis Treatment Goals Patient/Caregiver Goals To take care of pain PT-OP-C Subjective Start: 03/28/24 07:18 Freq: Status: Active Protocol: Document 04/19/24 09:49 SP (Rec: 04/19/24 10:35 SP [id number]) OP-PT Subjective Patient Comments Patient Comments Pt reports when on bike at [employer] and at arrival medial L knee feels tension annoyance but goes away when gets of bike. He states gets leg cramps occasionally lateral B lower leg and challenging isolating stretching and not sure standing lateral side bend stretch doing right and hoping can help this, wants to review. does help massage area goes away and takes Potassium and Magnesium suppliments so not sure why still happening. PT-OP-D Balance Start: 03/28/24 07:18 Freq: Status: Active Protocol: Document 03/28/24 13:50 MB (Rec: 03/28/24 15:41 MB [id number]) Balance Tests Other Other Balance Tests Performed Tandem: left foot behind 3 sec and right foot behind 30 sec; SLS left 6 sec and right 0 sec. Pt's left knee jaden with PF MMT with heel raises next to the wall. PT-OP-G Mobility & Gait Start: 03/28/24 07:18 Freq: Status: Active Protocol: Document 03/28/24 13:50 MB (Rec: 03/28/24 14:11 MB [id number]) OP Gait Assessment Comments Gait Comments Decreased left arm swing, decreased left toe off with gait PT-OP-J Posture/Palpation/Skin Start: 03/28/24 07:18 Freq: Status: Active Protocol: Document 03/28/24 13:50 MB (Rec: 03/28/24 14:11 MB [id number]) Posture Evaluation Comments Posture Comments Standing with hoka shoes donned: right shoulder and shoulder blade higher and more forward than the left, thoracic convexity to the right, left iliac crest higher than the right. Metal sticking out near left AC joint after surgery. PT-OP-K Range of Motion Start: 03/28/24 07:18 Freq: Status: Active Protocol: Document 03/28/24 13:50 MB (Rec: 03/28/24 15:41 MB [id number]) Knee Goniometric Range of Motion Knee ROM Limitations Comments No ROM deficits noted PT-OP-M Strength Start: 03/28/24 07:18 Freq: Status: Active Protocol: Document 03/28/24 13:50 MB (Rec: 03/28/24 15:41 MB [id number]) Hip Strength Hip Manual Muscle Testing Left Flexion (L2) 4+ Good+ Extension (S1) 4+ Good+ Abduction 4+ Good+ Adduction 4+ Good+ Right Flexion (L2) 4+ Good+ Extension (S1) 4+ Good+ Abduction 4+ Good+ Adduction 4+ Good+ Knee Strength Knee Manual Muscle Testing Left Flexion (S2) 4+ Good+ Extension (L3) 4+ Good+ Right Flexion (S2) 5 Normal Extension (L3) 5 Normal Ankle/Foot Strength Ankle and Foot Manual Muscle Testing Left Dorsiflexion (L4) 5 Normal Plantarflexion (S1) 4+ Good+ Comments Evidence of left kne instability/potential to buckle with heel raises with knee straight in standing Right Dorsiflexion (L4) 5 Normal Plantarflexion (S1) 5 Normal Toe Strength Toe Manual Muscle Testing Left Great Toe Extension 5 Normal Right Great Toe Extension 5 Normal PT-OP-Q Treatments Start: 03/28/24 07:18 Freq: Status: Active Protocol: Document 04/19/24 09:49 SP (Rec: 04/19/24 10:35 SP [id number]) Cardio Equipment Bicycle (Upright) Duration (Minutes) 10 Resistance 8-2 miles Seat Position 8>9 & adjusted seat back - no change in medial knee Other 60 PRMs warm up- little annoyance medial L knee Therapeutic Exercises Supine Exercises ITB & peroneal stretch Supine Exercise Name Initiated in PT and added to HEP Equipment Used /c strap Reps/Minutes 2x 30SH Hamstring stretch with AP Supine Exercise Name 1. hold stretch 2. /c AP Side bilateral Reps/Minutes 1. 20 SH TKE 2. 20-30 Comments good feedback lessening muscle tension Sitting Exercises self STMs Sitting Exercise Name ITB, peroneal, quad, calf, HS Side left Comments instruction rolling pin & tulio tool Standing Exercises TFL and QL stretches in doorway or at wall Side bilateral Reps/Minutes 45 sec Comments Streching foot behind and push hip out, arm overhead reach opp doorjam/wall Manual Therapy Treatment Other Other Manual Treatments supine VL, RF, ITB- manual then ed use rolling pin and tulio tool. Good feedback lessening tension use rolling pin, will incorporate at home. Self-Care/Home Management Treatment Education Patient Education Pain Management Other Education ed self massage use rolling pin, tool to lateral legs to help cramp lower leg reduction unless assisting. Instructed ITB & peroneal stretch and reviewed HS static and ankle ROM with strap cross over body in supine- good results. PT-OP-T Assessment and Plan Start: 03/28/24 07:18 Freq: Status: Active Protocol: Document 04/19/24 09:49 SP (Rec: 04/19/24 10:35 SP [id number]) Physical Therapy Assessment Goals 3 Impairment Lack of program for LE strengthening and balance Impairment . Correction Goal (LTG) Pt will perform HEP with I including pelvic alignment, thoracic mobility, LE strengthening and balance exercises to improve balance and strength. LTG Duration 6 weeks 2 Impairment Weak left PFs and knee instability with testing Impairment . Malware Analyst Goal (LTG) Pt will perform 20 reps heel raises LLE with finger support on wall without knee instability to improve functional strength, balance and MMT to 5/5. LTG Duration 6 weeks 1 Impairment LEF score reflects about 24% impairment Impairment . Malware Analyst Goal (LTG) Pt will present with LEF score to reflect no more than 20% impairment to improve pain and quality of life. LTG Duration 6 weeks Assessment Summary Assessment Pt good response to manual and education return demonstration STMs use rolling pin and tulio tool and initiated stretch with hand out for ITB, Peroneal tension reduction for carryover home. Pt reports able to move ankle and knee better when came to standing. Physical Therapy Plan Frequency and Duration Frequency of Treatment 2x/Week Duration of treatment (weeks) 6 Plan of Care Start Date 03/28/24 Plan of Care End Date 05/12/24 Therapeutic Interventions Therapeutic Interventions Balance Training,Canalithic Repositioning,Coordination Training,Gait Training,Home Exercise Program,Joint Mobilizations,Manual Therapy, Neuromuscular Re-education, Patient/Caregiver Education, Self-Care/Home Management,Soft Tissue Mobilization,Taping, Therapeutic Activities, Therapeutic Exercises, Vestibular Rehabilitation Modalities Cold Pack/Ice Massage,Electric Stimulation,Hot Packs, Ultrasound Next Visit Focus/Plan Next Note Type Treatment Note Next Visit Plan Start on upright bike, clam and ankle DF and eversion strengthening. consider pelvic realignment exercises, consider a thoracic mobility exercise. Consider [place] including SLS, tandem, strengthening, add hip extension and ankle DF with eversion strengthening, manual work if needed.
--- NOTE | 2024-04-23 09:46 | PT.OTN ---
Current Diagnoses Strain of unspecified muscle(s) and tendon(s) at lower leg level, left leg, subsequent encounter (04/23/24) Physical Therapy Treatment Note PT-OP-A Visit Information Start: 03/28/24 07:18 Freq: Status: Active Protocol: Document 04/23/24 09:03 SP (Rec: 04/23/24 09:49 SP [id number]) Out-Patient Physical Therapy Visit Information Visit Information Visit Type Treatment Note Visit Note KX Modifier Progress note by 04/28 Visit Start Time 09:03 Visit Stop Time 09:46 Visit Number 5 Number of DATA ADMINISTRATOR Visits 1 Evaluation Information Evaluation Date 03/28/24 PT-OP-B Current Condition Start: 03/28/24 07:18 Freq: Status: Active Protocol: Document 03/28/24 13:50 MB (Rec: 03/28/24 14:11 MB [id number]) Current Condition History of Current Condition Onset Date Years Current Complaints Left knee pain intermittently History of Current Condition Pt just finished LSVT BIG. His right hip pain is better. His left knee has a flash point when going down the stairs and with stepping too far forward with left foot with BIG exercises. His left knee gave way several months ago and he almost tumbled down the steps. Prior Treatments and Tests Left knee x-rays revealed minimal osteoarthritis Treatment Goals Patient/Caregiver Goals To take care of pain PT-OP-C Subjective Start: 03/28/24 07:18 Freq: Status: Active Protocol: Document 04/23/24 09:03 SP (Rec: 04/23/24 09:49 SP [id number]) OP-PT Subjective Patient Comments Patient Comments Pt reports hasn't had pain in either knee in about 1 week wit stretching has helped alot . He is now wondering how long should continue PT knowing came to assist pain reduction. He PT-OP-D Balance Start: 03/28/24 07:18 Freq: Status: Active Protocol: Document 03/28/24 13:50 MB (Rec: 03/28/24 15:41 MB [id number]) Balance Tests Other Other Balance Tests Performed Tandem: left foot behind 3 sec and right foot behind 30 sec; SLS left 6 sec and right 0 sec. Pt's left knee jaden with PF MMT with heel raises next to the wall. PT-OP-G Mobility & Gait Start: 03/28/24 07:18 Freq: Status: Active Protocol: Document 03/28/24 13:50 MB (Rec: 03/28/24 14:11 MB [id number]) OP Gait Assessment Comments Gait Comments Decreased left arm swing, decreased left toe off with gait PT-OP-J Posture/Palpation/Skin Start: 03/28/24 07:18 Freq: Status: Active Protocol: Document 03/28/24 13:50 MB (Rec: 03/28/24 14:11 MB [id number]) Posture Evaluation Comments Posture Comments Standing with hoka shoes donned: right shoulder and shoulder blade higher and more forward than the left, thoracic convexity to the right, left iliac crest higher than the right. Metal sticking out near left AC joint after surgery. PT-OP-K Range of Motion Start: 03/28/24 07:18 Freq: Status: Active Protocol: Document 03/28/24 13:50 MB (Rec: 03/28/24 15:41 MB [id number]) Knee Goniometric Range of Motion Knee ROM Limitations Comments No ROM deficits noted PT-OP-M Strength Start: 03/28/24 07:18 Freq: Status: Active Protocol: Document 03/28/24 13:50 MB (Rec: 03/28/24 15:41 MB [id number]) Hip Strength Hip Manual Muscle Testing Left Flexion (L2) 4+ Good+ Extension (S1) 4+ Good+ Abduction 4+ Good+ Adduction 4+ Good+ Right Flexion (L2) 4+ Good+ Extension (S1) 4+ Good+ Abduction 4+ Good+ Adduction 4+ Good+ Knee Strength Knee Manual Muscle Testing Left Flexion (S2) 4+ Good+ Extension (L3) 4+ Good+ Right Flexion (S2) 5 Normal Extension (L3) 5 Normal Ankle/Foot Strength Ankle and Foot Manual Muscle Testing Left Dorsiflexion (L4) 5 Normal Plantarflexion (S1) 4+ Good+ Comments Evidence of left kne instability/potential to buckle with heel raises with knee straight in standing Right Dorsiflexion (L4) 5 Normal Plantarflexion (S1) 5 Normal Toe Strength Toe Manual Muscle Testing Left Great Toe Extension 5 Normal Right Great Toe Extension 5 Normal PT-OP-Q Treatments Start: 03/28/24 07:18 Freq: Status: Active Protocol: Document 04/23/24 09:03 SP (Rec: 04/23/24 09:49 SP [id number]) Cardio Equipment Bicycle (Upright) Duration (Minutes) 10 Resistance 8-2 miles Seat Position 9 Other 60 PRMs, painfree 2.03 miles Therapeutic Exercises Sitting Exercises resisted hip abd Sitting Exercise Name added to HEP Side bilateral Resistance Tb #2 teal green Reps/Minutes 10 reps x1 sec hold end range Comments cued feet together, pause end range for hip abd engagement [place] LAQ Sitting Exercise Name added to HEP Side bilateral Resistance 2# leg wt Reps/Minutes x10 Comments cued pause end range for quad engagment- pnfree reported ankle DF & EV Sitting Exercise Name added to HEP Side bilateral Resistance Tb #2 teal green Reps/Minutes x10 each Comments ed set up and slow con/ eccentric return each Standing Exercises [place] ex Standing Exercise Name Hip abd & Ext & HS curl /c wt Side bilateral Resistance 2# leg wt (no weights home) Equipment Used rail/chair support (counter home) Reps/Minutes x10 each Brandon Comments cued for set up and proper form PT-OP-T Assessment and Plan Start: 03/28/24 07:18 Freq: Status: Active Protocol: Document 04/23/24 09:03 SP (Rec: 04/23/24 09:49 SP [id number]) Physical Therapy Assessment Goals 3 Impairment Lack of program for LE strengthening and balance Impairment . Form Carpenter Goal (LTG) Pt will perform HEP with I including pelvic alignment, thoracic mobility, LE strengthening and balance exercises to improve balance and strength. LTG Duration 6 weeks 2 Impairment Weak left PFs and knee instability with testing Impairment . [facility] Goal (LTG) Pt will perform 20 reps heel raises LLE with finger support on wall without knee instability to improve functional strength, balance and MMT to 5/5. LTG Duration 6 weeks 1 Impairment LEF score reflects about 24% impairment Impairment . [facility] Goal (LTG) Pt will present with LEF score to reflect no more than 20% impairment to improve pain and quality of life. LTG Duration 6 weeks Assessment Summary Assessment Pt requires cues for set up and provided handouts for ankle, hip and [place] exercises with reports of no pain. He states muscles tiring and feels good to help progress strength. . Physical Therapy Plan Frequency and Duration Frequency of Treatment 2x/Week Duration of treatment (weeks) 6 Plan of Care Start Date 03/28/24 Plan of Care End Date 05/12/24 Therapeutic Interventions Therapeutic Interventions Balance Training,Canalithic Repositioning,Coordination Training,Gait Training,Home Exercise Program,Joint Mobilizations,Manual Therapy, Neuromuscular Re-education, Patient/Caregiver Education, Self-Care/Home Management,Soft Tissue Mobilization,Taping, Therapeutic Activities, Therapeutic Exercises, Vestibular Rehabilitation Modalities Cold Pack/Ice Massage,Electric Stimulation,Hot Packs, Ultrasound Next Visit Focus/Plan Next Note Type Treatment Note Next Visit Plan Start on upright bike, recheck hip clam, ankle DF&EV and Started [place] ex sit andstand last tx. POC: consider pelvic realignment exercises, consider a thoracic mobility exercise. Consider [place] including SLS, tandem, strengthening,manual work if needed.
--- NOTE | 2024-04-25 09:46 | PT.OTN ---
Current Diagnoses Strain of unspecified muscle(s) and tendon(s) at lower leg level, left leg, subsequent encounter (04/25/24) Physical Therapy Treatment Note PT-OP-A Visit Information Start: 03/28/24 07:18 Freq: Status: Active Protocol: Document 04/25/24 09:03 MB (Rec: 04/25/24 09:45 MB [id number]) Out-Patient Physical Therapy Visit Information Visit Information Visit Type Progress Note Visit Note KX Modifier Progress note by 05/26/24 Visit Start Time 09:03 Visit Stop Time 09:43 Visit Number 6 Number of ADJUNCT POLITICAL SCIENCE INSTRUCTOR Visits 0 Evaluation Information Evaluation Date 03/28/24 Precautions Precautions Pt has cognitive challenges, especially with exercises so need to keep them simple. Review and only progress [place] at this point. PT-OP-B Current Condition Start: 03/28/24 07:18 Freq: Status: Active Protocol: Document 03/28/24 13:50 MB (Rec: 03/28/24 14:11 MB [id number]) Current Condition History of Current Condition Onset Date Years Current Complaints Left knee pain intermittently History of Current Condition Pt just finished LSVT BIG. His right hip pain is better. His left knee has a flash point when going down the stairs and with stepping too far forward with left foot with BIG exercises. His left knee gave way several months ago and he almost tumbled down the steps. Prior Treatments and Tests Left knee x-rays revealed minimal osteoarthritis Treatment Goals Patient/Caregiver Goals To take care of pain PT-OP-C Subjective Start: 03/28/24 07:18 Freq: Status: Active Protocol: Document 04/25/24 09:03 MB (Rec: 04/25/24 09:45 MB [id number]) OP-PT Subjective Patient Comments Patient Comments Pt got a little confused on a few of the new exercises and has not had any pain in either knee in at least a week. Pt has not taped in over a week. PT-OP-D Balance Start: 03/28/24 07:18 Freq: Status: Active Protocol: Document 03/28/24 13:50 MB (Rec: 03/28/24 15:41 MB [id number]) Balance Tests Other Other Balance Tests Performed Tandem: left foot behind 3 sec and right foot behind 30 sec; SLS left 6 sec and right 0 sec. Pt's left knee jaden with PF MMT with heel raises next to the wall. PT-OP-G Mobility & Gait Start: 03/28/24 07:18 Freq: Status: Active Protocol: Document 03/28/24 13:50 MB (Rec: 03/28/24 14:11 MB [id number]) OP Gait Assessment Comments Gait Comments Decreased left arm swing, decreased left toe off with gait PT-OP-J Posture/Palpation/Skin Start: 03/28/24 07:18 Freq: Status: Active Protocol: Document 03/28/24 13:50 MB (Rec: 03/28/24 14:11 MB [id number]) Posture Evaluation Comments Posture Comments Standing with hoka shoes donned: right shoulder and shoulder blade higher and more forward than the left, thoracic convexity to the right, left iliac crest higher than the right. Metal sticking out near left AC joint after surgery. PT-OP-K Range of Motion Start: 03/28/24 07:18 Freq: Status: Active Protocol: Document 03/28/24 13:50 MB (Rec: 03/28/24 15:41 MB [id number]) Knee Goniometric Range of Motion Knee ROM Limitations Comments No ROM deficits noted PT-OP-M Strength Start: 03/28/24 07:18 Freq: Status: Active Protocol: Document 03/28/24 13:50 MB (Rec: 03/28/24 15:41 MB [id number]) Hip Strength Hip Manual Muscle Testing Left Flexion (L2) 4+ Good+ Extension (S1) 4+ Good+ Abduction 4+ Good+ Adduction 4+ Good+ Right Flexion (L2) 4+ Good+ Extension (S1) 4+ Good+ Abduction 4+ Good+ Adduction 4+ Good+ Knee Strength Knee Manual Muscle Testing Left Flexion (S2) 4+ Good+ Extension (L3) 4+ Good+ Right Flexion (S2) 5 Normal Extension (L3) 5 Normal Ankle/Foot Strength Ankle and Foot Manual Muscle Testing Left Dorsiflexion (L4) 5 Normal Plantarflexion (S1) 4+ Good+ Comments Evidence of left kne instability/potential to buckle with heel raises with knee straight in standing Right Dorsiflexion (L4) 5 Normal Plantarflexion (S1) 5 Normal Toe Strength Toe Manual Muscle Testing Left Great Toe Extension 5 Normal Right Great Toe Extension 5 Normal PT-OP-Q Treatments Start: 03/28/24 07:18 Freq: Status: Active Protocol: Document 04/25/24 09:03 MB (Rec: 04/25/24 09:45 MB [id number]) Therapeutic Exercises Supine Exercises Hamstring and AP and TFL stretch strap Side bilateral Equipment Used Pt's strap Reps/Minutes 30 APs for hamstring stretch, 30 sec hold TFL Comments 1 rep of each per leg Hip rotator stretch Side bilateral Reps/Minutes 30 sec, 2 reps each leg today Sitting Exercises Combined motion ankle DF and EV band looped around feet Side bilateral Equipment Used Level 2 band Reps/Minutes 10 reps slowly Comments Band looped around balls of feet Standing Exercises PF Comments 20 reps each leg for testing today TFL and QL stretches in doorway or at wall Comments Verbally reviewed today Other Exercises Verbal review of current HEP Comments Performed today for progress note PT-OP-T Assessment and Plan Start: 03/28/24 07:18 Freq: Status: Active Protocol: Document 04/25/24 09:03 MB (Rec: 04/25/24 09:45 MB [id number]) Physical Therapy Assessment Goals 3 Impairment Lack of program for LE strengthening and balance Impairment . Yard Switch Operator Goal (LTG) Pt will perform HEP with I including pelvic alignment, thoracic mobility, LE strengthening and balance exercises to improve balance and strength. 04/25/24: Pt has been performing flexibility exercises and some upright biking as well as BIG exercises. He is just starting strengthening and balance exercises. LTG Duration 6 weeks 2 Impairment Weak left PFs and knee instability with testing Impairment . Yard Switch Operator Goal (LTG) Pt will perform 20 reps heel raises LLE with finger support on wall without knee instability to improve functional strength, balance and MMT to 5/5. 04/25/24: Hands for balance support: B knees quiver and do not remain fully straight at about rep 13 and he is able to complete 20 reps. LTG Duration Goal met 1 Impairment LEF score reflects about 24% impairment Impairment . Care Home Goal (LTG) Pt will present with LEF score to reflect no more than 20% impairment to improve pain and quality of life. 04/25/24: LEF score is met and is 64/80, reflecting 20% impairment, and the goal cannot get any higher since his is not running or hopping. LTG Duration Goal met Assessment Summary Assessment Pt has met LEF and PF strength goals. Pt has reports of trouble remembering new exercises and ones given last treatment with multiple band movements were very challenging. PT condensed today to one looped band and combo movement. Also condensed posterior and lateral leg stretching. Con't with [place] progression. Pt does well with slow and repetetive exercise review and so more time with that today. Physical Therapy Plan Frequency and Duration Frequency of Treatment 2x/Week Duration of treatment (weeks) 6 Plan of Care Start Date 03/28/24 Plan of Care End Date 05/12/24 Therapeutic Interventions Therapeutic Interventions Balance Training,Canalithic Repositioning,Coordination Training,Gait Training,Home Exercise Program,Joint Mobilizations,Manual Therapy, Neuromuscular Re-education, Patient/Caregiver Education, Self-Care/Home Management,Soft Tissue Mobilization,Taping, Therapeutic Activities, Therapeutic Exercises, Vestibular Rehabilitation Modalities Cold Pack/Ice Massage,Electric Stimulation,Hot Packs, Ultrasound Next Visit Focus/Plan Next Note Type Treatment Note Next Visit Plan Review combined DF and eversion strengthening with band looped around both ankles and combined hamstring and AP stretch and then TFL stretches. Review current [place] exercises and progress.
--- NOTE | 2024-04-30 14:44 | PT.OTN ---
Current Diagnoses Strain of unspecified muscle(s) and tendon(s) at lower leg level, left leg, subsequent encounter (04/30/24) Physical Therapy Treatment Note PT-OP-A Visit Information Start: 03/28/24 07:18 Freq: Status: Active Protocol: Document 04/30/24 13:56 SP (Rec: 04/30/24 15:16 SP [id number]) Out-Patient Physical Therapy Visit Information Visit Information Visit Type Treatment Note Visit Note KX Modifier Progress note by 05/26/24 Pt 11 min late for appt. Visit Start Time 13:56 Visit Stop Time 14:44 Visit Number 7 Number of KIER TENDER Visits 1 Evaluation Information Evaluation Date 03/28/24 Precautions Precautions Pt has cognitive challenges, especially with exercises so need to keep them simple. Review and only progress [place] at this point. PT-OP-B Current Condition Start: 03/28/24 07:18 Freq: Status: Active Protocol: Document 03/28/24 13:50 MB (Rec: 03/28/24 14:11 MB [id number]) Current Condition History of Current Condition Onset Date Years Current Complaints Left knee pain intermittently History of Current Condition Pt just finished LSVT BIG. His right hip pain is better. His left knee has a flash point when going down the stairs and with stepping too far forward with left foot with BIG exercises. His left knee gave way several months ago and he almost tumbled down the steps. Prior Treatments and Tests Left knee x-rays revealed minimal osteoarthritis Treatment Goals Patient/Caregiver Goals To take care of pain PT-OP-C Subjective Start: 03/28/24 07:18 Freq: Status: Active Protocol: Document 04/30/24 13:56 SP (Rec: 04/30/24 15:16 SP [id number]) OP-PT Subjective Patient Comments Patient Comments Pt arrived with 1 leg weight from home in hand, wanting to know what exercises should be using leg weights with and if correct weight to use at home. He reports continuing to have lateral lower leg cramps at night, wants to review what can do with the strap to help give relief. PT-OP-D Balance Start: 03/28/24 07:18 Freq: Status: Active Protocol: Document 03/28/24 13:50 MB (Rec: 03/28/24 15:41 MB [id number]) Balance Tests Other Other Balance Tests Performed Tandem: left foot behind 3 sec and right foot behind 30 sec; SLS left 6 sec and right 0 sec. Pt's left knee jaden with PF MMT with heel raises next to the wall. PT-OP-G Mobility & Gait Start: 03/28/24 07:18 Freq: Status: Active Protocol: Document 03/28/24 13:50 MB (Rec: 03/28/24 14:11 MB [id number]) OP Gait Assessment Comments Gait Comments Decreased left arm swing, decreased left toe off with gait PT-OP-J Posture/Palpation/Skin Start: 03/28/24 07:18 Freq: Status: Active Protocol: Document 03/28/24 13:50 MB (Rec: 03/28/24 14:11 MB [id number]) Posture Evaluation Comments Posture Comments Standing with hoka shoes donned: right shoulder and shoulder blade higher and more forward than the left, thoracic convexity to the right, left iliac crest higher than the right. Metal sticking out near left AC joint after surgery. PT-OP-K Range of Motion Start: 03/28/24 07:18 Freq: Status: Active Protocol: Document 03/28/24 13:50 MB (Rec: 03/28/24 15:41 MB [id number]) Knee Goniometric Range of Motion Knee ROM Limitations Comments No ROM deficits noted PT-OP-M Strength Start: 03/28/24 07:18 Freq: Status: Active Protocol: Document 03/28/24 13:50 MB (Rec: 03/28/24 15:41 MB [id number]) Hip Strength Hip Manual Muscle Testing Left Flexion (L2) 4+ Good+ Extension (S1) 4+ Good+ Abduction 4+ Good+ Adduction 4+ Good+ Right Flexion (L2) 4+ Good+ Extension (S1) 4+ Good+ Abduction 4+ Good+ Adduction 4+ Good+ Knee Strength Knee Manual Muscle Testing Left Flexion (S2) 4+ Good+ Extension (L3) 4+ Good+ Right Flexion (S2) 5 Normal Extension (L3) 5 Normal Ankle/Foot Strength Ankle and Foot Manual Muscle Testing Left Dorsiflexion (L4) 5 Normal Plantarflexion (S1) 4+ Good+ Comments Evidence of left kne instability/potential to buckle with heel raises with knee straight in standing Right Dorsiflexion (L4) 5 Normal Plantarflexion (S1) 5 Normal Toe Strength Toe Manual Muscle Testing Left Great Toe Extension 5 Normal Right Great Toe Extension 5 Normal PT-OP-Q Treatments Start: 03/28/24 07:18 Freq: Status: Active Protocol: Document 04/30/24 13:56 SP (Rec: 04/30/24 15:16 SP [id number]) Therapeutic Exercises Supine Exercises Hamstring and AP and TFL stretch strap Side bilateral Equipment Used Pt's strap Reps/Minutes 1. 30 APs for hamstring stretch slow2. 30 sec hold TFL Comments 1 rep of each per leg Sitting Exercises Combined motion ankle DF and EV band looped around feet Side bilateral Equipment Used Level 2 band Reps/Minutes 15 reps slowly Comments Band looped around balls of feet [place] LAQ Sitting Exercise Name REveiwed HEP Side bilateral Resistance 2#> 2.5# leg wt (1 side weights 2.5 lb each leg) Reps/Minutes 1 x15 reps each side Comments painfree Standing Exercises [place] ex Standing Exercise Name Hip abd & Ext & HS curl /c wt Side bilateral Resistance 2# leg wt (1 side weights 2.5 lb each leg) Equipment Used rail/chair support (counter home) Reps/Minutes 1x10 each leg Comments pnfree, cued taller posture, closer to rail Self-Care/Home Management Treatment Education Patient Education Home Exercise Program Caregiver Education 10 min: Pt and discussion end tx, increased Tb #2 DF/ EVfor home (2nd time in PT, throw away #1 home for less confusion which band to use). Reviewed [place] exercises utilize 5 bars each leg sleeve (0.5lb each), put rest of bars in bag bring home. Min cues for taller posture and proper form using [place] HO. KIER TENDER provided pt and spouse education bring exercise handouts in each tx to identify how many sets & reps for home and times per week. Pt didn't remember doing [place] exercises before. Pt agreed to allow attend next tx to be sure giving pt support needed to perform HEP directing correctly due to multiple cues given in PT today. PT-OP-T Assessment and Plan Start: 03/28/24 07:18 Freq: Status: Active Protocol: Document 04/30/24 13:56 SP (Rec: 04/30/24 15:16 SP [id number]) Physical Therapy Assessment Goals 3 Impairment Lack of program for LE strengthening and balance Impairment . Jack Prizer Goal (LTG) Pt will perform HEP with I including pelvic alignment, thoracic mobility, LE strengthening and balance exercises to improve balance and strength. 04/25/24: Pt has been performing flexibility exercises and some upright biking as well as BIG exercises. He is just starting strengthening and balance exercises. LTG Duration 6 weeks Assessment Summary Assessment Pt had fair recall with leg stretches using strap for leg cramp reduction home, KIER TENDER provided minimal feedback needed for holding stretch and slower ankle pump. Pt didn 't recall [place] exercises until showed hand out. Mod cues for proper form. Education on use of personal leg wt, set up for 2.5 lbs today, an increased of 0.5 today, put rest in bag to take home. KIER TENDER provided education to pt and end tx how can progress adding 0.5 lb bar to each leg sleeve as exercises get easier. Pt reports no pain with exercises today, feel good. Pt will attend next tx. Physical Therapy Plan Frequency and Duration Frequency of Treatment 2x/Week Duration of treatment (weeks) 6 Plan of Care Start Date 03/28/24 Plan of Care End Date 05/12/24 Therapeutic Interventions Therapeutic Interventions Balance Training,Canalithic Repositioning,Coordination Training,Gait Training,Home Exercise Program,Joint Mobilizations,Manual Therapy, Neuromuscular Re-education, Patient/Caregiver Education, Self-Care/Home Management,Soft Tissue Mobilization,Taping, Therapeutic Activities, Therapeutic Exercises, Vestibular Rehabilitation Modalities Cold Pack/Ice Massage,Electric Stimulation,Hot Packs, Ultrasound Next Visit Focus/Plan Next Note Type Treatment Note Next Visit Plan REview HEP /c HOs with pt and next tx for carryover home. Review current [place] exercises:LAQ, HS, ABD with weight; HR, STS AROM and progress as tolerated.
--- NOTE | 2024-05-02 14:35 | PT.OTN ---
Current Diagnoses Strain of unspecified muscle(s) and tendon(s) at lower leg level, left leg, subsequent encounter (05/02/24) Physical Therapy Treatment Note PT-OP-A Visit Information Start: 03/28/24 07:18 Freq: Status: Active Protocol: Document 05/02/24 13:54 SP (Rec: 05/02/24 14:34 SP [id number]) Out-Patient Physical Therapy Visit Information Visit Information Visit Type Treatment Note Visit Note KX Modifier Visit Start Time 13:54 Visit Stop Time 14:35 Visit Number 8 Number of INFANTRYMAN Visits 2 Evaluation Information Evaluation Date 03/28/24 Precautions Precautions Pt has cognitive challenges, especially with exercises so need to keep them simple. Review and only progress Otago at this point. PT-OP-B Current Condition Start: 03/28/24 07:18 Freq: Status: Active Protocol: Document 03/28/24 13:50 MB (Rec: 03/28/24 14:11 MB [id number]) Current Condition History of Current Condition Onset Date Years Current Complaints Left knee pain intermittently History of Current Condition Pt just finished LSVT BIG. His right hip pain is better. His left knee has a flash point when going down the stairs and with stepping too far forward with left foot with BIG exercises. His left knee gave way several months ago and he almost tumbled down the steps. Prior Treatments and Tests Left knee x-rays revealed minimal osteoarthritis Treatment Goals Patient/Caregiver Goals To take care of pain PT-OP-C Subjective Start: 03/28/24 07:18 Freq: Status: Active Protocol: Document 05/02/24 13:54 SP (Rec: 05/02/24 14:34 SP [id number]) OP-PT Subjective Patient Comments Patient Comments Pt states no pain anymore, questions about the DF/EV, heel stay on ground while time and muscles fatigue quicker going really slow as written 10 reps Otago ex, pretty challenging only get 7 reps. PT-OP-D Balance Start: 03/28/24 07:18 Freq: Status: Active Protocol: Document 03/28/24 13:50 MB (Rec: 03/28/24 15:41 MB [id number]) Balance Tests Other Other Balance Tests Performed Tandem: left foot behind 3 sec and right foot behind 30 sec; SLS left 6 sec and right 0 sec. Pt's left knee jaden with PF MMT with heel raises next to the wall. PT-OP-G Mobility & Gait Start: 03/28/24 07:18 Freq: Status: Active Protocol: Document 03/28/24 13:50 MB (Rec: 03/28/24 14:11 MB [id number]) OP Gait Assessment Comments Gait Comments Decreased left arm swing, decreased left toe off with gait PT-OP-J Posture/Palpation/Skin Start: 03/28/24 07:18 Freq: Status: Active Protocol: Document 03/28/24 13:50 MB (Rec: 03/28/24 14:11 MB [id number]) Posture Evaluation Comments Posture Comments Standing with hoka shoes donned: right shoulder and shoulder blade higher and more forward than the left, thoracic convexity to the right, left iliac crest higher than the right. Metal sticking out near left AC joint after surgery. PT-OP-K Range of Motion Start: 03/28/24 07:18 Freq: Status: Active Protocol: Document 03/28/24 13:50 MB (Rec: 03/28/24 15:41 MB [id number]) Knee Goniometric Range of Motion Knee ROM Limitations Comments No ROM deficits noted PT-OP-M Strength Start: 03/28/24 07:18 Freq: Status: Active Protocol: Document 03/28/24 13:50 MB (Rec: 03/28/24 15:41 MB [id number]) Hip Strength Hip Manual Muscle Testing Left Flexion (L2) 4+ Good+ Extension (S1) 4+ Good+ Abduction 4+ Good+ Adduction 4+ Good+ Right Flexion (L2) 4+ Good+ Extension (S1) 4+ Good+ Abduction 4+ Good+ Adduction 4+ Good+ Knee Strength Knee Manual Muscle Testing Left Flexion (S2) 4+ Good+ Extension (L3) 4+ Good+ Right Flexion (S2) 5 Normal Extension (L3) 5 Normal Ankle/Foot Strength Ankle and Foot Manual Muscle Testing Left Dorsiflexion (L4) 5 Normal Plantarflexion (S1) 4+ Good+ Comments Evidence of left kne instability/potential to buckle with heel raises with knee straight in standing Right Dorsiflexion (L4) 5 Normal Plantarflexion (S1) 5 Normal Toe Strength Toe Manual Muscle Testing Left Great Toe Extension 5 Normal Right Great Toe Extension 5 Normal PT-OP-Q Treatments Start: 03/28/24 07:18 Freq: Status: Active Protocol: Document 05/02/24 13:54 SP (Rec: 05/02/24 14:34 SP [id number]) Therapeutic Exercises Sitting Exercises Combined motion ankle DF and EV band looped around feet Sitting Exercise Name Band looped around balls of feet Side bilateral Equipment Used Level 2 band Reps/Minutes 15 reps slowly Comments good form Otago LAQ Sitting Exercise Name REveiwed HEP Side bilateral Resistance 2#> 2.5# leg wt (1 side weights 2.5 lb each leg) Reps/Minutes 1 x15 reps each side Comments painfree Standing Exercises Ot[place] ex Standing Exercise Name Hip abd & Ext & HS curl /c wt Side bilateral Resistance 2# leg wt (1 side weights 2.5 lb each leg) Equipment Used rail/chair support (counter home) Reps/Minutes 1x10 each leg Comments pnfree, cued taller posture, closer to rail Self-Care/Home Management Treatment Education Patient Education Home Exercise Program Caregiver Education INFANTRYMAN called pt'swife end tx ( didn't attend per pt request not needed). INFANTRYMAN recommended leg weights that just velcro fold over other side vs current velcro feed through loop, will discuss with pt. stated can give pt cues and assist as needed for Otago exercises 2 sets 3x/wk. She had good understanding if feel easy progress 1/2 lb at time. Other Education INFANTRYMAN benji out verbage on Otago exercise sheet that was confusing to patient about going slow, he was going to slow and causing more of a challenge. Better form with reduction cues. PT-OP-T Assessment and Plan Start: 03/28/24 07:18 Freq: Status: Active Protocol: Document 05/02/24 13:54 SP (Rec: 05/02/24 14:34 SP [id number]) Physical Therapy Assessment Goals 3 Impairment Lack of program for LE strengthening and balance Impairment . Intermediate Goal (LTG) Pt will perform HEP with I including pelvic alignment, thoracic mobility, LE strengthening and balance exercises to improve balance and strength. 04/25/24: Pt has been performing flexibility exercises and some upright biking as well as BIG exercises. He is just starting strengthening and balance exercises. 05/02/24: 2x10 Otago: LAQ, hip abd, HS curls, LSVT BIG STS. Occasional cues proper pacing leg lifts, was going to slow causing more challenge than needed. LTG Duration 6 weeks GOAL MET 05/02/24 Assessment Summary Assessment Pt improved Otago form and pacing with ed cues similar to 2 sec up/2 sec down, was performing to slow at home, misunderstood written. INFANTRYMAN benji out much of Otago verbage for ease understanding improved independence. Takes patient time don leg weight (2 .5 lbs each leg) due to velcro need feed through loop and back onto itelf. INFANTRYMAN suggested to and pt maybe get another pair that just fold onto itself for ease. Pt reported felt more confident with Otago exercises and wanted to continue at home. INFANTRYMAN discussed not met his last goal and feel he can continue on his own: [place] ex 3x/wk and LSVT Big 3x/wk with 1 day off and is plenty to do and not over taxing himself with agreement with pt. PT will complete DC and last appts will be deleted. INFANTRYMAN Spoke with PT and in agreement pt is ready to DC to HEP. Physical Therapy Plan Frequency and Duration Frequency of Treatment 2x/Week Duration of treatment (weeks) 6 Plan of Care Start Date 03/28/24 Plan of Care End Date 05/12/24 Therapeutic Interventions Therapeutic Interventions Balance Training,Canalithic Repositioning,Coordination Training,Gait Training,Home Exercise Program,Joint Mobilizations,Manual Therapy, Neuromuscular Re-education, Patient/Caregiver Education, Self-Care/Home Management,Soft Tissue Mobilization,Taping, Therapeutic Activities, Therapeutic Exercises, Vestibular Rehabilitation Modalities Cold Pack/Ice Massage,Electric Stimulation,Hot Packs, Ultrasound Next Visit Focus/Plan Next Note Type Discharge Summary Next Visit Plan PT to complete DC. Schedulers deleted remaining appts.
--- NOTE | 2024-05-03 07:34 | PT.OPDS ---
Current Diagnoses Strain of unspecified muscle(s) and tendon(s) at lower leg level, left leg, subsequent encounter (05/02/24) Visit Care Team Role Provider Type Pantera Riggins MD Family Provider Physician Primary Care Provider Specialty: Family Practice Address: [address] [place] [address] Email: [email or web address] Annita Matamoros PA-C Attending Provider [employer] Appointments Supervisor Referring Provider Specialty: Medical Wound Care Address: [address] [place] [address], [facility] Email: [email or web address] Visit Number Visit Number 8 Discharge Summary PT-OP-B Current Condition Start: 03/28/24 07:18 Freq: Status: Active Protocol: Document 03/28/24 13:50 MB (Rec: 03/28/24 14:11 MB [id number]) Current Condition History of Current Condition Onset Date Years Current Complaints Left knee pain intermittently History of Current Condition Pt just finished LSVT BIG. His right hip pain is better. His left knee has a flash point when going down the stairs and with stepping too far forward with left foot with BIG exercises. His left knee gave way several months ago and he almost tumbled down the steps. Prior Treatments and Tests Left knee x-rays revealed minimal osteoarthritis Treatment Goals Patient/Caregiver Goals To take care of pain PT-OP-C Subjective Start: 03/28/24 07:18 Freq: Status: Active Protocol: Document 05/02/24 13:54 SP (Rec: 05/02/24 14:34 SP [id number]) OP-PT Subjective Patient Comments Patient Comments Pt states no pain anymore, questions about the DF/EV, heel stay on ground while time and muscles fatigue quicker going really slow as written 10 reps [place] ex, pretty challenging only get 7 reps. PT-OP-D Balance Start: 03/28/24 07:18 Freq: Status: Active Protocol: Document 03/28/24 13:50 MB (Rec: 03/28/24 15:41 MB [id number]) Balance Tests Other Other Balance Tests Performed Tandem: left foot behind 3 sec and right foot behind 30 sec; SLS left 6 sec and right 0 sec. Pt's left knee jaden with PF MMT with heel raises next to the wall. PT-OP-G Mobility & Gait Start: 03/28/24 07:18 Freq: Status: Active Protocol: Document 03/28/24 13:50 MB (Rec: 03/28/24 14:11 MB [id number]) OP Gait Assessment Comments Gait Comments Decreased left arm swing, decreased left toe off with gait PT-OP-J Posture/Palpation/Skin Start: 03/28/24 07:18 Freq: Status: Active Protocol: Document 03/28/24 13:50 MB (Rec: 03/28/24 14:11 MB [id number]) Posture Evaluation Comments Posture Comments Standing with hoka shoes donned: right shoulder and shoulder blade higher and more forward than the left, thoracic convexity to the right, left iliac crest higher than the right. Metal sticking out near left AC joint after surgery. PT-OP-K Range of Motion Start: 03/28/24 07:18 Freq: Status: Active Protocol: Document 03/28/24 13:50 MB (Rec: 03/28/24 15:41 MB [id number]) Knee Goniometric Range of Motion Knee ROM Limitations Comments No ROM deficits noted PT-OP-M Strength Start: 03/28/24 07:18 Freq: Status: Active Protocol: Document 03/28/24 13:50 MB (Rec: 03/28/24 15:41 MB [id number]) Hip Strength Hip Manual Muscle Testing Left Flexion (L2) 4+ Good+ Extension (S1) 4+ Good+ Abduction 4+ Good+ Adduction 4+ Good+ Right Flexion (L2) 4+ Good+ Extension (S1) 4+ Good+ Abduction 4+ Good+ Adduction 4+ Good+ Knee Strength Knee Manual Muscle Testing Left Flexion (S2) 4+ Good+ Extension (L3) 4+ Good+ Right Flexion (S2) 5 Normal Extension (L3) 5 Normal Ankle/Foot Strength Ankle and Foot Manual Muscle Testing Left Dorsiflexion (L4) 5 Normal Plantarflexion (S1) 4+ Good+ Comments Evidence of left kne instability/potential to buckle with heel raises with knee straight in standing Right Dorsiflexion (L4) 5 Normal Plantarflexion (S1) 5 Normal Toe Strength Toe Manual Muscle Testing Left Great Toe Extension 5 Normal Right Great Toe Extension 5 Normal PT-OP-T Assessment and Plan Start: 03/28/24 07:18 Freq: Status: Active Protocol: Document 05/03/24 07:32 MB (Rec: 05/03/24 07:34 MB [id number]) Physical Therapy Assessment Assessment Summary Assessment Pt has done well with PT, has progressed towards goals and is ready to d/c. Pt's knee is feeling better and he has a large amount of exercises including LSVT BIG daily program from previous PT course and flexibility and Otago exercises from this PT course. Cognition is a challenge with learning new exercises and pt is very compliant and has a supportive . Will d/c PT.
== END 2024-05-18 10:41 | disposition home or self-care (01) ==
LOC: PHYS 13:45
PROVIDERS: Family Provider Family Medicine; PCP Family Medicine; Referring Provider Physician Assistant; Visit Provider Physician Assistant
DX: S86.912D Strain of unspecified muscle(s) and tendon(s) at lower leg level, left leg, subsequent encounter (principal)
CPT/HCPCS: 97110; 97140; 97161; 97535

== ENCOUNTER → 2024-05-30 18:22 | Outpatient (CLI) | payer MEDICARE, OTHER, SELFPAY ==
[2024-05-30 19:07] LABS: Influenza A - CEPHEID Flu A NEGATIVE (NEGATIVE); Influenza B - CEPHEID Flu B NEGATIVE (NEGATIVE); Respiratory Syncytial Virus Negative (Negative)
[2024-05-30 19:16] LABS: COVID-19 CEPHEID 4-PLEX PCR POSITIVE (Negative)
== END ==
PROVIDERS: Family Provider Family Medicine; PCP Family Medicine; Referring Provider Nurse Practitioner Family; Visit Provider Nurse Practitioner Family
DX: R05.1 Acute cough (principal)
CPT/HCPCS: 0241U

== ENCOUNTER 2024-05-31 08:09 | Emergency (ER) | payer MEDICARE, OTHER, SELFPAY ==
[2024-05-31] VITALS (14 sets, daily range): BP systolic 113–136; BP diastolic 55–60; PULSE 78–91; RESP 16–18; TEMP 37.7–38.9; O2SAT 94–96; BMI 25.1
--- NOTE | 2024-05-31 08:19 | ED_ITS ---
HPI - Weakness General Chief complaint: Fever Stated complaint: Weakness, Fever, Covid + Time Seen by Provider: 05/31/24 08:17 Source: patient, EMS, RN notes reviewed and old records reviewed Mode of arrival: EMS Limitations: no limitations History of Present Illness HPI Narrative: 74-year-old male medical history of diabetes, BPH, hyperlipidemia, Parkinson's who presents with complaint of recent diagnosis of COVID, fever and weakness patient states he has had a little bit of nasal congestion, describes some muscle aches. He denies any headache, denies any chest pain, denies any shortness of breath, no nausea, no vomiting, denies any diarrhea or constipation, denies any dysuria urgency or frequency. States he has been weaker. States he was able to stand and walk today he does not normally use a walker. EMS states his said he was too weak at home for her to care for him was brought to the emergency department. He was febrile in the field at 1:02 a.m. F as well as here. He has not had any Tylenol or ibuprofen for his fever today. Patient denies any drug allergies. Former smoker, no regular alcohol, no IV or recreational drugs. Dr. Riggins is his primary care physician. Related Data Home Medications Medication Instructions Recorded Confirmed naproxen sodium 220 mg tablet 220 mg PO BIDCC PRN Pain (Scale 08/19/16 05/30/24 (Aleve) Score 1-3) ##0 cholecalciferol (vitamin D3) 125 125 mcg PO DAILY 05/12/21 05/31/24 mcg (5,000 unit) tablet (Vitamin D3) magnesium chloride 64 mg 64 mg PO DAILY 05/12/21 05/30/24 (magnesium chloride) tablet vitamin B complex 1 tab PO DAILY 05/12/21 05/30/24 carbidopa 25 mg-levodopa 100 mg 2 tab PO BEDTIME 02/10/23 05/31/24 tablet (Sinemet) trospium 20 mg tablet 20 mg PO BID 12/21/23 05/30/24 linaclotide 145 mcg capsule 145 mcg PO DAILY 05/30/24 05/31/24 (Linzess) Previous Rx's Medication Instructions Recorded blood sugar diagnostic (True #100 ea 07/29/23 Metrix Glucose Test Strip) lancets 30 gauge #200 ea 07/29/23 donepezil 5 mg tablet 5 mg PO DAILY #90 tabs 10/26/23 ipratropium bromide 21 mcg (0.03 See Rx Instructions .Route 01/23/24 %) nasal spray .COMPLEX #30 mL lubiprostone 24 mcg capsule 24 mcg PO BID #180 caps 04/03/24 metformin 500 mg tablet,extended See Rx Instructions .Route 04/09/24 release 24 hr .COMPLEX #360 tabs rosuvastatin 5 mg tablet 5 mg PO DAILY #90 tabs 04/09/24 lisinopril 5 mg tablet See Rx Instructions .Route 04/11/24 .COMPLEX #90 tabs tamsulosin 0.4 mg capsule (Flomax) 0.4 mg PO BID #180 caps 04/26/24 semaglutide 0.25 mg or 0.5 mg (2 0.5 mg (0.736 mL) SUBCUT QWEEK #3 05/11/24 mg/3 mL) subcutaneous pen injector mL (Ozempic) nirmatrelvir 300 mg (150 mg See Rx Instructions PO .COMPLEX 05/30/24 x2)-ritonavir 100 mg tablet,dose #30 ea pack (Paxlovid) Allergies Allergy/AdvReac Type Severity Reaction Status Date / Time No Known Drug Allergies Allergy Verified 02/07/24 13:03 Review of Systems Review of Systems ROS Unobtainable: All systems reviewed & are unremarkable except as noted in HPI and below Patient History Medical History Parkinson disease BPH w urinary obs/LUTS History of broken collarbone History of Parkinson's disease Dermatitis 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 Hyperlipidemia BPH (benign prostatic hyperplasia) Diabetes mellitus Surgical History H/O vasectomy History of colonoscopy Family History Sister Cancer Brother Motorcycle accident Social History number of children: 1 household members: spouse Smoking Status: Former smoker alcohol intake: current substance use type: marijuana Type(s) of exercise: walking frequency: daily Smoking Status: Former smoker alcohol intake frequency: holidays/special occasions only Substance Use Type: marijuana Exam Narrative Exam Narrative: GEN: well nourished, well appearing elderly male, alert and oriented x 3, patient appears to be in mild distress. Patient is warm to the touch. Patient is slow to respond has flat affect consistent with history of Parkinson's disease. HEENT: Atraumatic, pupils are equal round reactive to light, extraocular movements are intact, nares are clear, there is no conjunctival pallor. Throat is clear without any exudates, erythema, tonsillar enlargement or uvular deviation HEART: Regular rate and rhythm without murmur, clicks, rubs. Pulses are equal in upper and lower extremities LUNGS:Lungs clear to auscultation, no wheezes, rales, crackles, chest moves symmetrically, no tachypnea or accessory muscle use ABD:bowel sounds normal, soft, non-tender, no guarding, rebound, rigidity, no masses noted, no hepatosplenomegaly :No CVA tenderness MSCL: Non-tender, no muscle atrophy, muscles strength 5/5 upper and lower extremities, full range of motion. NEURO:CN 2-12 intact, sensation normal SKIN: No rash, no erythema or warmth noted. Initial Vital Signs Initial Vital Signs: Vital Signs Pulse Rate 89 05/31/24 08:13 Blood Pressure 136/60 05/31/24 08:13 Pulse Oximetry 96 05/31/24 08:13 Course Orders Ordered: Discontinued Medications Acetaminophen (Acetaminophen 325 Mg Tablet) 975 mg PO NOW ONE Stop: 05/31/24 08:18 Last Admin: 05/31/24 08:31 Dose: 975 mg Documented By: BARRY Sodium Chloride (Normal Saline 0.9%) 1,000 mls @ 500 mls/hr IV BOLUS ONE Stop: 05/31/24 10:16 Last Infusion: 05/31/24 09:46 Dose: 0 mls/hr Documented By: Infusion: 05/31/24 09:45 Dose: 0 mls/hr Documented By: Admin: 05/31/24 08:31 Dose: 500 mls/hr Documented By: BARRY Vital Signs Vital signs: Vital Signs - 8 hr 05/31/24 08:13 05/31/24 08:13 05/31/24 08:17 Temperature Pulse Rate 89 88 Respiratory Rate 18 Blood Pressure 136/60 120/59 L Pulse Oximetry 96 96 Oxygen Delivery Method Room Air 05/31/24 08:30 05/31/24 08:30 05/31/24 08:31 Temperature 102.0 F H Pulse Rate 87 Respiratory Rate Blood Pressure 120/59 L Pulse Oximetry 96 Oxygen Delivery Method 05/31/24 08:41 05/31/24 08:45 05/31/24 08:59 Temperature 102 F H 102 F H Pulse Rate 88 84 89 Respiratory Rate 18 16 Blood Pressure 136/60 120/59 L Pulse Oximetry 96 96 95 Oxygen Delivery Method Room Air Room Air 05/31/24 08:59 05/31/24 09:00 05/31/24 09:00 Temperature Pulse Rate 89 Respiratory Rate Blood Pressure 125/60 127/60 Pulse Oximetry 95 Oxygen Delivery Method 05/31/24 09:30 05/31/24 09:30 05/31/24 10:00 Temperature 100.1 F H Pulse Rate 91 H Respiratory Rate Blood Pressure 123/58 L 114/58 L Pulse Oximetry 95 Oxygen Delivery Method 05/31/24 10:00 05/31/24 10:22 05/31/24 10:28 Temperature 99.8 F H Pulse Rate 84 89 79 Respiratory Rate 16 Blood Pressure 117/55 L Pulse Oximetry 95 94 95 Oxygen Delivery Method Room Air MDM - Weakness Lab Data 05/31/24 08:22 05/31/24 08:22 Labs: Lab Results 05/31/24 05/31/24 05/31/24 Range/Units 08:18 08:22 09:00 WBC 7.9 (4.5-11.0) X10^3/uL RBC 4.32 L (4.5-5.9) X10^6/uL Hgb 13.7 (13.5-17.5) g/dL Hct 40.4 L (41-53) % MCV 93.6 (80-100) fL MCH 31.7 (26-34) PG MCHC 33.9 (30-36) % RDW 13.9 (11.6-14.8) % Plt Count 146 L (150-400) X10^3/uL Neut % (Auto) 85.9 H (50-75) % Lymph % (Auto) 7.0 L (25-40) % Norton % (Auto) 6.5 (3-14) % Eos % (Auto) 0.0 L (2-4) % Baso % (Auto) 0.6 (0-2) % Neut # (Auto) 6800 (5543-6380) /uL Lymph # (Auto) 500 L (2935-1803) /uL Norton # (Auto) 500 (0-900) /uL Eos # (Auto) 0 (0-450) /uL Baso # (Auto) 0 (0-100) /uL Sodium 134 L (137-145) mmol/L Potassium 4.5 (3.4-5.1) mmol/L Chloride 102 (98-107) mmol/L Carbon Dioxide 22 (22-32) mmol/L BUN 17 (9-20) mg/dL Creatinine 0.85 (0.66-1.25) mg/dL Estimated GFR > 60 (>60) mL/min BUN/Creatinine Ratio 20.0 (6-22) Glucose 150 H (80-110) mg/dL Lactate 1.3 (0.7-2.1) mmol/L Calcium 9.3 (8.4-10.2) mg/dL Total Bilirubin 0.8 (0.2-1.3) mg/dL AST 35 (17-59) IU/L ALT 22 (<50) IU/L Alkaline Phosphatase 63 (38-126) U/L Total Protein 7.5 (6.3-8.2) g/dL Albumin 4.7 (3.5-5.0) g/dL Globulin 2.8 (1.7-4.1) g/dL Albumin/Globulin Ratio 1.7 (1.0-2.8) Procalcitonin 0.096 (<0.5) ng/mL Urine Color Yellow Urine Appearance Clear Urine pH 5.5 (4.5-8.0) Ur Specific Maxwell 1.020 (1.000-1.035) Urine Protein Trace H (Negative) Urine Glucose (UA) Negative (Negative) g/dL Urine Ketones 1+ H (NEGATIVE) Urine Occult Blood Negative (Negative) Urine Nitrate Negative (Negative) Urine Bilirubin Negative (NEGATIVE) Urine Urobilinogen 1.0 (0.2) E.U./dL Ur Leukocyte Esterase Negative (NEGATIVE) Urine RBC 0-1/hpf (0-5/HPF) Urine WBC 0-1/hpf (0-5/HPF) Ur Squamous Epith Cells 0-1 /hpf (0-5/HPF) Urine Bacteria Occasional (0-1) (None) Ur Culture Indicated? Cult not indicated Vol Urine Centrifuged 10ml (spun) SARS-CoV-2 (PCR) Positive H (Negative) Influenza A (RT-PCR) Flu a negative (NEGATIVE) Influenza B (RT-PCR) Flu b negative (NEGATIVE) RSV (PCR) Negative (Negative) Imaging Data Chest x-ray: Radiologist Impression: [address] [address] XRay Report Signed Patient: Koby Coe MR#: [id number] : 1950 Acct:[id number] Age/Sex: 74 / M Date of Service: 05/31/24 Loc: ED Accession Number: [id number] Procedure: XR chest 1V Ordering Provider: Mary Fall D.O. PROCEDURE: XR CHEST 1V INDICATIONS: covid at home, fever, weakness TECHNIQUE: One view of the chest was acquired. COMPARISON: [facility], , XR CHEST 2V, 08/30/2022, 20:31. FINDINGS: New moderate bilateral perihilar and lower lobe peribronchial thickening with patchy predominantly lower lobe opacities consistent with reported history of viral infection, COVID-19 per notes. Bronchitis, bronchopneumonia could have a similar appearance. New mild bibasilar subsegmental atelectasis some of which may be related expiratory result. Mild calcifications of the aortic arch and mildly tortuous aorta unchanged. Moderate degenerate changes of the thoracic spine and shoulders. Postoperative changes status post ORIF distal left clavicle with callus formation and coracoclavicular heterotopic calcifications unchanged. No pneumothorax, no pleural effusion, no lobar consolidation. Cardiopericardial silhouette and pulmonary vasculature within normal limits. IMPRESSION: New moderate bilateral peribronchial thickening with patchy opacities consistent with reported history of COVID-19. Bronchitis, bronchopneumonia could have a similar appearance. New mild bibasilar subsegmental atelectasis. Dictated by: Karl Howard M.D. on 05/31/2024 at 9:02 Approved by: Karl Howard M.D. on 05/31/2024 at 9:06 ECG Data Attestation: I personally reviewed and interpreted this ECG as follows: Prior ECG tracings: available for review Interpretation: Sinus rhythm rate 84 OK 180 6q RS of [address] No acute [address] changes appreciated. Prior from 08/31/2022 appears similar. [facility] Narrative Medical decision making narrative: 74-year-old male history of Parkinson's disease diabetes hypertension dyslipidemia who presents with complaint of fever and weakness with recent COVID diagnosis. Patient is febrile here in the department otherwise appropriate vitals, glucose was 181 in the field. Labs patient has a white count of 7.9 hemoglobin of 13.7, platelets of 146 patient has been intermittently thrombocytopenic on prior labs. Predominance of neutrophils. Sodium 134 potassium 4.5 chloride of 102 CO2 of 22 BUN 17 creatinine 0.85 glucose of 150 lactate 1.3 calcium 9.3 total bili 0.8 AST ALT are 02/08/2022 and alk-phos of 63, procalcitonin 0.096 COVID/influenza/RSV swab, patient positive for COVID on respiratory swab. Chest x-ray patient has peribronchial cuffing and changes consistent with COVID- 19 pneumonia. Urine, trace protein 1+ ketones, negative for nitrates negative for leukocyte esterase 1 red cell 1 white cell 1 squamous, occasional bacteria. EKG shows sinus rhythm Patient was given Tylenol and fluids here in the department. Temperature is improving. Ambulation trial after fluids were completed Patient meets septic criteria based on temperature and pulse patient has a clear viral source of his infection so was not given antibiotics did not give at 30 cc/kilos bolus as this is not recommended with COVID pneumonia. Patient has not been hypoxic so I have not started dexamethasone. 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 Patient fever improved, he was able to ambulate here in the department, 95% on room air, heart rate was a maximum of 90s. He seems much improved as his temperatures come down. Patient is felt appropriate for discharge but with strict return precautions. Discussed risks versus benefits of Paxlovid he will have to stop some of his medications but he is little bit more frail and might benefit. Patient's family would very much like to have him on Paxlovid. Discharge Plan Departure Patient Disposition: Home Clinical Impression: COVID-19 virus infection Instructions: DI for COVID-19 (Suspected or Confirmed ) Activity Restrictions/Additional Instructions: Your labs today were overall reassuring you are positive for COVID 19. Continue your home medications except for your statin and tamsulosin if you take the prescription of Paxlovid prescribed from the walk-in clinic. You can continue other medications as prescribed. Feel free to verify this with the pharmacist. Paxlovid can sometimes result in rebound symptoms once it completed. Make sure you treat fevers with Tylenol and/or ibuprofen as this can often make people weaker and more confused. Please return to the emergency department if you are having worsening symptoms, increasing confusion, increasing weakness, difficulty with breathing, lightheadedness or passing out, vomiting, any signs of dehydration or other new or concerning changes. Prescriptions: No Action Linzess 145 mcg capsule 145 mcg PO DAILY naproxen sodium [Aleve] 220 MG tablet 220 mg PO BIDCC PRN (Reason: Pain (Scale Score 1-3)) Qty: 0 (DME) lancets 30 gauge misc See Rx Instructions .Route Qty: 200 6RF Rx Instructions: As directed, to test glucose up to 4x daily (DME) True Metrix Glucose Test Strip Strip See Rx Instructions .ROUTE .COMPLEX Qty: 100 12RF Dose Instruction: USE TO TEST BLOOD GLUCOSE 1 TIME PER DAY DIRECTED Rx Instructions: USE TO TEST BLOOD GLUCOSE UP TO 4X DAILY donepezil 5 mg tablet 5 mg PO DAILY Qty: 90 0RF ipratropium bromide 21 mcg (0.03 %) spray,non-aerosol See Rx Instructions .ROUTE .COMPLEX Qty: 30 7RF Dose Instruction: USE 2 SPRAYS IN EACH NOSTRIL TWICE A DAY Rx Instructions: USE 2 SPRAYS IN EACH NOSTRIL TWICE A DAY lubiprostone 24 mcg capsule 24 mcg PO BID Qty: 180 3RF metformin 500 mg tablet extended release 24 hr See Rx Instructions .ROUTE .COMPLEX Qty: 360 3RF Dose Instruction: TAKE 4 TABLETS ( 2000 MG ) DAILY Rx Instructions: TAKE 4 TABLETS ( 2000 MG ) DAILY rosuvastatin 5 mg tablet 5 mg PO DAILY Qty: 90 3RF lisinopril 5 mg tablet See Rx Instructions .ROUTE .COMPLEX Qty: 90 1RF Dose Instruction: TAKE 1 TABLET DAILY Rx Instructions: TAKE 1 TABLET DAILY tamsulosin [Flomax] 0.4 mg capsule 0.4 mg PO BID Qty: 180 3RF Ozempic 0.25 mg or 0.5 mg (2 mg/3 mL) pen injector 0.5 mg SUBCUT QWEEK Qty: 3 3RF Paxlovid 300 mg (150 mg x 2)-100 mg tablets,dose pack See Rx Instructions PO .COMPLEX Qty: 30 0RF Rx Instructions: take TWO 150 mg tablets of nirmatrelvir with ONE 100 mg tablet of ritonavir twice daily for 5 days PO carbidopa-levodopa [Sinemet] 25-100 mg tablet 2 tab PO BEDTIME trospium 20 mg tablet 20 mg PO BID Rx Instructions: administer on an empty stomach cholecalciferol (vitamin D3) [Vitamin D3] 125 mcg (5,000 unit) Tablet 125 mcg PO DAILY magnesium chloride 64 mg magnesium Tablet 64 mg PO DAILY vitamin B complex Tablet 1 tab PO DAILY Referrals: Pantera Riggins MD [Primary Care Provider] - Stand Alone Forms: Patient Portal/API
[2024-05-31] MEDS: ACETAMINOPHEN 325 MG TABLET 975 MG PO (08:31)
[2024-05-31] MEDS: SODIUM CHLORIDE 0.9% 1,000 ML 500 ML IV (08:31)
[2024-05-31 08:32] LABS: Add Manual Diff / Slide Review NO; Basophils Absolute Auto 0 /uL (0-100); Basophils Percent Auto 0.6 % (0-2); Eosinophils Absolute Auto 0 /uL (0-450); Hematocrit 40.4 % (41-53); Hemoglobin 13.7 g/dL (13.5-17.5); Lymphocytes Absolute Auto 500 /uL (1100-4500); Mean Corpuscular HGB Conc 33.9 % (30-36); Mean Corpuscular Hemoglobin 31.7 PG (26-34); Mean Corpuscular Volume 93.6 fL (80-100); Monocytes Absolute Auto 500 /uL (0-900); Monocytes Percent Auto 6.5 % (3-14); Neutrophils Absolute Auto 6800 /uL (1500-7000); Neutrophils Percent Auto 85.9 % (50-75); Platelet Count 146 X10^3/uL (150-400); Red Blood Cell Count 4.32 X10^6/uL (4.5-5.9); Red Cell Distribution Width 13.9 % (11.6-14.8); White Blood Cell Count 7.9 X10^3/uL (4.5-11.0)
--- NOTE | 2024-05-31 08:33 | EKG_ITS ---
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
[2024-05-31 08:43] LABS: Alanine Aminotransferase 22 IU/L (<50); Albumin 4.7 g/dL (3.5-5.0); Albumin Globulin Ratio 1.7 (1.0-2.8); Alkaline Phosphatase 63 U/L (38-126); Aspartate Aminotransferase 35 IU/L (17-59); Bilirubin Total 0.8 mg/dL (0.2-1.3); Blood Urea Nitrogen 17 mg/dL (9-20); Calcium 9.3 mg/dL (8.4-10.2); Carbon Dioxide 22 mmol/L (22-32); Chloride 102 mmol/L (98-107); Estimated Glomerular Filt Rate > 60 mL/min (>60); Globulin 2.8 g/dL (1.7-4.1); Glucose 150 mg/dL (80-110); Lactate (Lactic Acid) 1.3 mmol/L (0.7-2.1); Potassium 4.5 mmol/L (3.4-5.1); Sodium 134 mmol/L (137-145); Total Protein 7.5 g/dL (6.3-8.2)
[2024-05-31 08:48] LABS: HEMOLYSIS 93 (0-50)
[2024-05-31 09:01] LABS: Procalcitonin 0.096 ng/mL (<0.5)
[2024-05-31 09:01] LABS: Influenza A - CEPHEID Flu A NEGATIVE (NEGATIVE); Influenza B - CEPHEID Flu B NEGATIVE (NEGATIVE); Respiratory Syncytial Virus Negative (Negative)
[2024-05-31 09:15] LABS: Appearance Urine UA CLEAR; Bilirubin Urine UA NEGATIVE (NEGATIVE); Color Urine UA YELLOW; Glucose Urine UA NEGATIVE (Negative); Ketones Urine UA 1+ (NEGATIVE); Leukocyte Esterase Urine UA NEGATIVE (NEGATIVE); Nitrite Urine UA NEGATIVE (Negative); Occult Blood Urine UA NEGATIVE (Negative); Protein Urine UA TRACE (Negative); pH Urine UA 5.5 (4.5-8.0)
[2024-05-31 09:23] LABS: COVID-19 CEPHEID 4-PLEX PCR POSITIVE (Negative)
[2024-05-31 09:24] LABS: Bacteria Urine Occasional (0-1); Culture Indicated Urine Cult Not Indicated; RBC Urine 0-1/HPF (0-5/HPF); Squamous Epithelial Cell Urine 0-1 /HPF (0-5/HPF); Urine Volume 10mL (spun); WBC Urine 0-1/HPF (0-5/HPF)
== END 2024-05-31 10:55 | disposition home or self-care (01) ==
PROVIDERS: Emergency Provider Emergency Medicine; Family Provider Family Medicine; PCP Family Medicine
DX: U07.1 COVID-19 (principal); G20.A1 Parkinson's disease without dyskinesia, without mention of fluctuations; Z79.899 Other long term (current) drug therapy
CPT/HCPCS: 0241U; 36415; 71045; 80053; 81001; 83605; 84145; 85025; 87040; 93005; 99284

== ENCOUNTER → 2024-06-18 07:04 | Outpatient (CLI) | payer MEDICARE, OTHER, SELFPAY ==
[2024-06-18 09:16] LABS: Hemoglobin A1C% w Est Avg Glu 5.9 % (4.0-6.0)
[2024-06-18 09:18] LABS: Add Manual Diff / Slide Review NO; Basophils Absolute Auto 0 /uL (0-100); Basophils Percent Auto 0.8 % (0-2); Eosinophils Absolute Auto 100 /uL (0-450); Eosinophils Percent Auto 1.4 % (2-4); Hemoglobin 13.2 g/dL (13.5-17.5); Lymphocytes Absolute Auto 2000 /uL (1100-4500); Mean Corpuscular Hemoglobin 31.3 PG (26-34); Mean Corpuscular Volume 92.1 fL (80-100); Monocytes Absolute Auto 400 /uL (0-900); Monocytes Percent Auto 7.2 % (3-14); Neutrophils Absolute Auto 2800 /uL (1500-7000); Neutrophils Percent Auto 52.6 % (50-75); Platelet Count 247 X10^3/uL (150-400); Red Blood Cell Count 4.23 X10^6/uL (4.5-5.9); Red Cell Distribution Width 13.8 % (11.6-14.8); White Blood Cell Count 5.4 X10^3/uL (4.5-11.0)
[2024-06-18 09:49] LABS: Alanine Aminotransferase 5 IU/L (<50); Albumin 4.3 g/dL (3.5-5.0); Alkaline Phosphatase 62 U/L (38-126); Aspartate Aminotransferase 24 IU/L (17-59); BUN Creatinine Ratio 26.9 (6-22); Bilirubin Total 0.5 mg/dL (0.2-1.3); Blood Urea Nitrogen 21 mg/dL (9-20); Calcium 9.4 mg/dL (8.4-10.2); Carbon Dioxide 25 mmol/L (22-32); Chloride 104 mmol/L (98-107); Cholesterol 109 mg/dL (140-199); Estimated Glomerular Filt Rate > 60 mL/min (>60); Globulin 2.2 g/dL (1.7-4.1); Glucose 95 mg/dL (80-110); HDL Cholesterol 40 mg/dL (40-60); HEMOLYSIS < 15 (0-50); LDL Cholesterol Calculated 48 mg/dL (<100); Potassium 4.3 mmol/L (3.4-5.1); Sodium 137 mmol/L (137-145); Total Protein 6.5 g/dL (6.3-8.2); Triglycerides 106 mg/dL (35-150)
[2024-06-18 10:10] LABS: TSH w/ Reflex to FT4 3.31 uIU/mL (0.47-4.68)
[2024-06-18 10:13] LABS: Prostate Specific Antigen Scrn 2.67 ng/mL (0.1-4.0)
[2024-06-19 03:40] LABS: Apolipoprotein B 53 mg/dL (<90)
== END ==
PROVIDERS: Family Provider Family Medicine; PCP Family Medicine; Referring Provider Family Medicine; Visit Provider Family Medicine
DX: E11.9 Type 2 diabetes mellitus without complications (principal); Z12.5 Encounter for screening for malignant neoplasm of prostate; E78.2 Mixed hyperlipidemia; N40.0 Benign prostatic hyperplasia without lower urinary tract symptoms; G20.A1 Parkinson's disease without dyskinesia, without mention of fluctuations
CPT/HCPCS: 36415; 80053; 80061; 82172; 83036; 84443; 85025; G0103